=== PATIENT | female | born 1945 | race Caucasian/White ===

== ENCOUNTER 2017-09-23 13:51 | Observation (INO) | payer MEDICARE, OTHER, SELFPAY | END 2017-09-24 14:10 | disposition home or self-care (01) | PROVIDERS: Admitting Provider Orthopaedic Surgery; PCP Family Medicine; Visit Provider Orthopaedic Surgery | DX: M17.12 Unilateral primary osteoarthritis, left knee (principal); J45.909 Unspecified asthma, uncomplicated; E11.9 Type 2 diabetes mellitus without complications; E78.5 Hyperlipidemia, unspecified; I10 Essential (primary) hypertension; E66.9 Obesity, unspecified; Z79.84 Long term (current) use of oral hypoglycemic drugs; Z87.891 Personal history of nicotine dependence | CPT/HCPCS: 27447; 36415; 73560; 76942; 82962; 85027; 97110; 97116; 97161; 97530; C1776; G0378; G8978; G8979; G8980; C9290; J1100; J2250; J2405; J2704; J3010; J3370 ==

== ENCOUNTER → 2017-11-24 09:41 | Outpatient (CLI) | payer MEDICARE, OTHER, SELFPAY ==
--- NOTE | 2017-11-24 09:44 | DI.MG.S_ITS ---
UNILATERAL RIGHT DIGITAL DIAGNOSTIC MAMMOGRAM 3D/2D SHORT-TERM FOLLOW-UP: 11/24/2017 CLINICAL: Patient returns for a 6 month follow up of the right breast. Family history of breast cancer. Comparison is made to exams dated: 05/26/2017 mammogram, 05/16/2017 mammogram, and 09/01/2015 mammogram - [facility]. There are scattered fibroglandular elements in the right breast. There are linear fine punctate calcifications in the right breast central to the nipple middle depth. These are increased in number of calcifications. No other significant masses or calcifications are seen in the breast. IMPRESSION: SUSPICIOUS OF MALIGNANCY The linear fine punctate calcifications in the right breast are at a low suspicion for malignancy. A stereotactic biopsy is recommended. The findings were discussed with the patient at the conclusion of the study by Dr. Yanez. This exam was interpreted at Station ID: [id number]. NOTE: For mammograms, a report in lay terms will be sent to the patient. Approximately 15% of breast malignancies will not be visualized mammographically. In the management of a palpable breast mass, a negative mammogram must not discourage biopsy of a clinically suspicious lesion. Electronically Signed By: Herminio velarde/:11/24/2017 11:48:55 letter sent: Biopsy Required ACR BI-RADS Category 4a: Suspicious abnormality - low suspicion for malignancy 3344F
== END ==
PROVIDERS: PCP Family Medicine; Visit Provider Family Medicine
DX: R92.1 Mammographic calcification found on diagnostic imaging of breast (principal); Z80.3 Family history of malignant neoplasm of breast
CPT/HCPCS: 77065; G0279

== ENCOUNTER 2017-12-22 09:56 | Day surgery (SDC) | payer MEDICARE, OTHER, SELFPAY ==
[2017-12-19 11:42] VITALS: BMI 35.1
[2017-12-22 10:43] VITALS: BP 143/73; PULSE 93; RESP 15; TEMP 36.2; O2SAT 98; BMI 35.1
--- NOTE | 2017-12-22 11:05 | PM.PREOP ---
Pre-operative Note Interval Note Pre-op Check: History & Physical Reviewed by Physician and Exam Performed
--- NOTE | 2017-12-22 11:06 | P.OP_ITS ---
Operative Date/Time/Diagnoses Date of procedure: 12/22/17 Time of procedure: 13:05 Pre-op diagnosis: Left knee adhesions status post total knee arthroplasty Post-op diagnosis: same Procedure & Clinicians Procedure: Left knee manipulation under anesthesia Same procedure as scheduled: Yes Indications: Patient is status post total knee arthroplasty. She received no physical therapy for 6 weeks despite affected was scheduled for [facility] Physical therapy because she had a cold. She developed severe stiffness in her knee and is brought the operating room for manipulation under anesthesia. Surgeon: Jenna Cheatham Gis Software Engineer: Baljinder Castro Anesthesia Type: General Operative Notes Findings: Preop range of motion 10-80 degrees, post manipulation range of motion 5 to 120? Closure Type: not applicable Specimen(s): none sent Procedure in detail: Patient was brought to the operating room. She underwent a preoperative block for postoperative pain control. In the operating room she underwent general anesthesia. Her knee was carefully manipulated from about 5- 120 degrees a discrete release of adhesions was palpable. She was injected with Marcaine intra-articularly. She tolerated the procedure without difficulty. Complications: none Condition: stable Disposition: same day surgery Plan for aftercare: Push physical therapy to work hard on range of motion especially regain full flexion and full extension.
--- NOTE | 2017-12-22 12:19 | SUR.PREOP ---
Block start time [1204] . Monitoring initiated and maintained throughout procedure. Oxygen and medications given per anesthesiologist instructions. Patient remained stable throughout procedure, no adverse reactions noted. Block end time []1211 .
[2017-12-22] MEDS: LACTATED RINGERS 1,000 ML 42 ML IV (12:20)
--- NOTE | 2017-12-22 13:07 | P.PCN_ITS ---
Procedures Date/Time Date of procedure: 12/22/17 Time of procedure: 12:00 General Procedure description: Ultrasound guided adductor canal nerve block for post op pain control after left knee manipulation by Dr. Cheatham. Risk and benefits of procedure discussed with patient. ASA monitoring applied to patient. 02 given via nasal cannula. 1 mg Versed and 50 mcg fentanyl given for procedural sedation. Skin site was prepped with chlorhexidine and allowed to fully dry. Sterile gloves, mask, hat and probe cover were used to maintain sterility. 2% lidocaine and 30ga needle was used to make a small skin wheal at needle insertion site. Under ultrasound guidance, a 21ga 100mm Pajunk needle was directed into the adductor canal near femoral artery and saphenous nerve at the level of mid thigh. Patient reported no parasthesias. After negative aspiration , 20 mL 0.5% ropivicaine and 10mg dexamethasone were injected around saphenous nerve. Patient tolerated procedure well.
[2017-12-22 13:59] VITALS: BP 122/67; PULSE 87; RESP 19; TEMP 36.6; O2SAT 95
[2017-12-22 14:04] VITALS: BP 127/68; PULSE 85; RESP 23; O2SAT 94
[2017-12-22] MEDS: BUPIVACAINE 0.25% W/ EPI VIAL 20 ML INJ (14:04)
[2017-12-22 14:09] VITALS: BP 107/69; PULSE 82; RESP 24; TEMP 36.3; O2SAT 94
--- NOTE | 2017-12-22 14:13 | SUR.PHASEI ---
2 bandaids on operative side c/d/i.
[2017-12-22 14:27] VITALS: BP 144/70; PULSE 74; RESP 15; TEMP 36.3; O2SAT 98
--- NOTE | 2017-12-22 14:45 | SUR.PHASEII ---
Desires discharge home.
== END 2017-12-22 14:46 | disposition home or self-care (01) ==
PROVIDERS: Family Provider Family Medicine; PCP Family Medicine; Visit Provider Orthopaedic Surgery
PROC: (CPT 27570; principal; 2017-12-22 16:45)
DX: T84.89XA Other specified complication of internal orthopedic prosthetic devices, implants and grafts, initial encounter (principal); Z96.652 Presence of left artificial knee joint; M17.12 Unilateral primary osteoarthritis, left knee; M23.8X2 Other internal derangements of left knee
CPT/HCPCS: 27570; J1100; J2250; J2704; J2795; J3010

== ENCOUNTER → 2018-02-16 12:38 | Outpatient (CLI) | payer MEDICARE, OTHER, SELFPAY ==
[2018-02-16 13:32] LABS: Hemoglobin A1C% w Est Avg Glu 5.9 % (4.0-6.0)
== END ==
PROVIDERS: Family Provider Family Medicine; PCP Family Medicine; Visit Provider Family Medicine
DX: E11.9 Type 2 diabetes mellitus without complications (principal)
CPT/HCPCS: 36415; 83036

== ENCOUNTER 2018-03-23 12:30 | Outpatient (RCR) | payer MEDICARE, OTHER, SELFPAY ==
--- NOTE | 2017-11-11 15:23 | PT.OIE ---
Current Diagnoses Bilateral primary osteoarthritis of knee (11/10/17) Other symptoms and signs involving the musculoskeletal system (11/10/17) Other reduced mobility (11/10/17) Past Surgical History History of esophagogastroduodenoscopy (EGD) Status post arthroscopy Status post delivery Status post colonoscopy Status post dilation and curettage Provider Visit Care Team Role Provider Type Anabell Marti DO Family Provider Physician Primary Care Provider Specialty: Family Practice Address: [address] [place] [address], [id number] Email: [email or web address] Jenna Cheatham MD Attending Provider Physician Specialty: Orthopedic Surgery Address: [address] [place] [address], [id number] Email: [email or web address] Physical Therapy Initial Evaluation PT-OP-A Visit Information Start: 11/10/17 08:22 Freq: Status: Active Protocol: Document 11/10/17 13:35 LRN (Rec: 11/10/17 14:12 LRN [id number]) Out-Patient Physical Therapy Visit Information Visit Information Visit Type Initial Evaluation Visit Note 06/18 Visit Start Time 13:35 Visit Stop Time 14:55 Total Visit Minutes 80 Visit Number 1 Number of AVIONICS SYSTEMS TECHNICIAN Visits 0 Evaluation Information Evaluation Date 11/10/17 PT-OP-B Current Condition Start: 11/10/17 08:22 Freq: Status: Active Protocol: Document 11/10/17 13:35 LRN (Rec: 11/10/17 14:12 LRN [id number]) Current Condition History of Current Condition Onset Date 09/22/17 Current Complaints Lack of L knee mobility. History of Current Condition Pt underwent L TKA surgery (s/p 6 weeks today), had PT during 4 days in the hospital, then went home and got sick, therefore did not go to oupatient PT. She did therapy at home using the HEP given at the hospital until last week when seen for a follow up appointment with her surgeon. She is now being referred for 3 weeks outpatient L TKA rehabilitation to determine if she needs SAÚL. Pt has bilateral arthritis of the knees. She is planning on having a knee replacement on the other knee someday. Future Testing and Treatments Planned No other MD appointments set up currently. Treatment Goals Patient/Caregiver Goals Pt goal is to be able to move the L leg back further because if not better she will have to undergo a manipulation. Prior Functional Status Baseline Function- ADL's Independent Baseline Function- Mobility Independent Baseline Function- Gait Ambulated with a cane outside, sometimes 4WW with seat for long distances. Baseline Function- Other Stairs: One at a time with railing. Current Functional Impairments (Reported) Functional Limitations- ADL's Difficulty getting L shoe on, has medical [facility] sales on toilet. Daughter helps with cooking. Functional Limitations- Mobility/Gait Requires use of 2WW for gait intermittently. Personal Factors Other Personal Factors That May Effect Pt is attended with a daughter Therapy/Recovery to therapy today, but lives with another daughter who the pt feels doesn't help her too much. PT-OP-C Subjective Start: 11/10/17 08:22 Freq: Status: Active Protocol: Document 11/10/17 13:35 LRN (Rec: 11/11/17 15:21 LRN [id number]) Patient Questionnaires Lower Extremity Functional Scale LEFS Score 37 LEFS Impairment 40 to 59% Impaired (Score 32- 47) OP-PT Pain Assessment Pain Assessment Grid Paper Pain Assessment Grid Completed Yes Location Left Anterior Knee Intensity 3 Scale Used Numeric (1 - 10) Pain Aggravating Factors Activity Exercise PT-OP-E Functional Tests Start: 11/10/17 08:22 Freq: Status: Active Protocol: Document 11/10/17 13:35 LRN (Rec: 11/10/17 14:12 LRN [id number]) Functional Tests Timed Up and Go (TUG) Score 23 sec's Comments Uses hands to get up from chair. TUG Impairment Rating 100% Impaired (Score 20) PT-OP-F Manual Assessment Start: 11/10/17 08:22 Freq: Status: Active Protocol: Document 11/10/17 13:35 LRN (Rec: 11/10/17 14:12 LRN [id number]) Manual Assessments Soft Tissue Assessment Soft Tissue Mobility Assessment Decreased L knee scar mobility . Scar is well healed. Increased temperature at the knee joint with mild to moderate joint effusion. PT-OP-G Mobility & Gait Start: 11/10/17 08:22 Freq: Status: Active Protocol: Document 11/10/17 13:35 LRN (Rec: 11/10/17 14:12 LRN [id number]) OP Mobility Evaluation Transfers Sit to Stand Uses hands, holds leg in extended position. OP Gait Assessment Assistive Devices Assistive Device Front Wheeled Walker Orthotic/Prosthetic Devices or Brace: No Gait Deviations General Gait Pattern Antalgic Flexed Trunk Lateral Trunk Lean Narrow Based Gait Factors Limiting Gait Function Factors Limiting Gait Function Limited Range of Motion Pain Poor Balance Comments Gait Comments Notable L trunk lean with gait . Pt hold L knee straight. PT-OP-H Neuro Start: 11/10/17 08:22 Freq: Status: Active Protocol: Document 11/10/17 13:35 LRN (Rec: 11/10/17 14:12 LRN [id number]) Sensation Evaluation Location Details Left Anterior Knee Light Touch Impaired Deep Tendon Reflex & Clonus Assessment Deep Tendon Reflex Right Deep Tendon Reflex 2+ Normal Left Achilles Deep Tendon Reflex 0 Absent PT-OP-J Posture/Palpation/Skin Start: 11/10/17 08:22 Freq: Status: Active Protocol: Document 11/10/17 13:35 LRN (Rec: 11/10/17 14:12 LRN [id number]) Posture Evaluation Position Standing Head/C-Spine Posture Forward Head T-Spine Posture Increased Kyphosis Pelvis Posture Neutral Weight Distribution Weight Shifted Right Hip Posture (L) Flexed (R) Flexed Knee Posture (L) Excess Flexion Ankle/Foot Posture (R) Pronated PT-OP-K Range of Motion Start: 11/10/17 08:22 Freq: Status: Active Protocol: Document 11/10/17 13:35 LRN (Rec: 11/10/17 17:09 LRN [id number]) Knee Goniometric Range of Motion Knee Measured in Degrees Right Patient Position Supine Flexion Active (degrees) 109 Left Patient Position Supine Flexion Active (degrees) 60 Flexion Passive (degrees) 80 Knee ROM Limitations Comments Knee Extension: AROM: Supine: Left-lacks 15 deg's; Right- lacks 12 deg's Ankle and Foot Goniometric Range of Motion Ankle and Foot ROM Limitations ROM Limitations Soft Tissue Tightness Muscle Weakness Comments L Active ankle DF is 0 deg's R Active ankle DF is 3 deg's PT-OP-Q Treatments Start: 11/10/17 08:22 Freq: Status: Active Protocol: Document 11/10/17 13:35 LRN (Rec: 11/10/17 17:15 LRN [id number]) Therapeutic Exercises Supine Exercises 1 Supine Exercise Name Knee flexion Long hold stretch followed by active assistive flexion Side left Reps/Minutes 3x Comments Active Assistive & Passive stretch for 2-3' Self-Care/Home Management Treatment Education Caregiver Education Educated daughter in how to assist mother with knee flexion stretch. Discussed use of RICE method to reduce pt's edema in the knee. Other Education Education on use of K-tape for edema, but decided not appropriate for pt. Activities Self-Care/Home Management Activities I/S pt and DA in self care for edema management (RICE), self scar mobilization, stretch for knee flexion of long duration, small intensity. Discussed focus of PT is on improving ROM, secondary to strength/endurance. PT-OP-R Modalities Start: 11/10/17 08:22 Freq: Status: Active Protocol: Document 11/10/17 13:35 LRN (Rec: 11/10/17 17:16 LRN [id number]) Hot Pack/Cold Pack Treatment Cold Pack Location L knee in elevation Patient Position Supine Treatment Duration (minutes) 10 Patient Tolerance Good PT-OP-T Assessment and Plan Start: 11/10/17 08:22 Freq: Status: Active Protocol: Document 11/10/17 13:35 LRN (Rec: 11/10/17 17:34 LRN [id number]) Physical Therapy Assessment Rehab Potential Rehabilitation Potential Good Evaluation Complexity Number of Personal Factors/Comorbidities 1-2 Number of Body Systems Impaired 4 or More Clinical Presentation at Evaluation Evolving Impairments Impairments Edema Gait Posture ROM Soft Tissue Mobility Strength Other Concerns Barriers to Rehabilitation Age, NIDDM. Goals Three Impairment L knee edema Short Term Goal (STG) Pt will demonstrate decreased L knee edema with a decrease in L knee pain and improved function per TUG score. STG Duration 3 weeks (12/01/17) Two Impairment Lacks appropriate HEP Retirement Goal (LTG) Pt will be educated in a comprehensive independent HEP for self care. LTG Duration 8 weeks (01/05/18) One Impairment Decreased L knee AROM/PROM Short Term Goal (STG) Improve L knee AROM 0-95 deg's . Improve L knee PROM 0-105 deg' s. Pt to avoid L knee manipulation. STG Duration 3 weeks (12/01/17) Sole Rougher Goal (LTG) L knee AROM: 0-115 deg's L knee PROM: 0-120 deg's. Pt will be able to walk stairs with normal gait pattern using 1 railing. LTG Duration 8 weeks (01/05/18) Assessment Summary Assessment Pt presents with L knee decreased mobility, strength, and function, as well as increased edema and pain at the knee limiting mobility and function. The pt appears to have a fairly high pain tolerance, but has been very cautious with her home exercise program; therefore is quite limited in her knee mobility. She has fairly good strength in her available range and is able to ambulate without an assistive device, but demonstrating a very poor antalgic gait pattern. The pt will benefit from skilled physical therapy to improve her knee mobility and function as her edema decreases and her ROM/strength improves. I think the pt will be able to achieve a more functional ROM with hopes of avoiding surgical manipulation. If the pt is not able to gain appropriate level of mobility and undergoes manipulation it is recommended she return to therapy post manipulation at the very least 3x/week for her rehabilitation to start. Extra time taken for evaluation due to documentation limitations. Physical Therapy Plan Frequency and Duration Frequency of Treatment 2x/Week Duration of Treatment 3 weeks, test engineering technician 8 weeks if manipulation is required. Plan of Care Start Date 11/10/17 Plan of Care End Date 01/05/18 Therapeutic Interventions Therapeutic Interventions Aquatic Therapy Gait Training Home Exercise Program Manual Therapy Neuromuscular Re-education Patient/Caregiver Education Self-Care/Home Management Soft Tissue Mobilization Therapeutic Activities Therapeutic Exercises Modalities Cold Pack/Ice Massage Hot Packs Next Visit Focus/Plan Next Note Type Treatment Note Next Visit Plan Educate pt in LE Lymphedema ex program, if daughter is present educate her in s/p TKA lymph massage, otherwise instruct pt. Focus is on improving L knee ROM, decreasing edema. Please Sign and Return: I have reviewed this Plan of Care and certify that the skilled therapy services above are required to meet the patient?s needs. Physician Signature Date Printed Name and Credentials Clinical Instructor Signature Printed Name and Credentials
--- NOTE | 2017-11-11 15:27 | PT.OPPOC ---
Current Diagnoses Bilateral primary osteoarthritis of knee (11/10/17) Other symptoms and signs involving the musculoskeletal system (11/10/17) Other reduced mobility (11/10/17) Provider Visit Care Team Role Provider Type Anabell Marti DO Family Provider Physician Primary Care Provider Specialty: Family Practice Address: [address] [place] [address], [id number] Email: [email or web address] Jenna Cheatham MD Attending Provider Physician Specialty: Orthopedic Surgery Address: [address] [place] [address], [id number] Email: [email or web address] Plan Of Care PT-OP-T Assessment and Plan Start: 11/10/17 08:22 Freq: Status: Active Protocol: Document 11/10/17 13:35 LRN (Rec: 11/10/17 17:34 LRN [id number]) Physical Therapy Assessment Rehab Potential Rehabilitation Potential Good Evaluation Complexity Number of Personal Factors/Comorbidities 1-2 Number of Body Systems Impaired 4 or More Clinical Presentation at Evaluation Evolving Impairments Impairments Edema Gait Posture ROM Soft Tissue Mobility Strength Other Concerns Barriers to Rehabilitation Age, NIDDM. Goals Three Impairment L knee edema Short Term Goal (STG) Pt will demonstrate decreased L knee edema with a decrease in L knee pain and improved function per TUG score. STG Duration 3 weeks (12/01/17) Two Impairment Lacks appropriate HEP Regional Clinical Director Goal (LTG) Pt will be educated in a comprehensive independent HEP for self care. LTG Duration 8 weeks (01/05/18) One Impairment Decreased L knee AROM/PROM Short Term Goal (STG) Improve L knee AROM 0-95 deg's . Improve L knee PROM 0-105 deg' s. Pt to avoid L knee manipulation. STG Duration 3 weeks (12/01/17) Regional Clinical Director Goal (LTG) L knee AROM: 0-115 deg's L knee PROM: 0-120 deg's. Pt will be able to walk stairs with normal gait pattern using 1 railing. LTG Duration 8 weeks (01/05/18) Assessment Summary Assessment Pt presents with L knee decreased mobility, strength, and function, as well as increased edema and pain at the knee limiting mobility and function. The pt appears to have a fairly high pain tolerance, but has been very cautious with her home exercise program; therefore is quite limited in her knee mobility. She has fairly good strength in her available range and is able to ambulate without an assistive device, but demonstrating a very poor antalgic gait pattern. The pt will benefit from skilled physical therapy to improve her knee mobility and function as her edema decreases and her ROM/strength improves. I think the pt will be able to achieve a more functional ROM with hopes of avoiding surgical manipulation. If the pt is not able to gain appropriate level of mobility and undergoes manipulation it is recommended she return to therapy post manipulation at the very least 3x/week for her rehabilitation to start. Extra time taken for evaluation due to documentation limitations. Physical Therapy Plan Frequency and Duration Frequency of Treatment 2x/Week Duration of Treatment 3 weeks, rotary lithographic press operator 8 weeks if manipulation is required. Plan of Care Start Date 11/10/17 Plan of Care End Date 01/05/18 Therapeutic Interventions Therapeutic Interventions Aquatic Therapy Gait Training Home Exercise Program Manual Therapy Neuromuscular Re-education Patient/Caregiver Education Self-Care/Home Management Soft Tissue Mobilization Therapeutic Activities Therapeutic Exercises Modalities Cold Pack/Ice Massage Hot Packs Next Visit Focus/Plan Next Note Type Treatment Note Next Visit Plan Educate pt in LE Lymphedema ex program, if daughter is present educate her in s/p TKA lymph massage, otherwise instruct pt. Focus is on improving L knee ROM, decreasing edema. Plan of Care Dates Plan of Care Start Date 11/10/17 Plan of Care End Date 01/05/18 Please Sign and Return: I have reviewed this Plan of Care and certify that the skilled therapy services above are required to meet the patient?s needs. Physician Signature Date Printed Name and Credentials Clinical Instructor Signature Printed Name and Credentials
--- NOTE | 2017-11-14 14:54 | PT.OTN ---
Current Diagnoses Bilateral primary osteoarthritis of knee (11/14/17) Physical Therapy Treatment Note PT-OP-A Visit Information Start: 11/10/17 08:22 Freq: Status: Active Protocol: Document 11/14/17 13:42 LRN (Rec: 11/14/17 14:06 LRN [id number]) Out-Patient Physical Therapy Visit Information Visit Information Visit Type Discharge Summary Visit Note 07/19 Visit Start Time 13:42 Visit Stop Time 14:22 Total Visit Minutes 40 Visit Number 2 Number of ASSOCIATE SALES MANAGER Visits 0 Evaluation Information Evaluation Date 11/10/17 PT-OP-B Current Condition Start: 11/10/17 08:22 Freq: Status: Active Protocol: Document 11/10/17 13:35 LRN (Rec: 11/10/17 14:12 LRN [id number]) Current Condition History of Current Condition Onset Date 09/22/17 Current Complaints Lack of L knee mobility. History of Current Condition Pt underwent L TKA surgery (s/p 6 weeks today), had PT during 4 days in the hospital, then went home and got sick, therefore did not go to oupatient PT. She did therapy at home using the HEP given at the hospital until last week when seen for a follow up appointment with her surgeon. She is now being referred for 3 weeks outpatient L TKA rehabilitation to determine if she needs SAÚL. Pt has bilateral arthritis of the knees. She is planning on having a knee replacement on the other knee someday. Future Testing and Treatments Planned No other MD appointments set up currently. Treatment Goals Patient/Caregiver Goals Pt goal is to be able to move the L leg back further because if not better she will have to undergo a manipulation. Prior Functional Status Baseline Function- ADL's Independent Baseline Function- Mobility Independent Baseline Function- Gait Ambulated with a cane outside, sometimes 4WW with seat for long distances. Baseline Function- Other Stairs: One at a time with railing. Current Functional Impairments (Reported) Functional Limitations- ADL's Difficulty getting L shoe on, has cafeteria monitor on toilet. Daughter helps with cooking. Functional Limitations- Mobility/Gait Requires use of 2WW for gait intermittently. Personal Factors Other Personal Factors That May Effect Pt is attended with a daughter Therapy/Recovery to therapy today, but lives with another daughter who the pt feels doesn't help her too much. PT-OP-C Subjective Start: 11/10/17 08:22 Freq: Status: Active Protocol: Document 11/14/17 13:42 LRN (Rec: 11/14/17 14:06 LRN [id number]) OP-PT Subjective Patient Comments Patient Comments Has tried doing the ex's. Doing them on her own. PT-OP-E Functional Tests Start: 11/10/17 08:22 Freq: Status: Active Protocol: Document 11/10/17 13:35 LRN (Rec: 11/10/17 14:12 LRN [id number]) Functional Tests Timed Up and Go (TUG) Score 23 sec's Comments Uses hands to get up from chair. TUG Impairment Rating 100% Impaired (Score 20) PT-OP-F Manual Assessment Start: 11/10/17 08:22 Freq: Status: Active Protocol: Document 11/10/17 13:35 LRN (Rec: 11/10/17 14:12 LRN [id number]) Manual Assessments Soft Tissue Assessment Soft Tissue Mobility Assessment Decreased L knee scar mobility . Scar is well healed. Increased temperature at the knee joint with mild to moderate joint effusion. PT-OP-G Mobility & Gait Start: 11/10/17 08:22 Freq: Status: Active Protocol: Document 11/10/17 13:35 LRN (Rec: 11/10/17 14:12 LRN [id number]) OP Mobility Evaluation Transfers Sit to Stand Uses hands, holds leg in extended position. OP Gait Assessment Assistive Devices Assistive Device Front Wheeled Walker Orthotic/Prosthetic Devices or Brace: No Gait Deviations General Gait Pattern Antalgic Flexed Trunk Lateral Trunk Lean Narrow Based Gait Factors Limiting Gait Function Factors Limiting Gait Function Limited Range of Motion Pain Poor Balance Comments Gait Comments Notable L trunk lean with gait . Pt hold L knee straight. PT-OP-H Neuro Start: 11/10/17 08:22 Freq: Status: Active Protocol: Document 11/10/17 13:35 LRN (Rec: 11/10/17 14:12 LRN [id number]) Sensation Evaluation Location Details Left Anterior Knee Light Touch Impaired Deep Tendon Reflex & Clonus Assessment Deep Tendon Reflex Right Deep Tendon Reflex 2+ Normal Left Achilles Deep Tendon Reflex 0 Absent PT-OP-J Posture/Palpation/Skin Start: 11/10/17 08:22 Freq: Status: Active Protocol: Document 11/10/17 13:35 LRN (Rec: 11/10/17 14:12 LRN [id number]) Posture Evaluation Position Standing Head/C-Spine Posture Forward Head T-Spine Posture Increased Kyphosis Pelvis Posture Neutral Weight Distribution Weight Shifted Right Hip Posture (L) Flexed (R) Flexed Knee Posture (L) Excess Flexion Ankle/Foot Posture (R) Pronated PT-OP-K Range of Motion Start: 11/10/17 08:22 Freq: Status: Active Protocol: Document 11/14/17 13:42 LRN (Rec: 11/14/17 14:34 LRN [id number]) Knee Goniometric Range of Motion Knee Measured in Degrees Left Patient Position Supine Flexion Active (degrees) 72 Flexion Passive (degrees) 77 PT-OP-Q Treatments Start: 11/10/17 08:22 Freq: Status: Active Protocol: Document 11/14/17 13:42 LRN (Rec: 11/14/17 14:06 LRN [id number]) Cardio Equipment Recumbent Stepper (Sci-Fit) Duration (Minutes) 6 Resistance 1 Seat Position 10 Therapeutic Exercises Supine Exercises 4 Supine Exercise Name Knee 1' hang followed by 10 Quad Sets Reps/Minutes 3 x 3 Supine Exercise Name Self assisted heel slide stretch with Belt Reps/Minutes 10 x 2 Supine Exercise Name Active knee flexion with end- range hold with T-Ball Side left Reps/Minutes 15x 1 Supine Exercise Name Knee flexion Long hold stretch followed by active assistive flexion Side left Reps/Minutes 3x Comments Active Assistive & Passive stretch for 2-3' Sitting Exercises 1 Sitting Exercise Name Passive 1' knee flex stretch followed by 10 rep hamstring curl Side left Reps/Minutes 3 x Gait Training Gait Activity 1 Description L foot toe off, knee flexion > swing through. Device Used FWW Level of Assistance CGA>SBA Surface Level Distance/Duration 4' Comments Pt requires slow thoughtful processing to normalize mechanics of gait. Manual Therapy Treatment Soft Tissue Mobilization 1 Body Location Scar at L knee Mobilization Type Other Body Position Sitting Comments Scar Mob sitting and supine Self-Care/Home Management Treatment Activities Self-Care/Home Management Activities I/S and reviewed supine active knee flex (knee to chest-type ) stretch. PT-OP-R Modalities Start: 11/10/17 08:22 Freq: Status: Active Protocol: Document 11/14/17 13:42 LRN (Rec: 11/14/17 14:34 LRN [id number]) Hot Pack/Cold Pack Treatment Cold Pack Location At doctor's office Patient Position Sitting Treatment Duration (minutes) 0 Comments Issued one to go PT-OP-T Assessment and Plan Start: 11/10/17 08:22 Freq: Status: Active Protocol: Document 11/14/17 13:42 LRN (Rec: 11/14/17 14:34 LRN [id number]) Physical Therapy Assessment Goals Three Impairment L knee edema Short Term Goal (STG) Pt will demonstrate decreased L knee edema with a decrease in L knee pain and improved function per TUG score. STG Duration 3 weeks (12/01/17) Two Impairment Lacks appropriate HEP Snf Goal (LTG) Pt will be educated in a comprehensive independent HEP for self care. LTG Duration 8 weeks (01/05/18) One Impairment Decreased L knee AROM/PROM Short Term Goal (STG) Improve L knee AROM 0-95 deg's . Improve L knee PROM 0-105 deg' s. Pt to avoid L knee manipulation. STG Duration 3 weeks (12/01/17) Snf Goal (LTG) L knee AROM: 0-115 deg's L knee PROM: 0-120 deg's. Pt will be able to walk stairs with normal gait pattern using 1 railing. LTG Duration 8 weeks (01/05/18) Assessment Summary Assessment L knee Active Flex has improved to 70 deg's, post therapy. Pt scar is tightly bound down, severely decreased in mobility. Physical Therapy Plan Frequency and Duration Frequency of Treatment 2x/Week Duration of Treatment 3 weeks, ferry terminal agent 8 weeks if manipulation is required. Plan of Care Start Date 11/10/17 Plan of Care End Date 01/05/18 Next Visit Focus/Plan Next Note Type Treatment Note Next Visit Plan Start LE TKA Lymphedema ex routine. Maximally progress L knee ROM for pt to be able to avoid L knee manipulation in ~2 weeks. Please Sign and Return: I have reviewed this Plan of Care and certify that the skilled therapy services above are required to meet the patient?s needs. Physician Signature Date Printed Name and Credentials Clinical Instructor Signature Printed Name and Credentials
--- NOTE | 2017-11-18 17:51 | PT.OTN ---
Current Diagnoses Bilateral primary osteoarthritis of knee (11/18/17) Physical Therapy Treatment Note PT-OP-A Visit Information Start: 11/10/17 08:22 Freq: Status: Active Protocol: Document 11/18/17 12:00 GGD (Rec: 11/18/17 17:51 GGD [email or web address]) Out-Patient Physical Therapy Visit Information Visit Information Visit Type Treatment Note Visit Note 08/16 Visit Start Time 12:00 Visit Stop Time 12:50 Total Visit Minutes 40 Visit Number 3 Number of SEAMER OPERATOR Visits 1 Evaluation Information Evaluation Date 11/10/17 PT-OP-B Current Condition Start: 11/10/17 08:22 Freq: Status: Active Protocol: Document 11/10/17 13:35 LRN (Rec: 11/10/17 14:12 LRN [id number]) Current Condition History of Current Condition Onset Date 09/22/17 Current Complaints Lack of L knee mobility. History of Current Condition Pt underwent L TKA surgery (s/p 6 weeks today), had PT during 4 days in the hospital, then went home and got sick, therefore did not go to oupatient PT. She did therapy at home using the HEP given at the hospital until last week when seen for a follow up appointment with her surgeon. She is now being referred for 3 weeks outpatient L TKA rehabilitation to determine if she needs SAÚL. Pt has bilateral arthritis of the knees. She is planning on having a knee replacement on the other knee someday. Future Testing and Treatments Planned No other MD appointments set up currently. Treatment Goals Patient/Caregiver Goals Pt goal is to be able to move the L leg back further because if not better she will have to undergo a manipulation. Prior Functional Status Baseline Function- ADL's Independent Baseline Function- Mobility Independent Baseline Function- Gait Ambulated with a cane outside, sometimes 4WW with seat for long distances. Baseline Function- Other Stairs: One at a time with railing. Current Functional Impairments (Reported) Functional Limitations- ADL's Difficulty getting L shoe on, has fusing furnace loader on toilet. Daughter helps with cooking. Functional Limitations- Mobility/Gait Requires use of 2WW for gait intermittently. Personal Factors Other Personal Factors That May Effect Pt is attended with a daughter Therapy/Recovery to therapy today, but lives with another daughter who the pt feels doesn't help her too much. PT-OP-C Subjective Start: 11/10/17 08:22 Freq: Status: Active Protocol: Document 11/18/17 12:00 GGD (Rec: 11/18/17 17:51 GGD [email or web address]) OP-PT Subjective Patient Comments Patient Comments PT states she been trying to work on stretching. PT-OP-E Functional Tests Start: 11/10/17 08:22 Freq: Status: Active Protocol: Document 11/10/17 13:35 LRN (Rec: 11/10/17 14:12 LRN [id number]) Functional Tests Timed Up and Go (TUG) Score 23 sec's Comments Uses hands to get up from chair. TUG Impairment Rating 100% Impaired (Score 20) PT-OP-F Manual Assessment Start: 11/10/17 08:22 Freq: Status: Active Protocol: Document 11/10/17 13:35 LRN (Rec: 11/10/17 14:12 LRN [id number]) Manual Assessments Soft Tissue Assessment Soft Tissue Mobility Assessment Decreased L knee scar mobility . Scar is well healed. Increased temperature at the knee joint with mild to moderate joint effusion. PT-OP-K Range of Motion Start: 11/10/17 08:22 Freq: Status: Active Protocol: Document 11/18/17 12:00 GGD (Rec: 11/18/17 17:51 GGD [email or web address]) Knee Goniometric Range of Motion Knee Measured in Degrees Left Patient Position Supine Flexion Active (degrees) 80 PT-OP-Q Treatments Start: 11/10/17 08:22 Freq: Status: Active Protocol: Document 11/18/17 12:00 GGD (Rec: 11/18/17 17:51 GGD [email or web address]) Cardio Equipment Recumbent Stepper (Sci-Fit) Duration (Minutes) 6 Resistance 1 Seat Position 10 Therapeutic Exercises Supine Exercises 3 Supine Exercise Name Self assisted heel slide stretch with Belt Reps/Minutes 10 x 2 Supine Exercise Name Active knee flexion with end- range hold with T-Ball Side left Reps/Minutes 15x 1 Supine Exercise Name Knee flexion Long hold stretch followed by active assistive flexion Side left Reps/Minutes 3x Comments Active Assistive & Passive stretch for 2-3' Sitting Exercises 1 Sitting Exercise Name Passive 1' knee flex stretch followed by 10 rep hamstring curl Side left Reps/Minutes 3 x Gait Training Gait Activity 1 Description L foot toe off, knee flexion > swing through. Device Used FWW Level of Assistance CGA>SBA Surface Level Distance/Duration 4' Manual Therapy Treatment Soft Tissue Mobilization 1 Body Location Scar at L knee Mobilization Type Other Body Position Sitting Comments Scar Mob sitting and supine PT-OP-R Modalities Start: 11/10/17 08:22 Freq: Status: Active Protocol: Document 11/18/17 12:00 GGD (Rec: 11/18/17 17:51 GGD [email or web address]) Hot Pack/Cold Pack Treatment Cold Pack Location L knee in elevation Patient Position Supine Treatment Duration (minutes) 10 Patient Tolerance Good PT-OP-T Assessment and Plan Start: 11/10/17 08:22 Freq: Status: Active Protocol: Document 11/18/17 12:00 GGD (Rec: 11/18/17 17:51 GGD [email or web address]) Physical Therapy Assessment Assessment Summary Assessment Pt improved with knee flexion with treatment. She had slight increase in pain, but was able to tolerate exercise. Physical Therapy Plan Frequency and Duration Frequency of Treatment 2x/Week Duration of Treatment 3 weeks, jail 8 weeks if manipulation is required. Plan of Care Start Date 11/10/17 Plan of Care End Date 01/05/18 Next Visit Focus/Plan Next Note Type Treatment Note Next Visit Plan Maximally progress L knee ROM for pt to be able to avoid L knee manipulation in ~2 weeks.
--- NOTE | 2017-11-20 10:56 | PT.OTN ---
Current Diagnoses Bilateral primary osteoarthritis of knee (11/20/17) Physical Therapy Treatment Note PT-OP-A Visit Information Start: 11/10/17 08:22 Freq: Status: Active Protocol: Document 11/20/17 10:30 RCC (Rec: 11/20/17 10:56 RCC [email or web address]) Out-Patient Physical Therapy Visit Information Visit Information Visit Type Treatment Note Visit Note 09/16 Visit Start Time 09:45 Visit Stop Time 10:35 Total Visit Minutes 55 Visit Number 4 Number of AERONAUTICAL DRAFTER Visits 0 Evaluation Information Evaluation Date 11/10/17 PT-OP-B Current Condition Start: 11/10/17 08:22 Freq: Status: Active Protocol: Document 11/10/17 13:35 LRN (Rec: 11/10/17 14:12 LRN [id number]) Current Condition History of Current Condition Onset Date 09/22/17 Current Complaints Lack of L knee mobility. History of Current Condition Pt underwent L TKA surgery (s/p 6 weeks today), had PT during 4 days in the hospital, then went home and got sick, therefore did not go to oupatient PT. She did therapy at home using the HEP given at the hospital until last week when seen for a follow up appointment with her surgeon. She is now being referred for 3 weeks outpatient L TKA rehabilitation to determine if she needs SAÚL. Pt has bilateral arthritis of the knees. She is planning on having a knee replacement on the other knee someday. Future Testing and Treatments Planned No other MD appointments set up currently. Treatment Goals Patient/Caregiver Goals Pt goal is to be able to move the L leg back further because if not better she will have to undergo a manipulation. Prior Functional Status Baseline Function- ADL's Independent Baseline Function- Mobility Independent Baseline Function- Gait Ambulated with a cane outside, sometimes 4WW with seat for long distances. Baseline Function- Other Stairs: One at a time with railing. Current Functional Impairments (Reported) Functional Limitations- ADL's Difficulty getting L shoe on, has gas substation operator on toilet. Daughter helps with cooking. Functional Limitations- Mobility/Gait Requires use of 2WW for gait intermittently. Personal Factors Other Personal Factors That May Effect Pt is attended with a daughter Therapy/Recovery to therapy today, but lives with another daughter who the pt feels doesn't help her too much. PT-OP-C Subjective Start: 11/10/17 08:22 Freq: Status: Active Protocol: Document 11/20/17 10:30 RCC (Rec: 11/20/17 10:56 RCC [email or web address]) OP-PT Subjective Patient Comments Patient Comments Pt forgot to do her stretching activities yesteday and now states her knee feels very stiff today. PT-OP-E Functional Tests Start: 11/10/17 08:22 Freq: Status: Active Protocol: Document 11/10/17 13:35 LRN (Rec: 11/10/17 14:12 LRN [id number]) Functional Tests Timed Up and Go (TUG) Score 23 sec's Comments Uses hands to get up from chair. TUG Impairment Rating 100% Impaired (Score 20) PT-OP-F Manual Assessment Start: 11/10/17 08:22 Freq: Status: Active Protocol: Document 11/10/17 13:35 LRN (Rec: 11/10/17 14:12 LRN [id number]) Manual Assessments Soft Tissue Assessment Soft Tissue Mobility Assessment Decreased L knee scar mobility . Scar is well healed. Increased temperature at the knee joint with mild to moderate joint effusion. PT-OP-G Mobility & Gait Start: 11/10/17 08:22 Freq: Status: Active Protocol: Document 11/10/17 13:35 LRN (Rec: 11/10/17 14:12 LRN [id number]) OP Mobility Evaluation Transfers Sit to Stand Uses hands, holds leg in extended position. OP Gait Assessment Assistive Devices Assistive Device Front Wheeled Walker Orthotic/Prosthetic Devices or Brace: No Gait Deviations General Gait Pattern Antalgic Flexed Trunk Lateral Trunk Lean Narrow Based Gait Factors Limiting Gait Function Factors Limiting Gait Function Limited Range of Motion Pain Poor Balance Comments Gait Comments Notable L trunk lean with gait . Pt hold L knee straight. PT-OP-H Neuro Start: 11/10/17 08:22 Freq: Status: Active Protocol: Document 11/10/17 13:35 LRN (Rec: 11/10/17 14:12 LRN [id number]) Sensation Evaluation Location Details Left Anterior Knee Light Touch Impaired Deep Tendon Reflex & Clonus Assessment Deep Tendon Reflex Right Deep Tendon Reflex 2+ Normal Left Achilles Deep Tendon Reflex 0 Absent PT-OP-J Posture/Palpation/Skin Start: 11/10/17 08:22 Freq: Status: Active Protocol: Document 11/10/17 13:35 LRN (Rec: 11/10/17 14:12 LRN [id number]) Posture Evaluation Position Standing Head/C-Spine Posture Forward Head T-Spine Posture Increased Kyphosis Pelvis Posture Neutral Weight Distribution Weight Shifted Right Hip Posture (L) Flexed (R) Flexed Knee Posture (L) Excess Flexion Ankle/Foot Posture (R) Pronated PT-OP-K Range of Motion Start: 11/10/17 08:22 Freq: Status: Active Protocol: Document 11/20/17 10:30 RCC (Rec: 11/20/17 10:56 RCC [email or web address]) Knee Goniometric Range of Motion Knee Measured in Degrees Left Patient Position Supine Flexion Active (degrees) 81 Knee ROM Limitations Comments L knee AROM: 15 deg (lacks 15 deg of extension). Flexion to 92 degrees after thera ex and manual therapy. PT-OP-Q Treatments Start: 11/10/17 08:22 Freq: Status: Active Protocol: Document 11/20/17 10:30 RCC (Rec: 11/20/17 10:56 RCC [email or web address]) Cardio Equipment Recumbent Elliptical (Crowdery) Duration (Minutes) 8 Resistance 1 Seat Position 10-8 Gym Equipment Shuttle Recovery Bilateral Squats Details for ROM Resistance 12 Shuttle Recovery Platform Stable Reps/Time 1x15 Therapeutic Exercises Supine Exercises 4 Supine Exercise Name Knee 1' hang followed by 10 Quad Sets Reps/Minutes 3 x 3 Supine Exercise Name Self assisted heel slide stretch with Belt Reps/Minutes 10 x 2 Supine Exercise Name Active knee flexion with end- range hold with T-Ball Side left Reps/Minutes 15x 1 Supine Exercise Name Knee flexion Long hold stretch followed by active assistive flexion Side left Reps/Minutes 5x Comments Active Assistive & Passive stretch for 2-3' Gait Training Gait Activity 1 Description L foot toe off, knee flexion > swing through. Device Used FWW Level of Assistance SBA Surface Level Distance/Duration 5' Manual Therapy Treatment Soft Tissue Mobilization 1 Body Location Scar at L knee Mobilization Type Other Body Position Sitting Comments Scar Mob supine Joint Mobilizations 1 Joint PF Direction inferior Grade III Body Position Supine Reps/Duration 4' PT-OP-R Modalities Start: 11/10/17 08:22 Freq: Status: Active Protocol: Document 11/20/17 10:30 RCC (Rec: 11/20/17 10:56 RCC [email or web address]) Hot Pack/Cold Pack Treatment Cold Pack Location L knee in elevation Patient Position Supine Treatment Duration (minutes) 10 Patient Tolerance Good PT-OP-T Assessment and Plan Start: 11/10/17 08:22 Freq: Status: Active Protocol: Document 11/20/17 10:30 [facility] (Rec: 11/20/17 10:56 [facility] [email or web address]) Physical Therapy Assessment Assessment Summary Assessment Pt with 81 degrees of L knee flexion initially, increased to 92 degrees at end of session. Pt required cuing for gait training verbally, and requires increased time to perform activities due to pain and impaired mobility. Scar tissue still bound tightly. Physical Therapy Plan Frequency and Duration Frequency of Treatment 2x/Week Duration of Treatment 3 weeks, long-term 8 weeks if manipulation is required. Plan of Care Start Date 11/10/17 Plan of Care End Date 01/05/18 Next Visit Focus/Plan Next Note Type Treatment Note Next Visit Plan continue to progress knee ROM. PF and tibiofemoral joint mobilizations. Please Sign and Return: I have reviewed this Plan of Care and certify that the skilled therapy services above are required to meet the patient?s needs. Physician Signature Date Printed Name and Credentials Clinical Instructor Signature Printed Name and Credentials
--- NOTE | 2017-11-25 14:16 | PT.OTN ---
Current Diagnoses Bilateral primary osteoarthritis of knee (11/25/17) Physical Therapy Treatment Note PT-OP-A Visit Information Start: 11/10/17 08:22 Freq: Status: Active Protocol: Document 11/25/17 10:32 LRN (Rec: 11/25/17 10:45 LRN [id number]) Out-Patient Physical Therapy Visit Information Visit Information Visit Type Treatment Note Visit Note 10/16 Visit Start Time 10:32 Visit Stop Time 11:25 Total Visit Minutes 53 Visit Number 4 Number of HOBBING PRESS OPERATOR Visits 0 Evaluation Information Evaluation Date 11/10/17 PT-OP-B Current Condition Start: 11/10/17 08:22 Freq: Status: Active Protocol: Document 11/10/17 13:35 LRN (Rec: 11/10/17 14:12 LRN [id number]) Current Condition History of Current Condition Onset Date 09/22/17 Current Complaints Lack of L knee mobility. History of Current Condition Pt underwent L TKA surgery (s/p 6 weeks today), had PT during 4 days in the hospital, then went home and got sick, therefore did not go to oupatient PT. She did therapy at home using the HEP given at the hospital until last week when seen for a follow up appointment with her surgeon. She is now being referred for 3 weeks outpatient L TKA rehabilitation to determine if she needs SAÚL. Pt has bilateral arthritis of the knees. She is planning on having a knee replacement on the other knee someday. Future Testing and Treatments Planned No other MD appointments set up currently. Treatment Goals Patient/Caregiver Goals Pt goal is to be able to move the L leg back further because if not better she will have to undergo a manipulation. Prior Functional Status Baseline Function- ADL's Independent Baseline Function- Mobility Independent Baseline Function- Gait Ambulated with a cane outside, sometimes 4WW with seat for long distances. Baseline Function- Other Stairs: One at a time with railing. Current Functional Impairments (Reported) Functional Limitations- ADL's Difficulty getting L shoe on, has reinforcing steel worker on toilet. Daughter helps with cooking. Functional Limitations- Mobility/Gait Requires use of 2WW for gait intermittently. Personal Factors Other Personal Factors That May Effect Pt is attended with a daughter Therapy/Recovery to therapy today, but lives with another daughter who the pt feels doesn't help her too much. PT-OP-C Subjective Start: 11/10/17 08:22 Freq: Status: Active Protocol: Document 11/25/17 10:32 LRN (Rec: 11/25/17 10:45 LRN [id number]) OP-PT Subjective Patient Comments Patient Comments Doesn't ex late at night due to pain in bed. PT-OP-E Functional Tests Start: 11/10/17 08:22 Freq: Status: Active Protocol: Document 11/10/17 13:35 LRN (Rec: 11/10/17 14:12 LRN [id number]) Functional Tests Timed Up and Go (TUG) Score 23 sec's Comments Uses hands to get up from chair. TUG Impairment Rating 100% Impaired (Score 20) PT-OP-F Manual Assessment Start: 11/10/17 08:22 Freq: Status: Active Protocol: Document 11/10/17 13:35 LRN (Rec: 11/10/17 14:12 LRN [id number]) Manual Assessments Soft Tissue Assessment Soft Tissue Mobility Assessment Decreased L knee scar mobility . Scar is well healed. Increased temperature at the knee joint with mild to moderate joint effusion. PT-OP-G Mobility & Gait Start: 11/10/17 08:22 Freq: Status: Active Protocol: Document 11/10/17 13:35 LRN (Rec: 11/10/17 14:12 LRN [id number]) OP Mobility Evaluation Transfers Sit to Stand Uses hands, holds leg in extended position. OP Gait Assessment Assistive Devices Assistive Device Front Wheeled Walker Orthotic/Prosthetic Devices or Brace: No Gait Deviations General Gait Pattern Antalgic Flexed Trunk Lateral Trunk Lean Narrow Based Gait Factors Limiting Gait Function Factors Limiting Gait Function Limited Range of Motion Pain Poor Balance Comments Gait Comments Notable L trunk lean with gait . Pt hold L knee straight. PT-OP-H Neuro Start: 11/10/17 08:22 Freq: Status: Active Protocol: Document 11/10/17 13:35 LRN (Rec: 11/10/17 14:12 LRN [id number]) Sensation Evaluation Location Details Left Anterior Knee Light Touch Impaired Deep Tendon Reflex & Clonus Assessment Deep Tendon Reflex Right Deep Tendon Reflex 2+ Normal Left Achilles Deep Tendon Reflex 0 Absent PT-OP-J Posture/Palpation/Skin Start: 11/10/17 08:22 Freq: Status: Active Protocol: Document 11/10/17 13:35 LRN (Rec: 11/10/17 14:12 LRN [id number]) Posture Evaluation Position Standing Head/C-Spine Posture Forward Head T-Spine Posture Increased Kyphosis Pelvis Posture Neutral Weight Distribution Weight Shifted Right Hip Posture (L) Flexed (R) Flexed Knee Posture (L) Excess Flexion Ankle/Foot Posture (R) Pronated PT-OP-K Range of Motion Start: 11/10/17 08:22 Freq: Status: Active Protocol: Document 11/25/17 10:32 LRN (Rec: 11/25/17 10:45 LRN [id number]) Knee Goniometric Range of Motion Knee Measured in Degrees Left Patient Position Supine Flexion Active (degrees) 80 Flexion Passive (degrees) 82 PT-OP-Q Treatments Start: 11/10/17 08:22 Freq: Status: Active Protocol: Document 11/25/17 10:32 LRN (Rec: 11/25/17 10:45 LRN [id number]) Cardio Equipment Recumbent Elliptical ([place]) Duration (Minutes) 9 Resistance 1 Seat Position 6 Therapeutic Exercises Supine Exercises 3 Supine Exercise Name Self assisted heel slide stretch with Belt Reps/Minutes 10 x 2 Supine Exercise Name Active knee flexion with end- range hold with T-Ball Side left Reps/Minutes 15x 1 Supine Exercise Name Knee flexion Long hold stretch followed by active assistive flexion Side left Reps/Minutes 5x Comments Active Assistive & Passive stretch for 2-3' Sitting Exercises 1 Sitting Exercise Name Passive 1' knee flex stretch followed by 10 rep hamstring curl Side left Reps/Minutes 3 x Gait Training Gait Activity 1 Description Proper gait pattern Device Used FWW Level of Assistance CGA Surface Level Distance/Duration 25' Comments Standing, Weight shift, stepping, gait. PT-OP-R Modalities Start: 11/10/17 08:22 Freq: Status: Active Protocol: Document 11/25/17 10:32 LRN (Rec: 11/25/17 10:45 LRN [id number]) Hot Pack/Cold Pack Treatment Cold Pack Location L knee in elevation Patient Position Supine Treatment Duration (minutes) 10 Patient Tolerance Good PT-OP-T Assessment and Plan Start: 11/10/17 08:22 Freq: Status: Active Protocol: Document 11/25/17 10:32 LRN (Rec: 11/25/17 10:45 [facility] [id number]) Physical Therapy Assessment Goals Three Impairment L knee edema Short Term Goal (STG) Pt will demonstrate decreased L knee edema with a decrease in L knee pain and improved function per TUG score. STG Duration 3 weeks (12/01/17) Two Impairment Lacks appropriate HEP Fdc Goal (LTG) Pt will be educated in a comprehensive independent HEP for self care. LTG Duration 8 weeks (01/05/18) One Impairment Decreased L knee AROM/PROM Short Term Goal (STG) Improve L knee AROM 0-95 deg's . Improve L knee PROM 0-105 deg' s. Pt to avoid L knee manipulation. STG Duration 3 weeks (12/01/17) Fdc Goal (LTG) L knee AROM: 0-115 deg's L knee PROM: 0-120 deg's. Pt will be able to walk stairs with normal gait pattern using 1 railing. LTG Duration 8 weeks (01/05/18) Assessment Summary Assessment Pt appeared to have improved gait mechanics after training but further training is needed . No significant change in L knee flexion ROM. Physical Therapy Plan Frequency and Duration Frequency of Treatment 2x/Week Duration of Treatment 3 weeks, snf 8 weeks if manipulation is required. Plan of Care Start Date 11/10/17 Plan of Care End Date 01/05/18 Next Visit Focus/Plan Next Note Type Treatment Note Next Visit Plan Check PF & Tibiofemoral joint for mobilization. Maximally progress L knee ROM for pt to be able to avoid L knee manipulation in ~1 weeks.
--- NOTE | 2017-11-27 12:10 | PT.OTN ---
Current Diagnoses Bilateral primary osteoarthritis of knee (11/27/17) Physical Therapy Treatment Note PT-OP-A Visit Information Start: 11/10/17 08:22 Freq: Status: Active Protocol: Document 11/27/17 12:10 RCC (Rec: 11/27/17 14:57 RCC [email or web address]) Out-Patient Physical Therapy Visit Information Visit Information Visit Type Treatment Note Visit Note Pt reports she is having a breast biopsy on 12/03/2017 due to findings from a recent mammogram. Visit Start Time 11:15 Visit Stop Time 12:10 Total Visit Minutes 55 Visit Number 5 Number of ACETYLENE TORCH BURNER Visits 0 Evaluation Information Evaluation Date 11/10/17 PT-OP-B Current Condition Start: 11/10/17 08:22 Freq: Status: Active Protocol: Document 11/27/17 12:10 RCC (Rec: 11/27/17 14:57 RCC [email or web address]) Current Condition Personal Factors Other Personal Factors That May Effect Pt reports she is having a Therapy/Recovery breast biopsy on 12/03/2017 due to findings from a recent mammogram. PT-OP-C Subjective Start: 11/10/17 08:22 Freq: Status: Active Protocol: Document 11/27/17 12:10 RCC (Rec: 11/27/17 14:57 RCC [email or web address]) OP-PT Subjective Patient Comments Patient Comments Pt reports she is having a breast biopsy on 12/03/2017 due to findings from a recent mammogram. She did not work hard on her exercises yesterday due to this news. PT-OP-E Functional Tests Start: 11/10/17 08:22 Freq: Status: Active Protocol: Document 11/10/17 13:35 LRN (Rec: 11/10/17 14:12 LRN [id number]) Functional Tests Timed Up and Go (TUG) Score 23 sec's Comments Uses hands to get up from chair. TUG Impairment Rating 100% Impaired (Score 20) PT-OP-F Manual Assessment Start: 11/10/17 08:22 Freq: Status: Active Protocol: Document 11/10/17 13:35 LRN (Rec: 11/10/17 14:12 LRN [id number]) Manual Assessments Soft Tissue Assessment Soft Tissue Mobility Assessment Decreased L knee scar mobility . Scar is well healed. Increased temperature at the knee joint with mild to moderate joint effusion. PT-OP-G Mobility & Gait Start: 11/10/17 08:22 Freq: Status: Active Protocol: Document 11/10/17 13:35 LRN (Rec: 11/10/17 14:12 LRN [id number]) OP Mobility Evaluation Transfers Sit to Stand Uses hands, holds leg in extended position. OP Gait Assessment Assistive Devices Assistive Device Front Wheeled Walker Orthotic/Prosthetic Devices or Brace: No Gait Deviations General Gait Pattern Antalgic Flexed Trunk Lateral Trunk Lean Narrow Based Gait Factors Limiting Gait Function Factors Limiting Gait Function Limited Range of Motion Pain Poor Balance Comments Gait Comments Notable L trunk lean with gait . Pt hold L knee straight. PT-OP-H Neuro Start: 11/10/17 08:22 Freq: Status: Active Protocol: Document 11/10/17 13:35 LRN (Rec: 11/10/17 14:12 LRN [id number]) Sensation Evaluation Location Details Left Anterior Knee Light Touch Impaired Deep Tendon Reflex & Clonus Assessment Deep Tendon Reflex Right Deep Tendon Reflex 2+ Normal Left Achilles Deep Tendon Reflex 0 Absent PT-OP-J Posture/Palpation/Skin Start: 11/10/17 08:22 Freq: Status: Active Protocol: Document 11/10/17 13:35 LRN (Rec: 11/10/17 14:12 LRN [id number]) Posture Evaluation Position Standing Head/C-Spine Posture Forward Head T-Spine Posture Increased Kyphosis Pelvis Posture Neutral Weight Distribution Weight Shifted Right Hip Posture (L) Flexed (R) Flexed Knee Posture (L) Excess Flexion Ankle/Foot Posture (R) Pronated PT-OP-K Range of Motion Start: 11/10/17 08:22 Freq: Status: Active Protocol: Document 11/27/17 12:10 RCC (Rec: 11/27/17 14:57 RCC [email or web address]) Knee Goniometric Range of Motion Knee Measured in Degrees Left Knee ROM WFL No Patient Position Supine Flexion Active (degrees) 89 Flexion Passive (degrees) 95 Extension Active (degrees) 14 Extension Passive (degrees) 12 PT-OP-Q Treatments Start: 11/10/17 08:22 Freq: Status: Active Protocol: Document 11/27/17 12:10 RCC (Rec: 11/27/17 14:57 RCC [email or web address]) Cardio Equipment Recumbent Elliptical (Best [employer] Reviewed) Duration (Minutes) 9 Resistance 1 Seat Position 6 Therapeutic Exercises Supine Exercises 1 Supine Exercise Name Knee flexion Long hold stretch followed by active assistive flexion Side left Reps/Minutes 5x Comments Active Assistive & Passive stretch for 2-3' Gait Training Gait Activity 1 Description L foot toe off, knee flexion > swing through. Device Used FWW Level of Assistance SBA Surface Level Distance/Duration 5' Comments weight shifting (verbal cuing) Manual Therapy Treatment Soft Tissue Mobilization 1 Body Location Scar at L knee Mobilization Type Other Body Position Sitting Comments Scar Mob supine. 10' Joint Mobilizations 2 Joint Tibiofemoral joint Direction AP Grade IV Body Position Supine Reps/Duration 8' 1 Joint PF Direction inferior Grade III Body Position Supine Reps/Duration 8' Comments L knee Other Other Manual Treatments 4' L knee ROM measurements. PT-OP-R Modalities Start: 11/10/17 08:22 Freq: Status: Active Protocol: Document 11/27/17 12:10 RCC (Rec: 11/27/17 14:57 RCC [email or web address]) Hot Pack/Cold Pack Treatment Cold Pack Location L knee in elevation Patient Position Supine Treatment Duration (minutes) 10 Patient Tolerance Good PT-OP-T Assessment and Plan Start: 11/10/17 08:22 Freq: Status: Active Protocol: Document 11/27/17 12:10 RCC (Rec: 11/27/17 14:57 RCC [email or web address]) Physical Therapy Assessment Progress Towards Goals Progress Towards Goals Slow Progress - Other Assessment Summary Assessment Pt's AROM of the L knee 14-89 degrees and 12-95 degrees passively. Pt is making very slight, but slow progress over the past month with physical therapy. Her condition has been complicated, as she was ill for several weeks post-TKA and unable to attend any physical therapy until November 10, 2017 (6 weeks post TKA). Also , pt with recent news of needing a biopsy after results found earlier this week in a mammogram, which appears to have affected the pt's compliance with HEP. Over the past 3 weeks, pt's AROM has improved slightly, but still significantly limited. Physical Therapy Plan Next Visit Focus/Plan Next Note Type Treatment Note Next Visit Plan continue to progress L knee ROM as tolerated (may need manipulation /p MD reads progress note sent 11/27/17)
--- NOTE | 2017-11-27 12:10 | PT.OTN ---
Current Diagnoses Bilateral primary osteoarthritis of knee (11/27/17) Physical Therapy Treatment Note PT-OP-A Visit Information Start: 11/10/17 08:22 Freq: Status: Active Protocol: Document 11/27/17 12:10 RCC (Rec: 11/27/17 14:57 RCC [email or web address]) Out-Patient Physical Therapy Visit Information Visit Information Visit Type Treatment Note Visit Note Pt reports she is having a breast biopsy on 12/03/2017 due to findings from a recent mammogram. Visit Start Time 11:15 Visit Stop Time 12:10 Total Visit Minutes 55 Visit Number 5 Number of OIL AND GAS LEASE PUMPER Visits 0 Evaluation Information Evaluation Date 11/10/17 PT-OP-B Current Condition Start: 11/10/17 08:22 Freq: Status: Active Protocol: Document 11/27/17 12:10 RCC (Rec: 11/27/17 14:57 RCC [email or web address]) Current Condition Personal Factors Other Personal Factors That May Effect Pt reports she is having a Therapy/Recovery breast biopsy on 12/03/2017 due to findings from a recent mammogram. PT-OP-C Subjective Start: 11/10/17 08:22 Freq: Status: Active Protocol: Document 11/27/17 12:10 RCC (Rec: 11/27/17 14:57 RCC [email or web address]) OP-PT Subjective Patient Comments Patient Comments Pt reports she is having a breast biopsy on 12/03/2017 due to findings from a recent mammogram. She did not work hard on her exercises yesterday due to this news. PT-OP-E Functional Tests Start: 11/10/17 08:22 Freq: Status: Active Protocol: Document 11/10/17 13:35 LRN (Rec: 11/10/17 14:12 LRN [id number]) Functional Tests Timed Up and Go (TUG) Score 23 sec's Comments Uses hands to get up from chair. TUG Impairment Rating 100% Impaired (Score 20) PT-OP-F Manual Assessment Start: 11/10/17 08:22 Freq: Status: Active Protocol: Document 11/10/17 13:35 LRN (Rec: 11/10/17 14:12 LRN [id number]) Manual Assessments Soft Tissue Assessment Soft Tissue Mobility Assessment Decreased L knee scar mobility . Scar is well healed. Increased temperature at the knee joint with mild to moderate joint effusion. PT-OP-G Mobility & Gait Start: 11/10/17 08:22 Freq: Status: Active Protocol: Document 11/10/17 13:35 LRN (Rec: 11/10/17 14:12 LRN [id number]) OP Mobility Evaluation Transfers Sit to Stand Uses hands, holds leg in extended position. OP Gait Assessment Assistive Devices Assistive Device Front Wheeled Walker Orthotic/Prosthetic Devices or Brace: No Gait Deviations General Gait Pattern Antalgic Flexed Trunk Lateral Trunk Lean Narrow Based Gait Factors Limiting Gait Function Factors Limiting Gait Function Limited Range of Motion Pain Poor Balance Comments Gait Comments Notable L trunk lean with gait . Pt hold L knee straight. PT-OP-H Neuro Start: 11/10/17 08:22 Freq: Status: Active Protocol: Document 11/10/17 13:35 LRN (Rec: 11/10/17 14:12 LRN [id number]) Sensation Evaluation Location Details Left Anterior Knee Light Touch Impaired Deep Tendon Reflex & Clonus Assessment Deep Tendon Reflex Right Deep Tendon Reflex 2+ Normal Left Achilles Deep Tendon Reflex 0 Absent PT-OP-J Posture/Palpation/Skin Start: 11/10/17 08:22 Freq: Status: Active Protocol: Document 11/10/17 13:35 LRN (Rec: 11/10/17 14:12 LRN [id number]) Posture Evaluation Position Standing Head/C-Spine Posture Forward Head T-Spine Posture Increased Kyphosis Pelvis Posture Neutral Weight Distribution Weight Shifted Right Hip Posture (L) Flexed (R) Flexed Knee Posture (L) Excess Flexion Ankle/Foot Posture (R) Pronated PT-OP-K Range of Motion Start: 11/10/17 08:22 Freq: Status: Active Protocol: Document 11/27/17 12:10 RCC (Rec: 11/27/17 14:57 RCC [email or web address]) Knee Goniometric Range of Motion Knee Measured in Degrees Left Knee ROM WFL No Patient Position Supine Flexion Active (degrees) 89 Flexion Passive (degrees) 95 Extension Active (degrees) 14 Extension Passive (degrees) 12 PT-OP-Q Treatments Start: 11/10/17 08:22 Freq: Status: Active Protocol: Document 11/27/17 12:10 RCC (Rec: 11/27/17 14:57 RCC [email or web address]) Cardio Equipment Recumbent Elliptical ([employer]) Duration (Minutes) 9 Resistance 1 Seat Position 6 Therapeutic Exercises Supine Exercises 1 Supine Exercise Name Knee flexion Long hold stretch followed by active assistive flexion Side left Reps/Minutes 5x Comments Active Assistive & Passive stretch for 2-3' Gait Training Gait Activity 1 Description L foot toe off, knee flexion > swing through. Device Used FWW Level of Assistance SBA Surface Level Distance/Duration 5' Comments weight shifting (verbal cuing) Manual Therapy Treatment Soft Tissue Mobilization 1 Body Location Scar at L knee Mobilization Type Other Body Position Sitting Comments Scar Mob supine. 10' Joint Mobilizations 2 Joint Tibiofemoral joint Direction AP Grade IV Body Position Supine Reps/Duration 8' 1 Joint PF Direction inferior Grade III Body Position Supine Reps/Duration 8' Comments L knee Other Other Manual Treatments 4' L knee ROM measurements. PT-OP-R Modalities Start: 11/10/17 08:22 Freq: Status: Active Protocol: Document 11/27/17 12:10 RCC (Rec: 11/27/17 14:57 RCC [email or web address]) Hot Pack/Cold Pack Treatment Cold Pack Location L knee in elevation Patient Position Supine Treatment Duration (minutes) 10 Patient Tolerance Good PT-OP-T Assessment and Plan Start: 11/10/17 08:22 Freq: Status: Active Protocol: Document 11/27/17 12:10 RCC (Rec: 11/27/17 14:57 RCC [email or web address]) Physical Therapy Assessment Progress Towards Goals Progress Towards Goals Slow Progress - Other Assessment Summary Assessment Pt's AROM of the L knee 14-89 degrees and 12-95 degrees passively. Pt is making very slight, but slow progress over the past month with physical therapy. Her condition has been complicated, as she was ill for several weeks post-TKA and unable to attend any physical therapy until November 10, 2017 (6 weeks post TKA). Also , pt with recent news of needing a biopsy after results found earlier this week in a mammogram, which appears to have affected the pt's compliance with HEP. Over the past 3 weeks, pt's AROM has improved slightly, but still significantly limited. Physical Therapy Plan Next Visit Focus/Plan Next Note Type Treatment Note Next Visit Plan continue to progress L knee ROM as tolerated (may need manipulation /p MD reads progress note sent 11/27/17)
--- NOTE | 2017-12-01 14:38 | PT.OTN ---
Current Diagnoses Bilateral primary osteoarthritis of knee (12/01/17) Physical Therapy Treatment Note PT-OP-A Visit Information Start: 11/10/17 08:22 Freq: Status: Active Protocol: Document 12/01/17 13:35 LRN (Rec: 12/01/17 14:17 LRN [id number]) Out-Patient Physical Therapy Visit Information Visit Information Visit Type Treatment Note Visit Note 12/16 Visit Start Time 13:35 Visit Stop Time 14:25 Total Visit Minutes 50 Visit Number 6 Number of UNDERWRITING CLERK Visits 0 Evaluation Information Evaluation Date 11/10/17 PT-OP-B Current Condition Start: 11/10/17 08:22 Freq: Status: Active Protocol: Document 11/27/17 12:10 RCC (Rec: 11/27/17 14:57 RCC [email or web address]) Current Condition Personal Factors Other Personal Factors That May Effect Pt reports she is having a Therapy/Recovery breast biopsy on 12/03/2017 due to findings from a recent mammogram. PT-OP-C Subjective Start: 11/10/17 08:22 Freq: Status: Active Protocol: Document 12/01/17 13:35 LRN (Rec: 12/01/17 14:17 LRN [id number]) OP-PT Subjective Patient Comments Patient Comments States she is doing as much as she can do. PT-OP-E Functional Tests Start: 11/10/17 08:22 Freq: Status: Active Protocol: Document 11/10/17 13:35 LRN (Rec: 11/10/17 14:12 LRN [id number]) Functional Tests Timed Up and Go (TUG) Score 23 sec's Comments Uses hands to get up from chair. TUG Impairment Rating 100% Impaired (Score 20) PT-OP-F Manual Assessment Start: 11/10/17 08:22 Freq: Status: Active Protocol: Document 11/10/17 13:35 LRN (Rec: 11/10/17 14:12 LRN [id number]) Manual Assessments Soft Tissue Assessment Soft Tissue Mobility Assessment Decreased L knee scar mobility . Scar is well healed. Increased temperature at the knee joint with mild to moderate joint effusion. PT-OP-G Mobility & Gait Start: 11/10/17 08:22 Freq: Status: Active Protocol: Document 11/10/17 13:35 LRN (Rec: 06/04/18 14:12 LRN [id number]) OP Mobility Evaluation Transfers Sit to Stand Uses hands, holds leg in extended position. OP Gait Assessment Assistive Devices Assistive Device Front Wheeled Walker Orthotic/Prosthetic Devices or Brace: No Gait Deviations General Gait Pattern Antalgic Flexed Trunk Lateral Trunk Lean Narrow Based Gait Factors Limiting Gait Function Factors Limiting Gait Function Limited Range of Motion Pain Poor Balance Comments Gait Comments Notable L trunk lean with gait . Pt hold L knee straight. PT-OP-H Neuro Start: 11/10/17 08:22 Freq: Status: Active Protocol: Document 11/10/17 13:35 LRN (Rec: 11/10/17 14:12 LRN [id number]) Sensation Evaluation Location Details Left Anterior Knee Light Touch Impaired Deep Tendon Reflex & Clonus Assessment Deep Tendon Reflex Right Deep Tendon Reflex 2+ Normal Left Achilles Deep Tendon Reflex 0 Absent PT-OP-J Posture/Palpation/Skin Start: 11/10/17 08:22 Freq: Status: Active Protocol: Document 11/10/17 13:35 LRN (Rec: 11/10/17 14:12 LRN [id number]) Posture Evaluation Position Standing Head/C-Spine Posture Forward Head T-Spine Posture Increased Kyphosis Pelvis Posture Neutral Weight Distribution Weight Shifted Right Hip Posture (L) Flexed (R) Flexed Knee Posture (L) Excess Flexion Ankle/Foot Posture (R) Pronated PT-OP-K Range of Motion Start: 11/10/17 08:22 Freq: Status: Active Protocol: Document 12/01/17 13:35 LRN (Rec: 12/01/17 14:17 LRN [id number]) Knee Goniometric Range of Motion Knee Measured in Degrees Left Patient Position Supine Flexion Active (degrees) 79 Flexion Passive (degrees) 80 Knee ROM Limitations Comments Sitting on recumbent bike: knee flexion is 78 degs. Extension lag of 12 deg's. PT-OP-Q Treatments Start: 11/10/17 08:22 Freq: Status: Active Protocol: Document 12/01/17 13:35 LRN (Rec: 12/01/17 14:17 LRN [id number]) Cardio Equipment Bicycle (Upright) Duration (Minutes) 8 Resistance 0 Seat Position 5 Gym Equipment Shuttle Recovery Bilateral Squats Details for ROM Resistance 50 Shuttle Recovery Platform Stable Reps/Time 1x15 Therapeutic Exercises Supine Exercises 3 Supine Exercise Name Self assisted heel slide stretch with Belt Reps/Minutes 15 x 2 Supine Exercise Name Active knee flexion with end- range hold with T-Ball Side left Reps/Minutes 15x 1 Supine Exercise Name Knee flexion Long hold stretch followed by active assistive flexion Side left Reps/Minutes 10x Comments Active Assistive & Passive stretch for 2-3' Sitting Exercises 1 Sitting Exercise Name Passive 1' knee flex stretch followed by 10 rep hamstring curl Side left Reps/Minutes 3 x Manual Therapy Treatment Soft Tissue Mobilization 1 Body Location Scar & surrounding tissues at L knee Mobilization Type Other Body Position Supine Other Other Manual Treatments 4' L knee ROM measurements. PT-OP-R Modalities Start: 11/10/17 08:22 Freq: Status: Active Protocol: Document 12/01/17 13:35 LRN (Rec: 12/01/17 14:17 LRN [id number]) Hot Pack/Cold Pack Treatment Cold Pack Location L knee in elevation Patient Position Supine Treatment Duration (minutes) 10 Patient Tolerance Good PT-OP-T Assessment and Plan Start: 11/10/17 08:22 Freq: Status: Active Protocol: Document 12/01/17 13:35 LRN (Rec: 12/01/17 14:17 LRN [id number]) Physical Therapy Assessment Progress Towards Goals Progress Towards Goals Slow Progress - Other Assessment Summary Assessment Pt's L knee PROM: lacking 12 deg's to 80 deg;s. Very slow progress. Recent news of needing a biopsy after results found earlier this week in a mammogram, which appears to have affected the pt's compliance with HEP. Over the past 3 weeks, pt's AROM has improved slightly, but still significantly limited. Physical Therapy Plan Frequency and Duration Frequency of Treatment 2x/Week Duration of Treatment 3 weeks, intermediate project manager 8 weeks if manipulation is required. Plan of Care Start Date 11/10/17 Plan of Care End Date 01/05/18 Next Visit Focus/Plan Next Note Type Treatment Note Next Visit Plan Progress L knee ROM as tolerated (may need manipulation /p MD reads progress note sent 11/27/17)
--- NOTE | 2017-12-04 15:06 | PT.OTN ---
Current Diagnoses Bilateral primary osteoarthritis of knee (12/04/17) Physical Therapy Treatment Note PT-OP-A Visit Information Start: 11/10/17 08:22 Freq: Status: Active Protocol: Document 12/04/17 13:35 LRN (Rec: 12/04/17 14:38 LRN [id number]) Out-Patient Physical Therapy Visit Information Visit Information Visit Type Progress Note Visit Note 01/16 Visit Start Time 13:35 Visit Stop Time 14:25 Total Visit Minutes 50 Visit Number 8 Number of WIND DEVELOPMENT DIRECTOR Visits 0 Evaluation Information Evaluation Date 11/10/17 PT-OP-B Current Condition Start: 11/10/17 08:22 Freq: Status: Active Protocol: Document 11/27/17 12:10 RCC (Rec: 11/27/17 14:57 RCC [id number]) Current Condition Personal Factors Other Personal Factors That May Effect Pt reports she is having a Therapy/Recovery breast biopsy on 12/03/2017 due to findings from a recent mammogram. PT-OP-C Subjective Start: 11/10/17 08:22 Freq: Status: Active Protocol: Document 12/04/17 13:35 LRN (Rec: 12/04/17 14:38 LRN [id number]) OP-PT Subjective Patient Comments Patient Comments States result of skin biopsy was benign. Pt states she has been doing a lot of walking since having the biopsy. Patient Questionnaires Lower Extremity Functional Scale LEFS Score 37 LEFS Impairment 40 to 59% Impaired (Score 32- 47) PT-OP-E Functional Tests Start: 11/10/17 08:22 Freq: Status: Active Protocol: Document 11/10/17 13:35 LRN (Rec: 11/10/17 14:12 LRN [id number]) Functional Tests Timed Up and Go (TUG) Score 23 sec's Comments Uses hands to get up from chair. TUG Impairment Rating 100% Impaired (Score 20) PT-OP-F Manual Assessment Start: 11/10/17 08:22 Freq: Status: Active Protocol: Document 11/10/17 13:35 LRN (Rec: 11/10/17 14:12 LRN [id number]) Manual Assessments Soft Tissue Assessment Soft Tissue Mobility Assessment Decreased L knee scar mobility . Scar is well healed. Increased temperature at the knee joint with mild to moderate joint effusion. PT-OP-G Mobility & Gait Start: 11/10/17 08:22 Freq: Status: Active Protocol: Document 11/10/17 13:35 LRN (Rec: 11/10/17 14:12 LRN [id number]) OP Mobility Evaluation Transfers Sit to Stand Uses hands, holds leg in extended position. OP Gait Assessment Assistive Devices Assistive Device Front Wheeled Walker Orthotic/Prosthetic Devices or Brace: No Gait Deviations General Gait Pattern Antalgic Flexed Trunk Lateral Trunk Lean Narrow Based Gait Factors Limiting Gait Function Factors Limiting Gait Function Limited Range of Motion Pain Poor Balance Comments Gait Comments Notable L trunk lean with gait . Pt hold L knee straight. PT-OP-H Neuro Start: 11/10/17 08:22 Freq: Status: Active Protocol: Document 11/10/17 13:35 LRN (Rec: 11/10/17 14:12 LRN [id number]) Sensation Evaluation Location Details Left Anterior Knee Light Touch Impaired Deep Tendon Reflex & Clonus Assessment Deep Tendon Reflex Right Deep Tendon Reflex 2+ Normal Left Achilles Deep Tendon Reflex 0 Absent PT-OP-J Posture/Palpation/Skin Start: 11/10/17 08:22 Freq: Status: Active Protocol: Document 11/10/17 13:35 LRN (Rec: 11/10/17 14:12 LRN [id number]) Posture Evaluation Position Standing Head/C-Spine Posture Forward Head T-Spine Posture Increased Kyphosis Pelvis Posture Neutral Weight Distribution Weight Shifted Right Hip Posture (L) Flexed (R) Flexed Knee Posture (L) Excess Flexion Ankle/Foot Posture (R) Pronated PT-OP-K Range of Motion Start: 11/10/17 08:22 Freq: Status: Active Protocol: Document 12/04/17 13:35 LRN (Rec: 12/04/17 14:38 LRN [id number]) Knee Goniometric Range of Motion Knee Measured in Degrees Right Patient Position Supine Flexion Active (degrees) 109 Left Patient Position Supine Flexion Active (degrees) 78 Flexion Passive (degrees) 80 Extension Active (degrees) 16 Extension Passive (degrees) 15 Knee ROM Limitations Comments L knee Ext: AROM is lacking 16 deg's; PROM is lacking 15 deg 's. PT-OP-Q Treatments Start: 11/10/17 08:22 Freq: Status: Active Protocol: Document 12/04/17 13:35 LRN (Rec: 12/04/17 14:38 LRN [id number]) Cardio Equipment Recumbent Elliptical (Biodex) Duration (Minutes) 9 Resistance 1 Seat Position 6 Therapeutic Exercises Supine Exercises 5 Supine Exercise Name SLR Side left Reps/Minutes 10x2 4 Supine Exercise Name Assisted knee ext Side left Reps/Minutes 3 min 3 Supine Exercise Name Self assisted heel slide stretch with Belt Reps/Minutes 15 x 1 Supine Exercise Name Knee flexion Long hold stretch followed by active assistive flexion Side left Reps/Minutes 10x Comments Active Assistive & Passive stretch for 2-3' Sitting Exercises 1 Sitting Exercise Name Passive 1' knee flex stretch followed by 10 rep hamstring curl Side left Reps/Minutes 3 x Manual Therapy Treatment Other Other Manual Treatments 4' L knee ROM measurements. PT-OP-R Modalities Start: 11/10/17 08:22 Freq: Status: Active Protocol: Document 12/04/17 13:35 LRN (Rec: 12/04/17 14:38 LRN [id number]) Hot Pack/Cold Pack Treatment Cold Pack Location L knee in elevation Patient Position Supine Treatment Duration (minutes) 10 Patient Tolerance Good PT-OP-T Assessment and Plan Start: 11/10/17 08:22 Freq: Status: Active Protocol: Document 12/04/17 13:35 LRN (Rec: 12/04/17 14:38 LRN [id number]) Physical Therapy Assessment Rehab Potential Rehabilitation Potential Poor Evaluation Complexity Number of Personal Factors/Comorbidities 1-2 Number of Body Systems Impaired 4 or More Clinical Presentation at Evaluation Evolving Impairments Impairments Edema Gait Posture ROM Soft Tissue Mobility Strength Other Concerns Barriers to Rehabilitation Age, NIDDM. Goals Three Impairment L knee edema Short Term Goal (STG) Pt will demonstrate decreased L knee edema with a decrease in L knee pain and improved function per TUG score. STG Duration 3 weeks (12/01/17) Two Impairment Lacks appropriate HEP Daycare Director Goal (LTG) Pt will be educated in a comprehensive independent HEP for self care. LTG Duration 8 weeks (01/05/18) One Impairment Decreased L knee AROM/PROM Short Term Goal (STG) Improve L knee AROM 0-95 deg's . Improve L knee PROM 0-105 deg' s. Pt to avoid L knee manipulation. STG Duration 3 weeks (12/01/17) Daycare Director Goal (LTG) L knee AROM: 0-115 deg's L knee PROM: 0-120 deg's. Pt will be able to walk stairs with normal gait pattern using 1 railing. LTG Duration 8 weeks (01/05/18) Progress Towards Goals Progress Comments Pt has made no significant improvement in her L knee active or passive ROM. She has also been dealing with other health concerns (biopsy done). She is on a home program of primarily ROM ex's. She has mild increased temperature at the L knee and swelling present. Assessment Summary Assessment Pt appears worse in her L knee ROM following a skin biopsy. ROM limited due to pain (from reportedly lying on a hard surface). PROM: Lacking 15 deg's to 80 deg's flexion. Pt feels a manipulation may be needed. Pt is being referred back after 4 weeks of therapy, with no significant improvement noted. I would however recommend the pt continue with therapy if she is to have a manipulation to work on improving her L LE strength and her gait. Physical Therapy Plan Frequency and Duration Frequency of Treatment 2x/Week Duration of Treatment 3 weeks, manager intermediate 8 weeks if manipulation is required. Plan of Care Start Date 11/10/17 Plan of Care End Date 01/05/18 Therapeutic Interventions Therapeutic Interventions Aquatic Therapy Gait Training Home Exercise Program Manual Therapy Neuromuscular Re-education Patient/Caregiver Education Self-Care/Home Management Soft Tissue Mobilization Therapeutic Activities Therapeutic Exercises Modalities Cold Pack/Ice Massage Hot Packs Next Visit Focus/Plan Next Note Type Treatment Note Next Visit Plan Continue per MD recommendation . If further therapy recommended, continue for focus on strengthening and HEP until probable L knee manipulation, unless otherwise recommended.
--- NOTE | 2017-12-08 14:42 | PT.OTN ---
Current Diagnoses Bilateral primary osteoarthritis of knee (12/08/17) Physical Therapy Treatment Note PT-OP-A Visit Information Start: 11/10/17 08:22 Freq: Status: Active Protocol: Document 12/08/17 13:30 LRN (Rec: 12/08/17 13:42 LRN [id number]) Out-Patient Physical Therapy Visit Information Visit Information Visit Type Treatment Note Visit Note 02/26 Visit Start Time 13:30 Visit Stop Time 14:15 Total Visit Minutes 45 Visit Number 9 Number of MANAGER CASH Visits 0 Evaluation Information Evaluation Date 11/10/17 PT-OP-B Current Condition Start: 11/10/17 08:22 Freq: Status: Active Protocol: Document 11/27/17 12:10 RCC (Rec: 11/27/17 14:57 RCC [email or web address]) Current Condition Personal Factors Other Personal Factors That May Effect Pt reports she is having a Therapy/Recovery breast biopsy on 12/03/2017 due to findings from a recent mammogram. PT-OP-C Subjective Start: 11/10/17 08:22 Freq: Status: Active Protocol: Document 12/08/17 13:30 LRN (Rec: 12/08/17 13:42 LRN [id number]) OP-PT Subjective Patient Comments Patient Comments States she has been exercising but she feels she is making small progress. PT-OP-E Functional Tests Start: 11/10/17 08:22 Freq: Status: Active Protocol: Document 11/10/17 13:35 LRN (Rec: 11/10/17 14:12 LRN [id number]) Functional Tests Timed Up and Go (TUG) Score 23 sec's Comments Uses hands to get up from chair. TUG Impairment Rating 100% Impaired (Score 20) PT-OP-F Manual Assessment Start: 11/10/17 08:22 Freq: Status: Active Protocol: Document 11/10/17 13:35 LRN (Rec: 11/10/17 14:12 LRN [id number]) Manual Assessments Soft Tissue Assessment Soft Tissue Mobility Assessment Decreased L knee scar mobility . Scar is well healed. Increased temperature at the knee joint with mild to moderate joint effusion. PT-OP-G Mobility & Gait Start: 11/10/17 08:22 Freq: Status: Active Protocol: Document 11/10/17 13:35 LRN (Rec: 11/10/17 14:12 LRN [id number]) OP Mobility Evaluation Transfers Sit to Stand Uses hands, holds leg in extended position. OP Gait Assessment Assistive Devices Assistive Device Front Wheeled Walker Orthotic/Prosthetic Devices or Brace: No Gait Deviations General Gait Pattern Antalgic Flexed Trunk Lateral Trunk Lean Narrow Based Gait Factors Limiting Gait Function Factors Limiting Gait Function Limited Range of Motion Pain Poor Balance Comments Gait Comments Notable L trunk lean with gait . Pt hold L knee straight. PT-OP-H Neuro Start: 11/10/17 08:22 Freq: Status: Active Protocol: Document 11/10/17 13:35 LRN (Rec: 11/10/17 14:12 LRN [id number]) Sensation Evaluation Location Details Left Anterior Knee Light Touch Impaired Deep Tendon Reflex & Clonus Assessment Deep Tendon Reflex Right Deep Tendon Reflex 2+ Normal Left Achilles Deep Tendon Reflex 0 Absent PT-OP-J Posture/Palpation/Skin Start: 11/10/17 08:22 Freq: Status: Active Protocol: Document 11/10/17 13:35 LRN (Rec: 11/10/17 14:12 LRN [id number]) Posture Evaluation Position Standing Head/C-Spine Posture Forward Head T-Spine Posture Increased Kyphosis Pelvis Posture Neutral Weight Distribution Weight Shifted Right Hip Posture (L) Flexed (R) Flexed Knee Posture (L) Excess Flexion Ankle/Foot Posture (R) Pronated PT-OP-K Range of Motion Start: 11/10/17 08:22 Freq: Status: Active Protocol: Document 12/08/17 13:30 LRN (Rec: 12/08/17 14:24 LRN [id number]) Knee Goniometric Range of Motion Knee Measured in Degrees Right Patient Position Supine Flexion Active (degrees) 109 Left Patient Position Supine Flexion Active (degrees) 80 Flexion Passive (degrees) 90 Extension Active (degrees) 16 Extension Passive (degrees) 15 Knee ROM Limitations Comments L knee Ext: AROM is lacking 16 deg's; PROM is lacking 15 deg 's. PT-OP-Q Treatments Start: 11/10/17 08:22 Freq: Status: Active Protocol: Document 12/08/17 13:30 LRN (Rec: 12/08/17 13:42 LRN [id number]) Cardio Equipment Bicycle (Upright) Duration (Minutes) 10 Resistance 0 Seat Position 5 Other Back and forth motion Gym Equipment Shuttle Recovery Bilateral Squats Details for ROM Resistance 50 Shuttle Recovery Platform Stable Reps/Time 1x15 with hold stretch at each end Therapeutic Exercises Supine Exercises 4 Supine Exercise Name Assisted knee ext Side left Reps/Minutes 3 min 3 Supine Exercise Name Self assisted heel slide stretch with Belt Reps/Minutes 15 x 1 Supine Exercise Name Knee flexion Long hold stretch followed by active assistive flexion Side left Reps/Minutes 10x Comments Active Assistive & Passive stretch for 2-3' Sitting Exercises 1 Sitting Exercise Name Passive 1' knee flex stretch followed by 10 rep hamstring curl Side left Reps/Minutes 3 x Gait Training Gait Activity 1 Description L foot toe off, knee flexion - > swing through. Device Used FWW Level of Assistance SBA Surface Level Distance/Duration 2' Manual Therapy Treatment Soft Tissue Mobilization 2 Body Location Manual assist L knee flex/ext Body Position Supine 1 Body Location Scar & surrounding tissues at L knee Mobilization Type Other Body Position Supine Joint Mobilizations 2 Joint Tibiofemoral joint Direction PA Grade IV Body Position Supine Reps/Duration 3' Other Other Manual Treatments 4' L knee ROM measurements. PT-OP-R Modalities Start: 11/10/17 08:22 Freq: Status: Active Protocol: Document 12/08/17 13:30 LRN (Rec: 12/08/17 13:42 LRN [id number]) Hot Pack/Cold Pack Treatment Cold Pack Location L knee during manual stretch/ ex into knee flex/ext Patient Position Supine Treatment Duration (minutes) 10 PT-OP-T Assessment and Plan Start: 11/10/17 08:22 Freq: Status: Active Protocol: Document 12/08/17 13:30 LRN (Rec: 12/08/17 13:42 LRN [id number]) Physical Therapy Assessment Goals Three Impairment L knee edema Segmental Wall Installer Goal (LTG) Pt will demonstrate decreased L knee edema with a decrease in L knee pain and improved function per TUG score. LTG Duration 01/05/18 Two Impairment Lacks appropriate HEP [facility] Goal (LTG) Pt will be educated in a comprehensive independent HEP for self care. LTG Duration 01/05/18 One Impairment Decreased L knee AROM/PROM Short Term Goal (STG) Improve L knee AROM 0-95 deg's . Improve L knee PROM 0-105 deg' s. Pt to avoid L knee manipulation. STG Duration Abandon: Goal not met. Segmental Wall Installer Goal (LTG) L knee AROM: 0-115 deg's L knee PROM: 0-120 deg's. Pt will be able to walk stairs with normal gait pattern using 1 railing & avoid L knee manipulation. LTG Duration 01/05/18 Progress Towards Goals Progress Towards Goals Slow Progress - Other Progress Comments L knee passive flex improved 10 deg's. Assessment Summary Assessment L knee flexion improved today post treatment with cold pack applied during stretching.. Physical Therapy Plan Frequency and Duration Frequency of Treatment 2x/Week Duration of Treatment 3 weeks, chcf 8 weeks if manipulation is required. Plan of Care Start Date 11/10/17 Plan of Care End Date 01/05/18 Next Visit Focus/Plan Next Note Type Treatment Note Next Visit Plan Continue per MD recommendation . If further therapy recommended, continue for focus on strengthening and HEP until probable L knee manipulation, unless otherwise recommended.
--- NOTE | 2017-12-11 15:11 | PT.OTN ---
Current Diagnoses Bilateral primary osteoarthritis of knee (12/11/17) Physical Therapy Treatment Note PT-OP-A Visit Information Start: 11/10/17 08:22 Freq: Status: Active Protocol: Document 12/11/17 13:32 LRN (Rec: 12/11/17 14:43 LRN [id number]) Out-Patient Physical Therapy Visit Information Visit Information Visit Type Treatment Note Visit Note 03/28 Visit Start Time 13:32 Visit Stop Time 14:24 Total Visit Minutes 52 Visit Number 10 Number of SWING DRIVER Visits 0 Evaluation Information Evaluation Date 11/10/17 PT-OP-B Current Condition Start: 11/10/17 08:22 Freq: Status: Active Protocol: Document 11/27/17 12:10 RCC (Rec: 11/27/17 14:57 RCC [id number]) Current Condition Personal Factors Other Personal Factors That May Effect Pt reports she is having a Therapy/Recovery breast biopsy on 12/03/2017 due to findings from a recent mammogram. PT-OP-C Subjective Start: 11/10/17 08:22 Freq: Status: Active Protocol: Document 12/11/17 13:32 LRN (Rec: 12/11/17 14:43 LRN [id number]) OP-PT Subjective Patient Comments Patient Comments Next MD appt is 12/17/17 @ to discuss possible manipulation. Complains of soreness at the L knee. States today the R knee bothering her. PT-OP-E Functional Tests Start: 11/10/17 08:22 Freq: Status: Active Protocol: Document 11/10/17 13:35 LRN (Rec: 11/10/17 14:12 LRN [id number]) Functional Tests Timed Up and Go (TUG) Score 23 sec's Comments Uses hands to get up from chair. TUG Impairment Rating 100% Impaired (Score 20) PT-OP-F Manual Assessment Start: 11/10/17 08:22 Freq: Status: Active Protocol: Document 11/10/17 13:35 LRN (Rec: 11/10/17 14:12 LRN [id number]) Manual Assessments Soft Tissue Assessment Soft Tissue Mobility Assessment Decreased L knee scar mobility . Scar is well healed. Increased temperature at the knee joint with mild to moderate joint effusion. PT-OP-G Mobility & Gait Start: 11/10/17 08:22 Freq: Status: Active Protocol: Document 11/10/17 13:35 LRN (Rec: 11/10/17 14:12 LRN [id number]) OP Mobility Evaluation Transfers Sit to Stand Uses hands, holds leg in extended position. OP Gait Assessment Assistive Devices Assistive Device Front Wheeled Walker Orthotic/Prosthetic Devices or Brace: No Gait Deviations General Gait Pattern Antalgic Flexed Trunk Lateral Trunk Lean Narrow Based Gait Factors Limiting Gait Function Factors Limiting Gait Function Limited Range of Motion Pain Poor Balance Comments Gait Comments Notable L trunk lean with gait . Pt hold L knee straight. PT-OP-H Neuro Start: 11/10/17 08:22 Freq: Status: Active Protocol: Document 11/10/17 13:35 LRN (Rec: 11/10/17 14:12 LRN [id number]) Sensation Evaluation Location Details Left Anterior Knee Light Touch Impaired Deep Tendon Reflex & Clonus Assessment Deep Tendon Reflex Right Deep Tendon Reflex 2+ Normal Left Achilles Deep Tendon Reflex 0 Absent PT-OP-J Posture/Palpation/Skin Start: 11/10/17 08:22 Freq: Status: Active Protocol: Document 11/10/17 13:35 LRN (Rec: 11/10/17 14:12 LRN [id number]) Posture Evaluation Position Standing Head/C-Spine Posture Forward Head T-Spine Posture Increased Kyphosis Pelvis Posture Neutral Weight Distribution Weight Shifted Right Hip Posture (L) Flexed (R) Flexed Knee Posture (L) Excess Flexion Ankle/Foot Posture (R) Pronated PT-OP-K Range of Motion Start: 11/10/17 08:22 Freq: Status: Active Protocol: Document 12/11/17 13:32 LRN (Rec: 12/11/17 14:44 LRN [id number]) Knee Goniometric Range of Motion Knee Measured in Degrees Left Patient Position Supine Flexion Active (degrees) 80 Flexion Passive (degrees) 90 Extension Active (degrees) 16 Extension Passive (degrees) 15 PT-OP-Q Treatments Start: 11/10/17 08:22 Freq: Status: Active Protocol: Document 12/11/17 13:32 LRN (Rec: 12/11/17 14:43 LRN [id number]) Cardio Equipment Recumbent Bicycle Duration (Minutes) 10 Resistance 0 Seat Position 5 Other Back and forth motion Therapeutic Exercises Supine Exercises 5 Supine Exercise Name SLR Side left Reps/Minutes 10x2 Sidelying Exercises 1 Sidelying Exercise Name Hip AB/AD Side left Reps/Minutes 10x each Sitting Exercises 3 Sitting Exercise Name T-Band knee flex/ext strengthening Side left Reps/Minutes 10x3 each 1 Sitting Exercise Name Passive 1' knee flex stretch followed by 10 rep hamstring curl Side left Reps/Minutes 3 x Gait Training Gait Activity 1 Description L foot toe off, knee flexion - > swing through. Device Used FWW Level of Assistance SBA Surface Level Distance/Duration 5' Self-Care/Home Management Treatment Education Patient Education Home Exercise Program Activities Self-Care/Home Management Activities Reviewed and issued HEP: Ex's for pre-manipulation. Ex's for post-manipulation. PT-OP-R Modalities Start: 11/10/17 08:22 Freq: Status: Active Protocol: Document 12/11/17 13:32 LRN (Rec: 12/11/17 14:43 LRN [id number]) Hot Pack/Cold Pack Treatment Cold Pack Location L knee during manual stretch/ ex into knee flex/ext Patient Position Supine Treatment Duration (minutes) 10 PT-OP-T Assessment and Plan Start: 11/10/17 08:22 Freq: Status: Active Protocol: Document 12/11/17 13:32 LRN (Rec: 12/11/17 14:43 LRN [id number]) Physical Therapy Assessment Rehab Potential Rehabilitation Potential Poor Evaluation Complexity Number of Personal Factors/Comorbidities 1-2 Number of Body Systems Impaired 4 or More Clinical Presentation at Evaluation Evolving Impairments Impairments Edema Gait Posture ROM Soft Tissue Mobility Strength Goals Three Impairment L knee edema Spooler Operator Automatic Goal (LTG) Pt will demonstrate decreased L knee edema with a decrease in L knee pain and improved function per TUG score. LTG Duration 01/05/18 Two Impairment Lacks appropriate HEP Spooler Operator Automatic Goal (LTG) Pt will be educated in a comprehensive independent HEP for self care. LTG Duration 01/05/18 One Impairment Decreased L knee AROM/PROM Short Term Goal (STG) Improve L knee AROM 0-95 deg's . Improve L knee PROM 0-105 deg' s. Pt to avoid L knee manipulation. STG Duration Abandon: Goal not met. Spooler Operator Automatic Goal (LTG) L knee AROM: 0-115 deg's L knee PROM: 0-120 deg's. Pt will be able to walk stairs with normal gait pattern using 1 railing & avoid L knee manipulation. LTG Duration 01/05/18 Progress Towards Goals Progress Comments Pt has shown no signficant improvement with L knee active or passive ROM for a couple weeks. Assessment Summary Assessment Physical therapy treatments appear to be quite painful to the patient and the pt has shown no significant improvement with L knee active or passive ROM for a couple weeks. Physical Therapy Plan Frequency and Duration Frequency of Treatment 5x/Week Duration of Treatment Post manipulation 6-8 weeks Plan of Care End Date 04/08/18 Therapeutic Interventions Therapeutic Interventions Aquatic Therapy Gait Training Home Exercise Program Manual Therapy Neuromuscular Re-education Patient/Caregiver Education Self-Care/Home Management Soft Tissue Mobilization Therapeutic Activities Therapeutic Exercises Modalities Cold Pack/Ice Massage Hot Packs Hold Physical Therapy Reason For Hold Hold until decision made on L knee manipulation. If pt has manipulation recommend immediate start of physical therapy 3-5 times per week. Next Visit Focus/Plan Next Note Type Re-Evaluation Next Visit Plan Continue per MD recommendation , possible Re-Eval if L knee manipulation performed.
--- NOTE | 2017-12-11 15:11 | PT.OPPOC ---
Current Diagnoses Bilateral primary osteoarthritis of knee (12/11/17) Provider Visit Care Team Role Provider Type Anabell Marti DO Family Provider Physician Primary Care Provider Specialty: Family Practice Address: [address] [place] [address], [id number] Email: [email or web address] Jenna Cheatham MD Attending Provider Physician Specialty: Orthopedic Surgery Address: [address] [place] [address], [id number] Email: [email or web address] Plan Of Care PT-OP-T Assessment and Plan Start: 11/10/17 08:22 Freq: Status: Active Protocol: Document 12/11/17 13:32 LRN (Rec: 12/11/17 14:43 LRN [id number]) Physical Therapy Assessment Rehab Potential Rehabilitation Potential Poor Evaluation Complexity Number of Personal Factors/Comorbidities 1-2 Number of Body Systems Impaired 4 or More Clinical Presentation at Evaluation Evolving Impairments Impairments Edema Gait Posture ROM Soft Tissue Mobility Strength Goals Three Impairment L knee edema Care Home Goal (LTG) Pt will demonstrate decreased L knee edema with a decrease in L knee pain and improved function per TUG score. LTG Duration 01/05/18 Two Impairment Lacks appropriate HEP Care Home Goal (LTG) Pt will be educated in a comprehensive independent HEP for self care. LTG Duration 01/05/18 One Impairment Decreased L knee AROM/PROM Short Term Goal (STG) Improve L knee AROM 0-95 deg's . Improve L knee PROM 0-105 deg' s. Pt to avoid L knee manipulation. STG Duration Abandon: Goal not met. Care Home Goal (LTG) L knee AROM: 0-115 deg's L knee PROM: 0-120 deg's. Pt will be able to walk stairs with normal gait pattern using 1 railing & avoid L knee manipulation. LTG Duration 01/05/18 Progress Towards Goals Progress Comments Pt has shown no signficant improvement with L knee active or passive ROM for a couple weeks. Assessment Summary Assessment Physical therapy treatments appear to be quite painful to the patient and the pt has shown no significant improvement with L knee active or passive ROM for a couple weeks. Physical Therapy Plan Frequency and Duration Frequency of Treatment 5x/Week Duration of Treatment Post manipulation 6-8 weeks Plan of Care End Date 04/08/18 Therapeutic Interventions Therapeutic Interventions Aquatic Therapy Gait Training Home Exercise Program Manual Therapy Neuromuscular Re-education Patient/Caregiver Education Self-Care/Home Management Soft Tissue Mobilization Therapeutic Activities Therapeutic Exercises Modalities Cold Pack/Ice Massage Hot Packs Hold Physical Therapy Reason For Hold Hold until decision made on L knee manipulation. If pt has manipulation recommend immediate start of physical therapy 3-5 times per week. Next Visit Focus/Plan Next Note Type Re-Evaluation Next Visit Plan Continue per MD recommendation , possible Re-Eval if L knee manipulation performed. Plan of Care Dates Plan of Care Start Date 11/10/17 Plan of Care End Date 04/08/18 Please Sign and Return: I have reviewed this Plan of Care and certify that the skilled therapy services above are required to meet the patient?s needs. Physician Signature Date Printed Name and Credentials Clinical Instructor Signature Printed Name and Credentials
--- NOTE | 2017-12-23 17:16 | PT.OTN ---
Current Diagnoses Bilateral primary osteoarthritis of knee (12/23/17) Physical Therapy Treatment Note PT-OP-A Visit Information Start: 11/10/17 08:22 Freq: Status: Active Protocol: Document 12/23/17 15:45 LRN (Rec: 12/23/17 17:11 LRN [id number]) Out-Patient Physical Therapy Visit Information Visit Information Visit Type Progress Note Visit Note 04/28 Visit Start Time 15:45 Visit Stop Time 16:45 Total Visit Minutes 60 Visit Number 11 Number of SEASONING MIXER Visits 0 Evaluation Information Evaluation Date 11/10/17 PT-OP-B Current Condition Start: 11/10/17 08:22 Freq: Status: Active Protocol: Document 12/23/17 15:45 LRN (Rec: 12/23/17 17:11 LRN [id number]) Current Condition History of Current Condition Onset Date 12/22/17 History of Current Condition Pt underwent L knee manipulation 12/22/17 following L TKA 11/10/17. Treatment Goals Patient/Caregiver Goals Gain functional L knee ROM. Prior Functional Status Baseline Function- ADL's Independent Baseline Function- Mobility Independent Baseline Function- Gait Gait with walker outside the home. No assistive device in the home. Current Functional Impairments (Reported) Functional Limitations- ADL's Difficulty getting L shoe on, has fugitive investigator on toilet. Daughter helps with cooking. Functional Limitations- Mobility/Gait Requires use of 2WW for gait intermittently. PT-OP-C Subjective Start: 11/10/17 08:22 Freq: Status: Active Protocol: Document 12/23/17 15:45 LRN (Rec: 12/23/17 17:11 LRN [id number]) OP-PT Subjective Patient Comments Patient Comments Pt had L knee manipulation on 12/22/17 and she had a saddle block. She is now experiencing pain in the knee and is taking medications for pain. PT-OP-E Functional Tests Start: 11/10/17 08:22 Freq: Status: Active Protocol: Document 11/10/17 13:35 LRN (Rec: 11/10/17 14:12 LRN [id number]) Functional Tests Timed Up and Go (TUG) Score 23 sec's Comments Uses hands to get up from chair. TUG Impairment Rating 100% Impaired (Score 20) PT-OP-F Manual Assessment Start: 11/10/17 08:22 Freq: Status: Active Protocol: Document 11/10/17 13:35 LRN (Rec: 11/10/17 14:12 LRN [id number]) Manual Assessments Soft Tissue Assessment Soft Tissue Mobility Assessment Decreased L knee scar mobility . Scar is well healed. Increased temperature at the knee joint with mild to moderate joint effusion. PT-OP-G Mobility & Gait Start: 11/10/17 08:22 Freq: Status: Active Protocol: Document 12/23/17 15:45 LRN (Rec: 12/23/17 17:11 LRN [id number]) OP Mobility Evaluation Bed Mobility Rolling Independent Supine to and from Sit Independent Transfers Sit to Stand Independent OP Gait Assessment Assistive Devices Assistive Device None 4 Wheeled Walker Gait Deviations General Gait Pattern Decreased Stride Length Flexed Trunk Wide Based Gait Comments Gait Comments L knee extension is limited. Pt is FWBing on LLE. PT-OP-H Neuro Start: 11/10/17 08:22 Freq: Status: Active Protocol: Document 11/10/17 13:35 LRN (Rec: 11/10/17 14:12 LRN [id number]) Sensation Evaluation Location Details Left Anterior Knee Light Touch Impaired Deep Tendon Reflex & Clonus Assessment Deep Tendon Reflex Right Deep Tendon Reflex 2+ Normal Left Achilles Deep Tendon Reflex 0 Absent PT-OP-J Posture/Palpation/Skin Start: 11/10/17 08:22 Freq: Status: Active Protocol: Document 11/10/17 13:35 LRN (Rec: 11/10/17 14:12 LRN [id number]) Posture Evaluation Position Standing Head/C-Spine Posture Forward Head T-Spine Posture Increased Kyphosis Pelvis Posture Neutral Weight Distribution Weight Shifted Right Hip Posture (L) Flexed (R) Flexed Knee Posture (L) Excess Flexion Ankle/Foot Posture (R) Pronated PT-OP-K Range of Motion Start: 11/10/17 08:22 Freq: Status: Active Protocol: Document 12/23/17 15:45 LRN (Rec: 12/23/17 17:11 LRN [id number]) Knee Goniometric Range of Motion Knee Measured in Degrees Left Patient Position Supine Flexion Active (degrees) 87 Flexion Passive (degrees) 97 Knee ROM Limitations Comments L knee ext Active and passive is lacking 15 deg's of extension. Limited by pain. PT-OP-Q Treatments Start: 11/10/17 08:22 Freq: Status: Active Protocol: Document 12/23/17 15:45 LRN (Rec: 12/23/17 17:11 LRN [id number]) Therapeutic Exercises Supine Exercises 4 Supine Exercise Name Assisted knee ext Side left Reps/Minutes 3 min 3 Supine Exercise Name Self assisted heel slide stretch with Belt Reps/Minutes 15 x 1 Supine Exercise Name Knee flexion Long hold stretch followed by active assistive flexion Side left Reps/Minutes 25' Comments Prolonged stretching in different positions Sitting Exercises 1 Sitting Exercise Name Passive 1' knee flex stretch followed by 10 rep hamstring curl Side left Reps/Minutes 3 x Manual Therapy Treatment Soft Tissue Mobilization 1 Body Location Scar & surrounding tissues at L knee Mobilization Type Other Body Position Supine Self-Care/Home Management Treatment Activities Self-Care/Home Management Activities Reviewed HEP PT-OP-R Modalities Start: 11/10/17 08:22 Freq: Status: Active Protocol: Document 12/23/17 15:45 LRN (Rec: 12/23/17 17:11 LRN [id number]) Hot Pack/Cold Pack Treatment Cold Pack Location L knee during manual stretch/ ex into knee flex/ext Patient Position Supine Treatment Duration (minutes) 10 Comments Cold pack used throughout therapy. PT-OP-T Assessment and Plan Start: 11/10/17 08:22 Freq: Status: Active Protocol: Document 12/23/17 15:45 LRN (Rec: 12/23/17 17:11 LRN [id number]) Physical Therapy Assessment Rehab Potential Rehabilitation Potential Good Evaluation Complexity Number of Personal Factors/Comorbidities 1-2 Number of Body Systems Impaired 4 or More Clinical Presentation at Evaluation Evolving Impairments Impairments Edema Gait Posture ROM Soft Tissue Mobility Strength Other Concerns Barriers to Rehabilitation Age, NIDDM. Goals Three Impairment L knee edema Adjunct Instructor Chemistry Goal (LTG) Pt will be educated in self care for L knee edema. LTG Duration Goal met. Two Impairment Lacks appropriate HEP Intermediate Goal (LTG) Pt will be educated in a comprehensive independent HEP for self care. LTG Duration 02/06/18 One Impairment Decreased L knee AROM/PROM Short Term Goal (STG) Improve L knee AROM 0-95 deg's . Improve L knee PROM 0-105 deg' s. Pt to avoid L knee manipulation. STG Duration Abandon: Goal not met. Adjunct Instructor Chemistry Goal (LTG) L knee AROM: 0-110 deg's L knee PROM: 0-115 deg's. Pt will be able to walk stairs with normal gait pattern using 1 railing. LTG Duration 02/06/18 Progress Towards Goals Progress Comments Pt restricted in L knee ROM by pain and pt's tolerance. Use of pain medications may be needed prior to therapy. Assessment Summary Assessment Pt may be hindered with achieving her goals due to lack of assistance at home. She is limited in mobility due to pain and her tolerance to ROM stretching. Pain medications may be needed to further her mobility. Pt needs to be consistent with her HEP. Physical Therapy Plan Frequency and Duration Frequency of Treatment 3-5x/week. Plan of Care Start Date 12/23/17 Plan of Care End Date 02/17/18 Therapeutic Interventions Therapeutic Interventions Aquatic Therapy Gait Training Home Exercise Program Manual Therapy Neuromuscular Re-education Patient/Caregiver Education Self-Care/Home Management Soft Tissue Mobilization Therapeutic Activities Therapeutic Exercises Modalities Cold Pack/Ice Massage Hot Packs Next Visit Focus/Plan Next Visit Plan Progress L knee ROM, s/p L knee manipulation rehabilitation.
--- NOTE | 2017-12-25 09:49 | PT.OTN ---
Current Diagnoses Bilateral primary osteoarthritis of knee (12/24/17) Physical Therapy Treatment Note PT-OP-A Visit Information Start: 11/10/17 08:22 Freq: Status: Active Protocol: Document 12/24/17 17:35 EA (Rec: 12/24/17 17:37 EA [id number]) Out-Patient Physical Therapy Visit Information Visit Information Visit Type Treatment Note Visit Note 05/28 Total Visit Minutes 55 Visit Number 12 PT-OP-B Current Condition Start: 11/10/17 08:22 Freq: Status: Active Protocol: Document 12/23/17 15:45 LRN (Rec: 12/23/17 17:11 LRN [id number]) Current Condition History of Current Condition Onset Date 12/22/17 History of Current Condition Pt underwent L knee manipulation 12/22/17 following L TKA 11/10/17. Treatment Goals Patient/Caregiver Goals Gain functional L knee ROM. Prior Functional Status Baseline Function- ADL's Independent Baseline Function- Mobility Independent Baseline Function- Gait Gait with walker outside the home. No assistive device in the home. Current Functional Impairments (Reported) Functional Limitations- ADL's Difficulty getting L shoe on, has department mgr on toilet. Daughter helps with cooking. Functional Limitations- Mobility/Gait Requires use of 2WW for gait intermittently. PT-OP-C Subjective Start: 11/10/17 08:22 Freq: Status: Active Protocol: Document 12/24/17 17:35 EA (Rec: 12/24/17 17:37 EA [id number]) OP-PT Subjective Patient Comments Patient Comments Pt reports pain is less and she has been compliant with HEP. PT-OP-E Functional Tests Start: 11/10/17 08:22 Freq: Status: Active Protocol: Document 11/10/17 13:35 LRN (Rec: 11/10/17 14:12 LRN [id number]) Functional Tests Timed Up and Go (TUG) Score 23 sec's Comments Uses hands to get up from chair. TUG Impairment Rating 100% Impaired (Score 20) PT-OP-F Manual Assessment Start: 11/10/17 08:22 Freq: Status: Active Protocol: Document 11/10/17 13:35 LRN (Rec: 11/10/17 14:12 LRN [id number]) Manual Assessments Soft Tissue Assessment Soft Tissue Mobility Assessment Decreased L knee scar mobility . Scar is well healed. Increased temperature at the knee joint with mild to moderate joint effusion. PT-OP-G Mobility & Gait Start: 11/10/17 08:22 Freq: Status: Active Protocol: Document 12/23/17 15:45 LRN (Rec: 12/23/17 17:11 LRN [id number]) OP Mobility Evaluation Bed Mobility Rolling Independent Supine to and from Sit Independent Transfers Sit to Stand Independent OP Gait Assessment Assistive Devices Assistive Device None 4 Wheeled Walker Gait Deviations General Gait Pattern Decreased Stride Length Flexed Trunk Wide Based Gait Comments Gait Comments L knee extension is limited. Pt is FWBing on LLE. PT-OP-H Neuro Start: 11/10/17 08:22 Freq: Status: Active Protocol: Document 11/10/17 13:35 LRN (Rec: 11/10/17 14:12 LRN [id number]) Sensation Evaluation Location Details Left Anterior Knee Light Touch Impaired Deep Tendon Reflex & Clonus Assessment Deep Tendon Reflex Right Deep Tendon Reflex 2+ Normal Left Achilles Deep Tendon Reflex 0 Absent PT-OP-J Posture/Palpation/Skin Start: 11/10/17 08:22 Freq: Status: Active Protocol: Document 11/10/17 13:35 LRN (Rec: 11/10/17 14:12 LRN [id number]) Posture Evaluation Position Standing Head/C-Spine Posture Forward Head T-Spine Posture Increased Kyphosis Pelvis Posture Neutral Weight Distribution Weight Shifted Right Hip Posture (L) Flexed (R) Flexed Knee Posture (L) Excess Flexion Ankle/Foot Posture (R) Pronated PT-OP-K Range of Motion Start: 11/10/17 08:22 Freq: Status: Active Protocol: Document 12/23/17 15:45 LRN (Rec: 12/23/17 17:11 LRN [id number]) Knee Goniometric Range of Motion Knee Measured in Degrees Left Patient Position Supine Flexion Active (degrees) 87 Flexion Passive (degrees) 97 Knee ROM Limitations Comments L knee ext Active and passive is lacking 15 deg's of extension. Limited by pain. PT-OP-Q Treatments Start: 11/10/17 08:22 Freq: Status: Active Protocol: Document 12/24/17 17:00 EA (Rec: 12/25/17 08:19 EA [id number]) Cardio Equipment Recumbent Elliptical (Biodex) Duration (Minutes) 9 Resistance 1 Seat Position 6 Gym Equipment Shuttle Recovery Bilateral Squats Details for ROM Resistance 50 Shuttle Recovery Platform Stable Reps/Time 1x15 with hold stretch at each end Therapeutic Exercises Supine Exercises 5 Supine Exercise Name SLR Side left Reps/Minutes 10x2 4 Supine Exercise Name Assisted knee ext Side left Reps/Minutes 3 min 3 Supine Exercise Name Self assisted heel slide stretch with Belt Reps/Minutes 15 x 1 Supine Exercise Name Knee flexion Long hold stretch followed by active assistive flexion Side left Reps/Minutes 25' Comments Prolonged stretching in different positions Sidelying Exercises 1 Sidelying Exercise Name Hip AB/AD Side left Reps/Minutes 10x each Manual Therapy Treatment Soft Tissue Mobilization 1 Body Location Scar & surrounding tissues at L knee Mobilization Type Other Body Position Supine Joint Mobilizations 2 Joint Tibiofemoral joint Direction PA Grade IV Body Position Supine Reps/Duration 3' PT-OP-R Modalities Start: 11/10/17 08:22 Freq: Status: Active Protocol: Document 12/24/17 17:00 EA (Rec: 12/25/17 09:48 EA [id number]) Hot Pack/Cold Pack Treatment Cold Pack Location L knee during manual stretch/ ex into knee flex/ext Patient Position Supine Treatment Duration (minutes) 10 PT-OP-T Assessment and Plan Start: 11/10/17 08:22 Freq: Status: Active Protocol: Document 12/24/17 17:00 EA (Rec: 12/25/17 08:19 EA [id number]) Physical Therapy Assessment Assessment Summary Assessment Tolerated treatment with no increased of pain during session. Assited knee extension improved results. Physical Therapy Plan Next Visit Focus/Plan Next Visit Plan Cont. with current plan.
--- NOTE | 2017-12-25 14:34 | PT.OTN ---
Current Diagnoses Bilateral primary osteoarthritis of knee (12/25/17) Physical Therapy Treatment Note PT-OP-A Visit Information Start: 11/10/17 08:22 Freq: Status: Active Protocol: Document 12/25/17 10:35 LRN (Rec: 12/25/17 11:20 LRN [id number]) Out-Patient Physical Therapy Visit Information Visit Information Visit Type Treatment Note Visit Note Visit Start Time 10:35 Visit Stop Time 11:25 Total Visit Minutes 50 Visit Number 13 Evaluation Information Evaluation Date 11/10/17 PT-OP-B Current Condition Start: 11/10/17 08:22 Freq: Status: Active Protocol: Document 12/23/17 15:45 LRN (Rec: 12/23/17 17:11 LRN [id number]) Current Condition History of Current Condition Onset Date 12/22/17 History of Current Condition Pt underwent L knee manipulation 12/22/17 following L TKA 11/10/17. Treatment Goals Patient/Caregiver Goals Gain functional L knee ROM. Prior Functional Status Baseline Function- ADL's Independent Baseline Function- Mobility Independent Baseline Function- Gait Gait with walker outside the home. No assistive device in the home. Current Functional Impairments (Reported) Functional Limitations- ADL's Difficulty getting L shoe on, has agricultural services director on toilet. Daughter helps with cooking. Functional Limitations- Mobility/Gait Requires use of 2WW for gait intermittently. PT-OP-C Subjective Start: 11/10/17 08:22 Freq: Status: Active Protocol: Document 12/25/17 10:35 LRN (Rec: 12/25/17 11:20 LRN [id number]) OP-PT Subjective Patient Comments Patient Comments Working it as much as possible PT-OP-E Functional Tests Start: 11/10/17 08:22 Freq: Status: Active Protocol: Document 11/10/17 13:35 LRN (Rec: 11/10/17 14:12 LRN [id number]) Functional Tests Timed Up and Go (TUG) Score 23 sec's Comments Uses hands to get up from chair. TUG Impairment Rating 100% Impaired (Score 20) PT-OP-F Manual Assessment Start: 11/10/17 08:22 Freq: Status: Active Protocol: Document 11/10/17 13:35 LRN (Rec: 11/10/17 14:12 LRN [id number]) Manual Assessments Soft Tissue Assessment Soft Tissue Mobility Assessment Decreased L knee scar mobility . Scar is well healed. Increased temperature at the knee joint with mild to moderate joint effusion. PT-OP-G Mobility & Gait Start: 11/10/17 08:22 Freq: Status: Active Protocol: Document 12/23/17 15:45 LRN (Rec: 12/23/17 17:11 LRN [id number]) OP Mobility Evaluation Bed Mobility Rolling Independent Supine to and from Sit Independent Transfers Sit to Stand Independent OP Gait Assessment Assistive Devices Assistive Device None 4 Wheeled Walker Gait Deviations General Gait Pattern Decreased Stride Length Flexed Trunk Wide Based Gait Comments Gait Comments L knee extension is limited. Pt is FWBing on LLE. PT-OP-H Neuro Start: 11/10/17 08:22 Freq: Status: Active Protocol: Document 11/10/17 13:35 LRN (Rec: 11/10/17 14:12 LRN [id number]) Sensation Evaluation Location Details Left Anterior Knee Light Touch Impaired Deep Tendon Reflex & Clonus Assessment Deep Tendon Reflex Right Deep Tendon Reflex 2+ Normal Left Achilles Deep Tendon Reflex 0 Absent PT-OP-J Posture/Palpation/Skin Start: 11/10/17 08:22 Freq: Status: Active Protocol: Document 11/10/17 13:35 LRN (Rec: 11/10/17 14:12 LRN [id number]) Posture Evaluation Position Standing Head/C-Spine Posture Forward Head T-Spine Posture Increased Kyphosis Pelvis Posture Neutral Weight Distribution Weight Shifted Right Hip Posture (L) Flexed (R) Flexed Knee Posture (L) Excess Flexion Ankle/Foot Posture (R) Pronated PT-OP-K Range of Motion Start: 11/10/17 08:22 Freq: Status: Active Protocol: Document 12/25/17 10:35 LRN (Rec: 12/25/17 14:20 LRN [id number]) Knee Goniometric Range of Motion Knee Measured in Degrees Left Patient Position Supine Flexion Active (degrees) 88 Flexion Passive (degrees) 95 Extension Active (degrees) 16 Extension Passive (degrees) 13 Knee ROM Limitations Comments L knee ext ROM measurements are -ext ranges due to lack of full ext. PT-OP-Q Treatments Start: 11/10/17 08:22 Freq: Status: Active Protocol: Document 12/25/17 10:35 LRN (Rec: 12/25/17 14:25 LRN [id number]) Cardio Equipment Recumbent Bicycle Duration (Minutes) 10 Resistance 0 Seat Position 5 Other Back and forth motion Therapeutic Exercises Supine Exercises 4 Supine Exercise Name Assisted knee ext Side left Reps/Minutes 10 min 3 Supine Exercise Name Self assisted heel slide stretch with Belt Reps/Minutes 10x 1 Supine Exercise Name Knee flexion Long hold stretch followed by active assistive flexion Side left Reps/Minutes 10 Comments Prolonged stretching in different positions Manual Therapy Treatment Soft Tissue Mobilization 1 Body Location Scar & surrounding tissues at L knee Mobilization Type Other Body Position Supine Joint Mobilizations 2 Joint Tibiofemoral joint Direction PA Grade IV Body Position Supine Reps/Duration 3' Other Other Manual Treatments 4' L knee ROM measurements. PT-OP-R Modalities Start: 11/10/17 08:22 Freq: Status: Active Protocol: Document 12/25/17 10:35 LRN (Rec: 12/25/17 14:25 LRN [id number]) Hot Pack/Cold Pack Treatment Cold Pack Location L knee during manual stretch/ ex into knee flex/ext Patient Position Supine Treatment Duration (minutes) 10 Comments Cold pack used during stretches. PT-OP-T Assessment and Plan Start: 11/10/17 08:22 Freq: Status: Active Protocol: Document 12/25/17 10:35 LRN (Rec: 12/25/17 11:20 LRN [id number]) Physical Therapy Assessment Impairments Impairments Edema Gait Posture ROM Soft Tissue Mobility Strength Other Concerns Barriers to Rehabilitation Age, NIDDM. Goals Three Impairment L knee edema Filbert Grower Goal (LTG) Pt will be educated in self care for L knee edema. LTG Duration Goal met. Two Impairment Lacks appropriate HEP [facility] Goal (LTG) Pt will be educated in a comprehensive independent HEP for self care. LTG Duration 02/06/18 One Impairment Decreased L knee AROM/PROM Short Term Goal (STG) Improve L knee AROM 0-95 deg's . Improve L knee PROM 0-105 deg' s. Pt to avoid L knee manipulation. STG Duration Abandon: Goal not met. [facility] Goal (LTG) L knee AROM: 0-110 deg's L knee PROM: 0-115 deg's. Pt will be able to walk stairs with normal gait pattern using 1 railing. LTG Duration 02/06/18 Progress Towards Goals Progress Comments Poor progression. Assessment Summary Assessment L knee ext: Active LACKING 16 deg's, Passive LACKING 13 deg' s. L knee flexion Active is 88 deg's, Passive is 95 deg's. Physical Therapy Plan Frequency and Duration Frequency of Treatment 3-5x/week. Plan of Care Start Date 12/23/17 Plan of Care End Date 02/17/18 Therapeutic Interventions Therapeutic Interventions Aquatic Therapy Gait Training Home Exercise Program Manual Therapy Neuromuscular Re-education Patient/Caregiver Education Self-Care/Home Management Soft Tissue Mobilization Therapeutic Activities Therapeutic Exercises Modalities Cold Pack/Ice Massage Hot Packs Next Visit Focus/Plan Next Note Type Treatment Note Next Visit Plan Progress L knee ROM using Shuttle to assist with stretches, s/p L knee manipulation (12/22/17) rehabilitation.
--- NOTE | 2017-12-26 09:46 | PT.OTN ---
Current Diagnoses Bilateral primary osteoarthritis of knee (12/26/17) Physical Therapy Treatment Note PT-OP-A Visit Information Start: 11/10/17 08:22 Freq: Status: Active Protocol: Document 12/26/17 08:15 LRN (Rec: 12/26/17 09:23 LRN [id number]) Out-Patient Physical Therapy Visit Information Visit Information Visit Type Treatment Note Visit Note Visit Start Time 08:15 Visit Stop Time 09:30 Total Visit Minutes 75 Visit Number 14 Evaluation Information Evaluation Date 11/10/17 PT-OP-B Current Condition Start: 11/10/17 08:22 Freq: Status: Active Protocol: Document 12/23/17 15:45 LRN (Rec: 12/23/17 17:11 LRN [id number]) Current Condition History of Current Condition Onset Date 12/22/17 History of Current Condition Pt underwent L knee manipulation 12/22/17 following L TKA 11/10/17. Treatment Goals Patient/Caregiver Goals Gain functional L knee ROM. Prior Functional Status Baseline Function- ADL's Independent Baseline Function- Mobility Independent Baseline Function- Gait Gait with walker outside the home. No assistive device in the home. Current Functional Impairments (Reported) Functional Limitations- ADL's Difficulty getting L shoe on, has productivity engineer on toilet. Daughter helps with cooking. Functional Limitations- Mobility/Gait Requires use of 2WW for gait intermittently. PT-OP-C Subjective Start: 11/10/17 08:22 Freq: Status: Active Protocol: Document 12/26/17 08:15 LRN (Rec: 12/26/17 09:23 LRN [id number]) OP-PT Subjective Patient Comments Patient Comments L knee hurts on the anterior and laterally. Pain to start is 2/10. OP-PT Pain Assessment Location Left Anterior Knee Pain Location Details Anterior and laterally Intensity 2 Scale Used Numeric (1 - 10) Description Aching PT-OP-E Functional Tests Start: 11/10/17 08:22 Freq: Status: Active Protocol: Document 11/10/17 13:35 LRN (Rec: 11/10/17 14:12 LRN [id number]) Functional Tests Timed Up and Go (TUG) Score 23 sec's Comments Uses hands to get up from chair. TUG Impairment Rating 100% Impaired (Score 20) PT-OP-F Manual Assessment Start: 11/10/17 08:22 Freq: Status: Active Protocol: Document 11/10/17 13:35 LRN (Rec: 11/10/17 14:12 LRN [id number]) Manual Assessments Soft Tissue Assessment Soft Tissue Mobility Assessment Decreased L knee scar mobility . Scar is well healed. Increased temperature at the knee joint with mild to moderate joint effusion. PT-OP-G Mobility & Gait Start: 11/10/17 08:22 Freq: Status: Active Protocol: Document 12/23/17 15:45 LRN (Rec: 12/23/17 17:11 LRN [id number]) OP Mobility Evaluation Bed Mobility Rolling Independent Supine to and from Sit Independent Transfers Sit to Stand Independent OP Gait Assessment Assistive Devices Assistive Device None 4 Wheeled Walker Gait Deviations General Gait Pattern Decreased Stride Length Flexed Trunk Wide Based Gait Comments Gait Comments L knee extension is limited. Pt is FWBing on LLE. PT-OP-H Neuro Start: 11/10/17 08:22 Freq: Status: Active Protocol: Document 11/10/17 13:35 LRN (Rec: 11/10/17 14:12 LRN [id number]) Sensation Evaluation Location Details Left Anterior Knee Light Touch Impaired Deep Tendon Reflex & Clonus Assessment Deep Tendon Reflex Right Deep Tendon Reflex 2+ Normal Left Achilles Deep Tendon Reflex 0 Absent PT-OP-J Posture/Palpation/Skin Start: 11/10/17 08:22 Freq: Status: Active Protocol: Document 11/10/17 13:35 LRN (Rec: 11/10/17 14:12 LRN [id number]) Posture Evaluation Position Standing Head/C-Spine Posture Forward Head T-Spine Posture Increased Kyphosis Pelvis Posture Neutral Weight Distribution Weight Shifted Right Hip Posture (L) Flexed (R) Flexed Knee Posture (L) Excess Flexion Ankle/Foot Posture (R) Pronated PT-OP-K Range of Motion Start: 11/10/17 08:22 Freq: Status: Active Protocol: Document 12/26/17 08:15 LRN (Rec: 12/26/17 09:23 LRN [id number]) Knee Goniometric Range of Motion Knee Measured in Degrees Right Patient Position Supine Flexion Active (degrees) 109 Flexion Passive (degrees) 110 Extension Active (degrees) 9 Extension Passive (degrees) 8 Left Patient Position Supine Flexion Active (degrees) 90 Flexion Passive (degrees) 100 Extension Active (degrees) 13 Extension Passive (degrees) 12 Knee ROM Limitations Comments Ext ROM measurments are deg's lacking full ext. PT-OP-Q Treatments Start: 11/10/17 08:22 Freq: Status: Active Protocol: Document 12/26/17 08:15 LRN (Rec: 12/26/17 09:23 LRN [id number]) Cardio Equipment Bicycle (Upright) Duration (Minutes) 10 Resistance 0 Seat Position 5 Other Back and forth Gym Equipment Shuttle Recovery Bilateral Squats Details for ROM Resistance 50 Shuttle Recovery Platform Stable Reps/Time With long hold stretch at each rep Therapeutic Exercises Supine Exercises 4 Supine Exercise Name Assisted knee ext Side left Reps/Minutes 10 min 3 Supine Exercise Name Self assisted heel slide stretch with Belt Reps/Minutes 10x Comments stretch f/b AROM 1 Supine Exercise Name Knee flexion Long hold stretch followed by active assistive flexion Side left Reps/Minutes 20 Comments Prolonged stretching in different positions Sitting Exercises 1 Sitting Exercise Name Passive knee flex stretch f/b hamstring curl Side left Manual Therapy Treatment Soft Tissue Mobilization 1 Body Location Scar & TFL at L knee Mobilization Type Other Body Position Supine Comments STM, strumming, MFR Other Other Manual Treatments 4' L knee ROM measurements. PT-OP-R Modalities Start: 11/10/17 08:22 Freq: Status: Active Protocol: Document 12/26/17 08:15 LRN (Rec: 12/26/17 09:23 LRN [id number]) Hot Pack/Cold Pack Treatment Cold Pack Location L knee: during stretch into flex 2 end of treatment Patient Position Supine Treatment Duration (minutes) 30 Comments Cold pack used during 10' stretches and at end of treatment with pt in passive knee flexion stretch position x 20'. PT-OP-T Assessment and Plan Start: 11/10/17 08:22 Freq: Status: Active Protocol: Document 12/26/17 08:15 LRN (Rec: 12/26/17 09:23 LRN [id number]) Physical Therapy Assessment Impairments Impairments Edema Gait ROM Soft Tissue Mobility Strength Other Concerns Barriers to Rehabilitation Age, NIDDM. Goals Three Impairment L knee edema Changer Fixer Goal (LTG) Pt will be educated in self care for L knee edema. LTG Duration Goal met. Two Impairment Lacks appropriate HEP Changer Fixer Goal (LTG) Pt will be educated in a comprehensive independent HEP for self care. LTG Duration 02/06/18 One Impairment Decreased L knee AROM/PROM Short Term Goal (STG) Improve L knee AROM 0-95 deg's . Improve L knee PROM 0-105 deg' s. Pt to avoid L knee manipulation. STG Duration Abandon: Goal not met. Changer Fixer Goal (LTG) L knee AROM: 0-110 deg's L knee PROM: 0-115 deg's. Pt will be able to walk stairs with normal gait pattern using 1 railing. LTG Duration 02/06/18 Progress Towards Goals Progress Towards Goals Progressing Toward Goals Slow Progress due to Activity Tolerance Assessment Summary Assessment L knee AROM: lacking 13 deg's to 88 deg's; PROM: lacking 12 deg's to 90 and max 100 deg's. Physical Therapy Plan Frequency and Duration Frequency of Treatment 3-5x/week. Plan of Care Start Date 12/23/17 Plan of Care End Date 02/17/18 Next Visit Focus/Plan Next Note Type Treatment Note Next Visit Plan Progress L knee ROM using Shuttle to assist with stretches, s/p L knee manipulation (12/22/17) rehabilitation.
--- NOTE | 2017-12-29 15:34 | PT.OTN ---
Current Diagnoses Bilateral primary osteoarthritis of knee (12/29/17) Physical Therapy Treatment Note PT-OP-A Visit Information Start: 11/10/17 08:22 Freq: Status: Active Protocol: Document 12/29/17 08:15 LRN (Rec: 12/29/17 09:10 LRN [id number]) Out-Patient Physical Therapy Visit Information Visit Information Visit Type Treatment Note Visit Note Visit Start Time 08:15 Visit Stop Time 09:15 Total Visit Minutes 60 Visit Number 15 Evaluation Information Evaluation Date 11/10/17 PT-OP-B Current Condition Start: 11/10/17 08:22 Freq: Status: Active Protocol: Document 12/23/17 15:45 LRN (Rec: 12/23/17 17:11 LRN [id number]) Current Condition History of Current Condition Onset Date 12/22/17 History of Current Condition Pt underwent L knee manipulation 12/22/17 following L TKA 11/10/17. Treatment Goals Patient/Caregiver Goals Gain functional L knee ROM. Prior Functional Status Baseline Function- ADL's Independent Baseline Function- Mobility Independent Baseline Function- Gait Gait with walker outside the home. No assistive device in the home. Current Functional Impairments (Reported) Functional Limitations- ADL's Difficulty getting L shoe on, has side splitter on toilet. Daughter helps with cooking. Functional Limitations- Mobility/Gait Requires use of 2WW for gait intermittently. PT-OP-C Subjective Start: 11/10/17 08:22 Freq: Status: Active Protocol: Document 12/29/17 08:15 LRN (Rec: 12/29/17 09:10 LRN [id number]) OP-PT Subjective Patient Comments Patient Comments States her knee hurt once while sitting, sharp pain. States her knee is sore and she did do ex's. PT-OP-E Functional Tests Start: 11/10/17 08:22 Freq: Status: Active Protocol: Document 11/10/17 13:35 LRN (Rec: 11/10/17 14:12 LRN [id number]) Functional Tests Timed Up and Go (TUG) Score 23 sec's Comments Uses hands to get up from chair. TUG Impairment Rating 100% Impaired (Score 20) PT-OP-F Manual Assessment Start: 11/10/17 08:22 Freq: Status: Active Protocol: Document 11/10/17 13:35 LRN (Rec: 11/10/17 14:12 LRN [id number]) Manual Assessments Soft Tissue Assessment Soft Tissue Mobility Assessment Decreased L knee scar mobility . Scar is well healed. Increased temperature at the knee joint with mild to moderate joint effusion. PT-OP-G Mobility & Gait Start: 11/10/17 08:22 Freq: Status: Active Protocol: Document 12/23/17 15:45 LRN (Rec: 12/23/17 17:11 LRN [id number]) OP Mobility Evaluation Bed Mobility Rolling Independent Supine to and from Sit Independent Transfers Sit to Stand Independent OP Gait Assessment Assistive Devices Assistive Device None 4 Wheeled Walker Gait Deviations General Gait Pattern Decreased Stride Length Flexed Trunk Wide Based Gait Comments Gait Comments L knee extension is limited. Pt is FWBing on LLE. PT-OP-H Neuro Start: 11/10/17 08:22 Freq: Status: Active Protocol: Document 11/10/17 13:35 LRN (Rec: 11/10/17 14:12 LRN [id number]) Sensation Evaluation Location Details Left Anterior Knee Light Touch Impaired Deep Tendon Reflex & Clonus Assessment Deep Tendon Reflex Right Deep Tendon Reflex 2+ Normal Left Achilles Deep Tendon Reflex 0 Absent PT-OP-J Posture/Palpation/Skin Start: 11/10/17 08:22 Freq: Status: Active Protocol: Document 11/10/17 13:35 LRN (Rec: 11/10/17 14:12 LRN [id number]) Posture Evaluation Position Standing Head/C-Spine Posture Forward Head T-Spine Posture Increased Kyphosis Pelvis Posture Neutral Weight Distribution Weight Shifted Right Hip Posture (L) Flexed (R) Flexed Knee Posture (L) Excess Flexion Ankle/Foot Posture (R) Pronated PT-OP-K Range of Motion Start: 11/10/17 08:22 Freq: Status: Active Protocol: Document 12/29/17 08:15 LRN (Rec: 12/29/17 15:23 LRN [id number]) Knee Goniometric Range of Motion Knee Measured in Degrees Left Patient Position Supine Flexion Active (degrees) 88 Flexion Passive (degrees) 93 PT-OP-Q Treatments Start: 11/10/17 08:22 Freq: Status: Active Protocol: Document 12/29/17 08:15 LRN (Rec: 12/29/17 09:10 LRN [id number]) Cardio Equipment Recumbent Bicycle Duration (Minutes) 5 Resistance 0 Seat Position 6 Other Back and forth motion Bicycle (Upright) Duration (Minutes) 5 Resistance 0 Seat Position 5 Other Back and forth Gym Equipment Shuttle Recovery Bilateral Squats Details for ROM Resistance 50 Shuttle Recovery Platform Stable Reps/Time With long hold stretch at each rep Therapeutic Exercises Supine Exercises 1 Supine Exercise Name Knee flexion Long hold stretch followed by active assistive flexion Side left Reps/Minutes 10 Comments Prolonged stretching in 93 deg 's flexion Sitting Exercises 1 Sitting Exercise Name Knee flexion stretch: Sit to stands and buttock slides forward Side left Reps/Minutes 10' Therapeutic Activity Therapeutic Activity 1 Name Sit to stands Reps/Minutes 10x Comments Focus on knee flex. PT-OP-R Modalities Start: 11/10/17 08:22 Freq: Status: Active Protocol: Document 12/29/17 08:15 LRN (Rec: 12/29/17 09:10 LRN [id number]) Hot Pack/Cold Pack Treatment Cold Pack Location L knee: during stretch into flex 2 end of treatment Patient Position Supine Treatment Duration (minutes) 20 Comments Cold pack used during 10' stretches and at end of treatment with pt in passive knee flexion stretch position x 20'. PT-OP-T Assessment and Plan Start: 11/10/17 08:22 Freq: Status: Active Protocol: Document 12/29/17 08:15 LRN (Rec: 12/29/17 09:10 LRN [id number]) Physical Therapy Assessment Goals Three Impairment L knee edema Assisted Goal (LTG) Pt will be educated in self care for L knee edema. LTG Duration Goal met. Two Impairment Lacks appropriate HEP Assisted Goal (LTG) Pt will be educated in a comprehensive independent HEP for self care. LTG Duration 02/06/18 One Impairment Decreased L knee AROM/PROM Short Term Goal (STG) Improve L knee AROM 0-95 deg's . Improve L knee PROM 0-105 deg' s. Pt to avoid L knee manipulation. STG Duration Abandon: Goal not met. Assisted Goal (LTG) L knee AROM: 0-110 deg's L knee PROM: 0-115 deg's. Pt will be able to walk stairs with normal gait pattern using 1 railing. LTG Duration 02/06/18 Progress Towards Goals Progress Comments Poor progress. Assessment Summary Assessment L knee flexion is difficult getting past 90 deg's due to pt pain complaint. Physical Therapy Plan Frequency and Duration Frequency of Treatment 3-5x/week. Plan of Care Start Date 12/23/17 Plan of Care End Date 02/17/18 Therapeutic Interventions Therapeutic Interventions Aquatic Therapy Gait Training Home Exercise Program Manual Therapy Neuromuscular Re-education Patient/Caregiver Education Self-Care/Home Management Soft Tissue Mobilization Therapeutic Activities Therapeutic Exercises Modalities Cold Pack/Ice Massage Hot Packs Next Visit Focus/Plan Next Note Type Treatment Note Next Visit Plan Progress L knee ROM using Shuttle to assist with stretches, s/p L knee manipulation (12/22/17) rehabilitation.
--- NOTE | 2017-12-30 17:18 | PT.OTN ---
Current Diagnoses Bilateral primary osteoarthritis of knee (12/30/17) Physical Therapy Treatment Note PT-OP-A Visit Information Start: 11/10/17 08:22 Freq: Status: Active Protocol: Document 12/30/17 17:00 ON LICENSE OF [facility] (Rec: 12/30/17 17:18 ON LICENSE OF [facility] [email or web address]) Out-Patient Physical Therapy Visit Information Visit Information Visit Type Treatment Note Visit Note Visit Start Time 04:00 Visit Stop Time 05:00 Total Visit Minutes 60 Visit Number 16 Number of [facility]IL[facility] ADMINISTRATOR Visits 0 PT-OP-B Current Condition Start: 11/10/17 08:22 Freq: Status: Active Protocol: Document 12/23/17 15:45 LRN (Rec: 12/23/17 17:11 LRN [id number]) Current Condition History of Current Condition Onset Date 12/22/17 History of Current Condition Pt underwent L knee manipulation 12/22/17 following L TKA 11/10/17. Treatment Goals Patient/Caregiver Goals Gain functional L knee ROM. Prior Functional Status Baseline Function- ADL's Independent Baseline Function- Mobility Independent Baseline Function- Gait Gait with walker outside the home. No assistive device in the home. Current Functional Impairments (Reported) Functional Limitations- ADL's Difficulty getting L shoe on, has intervention analyst on toilet. Daughter helps with cooking. Functional Limitations- Mobility/Gait Requires use of 2WW for gait intermittently. PT-OP-C Subjective Start: 11/10/17 08:22 Freq: Status: Active Protocol: Document 12/30/17 17:00 ON LICENSE OF [facility] (Rec: 12/30/17 17:18 ON LICENSE OF [facility] [email or web address]) OP-PT Subjective Patient Comments Patient Comments Lisset reports walking more today so she is sore PT-OP-E Functional Tests Start: 11/10/17 08:22 Freq: Status: Active Protocol: Document 11/10/17 13:35 LRN (Rec: 11/10/17 14:12 LRN [id number]) Functional Tests Timed Up and Go (TUG) Score 23 sec's Comments Uses hands to get up from chair. TUG Impairment Rating 100% Impaired (Score 20) PT-OP-F Manual Assessment Start: 11/10/17 08:22 Freq: Status: Active Protocol: Document 11/10/17 13:35 LRN (Rec: 11/10/17 14:12 LRN [id number]) Manual Assessments Soft Tissue Assessment Soft Tissue Mobility Assessment Decreased L knee scar mobility . Scar is well healed. Increased temperature at the knee joint with mild to moderate joint effusion. PT-OP-G Mobility & Gait Start: 11/10/17 08:22 Freq: Status: Active Protocol: Document 12/23/17 15:45 LRN (Rec: 12/23/17 17:11 LRN [id number]) OP Mobility Evaluation Bed Mobility Rolling Independent Supine to and from Sit Independent Transfers Sit to Stand Independent OP Gait Assessment Assistive Devices Assistive Device None 4 Wheeled Walker Gait Deviations General Gait Pattern Decreased Stride Length Flexed Trunk Wide Based Gait Comments Gait Comments L knee extension is limited. Pt is FWBing on LLE. PT-OP-H Neuro Start: 11/10/17 08:22 Freq: Status: Active Protocol: Document 11/10/17 13:35 LRN (Rec: 11/10/17 14:12 LRN [id number]) Sensation Evaluation Location Details Left Anterior Knee Light Touch Impaired Deep Tendon Reflex & Clonus Assessment Deep Tendon Reflex Right Deep Tendon Reflex 2+ Normal Left Achilles Deep Tendon Reflex 0 Absent PT-OP-J Posture/Palpation/Skin Start: 11/10/17 08:22 Freq: Status: Active Protocol: Document 11/10/17 13:35 LRN (Rec: 11/10/17 14:12 LRN [id number]) Posture Evaluation Position Standing Head/C-Spine Posture Forward Head T-Spine Posture Increased Kyphosis Pelvis Posture Neutral Weight Distribution Weight Shifted Right Hip Posture (L) Flexed (R) Flexed Knee Posture (L) Excess Flexion Ankle/Foot Posture (R) Pronated PT-OP-K Range of Motion Start: 11/10/17 08:22 Freq: Status: Active Protocol: Document 12/29/17 08:15 LRN (Rec: 12/29/17 15:23 LRN [id number]) Knee Goniometric Range of Motion Knee Measured in Degrees Left Patient Position Supine Flexion Active (degrees) 88 Flexion Passive (degrees) 93 PT-OP-Q Treatments Start: 11/10/17 08:22 Freq: Status: Active Protocol: Document 12/30/17 17:00 [facility] (Rec: 12/30/17 17:18 [facility] [email or web address]) Cardio Equipment Bicycle (Upright) Duration (Minutes) 10 Resistance 0 Seat Position 5 Other able to make forward and backward resolutions Gym Equipment Shuttle Recovery Bilateral Squats Details for ROM Resistance 50 Shuttle Recovery Platform Stable Reps/Time With long hold stretch at each rep Therapeutic Exercises Supine Exercises 4 Supine Exercise Name Assisted knee ext Side left Reps/Minutes 10 min 3 Supine Exercise Name Self assisted heel slide stretch with Belt Reps/Minutes 10x Comments stretch f/b AROM 2 Supine Exercise Name quad sets Reps/Minutes 10 reps 1 Supine Exercise Name Knee flexion Long hold stretch followed by active assistive flexion Side left Reps/Minutes 10 Comments Prolonged stretching in 93 deg 's flexion Manual Therapy Treatment Soft Tissue Mobilization 2 Body Location MFR over the quadriceps on the left Mobilization Type Myofascial Release Body Position Supine 1 Body Location Scar & TFL at L knee Mobilization Type Other Body Position Supine Comments STM, strumming, MFR PT-OP-R Modalities Start: 11/10/17 08:22 Freq: Status: Active Protocol: Document 12/29/17 08:15 LRN (Rec: 12/29/17 09:10 LRN [id number]) Hot Pack/Cold Pack Treatment Cold Pack Location L knee: during stretch into flex 2 end of treatment Patient Position Supine Treatment Duration (minutes) 20 Comments Cold pack used during 10' stretches and at end of treatment with pt in passive knee flexion stretch position x 20'. PT-OP-T Assessment and Plan Start: 11/10/17 08:22 Freq: Status: Active Protocol: Document 12/30/17 17:00 [facility] (Rec: 12/30/17 17:18 [facility] [email or web address]) Physical Therapy Assessment Assessment Summary Assessment still at 90 degress today despite manual therapy techniques. Physical Therapy Plan Frequency and Duration Frequency of Treatment 3-5x/week. Plan of Care Start Date 12/23/17 Plan of Care End Date 02/17/18 Therapeutic Interventions Therapeutic Interventions Aquatic Therapy Gait Training Home Exercise Program Manual Therapy Neuromuscular Re-education Patient/Caregiver Education Self-Care/Home Management Soft Tissue Mobilization Therapeutic Activities Therapeutic Exercises Modalities Cold Pack/Ice Massage Hot Packs Next Visit Focus/Plan Next Note Type Treatment Note Next Visit Plan Progress L knee ROM using Shuttle to assist with stretches, s/p L knee manipulation (12/22/17) rehabilitation.
--- NOTE | 2017-12-30 17:19 | PT.OTN ---
Current Diagnoses Bilateral primary osteoarthritis of knee (12/30/17) Physical Therapy Treatment Note PT-OP-A Visit Information Start: 11/10/17 08:22 Freq: Status: Active Protocol: Document 12/30/17 17:00 [facility] (Rec: 12/30/17 17:18 [facility] [email or web address]) Out-Patient Physical Therapy Visit Information Visit Information Visit Type Treatment Note Visit Note Visit Start Time 04:00 Visit Stop Time 05:00 Total Visit Minutes 60 Visit Number 16 Number of RESEARCH BIOSTATISTICIAN Visits 0 PT-OP-B Current Condition Start: 11/10/17 08:22 Freq: Status: Active Protocol: Document 12/23/17 15:45 LRN (Rec: 12/23/17 17:11 LRN [id number]) Current Condition History of Current Condition Onset Date 12/22/17 History of Current Condition Pt underwent L knee manipulation 12/22/17 following L TKA 11/10/17. Treatment Goals Patient/Caregiver Goals Gain functional L knee ROM. Prior Functional Status Baseline Function- ADL's Independent Baseline Function- Mobility Independent Baseline Function- Gait Gait with walker outside the home. No assistive device in the home. Current Functional Impairments (Reported) Functional Limitations- ADL's Difficulty getting L shoe on, has pit manager on toilet. Daughter helps with cooking. Functional Limitations- Mobility/Gait Requires use of 2WW for gait intermittently. PT-OP-C Subjective Start: 11/10/17 08:22 Freq: Status: Active Protocol: Document 12/30/17 17:00 [facility] (Rec: 12/30/17 17:18 [facility] [email or web address]) OP-PT Subjective Patient Comments Patient Comments Lisset reports walking more today so she is sore PT-OP-E Functional Tests Start: 11/10/17 08:22 Freq: Status: Active Protocol: Document 11/10/17 13:35 LRN (Rec: 11/10/17 14:12 LRN [id number]) Functional Tests Timed Up and Go (TUG) Score 23 sec's Comments Uses hands to get up from chair. TUG Impairment Rating 100% Impaired (Score 20) PT-OP-F Manual Assessment Start: 11/10/17 08:22 Freq: Status: Active Protocol: Document 11/10/17 13:35 LRN (Rec: 11/10/17 14:12 LRN [id number]) Manual Assessments Soft Tissue Assessment Soft Tissue Mobility Assessment Decreased L knee scar mobility . Scar is well healed. Increased temperature at the knee joint with mild to moderate joint effusion. PT-OP-G Mobility & Gait Start: 11/10/17 08:22 Freq: Status: Active Protocol: Document 12/23/17 15:45 LRN (Rec: 12/23/17 17:11 LRN [id number]) OP Mobility Evaluation Bed Mobility Rolling Independent Supine to and from Sit Independent Transfers Sit to Stand Independent OP Gait Assessment Assistive Devices Assistive Device None 4 Wheeled Walker Gait Deviations General Gait Pattern Decreased Stride Length Flexed Trunk Wide Based Gait Comments Gait Comments L knee extension is limited. Pt is FWBing on LLE. PT-OP-H Neuro Start: 11/10/17 08:22 Freq: Status: Active Protocol: Document 11/10/17 13:35 LRN (Rec: 11/10/17 14:12 LRN [id number]) Sensation Evaluation Location Details Left Anterior Knee Light Touch Impaired Deep Tendon Reflex & Clonus Assessment Deep Tendon Reflex Right Deep Tendon Reflex 2+ Normal Left Achilles Deep Tendon Reflex 0 Absent PT-OP-J Posture/Palpation/Skin Start: 11/10/17 08:22 Freq: Status: Active Protocol: Document 11/10/17 13:35 LRN (Rec: 11/10/17 14:12 LRN [id number]) Posture Evaluation Position Standing Head/C-Spine Posture Forward Head T-Spine Posture Increased Kyphosis Pelvis Posture Neutral Weight Distribution Weight Shifted Right Hip Posture (L) Flexed (R) Flexed Knee Posture (L) Excess Flexion Ankle/Foot Posture (R) Pronated PT-OP-K Range of Motion Start: 11/10/17 08:22 Freq: Status: Active Protocol: Document 12/29/17 08:15 LRN (Rec: 12/29/17 15:23 LRN [id number]) Knee Goniometric Range of Motion Knee Measured in Degrees Left Patient Position Supine Flexion Active (degrees) 88 Flexion Passive (degrees) 93 PT-OP-Q Treatments Start: 11/10/17 08:22 Freq: Status: Active Protocol: Document 12/30/17 17:00 [facility] (Rec: 12/30/17 17:18 [facility] [email or web address]) Cardio Equipment Bicycle (Upright) Duration (Minutes) 10 Resistance 0 Seat Position 5 Other able to make forward and backward resolutions Gym Equipment Shuttle Recovery Bilateral Squats Details for ROM Resistance 50 Shuttle Recovery Platform Stable Reps/Time With long hold stretch at each rep Therapeutic Exercises Supine Exercises 4 Supine Exercise Name Assisted knee ext Side left Reps/Minutes 10 min 3 Supine Exercise Name Self assisted heel slide stretch with Belt Reps/Minutes 10x Comments stretch f/b AROM 2 Supine Exercise Name quad sets Reps/Minutes 10 reps 1 Supine Exercise Name Knee flexion Long hold stretch followed by active assistive flexion Side left Reps/Minutes 10 Comments Prolonged stretching in 93 deg 's flexion Manual Therapy Treatment Soft Tissue Mobilization 2 Body Location MFR over the quadriceps on the left Mobilization Type Myofascial Release Body Position Supine 1 Body Location Scar & TFL at L knee Mobilization Type Other Body Position Supine Comments STM, strumming, MFR PT-OP-R Modalities Start: 11/10/17 08:22 Freq: Status: Active Protocol: Document 12/30/17 17:18 [facility] (Rec: 12/30/17 17:19 [facility] [email or web address]) Hot Pack/Cold Pack Treatment Cold Pack Location L knee: during stretch into flex 2 end of treatment Patient Position Supine Treatment Duration (minutes) 20 Comments Cold pack used during 10' stretches and at end of treatment with pt in passive knee flexion stretch position x 20'. PT-OP-T Assessment and Plan Start: 11/10/17 08:22 Freq: Status: Active Protocol: Document 12/30/17 17:00 [facility] (Rec: 12/30/17 17:18 [facility] [email or web address]) Physical Therapy Assessment Assessment Summary Assessment still at 90 degress today despite manual therapy techniques. Physical Therapy Plan Frequency and Duration Frequency of Treatment 3-5x/week. Plan of Care Start Date 12/23/17 Plan of Care End Date 02/17/18 Therapeutic Interventions Therapeutic Interventions Aquatic Therapy Gait Training Home Exercise Program Manual Therapy Neuromuscular Re-education Patient/Caregiver Education Self-Care/Home Management Soft Tissue Mobilization Therapeutic Activities Therapeutic Exercises Modalities Cold Pack/Ice Massage Hot Packs Next Visit Focus/Plan Next Note Type Treatment Note Next Visit Plan Progress L knee ROM using Shuttle to assist with stretches, s/p L knee manipulation (12/22/17) rehabilitation.
--- NOTE | 2017-12-31 17:34 | PT.OTN ---
Current Diagnoses Bilateral primary osteoarthritis of knee (12/31/17) Physical Therapy Treatment Note PT-OP-A Visit Information Start: 11/10/17 08:22 Freq: Status: Active Protocol: Document 12/31/17 16:45 DC[facility] (Rec: 12/31/17 17:34 DCW [id number]) Out-Patient Physical Therapy Visit Information Visit Information Visit Type Treatment Note Visit Note Visit Start Time 16:45 Visit Stop Time 17:40 Total Visit Minutes 55 Visit Number 17 Number of TRAFFIC SIGNAL SUPERVISOR MAINTENANCE Visits 0 Evaluation Information Evaluation Date 11/10/17 PT-OP-B Current Condition Start: 11/10/17 08:22 Freq: Status: Active Protocol: Document 12/23/17 15:45 LRN (Rec: 12/23/17 17:11 LRN [id number]) Current Condition History of Current Condition Onset Date 12/22/17 History of Current Condition Pt underwent L knee manipulation 12/22/17 following L TKA 11/10/17. Treatment Goals Patient/Caregiver Goals Gain functional L knee ROM. Prior Functional Status Baseline Function- ADL's Independent Baseline Function- Mobility Independent Baseline Function- Gait Gait with walker outside the home. No assistive device in the home. Current Functional Impairments (Reported) Functional Limitations- ADL's Difficulty getting L shoe on, has supervisor wash house on toilet. Daughter helps with cooking. Functional Limitations- Mobility/Gait Requires use of 2WW for gait intermittently. PT-OP-C Subjective Start: 11/10/17 08:22 Freq: Status: Active Protocol: Document 12/31/17 16:45 DC[facility] (Rec: 12/31/17 17:34 DC[facility] [id number]) OP-PT Subjective Patient Comments Patient Comments Pt reports she was pretty happy yesterday after getting the bike pedals all the way around. PT-OP-E Functional Tests Start: 11/10/17 08:22 Freq: Status: Active Protocol: Document 11/10/17 13:35 LRN (Rec: 11/10/17 14:12 LRN [id number]) Functional Tests Timed Up and Go (TUG) Score 23 sec's Comments Uses hands to get up from chair. TUG Impairment Rating 100% Impaired (Score 20) PT-OP-F Manual Assessment Start: 11/10/17 08:22 Freq: Status: Active Protocol: Document 11/10/17 13:35 LRN (Rec: 11/10/17 14:12 LRN [id number]) Manual Assessments Soft Tissue Assessment Soft Tissue Mobility Assessment Decreased L knee scar mobility . Scar is well healed. Increased temperature at the knee joint with mild to moderate joint effusion. PT-OP-G Mobility & Gait Start: 11/10/17 08:22 Freq: Status: Active Protocol: Document 12/23/17 15:45 LRN (Rec: 12/23/17 17:11 LRN [id number]) OP Mobility Evaluation Bed Mobility Rolling Independent Supine to and from Sit Independent Transfers Sit to Stand Independent OP Gait Assessment Assistive Devices Assistive Device None 4 Wheeled Walker Gait Deviations General Gait Pattern Decreased Stride Length Flexed Trunk Wide Based Gait Comments Gait Comments L knee extension is limited. Pt is FWBing on LLE. PT-OP-H Neuro Start: 11/10/17 08:22 Freq: Status: Active Protocol: Document 11/10/17 13:35 LRN (Rec: 11/10/17 14:12 LRN [id number]) Sensation Evaluation Location Details Left Anterior Knee Light Touch Impaired Deep Tendon Reflex & Clonus Assessment Deep Tendon Reflex Right Deep Tendon Reflex 2+ Normal Left Achilles Deep Tendon Reflex 0 Absent PT-OP-J Posture/Palpation/Skin Start: 11/10/17 08:22 Freq: Status: Active Protocol: Document 11/10/17 13:35 LRN (Rec: 11/10/17 14:12 LRN [id number]) Posture Evaluation Position Standing Head/C-Spine Posture Forward Head T-Spine Posture Increased Kyphosis Pelvis Posture Neutral Weight Distribution Weight Shifted Right Hip Posture (L) Flexed (R) Flexed Knee Posture (L) Excess Flexion Ankle/Foot Posture (R) Pronated PT-OP-K Range of Motion Start: 11/10/17 08:22 Freq: Status: Active Protocol: Document 12/29/17 08:15 LRN (Rec: 12/29/17 15:23 LRN [id number]) Knee Goniometric Range of Motion Knee Measured in Degrees Left Patient Position Supine Flexion Active (degrees) 88 Flexion Passive (degrees) 93 PT-OP-Q Treatments Start: 11/10/17 08:22 Freq: Status: Active Protocol: Document 12/31/17 16:45 DC[facility] (Rec: 12/31/17 17:34 [facility] [id number]) Cardio Equipment Recumbent Bicycle Duration (Minutes) 5 Resistance 0 Seat Position 6 Other Back and forth motion Gym Equipment Shuttle Recovery Bilateral Squats Details for ROM Resistance 50 Shuttle Recovery Platform Stable Reps/Time With long hold stretch at each rep Therapeutic Ball 1 Exercise Details Knee flexion /c strap assist Ball Size/Color Blue - 45 cm Body Position Supine Therapeutic Exercises Prone Exercises 1 Prone Exercise Name Prone manual knee flexion stretch Side left Reps/Minutes 10' Standing Exercises 2 Standing Exercise Name Step flexion stretch Side left 1 Standing Exercise Name TKE Side left Resistance Lv 2 Equipment Used T-band Therapeutic Activity Therapeutic Activity 1 Name Sit to stands Reps/Minutes 10x Comments Focus on knee flex. Manual Therapy Treatment Soft Tissue Mobilization 2 Body Location MFR over the quadriceps on the left Mobilization Type Myofascial Release Body Position Supine 1 Body Location Scar & TFL at L knee Mobilization Type Other Body Position Supine Comments STM, strumming, MFR PT-OP-R Modalities Start: 11/10/17 08:22 Freq: Status: Active Protocol: Document 12/31/17 16:45 DCW (Rec: 12/31/17 17:34 DCW [id number]) Hot Pack/Cold Pack Treatment Cold Pack Location L knee: during stretch into flex 2 end of treatment Patient Position Supine Treatment Duration (minutes) 20 Comments Cold pack used during 10' stretches and at end of treatment with pt in passive knee flexion stretch position x 20'. PT-OP-T Assessment and Plan Start: 11/10/17 08:22 Freq: Status: Active Protocol: Document 12/31/17 16:45 DCW (Rec: 12/31/17 17:34 DC [id number]) Physical Therapy Assessment Impairments Impairments Edema Gait ROM Soft Tissue Mobility Strength Goals Three Impairment L knee edema Half-Way Goal (LTG) Pt will be educated in self care for L knee edema. LTG Duration Goal met. Two Impairment Lacks appropriate HEP Map Colorer Goal (LTG) Pt will be educated in a comprehensive independent HEP for self care. LTG Duration 02/06/18 One Impairment Decreased L knee AROM/PROM Short Term Goal (STG) Improve L knee AROM 0-95 deg's . Improve L knee PROM 0-105 deg' s. Pt to avoid L knee manipulation. STG Duration Abandon: Goal not met. Map Colorer Goal (LTG) L knee AROM: 0-110 deg's L knee PROM: 0-115 deg's. Pt will be able to walk stairs with normal gait pattern using 1 railing. LTG Duration 02/06/18 Progress Towards Goals Progress Towards Goals Slow Progress due to Activity Tolerance Assessment Summary Assessment Pt reported she felt like her knee was bending a little more today, measured at 91 degrees Physical Therapy Plan Frequency and Duration Frequency of Treatment 3-5x/week. Plan of Care Start Date 12/23/17 Plan of Care End Date 02/17/18 Therapeutic Interventions Therapeutic Interventions Aquatic Therapy Gait Training Home Exercise Program Manual Therapy Neuromuscular Re-education Patient/Caregiver Education Self-Care/Home Management Soft Tissue Mobilization Therapeutic Activities Therapeutic Exercises Modalities Cold Pack/Ice Massage Hot Packs Next Visit Focus/Plan Next Note Type Treatment Note Next Visit Plan Progress L knee ROM using Shuttle to assist with stretches, s/p L knee manipulation (12/22/17) rehabilitation.
--- NOTE | 2018-01-01 13:06 | PT.OTN ---
Current Diagnoses Bilateral primary osteoarthritis of knee (01/01/18) Physical Therapy Treatment Note PT-OP-A Visit Information Start: 11/10/17 08:22 Freq: Status: Active Protocol: Document 01/01/18 10:30 LRN (Rec: 01/01/18 11:27 LRN [id number]) Out-Patient Physical Therapy Visit Information Visit Information Visit Type Treatment Note Visit Note Visit Start Time 10:30 Visit Stop Time 11:32 Total Visit Minutes 62 Visit Number 18 Number of PIGMENT MAKING SUPERVISOR Visits 0 Evaluation Information Evaluation Date 11/10/17 PT-OP-B Current Condition Start: 11/10/17 08:22 Freq: Status: Active Protocol: Document 12/23/17 15:45 LRN (Rec: 12/23/17 17:11 LRN [id number]) Current Condition History of Current Condition Onset Date 12/22/17 History of Current Condition Pt underwent L knee manipulation 12/22/17 following L TKA 11/10/17. Treatment Goals Patient/Caregiver Goals Gain functional L knee ROM. Prior Functional Status Baseline Function- ADL's Independent Baseline Function- Mobility Independent Baseline Function- Gait Gait with walker outside the home. No assistive device in the home. Current Functional Impairments (Reported) Functional Limitations- ADL's Difficulty getting L shoe on, has supervisor garment manufacturing on toilet. Daughter helps with cooking. Functional Limitations- Mobility/Gait Requires use of 2WW for gait intermittently. PT-OP-C Subjective Start: 11/10/17 08:22 Freq: Status: Active Protocol: Document 01/01/18 10:30 LRN (Rec: 01/01/18 11:27 LRN [id number]) OP-PT Subjective Patient Comments Patient Comments Pt states she is trying to stretch the knee when sitting. PT-OP-E Functional Tests Start: 11/10/17 08:22 Freq: Status: Active Protocol: Document 11/10/17 13:35 LRN (Rec: 11/10/17 14:12 LRN [id number]) Functional Tests Timed Up and Go (TUG) Score 23 sec's Comments Uses hands to get up from chair. TUG Impairment Rating 100% Impaired (Score 20) PT-OP-F Manual Assessment Start: 11/10/17 08:22 Freq: Status: Active Protocol: Document 11/10/17 13:35 LRN (Rec: 11/10/17 14:12 LRN [id number]) Manual Assessments Soft Tissue Assessment Soft Tissue Mobility Assessment Decreased L knee scar mobility . Scar is well healed. Increased temperature at the knee joint with mild to moderate joint effusion. PT-OP-G Mobility & Gait Start: 11/10/17 08:22 Freq: Status: Active Protocol: Document 12/23/17 15:45 LRN (Rec: 12/23/17 17:11 LRN [id number]) OP Mobility Evaluation Bed Mobility Rolling Independent Supine to and from Sit Independent Transfers Sit to Stand Independent OP Gait Assessment Assistive Devices Assistive Device None 4 Wheeled Walker Gait Deviations General Gait Pattern Decreased Stride Length Flexed Trunk Wide Based Gait Comments Gait Comments L knee extension is limited. Pt is FWBing on LLE. PT-OP-H Neuro Start: 11/10/17 08:22 Freq: Status: Active Protocol: Document 11/10/17 13:35 LRN (Rec: 11/10/17 14:12 LRN [id number]) Sensation Evaluation Location Details Left Anterior Knee Light Touch Impaired Deep Tendon Reflex & Clonus Assessment Deep Tendon Reflex Right Deep Tendon Reflex 2+ Normal Left Achilles Deep Tendon Reflex 0 Absent PT-OP-J Posture/Palpation/Skin Start: 11/10/17 08:22 Freq: Status: Active Protocol: Document 11/10/17 13:35 LRN (Rec: 11/10/17 14:12 LRN [id number]) Posture Evaluation Position Standing Head/C-Spine Posture Forward Head T-Spine Posture Increased Kyphosis Pelvis Posture Neutral Weight Distribution Weight Shifted Right Hip Posture (L) Flexed (R) Flexed Knee Posture (L) Excess Flexion Ankle/Foot Posture (R) Pronated PT-OP-K Range of Motion Start: 11/10/17 08:22 Freq: Status: Active Protocol: Document 01/01/18 10:30 LRN (Rec: 01/01/18 12:48 LRN [id number]) Knee Goniometric Range of Motion Knee Measured in Degrees Right Patient Position Supine Left Patient Position Supine Flexion Passive (degrees) 100 PT-OP-Q Treatments Start: 11/10/17 08:22 Freq: Status: Active Protocol: Document 01/01/18 10:30 LRN (Rec: 01/01/18 11:27 LRN [id number]) Cardio Equipment Bicycle (Upright) Duration (Minutes) 15 Seat Position 7,6 Gym Equipment Shuttle Recovery Bilateral Squats Details for ROM Resistance 50 Shuttle Recovery Platform Stable Reps/Time With long hold stretch at each rep Therapeutic Exercises Prone Exercises 1 Prone Exercise Name Prone manual knee flexion stretch Side left Comments Held Sitting Exercises 3 Sitting Exercise Name Knee flex strengthening Side left Resistance Lev 2 T-Band 1 Sitting Exercise Name Knee flexion stretch Therapeutic Activity Therapeutic Activity 1 Name Sit to stands - Held Comments Focus on knee flex. PT-OP-R Modalities Start: 11/10/17 08:22 Freq: Status: Active Protocol: Document 01/01/18 10:30 LRN (Rec: 01/01/18 12:47 LRN [id number]) Hot Pack/Cold Pack Treatment Cold Pack Location L knee: during stretch into flex 2 end of treatment Patient Position Supine Treatment Duration (minutes) 17 Comments Cold pack used at end of treatment with pt in passive knee flexion stretch position x 17'. PT-OP-T Assessment and Plan Start: 11/10/17 08:22 Freq: Status: Active Protocol: Document 01/01/18 10:30 LRN (Rec: 01/01/18 11:27 LRN [id number]) Physical Therapy Assessment Goals Three Impairment L knee edema Certified Control Systems Technician Goal (LTG) Pt will be educated in self care for L knee edema. LTG Duration Goal met. Two Impairment Lacks appropriate HEP Certified Control Systems Technician Goal (LTG) Pt will be educated in a comprehensive independent HEP for self care. LTG Duration 02/06/18 One Impairment Decreased L knee AROM/PROM Short Term Goal (STG) Improve L knee AROM 0-95 deg's . Improve L knee PROM 0-105 deg' s. Pt to avoid L knee manipulation. STG Duration Abandon: Goal not met. Penitentiary Goal (LTG) L knee AROM: 0-110 deg's L knee PROM: 0-115 deg's. Pt will be able to walk stairs with normal gait pattern using 1 railing. LTG Duration 02/06/18 Assessment Summary Assessment L knee PROM flexion was 100 deg's. Pt able to cycle on the bike forward and backward for first time independently. Physical Therapy Plan Frequency and Duration Frequency of Treatment 3-5x/week. Plan of Care Start Date 12/23/17 Plan of Care End Date 09/11/18 Next Visit Focus/Plan Next Note Type Treatment Note Next Visit Plan Progress L knee ROM using Shuttle to assist with stretches, s/p L knee manipulation (12/22/17) rehabilitation.
--- NOTE | 2018-01-02 17:39 | PT.OTN ---
Current Diagnoses Bilateral primary osteoarthritis of knee (01/02/18) Physical Therapy Treatment Note PT-OP-A Visit Information Start: 11/10/17 08:22 Freq: Status: Active Protocol: Document 01/02/18 08:14 LRN (Rec: 01/02/18 09:08 LRN [id number]) Out-Patient Physical Therapy Visit Information Visit Information Visit Type Treatment Note Visit Note Visit Start Time 08:14 Visit Stop Time 09:20 Total Visit Minutes 66 Visit Number 20 Number of SQL MANAGER Visits 0 Evaluation Information Evaluation Date 11/10/17 PT-OP-B Current Condition Start: 11/10/17 08:22 Freq: Status: Active Protocol: Document 12/23/17 15:45 LRN (Rec: 12/23/17 17:11 LRN [id number]) Current Condition History of Current Condition Onset Date 12/22/17 History of Current Condition Pt underwent L knee manipulation 12/22/17 following L TKA 11/10/17. Treatment Goals Patient/Caregiver Goals Gain functional L knee ROM. Prior Functional Status Baseline Function- ADL's Independent Baseline Function- Mobility Independent Baseline Function- Gait Gait with walker outside the home. No assistive device in the home. Current Functional Impairments (Reported) Functional Limitations- ADL's Difficulty getting L shoe on, has tack cleaner on toilet. Daughter helps with cooking. Functional Limitations- Mobility/Gait Requires use of 2WW for gait intermittently. PT-OP-C Subjective Start: 11/10/17 08:22 Freq: Status: Active Protocol: Document 01/02/18 08:14 LRN (Rec: 01/02/18 09:08 LRN [id number]) OP-PT Subjective Patient Comments Patient Comments Fell asleep as soon as she got home. PT-OP-E Functional Tests Start: 11/10/17 08:22 Freq: Status: Active Protocol: Document 11/10/17 13:35 LRN (Rec: 11/10/17 14:12 LRN [id number]) Functional Tests Timed Up and Go (TUG) Score 23 sec's Comments Uses hands to get up from chair. TUG Impairment Rating 100% Impaired (Score 20) PT-OP-F Manual Assessment Start: 11/10/17 08:22 Freq: Status: Active Protocol: Document 11/10/17 13:35 LRN (Rec: 11/10/17 14:12 LRN [id number]) Manual Assessments Soft Tissue Assessment Soft Tissue Mobility Assessment Decreased L knee scar mobility . Scar is well healed. Increased temperature at the knee joint with mild to moderate joint effusion. PT-OP-G Mobility & Gait Start: 11/10/17 08:22 Freq: Status: Active Protocol: Document 12/23/17 15:45 LRN (Rec: 12/23/17 17:11 LRN [id number]) OP Mobility Evaluation Bed Mobility Rolling Independent Supine to and from Sit Independent Transfers Sit to Stand Independent OP Gait Assessment Assistive Devices Assistive Device None 4 Wheeled Walker Gait Deviations General Gait Pattern Decreased Stride Length Flexed Trunk Wide Based Gait Comments Gait Comments L knee extension is limited. Pt is FWBing on LLE. PT-OP-H Neuro Start: 11/10/17 08:22 Freq: Status: Active Protocol: Document 11/10/17 13:35 LRN (Rec: 11/10/17 14:12 LRN [id number]) Sensation Evaluation Location Details Left Anterior Knee Light Touch Impaired Deep Tendon Reflex & Clonus Assessment Deep Tendon Reflex Right Deep Tendon Reflex 2+ Normal Left Achilles Deep Tendon Reflex 0 Absent PT-OP-J Posture/Palpation/Skin Start: 11/10/17 08:22 Freq: Status: Active Protocol: Document 11/10/17 13:35 LRN (Rec: 11/10/17 14:12 LRN [id number]) Posture Evaluation Position Standing Head/C-Spine Posture Forward Head T-Spine Posture Increased Kyphosis Pelvis Posture Neutral Weight Distribution Weight Shifted Right Hip Posture (L) Flexed (R) Flexed Knee Posture (L) Excess Flexion Ankle/Foot Posture (R) Pronated PT-OP-K Range of Motion Start: 11/10/17 08:22 Freq: Status: Active Protocol: Document 01/02/18 08:14 LRN (Rec: 01/02/18 17:18 LRN [id number]) Knee Goniometric Range of Motion Knee Measured in Degrees Left Patient Position Supine Flexion Passive (degrees) 100 PT-OP-Q Treatments Start: 11/10/17 08:22 Freq: Status: Active Protocol: Document 01/02/18 08:14 LRN (Rec: 01/02/18 09:08 LRN [id number]) Cardio Equipment Bicycle (Upright) Duration (Minutes) 15 Seat Position 7,6 (5 back and forth) Other Forward easier than backward. Backward mildly uncontrolled Gym Equipment Shuttle Recovery Bilateral Squats Details for ROM (flex/ext) Resistance 50 Shuttle Recovery Platform Stable Reps/Time With long hold stretch at each rep Therapeutic Exercises Supine Exercises 1 Supine Exercise Name Knee flexion prolonged hold stretch followed by active flexion Side left Equipment Used T-Band Reps/Minutes 20 Comments Prolonged stretching in 98 deg 's flexion Sitting Exercises 3 Sitting Exercise Name Knee flex strengthening Side left Resistance Lev 2 T-Band 1 Sitting Exercise Name Knee flexion stretch Standing Exercises 2 Standing Exercise Name Step flexion stretch Side left Therapeutic Activity Therapeutic Activity 1 Name Sit to stands Comments Focus on knee flex stretch. PT-OP-R Modalities Start: 11/10/17 08:22 Freq: Status: Active Protocol: Document 01/02/18 08:14 LRN (Rec: 01/02/18 09:08 LRN [id number]) Hot Pack/Cold Pack Treatment Cold Pack Location L knee: during stretch into flex 2 end of treatment Patient Position Supine Treatment Duration (minutes) 20 Comments Cold pack used at end of treatment with pt in passive knee flexion stretch position x 20'. PT-OP-T Assessment and Plan Start: 11/10/17 08:22 Freq: Status: Active Protocol: Document 01/02/18 08:14 LRN (Rec: 01/02/18 09:08 LRN [id number]) Physical Therapy Assessment Impairments Impairments Edema Gait ROM Soft Tissue Mobility Strength Goals Three Impairment L knee edema Retirement Goal (LTG) Pt will be educated in self care for L knee edema. LTG Duration Goal met. Two Impairment Lacks appropriate HEP Retirement Goal (LTG) Pt will be educated in a comprehensive independent HEP for self care. LTG Duration 02/06/18 One Impairment Decreased L knee AROM/PROM Short Term Goal (STG) Improve L knee AROM 0-95 deg's . Improve L knee PROM 0-105 deg' s. Pt to avoid L knee manipulation. STG Duration Abandon: Goal not met. Animal Therapist Goal (LTG) L knee AROM: 0-110 deg's L knee PROM: 0-115 deg's. Pt will be able to walk stairs with normal gait pattern using 1 railing. LTG Duration 02/06/18 Progress Towards Goals Progress Comments Poor progression. Assessment Summary Assessment Pt able to tolerate use of stationary upright bike better with quicker progression to a lower seating. Pt does not hold her L knee in flexion stretch while sitting and needs cuing. Pt had less tolerance to static stretching at end of session. Pt might benefit from ROM with aquatic therapy if she can get transportation to the pool and space available, pt is open to water therapy. Physical Therapy Plan Frequency and Duration Frequency of Treatment 3-5x/week. Plan of Care Start Date 12/23/17 Plan of Care End Date 02/17/18 Therapeutic Interventions Therapeutic Interventions Aquatic Therapy Gait Training Home Exercise Program Manual Therapy Neuromuscular Re-education Patient/Caregiver Education Self-Care/Home Management Soft Tissue Mobilization Therapeutic Activities Therapeutic Exercises Modalities Cold Pack/Ice Massage Hot Packs Next Visit Focus/Plan Next Note Type Progress Note Next Visit Plan Recheck for PN. Progress L knee ROM with passive and active stretches, s/p L knee manipulation (12/22/17) rehabilitation.
--- NOTE | 2018-01-06 12:25 | PT.OTN ---
Current Diagnoses Bilateral primary osteoarthritis of knee (01/06/18) Physical Therapy Treatment Note PT-OP-A Visit Information Start: 11/10/17 08:22 Freq: Status: Active Protocol: Document 01/06/18 10:30 GGD (Rec: 01/06/18 12:24 GGD [id number]) Out-Patient Physical Therapy Visit Information Visit Information Visit Type Treatment Note Visit Note Visit Start Time 10:30 Visit Stop Time 11:25 Total Visit Minutes 55 Visit Number 21 Number of INTERNATIONAL RECRUITER Visits 1 Evaluation Information Evaluation Date 11/10/17 PT-OP-B Current Condition Start: 11/10/17 08:22 Freq: Status: Active Protocol: Document 12/23/17 15:45 LRN (Rec: 12/23/17 17:11 LRN [id number]) Current Condition History of Current Condition Onset Date 12/22/17 History of Current Condition Pt underwent L knee manipulation 12/22/17 following L TKA 11/10/17. Treatment Goals Patient/Caregiver Goals Gain functional L knee ROM. Prior Functional Status Baseline Function- ADL's Independent Baseline Function- Mobility Independent Baseline Function- Gait Gait with walker outside the home. No assistive device in the home. Current Functional Impairments (Reported) Functional Limitations- ADL's Difficulty getting L shoe on, has blending machine operator on toilet. Daughter helps with cooking. Functional Limitations- Mobility/Gait Requires use of 2WW for gait intermittently. PT-OP-C Subjective Start: 11/10/17 08:22 Freq: Status: Active Protocol: Document 01/06/18 10:30 GGD (Rec: 01/06/18 12:24 GGD [id number]) OP-PT Subjective Patient Comments Patient Comments Pt states her knee been sore at home. PT-OP-E Functional Tests Start: 11/10/17 08:22 Freq: Status: Active Protocol: Document 11/10/17 13:35 LRN (Rec: 11/10/17 14:12 LRN [id number]) Functional Tests Timed Up and Go (TUG) Score 23 sec's Comments Uses hands to get up from chair. TUG Impairment Rating 100% Impaired (Score 20) PT-OP-F Manual Assessment Start: 11/10/17 08:22 Freq: Status: Active Protocol: Document 11/10/17 13:35 LRN (Rec: 11/10/17 14:12 LRN [id number]) Manual Assessments Soft Tissue Assessment Soft Tissue Mobility Assessment Decreased L knee scar mobility . Scar is well healed. Increased temperature at the knee joint with mild to moderate joint effusion. PT-OP-G Mobility & Gait Start: 11/10/17 08:22 Freq: Status: Active Protocol: Document 12/23/17 15:45 LRN (Rec: 12/23/17 17:11 LRN [id number]) OP Mobility Evaluation Bed Mobility Rolling Independent Supine to and from Sit Independent Transfers Sit to Stand Independent OP Gait Assessment Assistive Devices Assistive Device None 4 Wheeled Walker Gait Deviations General Gait Pattern Decreased Stride Length Flexed Trunk Wide Based Gait Comments Gait Comments L knee extension is limited. Pt is FWBing on LLE. PT-OP-H Neuro Start: 11/10/17 08:22 Freq: Status: Active Protocol: Document 11/10/17 13:35 LRN (Rec: 11/10/17 14:12 LRN [id number]) Sensation Evaluation Location Details Left Anterior Knee Light Touch Impaired Deep Tendon Reflex & Clonus Assessment Deep Tendon Reflex Right Deep Tendon Reflex 2+ Normal Left Achilles Deep Tendon Reflex 0 Absent PT-OP-J Posture/Palpation/Skin Start: 11/10/17 08:22 Freq: Status: Active Protocol: Document 11/10/17 13:35 LRN (Rec: 11/10/17 14:12 LRN [id number]) Posture Evaluation Position Standing Head/C-Spine Posture Forward Head T-Spine Posture Increased Kyphosis Pelvis Posture Neutral Weight Distribution Weight Shifted Right Hip Posture (L) Flexed (R) Flexed Knee Posture (L) Excess Flexion Ankle/Foot Posture (R) Pronated PT-OP-K Range of Motion Start: 11/10/17 08:22 Freq: Status: Active Protocol: Document 01/06/18 10:30 GGD (Rec: 01/06/18 12:24 GGD [id number]) Knee Goniometric Range of Motion Knee Measured in Degrees Left Patient Position Supine Flexion Active (degrees) 94 Flexion Passive (degrees) 101 Extension Active (degrees) 13 Extension Passive (degrees) 10 PT-OP-Q Treatments Start: 11/10/17 08:22 Freq: Status: Active Protocol: Document 01/06/18 10:30 GGD (Rec: 01/06/18 12:24 GGD [email or web address]) Cardio Equipment Bicycle (Upright) Duration (Minutes) 15 Seat Position 7,6 (5 back and forth) Other Forward easier than backward. Backward mildly uncontrolled Gym Equipment Shuttle Recovery Bilateral Squats Details for ROM (flex/ext) Resistance 50 Shuttle Recovery Platform Stable Reps/Time With long hold stretch at each rep Therapeutic Exercises Supine Exercises 1 Supine Exercise Name Knee flexion prolonged hold stretch followed by active flexion Side left Equipment Used T-Band Reps/Minutes 20 Comments Prolonged stretching in 98 deg 's flexion Sitting Exercises 3 Sitting Exercise Name Knee flex strengthening Side left Resistance Lev 2 T-Band 1 Sitting Exercise Name Knee flexion stretch Standing Exercises 2 Standing Exercise Name Step flexion stretch Side left Therapeutic Activity Therapeutic Activity 1 Name Sit to stands Comments Focus on knee flex stretch. PT-OP-R Modalities Start: 11/10/17 08:22 Freq: Status: Active Protocol: Document 01/06/18 10:30 GGD (Rec: 01/06/18 12:24 GGD [email or web address]) Hot Pack/Cold Pack Treatment Cold Pack Location L knee: during stretch into flex 2 end of treatment Patient Position Supine Treatment Duration (minutes) 15 Comments Cold pack used at end of treatment with pt in passive knee flexion stretch position x 15'. PT-OP-T Assessment and Plan Start: 11/10/17 08:22 Freq: Status: Active Protocol: Document 01/06/18 10:30 GGD (Rec: 01/06/18 12:24 GGD [email or web address]) Physical Therapy Assessment Goals Three Impairment L knee edema Fdc Goal (LTG) Pt will be educated in self care for L knee edema. LTG Duration Goal met. Two Impairment Lacks appropriate HEP Boom Master Goal (LTG) Pt will be educated in a comprehensive independent HEP for self care. LTG Duration 02/06/18 One Impairment Decreased L knee AROM/PROM Short Term Goal (STG) Improve L knee AROM 0-95 deg's . Improve L knee PROM 0-105 deg' s. Pt to avoid L knee manipulation. STG Duration Abandon: Goal not met. Boom Master Goal (LTG) L knee AROM: 0-110 deg's L knee PROM: 0-115 deg's. Pt will be able to walk stairs with normal gait pattern using 1 railing. LTG Duration 02/06/18 Assessment Summary Assessment Pt had increase pain with ROM. She slowly progressing with ROM. Physical Therapy Plan Frequency and Duration Frequency of Treatment 3-5x/week. Plan of Care Start Date 12/23/17 Plan of Care End Date 02/17/18 Therapeutic Interventions Therapeutic Interventions Aquatic Therapy Gait Training Home Exercise Program Manual Therapy Neuromuscular Re-education Patient/Caregiver Education Self-Care/Home Management Soft Tissue Mobilization Therapeutic Activities Therapeutic Exercises Modalities Cold Pack/Ice Massage Hot Packs Next Visit Focus/Plan Next Note Type Progress Note Next Visit Plan Recheck for PN. Progress L knee ROM with passive and active stretches, s/p L knee manipulation (12/22/17) rehabilitation.
--- NOTE | 2018-01-06 13:24 | PT.OPPN ---
Current Diagnoses Bilateral primary osteoarthritis of knee (01/06/18) Physical Therapy Progress Note PT-OP-A Visit Information Start: 11/10/17 08:22 Freq: Status: Active Protocol: Document 01/06/18 10:30 GGD (Rec: 01/06/18 12:24 GGD [email or web address]) Out-Patient Physical Therapy Visit Information Visit Information Visit Type Treatment Note Visit Note Visit Start Time 10:30 Visit Stop Time 11:25 Total Visit Minutes 55 Visit Number 21 Number of REFRIGERATED CARGO CLERK Visits 1 Evaluation Information Evaluation Date 11/10/17 PT-OP-B Current Condition Start: 11/10/17 08:22 Freq: Status: Active Protocol: Document 12/23/17 15:45 LRN (Rec: 12/23/17 17:11 LRN [id number]) Current Condition History of Current Condition Onset Date 12/22/17 History of Current Condition Pt underwent L knee manipulation 12/22/17 following L TKA 11/10/17. Treatment Goals Patient/Caregiver Goals Gain functional L knee ROM. Prior Functional Status Baseline Function- ADL's Independent Baseline Function- Mobility Independent Baseline Function- Gait Gait with walker outside the home. No assistive device in the home. Current Functional Impairments (Reported) Functional Limitations- ADL's Difficulty getting L shoe on, has prototype deicer assembler on toilet. Daughter helps with cooking. Functional Limitations- Mobility/Gait Requires use of 2WW for gait intermittently. PT-OP-C Subjective Start: 11/10/17 08:22 Freq: Status: Active Protocol: Document 01/06/18 10:30 GGD (Rec: 01/06/18 12:24 GGD [email or web address]) OP-PT Subjective Patient Comments Patient Comments Pt states her knee been sore at home. PT-OP-E Functional Tests Start: 11/10/17 08:22 Freq: Status: Active Protocol: Document 11/10/17 13:35 LRN (Rec: 11/10/17 14:12 LRN [id number]) Functional Tests Timed Up and Go (TUG) Score 23 sec's Comments Uses hands to get up from chair. TUG Impairment Rating 100% Impaired (Score 20) PT-OP-F Manual Assessment Start: 11/10/17 08:22 Freq: Status: Active Protocol: Document 11/10/17 13:35 LRN (Rec: 11/10/17 14:12 LRN [id number]) Manual Assessments Soft Tissue Assessment Soft Tissue Mobility Assessment Decreased L knee scar mobility . Scar is well healed. Increased temperature at the knee joint with mild to moderate joint effusion. PT-OP-G Mobility & Gait Start: 11/10/17 08:22 Freq: Status: Active Protocol: Document 12/23/17 15:45 LRN (Rec: 12/23/17 17:11 LRN [id number]) OP Mobility Evaluation Bed Mobility Rolling Independent Supine to and from Sit Independent Transfers Sit to Stand Independent OP Gait Assessment Assistive Devices Assistive Device None 4 Wheeled Walker Gait Deviations General Gait Pattern Decreased Stride Length Flexed Trunk Wide Based Gait Comments Gait Comments L knee extension is limited. Pt is FWBing on LLE. PT-OP-H Neuro Start: 11/10/17 08:22 Freq: Status: Active Protocol: Document 11/10/17 13:35 LRN (Rec: 11/10/17 14:12 LRN [id number]) Sensation Evaluation Location Details Left Anterior Knee Light Touch Impaired Deep Tendon Reflex & Clonus Assessment Deep Tendon Reflex Right Deep Tendon Reflex 2+ Normal Left Achilles Deep Tendon Reflex 0 Absent PT-OP-J Posture/Palpation/Skin Start: 11/10/17 08:22 Freq: Status: Active Protocol: Document 11/10/17 13:35 LRN (Rec: 11/10/17 14:12 LRN [id number]) Posture Evaluation Position Standing Head/C-Spine Posture Forward Head T-Spine Posture Increased Kyphosis Pelvis Posture Neutral Weight Distribution Weight Shifted Right Hip Posture (L) Flexed (R) Flexed Knee Posture (L) Excess Flexion Ankle/Foot Posture (R) Pronated PT-OP-K Range of Motion Start: 11/10/17 08:22 Freq: Status: Active Protocol: Document 01/06/18 10:30 GGD (Rec: 01/06/18 12:24 GGD [email or web address]) Knee Goniometric Range of Motion Knee Measured in Degrees Left Patient Position Supine Flexion Active (degrees) 94 Flexion Passive (degrees) 101 Extension Active (degrees) 13 Extension Passive (degrees) 10 PT-OP-T Assessment and Plan Start: 11/10/17 08:22 Freq: Status: Active Protocol: Document 01/06/18 10:30 GGD (Rec: 01/06/18 12:24 GGD [email or web address]) Physical Therapy Assessment Goals Three Impairment L knee edema Penitentiary Goal (LTG) Pt will be educated in self care for L knee edema. LTG Duration Goal met. Two Impairment Lacks appropriate HEP Neurological Surgery Teacher Goal (LTG) Pt will be educated in a comprehensive independent HEP for self care. LTG Duration 02/06/18 One Impairment Decreased L knee AROM/PROM Short Term Goal (STG) Improve L knee AROM 0-95 deg's . Improve L knee PROM 0-105 deg' s. Pt to avoid L knee manipulation. STG Duration Abandon: Goal not met. Penitentiary Goal (LTG) L knee AROM: 0-110 deg's L knee PROM: 0-115 deg's. Pt will be able to walk stairs with normal gait pattern using 1 railing. LTG Duration 02/06/18 Assessment Summary Assessment Pt had increase pain with ROM. She slowly progressing with ROM. Physical Therapy Plan Frequency and Duration Frequency of Treatment 3-5x/week. Plan of Care Start Date 12/23/17 Plan of Care End Date 02/17/18 Therapeutic Interventions Therapeutic Interventions Aquatic Therapy Gait Training Home Exercise Program Manual Therapy Neuromuscular Re-education Patient/Caregiver Education Self-Care/Home Management Soft Tissue Mobilization Therapeutic Activities Therapeutic Exercises Modalities Cold Pack/Ice Massage Hot Packs Next Visit Focus/Plan Next Note Type Progress Note Next Visit Plan Recheck for PN. Progress L knee ROM with passive and active stretches, s/p L knee manipulation (12/22/17) rehabilitation.
--- NOTE | 2018-01-07 11:45 | PT.OTN ---
Current Diagnoses Bilateral primary osteoarthritis of knee (01/07/18) Physical Therapy Treatment Note PT-OP-A Visit Information Start: 11/10/17 08:22 Freq: Status: Active Protocol: Document 01/07/18 10:40 [facility] (Rec: 01/07/18 11:45 [facility] [id number]) Out-Patient Physical Therapy Visit Information Visit Information Visit Type Treatment Note Visit Note Visit Start Time 10:30 Visit Stop Time 11:25 Total Visit Minutes 55 Visit Number 22 Number of REFRIGERATING ENGINEER Visits 0 PT-OP-B Current Condition Start: 11/10/17 08:22 Freq: Status: Active Protocol: Document 12/23/17 15:45 LRN (Rec: 12/23/17 17:11 LRN [id number]) Current Condition History of Current Condition Onset Date 12/22/17 History of Current Condition Pt underwent L knee manipulation 12/22/17 following L TKA 11/10/17. Treatment Goals Patient/Caregiver Goals Gain functional L knee ROM. Prior Functional Status Baseline Function- ADL's Independent Baseline Function- Mobility Independent Baseline Function- Gait Gait with walker outside the home. No assistive device in the home. Current Functional Impairments (Reported) Functional Limitations- ADL's Difficulty getting L shoe on, has adoption coordinator on toilet. Daughter helps with cooking. Functional Limitations- Mobility/Gait Requires use of 2WW for gait intermittently. PT-OP-C Subjective Start: 11/10/17 08:22 Freq: Status: Active Protocol: Document 01/07/18 10:40 [facility] (Rec: 01/07/18 11:45 [facility] [id number]) OP-PT Subjective Patient Comments Patient Comments Compliance with stretches. Notes knee was sore ant. PT-OP-E Functional Tests Start: 11/10/17 08:22 Freq: Status: Active Protocol: Document 11/10/17 13:35 LRN (Rec: 11/10/17 14:12 LRN [id number]) Functional Tests Timed Up and Go (TUG) Score 23 sec's Comments Uses hands to get up from chair. TUG Impairment Rating 100% Impaired (Score 20) PT-OP-F Manual Assessment Start: 11/10/17 08:22 Freq: Status: Active Protocol: Document 11/10/17 13:35 LRN (Rec: 11/10/17 14:12 LRN [id number]) Manual Assessments Soft Tissue Assessment Soft Tissue Mobility Assessment Decreased L knee scar mobility . Scar is well healed. Increased temperature at the knee joint with mild to moderate joint effusion. PT-OP-G Mobility & Gait Start: 11/10/17 08:22 Freq: Status: Active Protocol: Document 12/23/17 15:45 LRN (Rec: 12/23/17 17:11 LRN [id number]) OP Mobility Evaluation Bed Mobility Rolling Independent Supine to and from Sit Independent Transfers Sit to Stand Independent OP Gait Assessment Assistive Devices Assistive Device None 4 Wheeled Walker Gait Deviations General Gait Pattern Decreased Stride Length Flexed Trunk Wide Based Gait Comments Gait Comments L knee extension is limited. Pt is FWBing on LLE. PT-OP-H Neuro Start: 11/10/17 08:22 Freq: Status: Active Protocol: Document 11/10/17 13:35 LRN (Rec: 11/10/17 14:12 LRN [id number]) Sensation Evaluation Location Details Left Anterior Knee Light Touch Impaired Deep Tendon Reflex & Clonus Assessment Deep Tendon Reflex Right Deep Tendon Reflex 2+ Normal Left Achilles Deep Tendon Reflex 0 Absent PT-OP-J Posture/Palpation/Skin Start: 11/10/17 08:22 Freq: Status: Active Protocol: Document 11/10/17 13:35 LRN (Rec: 11/10/17 14:12 LRN [id number]) Posture Evaluation Position Standing Head/C-Spine Posture Forward Head T-Spine Posture Increased Kyphosis Pelvis Posture Neutral Weight Distribution Weight Shifted Right Hip Posture (L) Flexed (R) Flexed Knee Posture (L) Excess Flexion Ankle/Foot Posture (R) Pronated PT-OP-K Range of Motion Start: 11/10/17 08:22 Freq: Status: Active Protocol: Document 01/07/18 10:40 LR (Rec: 01/07/18 11:45 LR [id number]) Knee Goniometric Range of Motion Knee Measured in Degrees Left Flexion Active (degrees) 93 Extension Active (degrees) 16 PT-OP-Q Treatments Start: 11/10/17 08:22 Freq: Status: Active Protocol: Document 01/07/18 10:40 [facility]H (Rec: 01/07/18 11:45 LR [id number]) Cardio Equipment Bicycle (Upright) Duration (Minutes) 10 Seat Position 7,6 (5 back and forth) Therapeutic Exercises Supine Exercises 5 Supine Exercise Name tball rolls into flex Reps/Minutes 30 Standing Exercises 3 Standing Exercise Name gastroc stretch Reps/Minutes 45sec Manual Therapy Treatment Soft Tissue Mobilization 3 Body Location proximal calf & distal HS Mobilization Type Rolling 1 Body Location Scar Mobilization Type Myofascial Release Rolling Body Position Supine Comments FM w/ APs in knee flex Joint Mobilizations 2 Joint PF Direction med, sup, inf 1 Joint tibiofemoral Direction AP on tibia & femur w/ APs PT-OP-R Modalities Start: 11/10/17 08:22 Freq: Status: Active Protocol: Document 01/07/18 10:40 [facility] (Rec: 01/07/18 11:45 [facility] [id number]) Hot Pack/Cold Pack Treatment Cold Pack Location L knee: during stretch into flex 2 end of treatment Patient Position Supine Treatment Duration (minutes) 10 Comments Cold pack used at end of treatment with pt in passive knee flexion stretch position x 10'. PT-OP-T Assessment and Plan Start: 11/10/17 08:22 Freq: Status: Active Protocol: Document 01/07/18 10:40 [facility] (Rec: 01/07/18 11:45 [facility] [id number]) Physical Therapy Assessment Goals Three Impairment L knee edema Long-Term Goal (LTG) Pt will be educated in self care for L knee edema. LTG Duration Goal met. Two Impairment Lacks appropriate HEP Machine Packer Goal (LTG) Pt will be educated in a comprehensive independent HEP for self care. LTG Duration 02/06/18 One Impairment Decreased L knee AROM/PROM Short Term Goal (STG) Improve L knee AROM 0-95 deg's . Improve L knee PROM 0-105 deg' s. Pt to avoid L knee manipulation. STG Duration Abandon: Goal not met. Machine Packer Goal (LTG) L knee AROM: 0-110 deg's L knee PROM: 0-115 deg's. Pt will be able to walk stairs with normal gait pattern using 1 railing. LTG Duration 02/06/18 Assessment Summary Assessment Improved ROM with manual therapy to actively lacking only 10 deg of ext. Pt has significant reistriction of PF & tibiofemoral joint. She has significant calf & HS & ITB tightness restricting movement . Physical Therapy Plan Frequency and Duration Frequency of Treatment 3-5x/week. Plan of Care Start Date 12/23/17 Plan of Care End Date 02/17/18 Next Visit Focus/Plan Next Note Type Treatment Note Next Visit Plan Cont to progress ROM
--- NOTE | 2018-01-12 13:18 | PT.OTN ---
Current Diagnoses Bilateral primary osteoarthritis of knee (01/12/18) Physical Therapy Treatment Note PT-OP-A Visit Information Start: 11/10/17 08:22 Freq: Status: Active Protocol: Document 01/12/18 09:45 AMB (Rec: 01/12/18 13:17 AMB [email or web address]) Out-Patient Physical Therapy Visit Information Visit Information Visit Type Treatment Note Visit Note Visit Start Time 10:30 Visit Stop Time 11:25 Total Visit Minutes 55 Visit Number 22 Number of LAMP SHADE ASSEMBLER Visits 0 Evaluation Information Evaluation Date 11/10/17 PT-OP-B Current Condition Start: 11/10/17 08:22 Freq: Status: Active Protocol: Document 12/23/17 15:45 LRN (Rec: 12/23/17 17:11 LRN [id number]) Current Condition History of Current Condition Onset Date 12/22/17 History of Current Condition Pt underwent L knee manipulation 12/22/17 following L TKA 11/10/17. Treatment Goals Patient/Caregiver Goals Gain functional L knee ROM. Prior Functional Status Baseline Function- ADL's Independent Baseline Function- Mobility Independent Baseline Function- Gait Gait with walker outside the home. No assistive device in the home. Current Functional Impairments (Reported) Functional Limitations- ADL's Difficulty getting L shoe on, has rotary dump operator on toilet. Daughter helps with cooking. Functional Limitations- Mobility/Gait Requires use of 2WW for gait intermittently. PT-OP-C Subjective Start: 11/10/17 08:22 Freq: Status: Active Protocol: Document 01/12/18 09:45 AMB (Rec: 01/12/18 13:17 AMB [email or web address]) OP-PT Subjective Patient Comments Patient Comments Pt states she was quite sore after doing pool therapy (felt good during the pool, but later that day felt that she over did it. PT-OP-E Functional Tests Start: 11/10/17 08:22 Freq: Status: Active Protocol: Document 11/10/17 13:35 LRN (Rec: 11/10/17 14:12 LRN [id number]) Functional Tests Timed Up and Go (TUG) Score 23 sec's Comments Uses hands to get up from chair. TUG Impairment Rating 100% Impaired (Score 20) PT-OP-F Manual Assessment Start: 11/10/17 08:22 Freq: Status: Active Protocol: Document 11/10/17 13:35 LRN (Rec: 11/10/17 14:12 LRN [id number]) Manual Assessments Soft Tissue Assessment Soft Tissue Mobility Assessment Decreased L knee scar mobility . Scar is well healed. Increased temperature at the knee joint with mild to moderate joint effusion. PT-OP-G Mobility & Gait Start: 11/10/17 08:22 Freq: Status: Active Protocol: Document 12/23/17 15:45 LRN (Rec: 12/23/17 17:11 LRN [id number]) OP Mobility Evaluation Bed Mobility Rolling Independent Supine to and from Sit Independent Transfers Sit to Stand Independent OP Gait Assessment Assistive Devices Assistive Device None 4 Wheeled Walker Gait Deviations General Gait Pattern Decreased Stride Length Flexed Trunk Wide Based Gait Comments Gait Comments L knee extension is limited. Pt is FWBing on LLE. PT-OP-H Neuro Start: 11/10/17 08:22 Freq: Status: Active Protocol: Document 11/10/17 13:35 LRN (Rec: 11/10/17 14:12 LRN [id number]) Sensation Evaluation Location Details Left Anterior Knee Light Touch Impaired Deep Tendon Reflex & Clonus Assessment Deep Tendon Reflex Right Deep Tendon Reflex 2+ Normal Left Achilles Deep Tendon Reflex 0 Absent PT-OP-J Posture/Palpation/Skin Start: 11/10/17 08:22 Freq: Status: Active Protocol: Document 11/10/17 13:35 LRN (Rec: 11/10/17 14:12 LRN [id number]) Posture Evaluation Position Standing Head/C-Spine Posture Forward Head T-Spine Posture Increased Kyphosis Pelvis Posture Neutral Weight Distribution Weight Shifted Right Hip Posture (L) Flexed (R) Flexed Knee Posture (L) Excess Flexion Ankle/Foot Posture (R) Pronated PT-OP-K Range of Motion Start: 11/10/17 08:22 Freq: Status: Active Protocol: Document 01/12/18 10:23 AMB (Rec: 01/12/18 10:27 AMB [id number]) Knee Goniometric Range of Motion Knee Measured in Degrees Left Flexion Active (degrees) 95 Extension Active (degrees) 14 PT-OP-Q Treatments Start: 11/10/17 08:22 Freq: Status: Active Protocol: Document 01/12/18 09:45 AMB (Rec: 01/12/18 09:59 AMB [id number]) Cardio Equipment Bicycle (Upright) Duration (Minutes) 10 Seat Position (5 back and forth) Therapeutic Exercises Standing Exercises 3 Standing Exercise Name gastroc stretch Reps/Minutes 45sec 1 Standing Exercise Name hamstring stretch Reps/Minutes 30 seconds x 2 Comments standing Manual Therapy Treatment Soft Tissue Mobilization 1 Body Location Scar Mobilization Type Myofascial Release Rolling Body Position Supine Comments APs in knee flex Joint Mobilizations 2 Joint PF Direction med, sup, inf 1 Joint tibiofemoral Direction AP on tibia & femur w/ APs PT-OP-R Modalities Start: 11/10/17 08:22 Freq: Status: Active Protocol: Document 01/12/18 09:45 AMB (Rec: 01/12/18 10:00 AMB [id number]) Hot Pack/Cold Pack Treatment Cold Pack Location L knee: during stretch into flex 2 end of treatment Patient Position Supine Treatment Duration (minutes) 10 Comments Cold pack used at end of treatment with pt in passive knee flexion stretch position x 10'. PT-OP-T Assessment and Plan Start: 11/10/17 08:22 Freq: Status: Active Protocol: Document 01/12/18 09:45 AMB (Rec: 01/12/18 13:17 AMB [email or web address]) Physical Therapy Assessment Assessment Summary Assessment Considering that the patient was in increased pain over the weekend, her ROM showed progression after manual therapy. Scar continues to show adhesions. Physical Therapy Plan Frequency and Duration Frequency of Treatment 3-5x/week. Plan of Care Start Date 12/23/17 Plan of Care End Date 02/17/18 Next Visit Focus/Plan Next Note Type Treatment Note Next Visit Plan Progress stretching, progress soft tissue and joint movement .
--- NOTE | 2018-01-12 17:00 | PT.OTN ---
Current Diagnoses Bilateral primary osteoarthritis of knee (01/12/18) Physical Therapy Treatment Note PT-OP-A Visit Information Start: 11/10/17 08:22 Freq: Status: Active Protocol: Document 01/12/18 09:45 AMB (Rec: 01/12/18 13:17 AMB [email or web address]) Out-Patient Physical Therapy Visit Information Visit Information Visit Type Treatment Note Visit Note Visit Start Time 10:30 Visit Stop Time 11:25 Total Visit Minutes 55 Visit Number 22 Number of MANGANESE BREAKER Visits 0 Evaluation Information Evaluation Date 11/10/17 PT-OP-B Current Condition Start: 11/10/17 08:22 Freq: Status: Active Protocol: Document 12/23/17 15:45 LRN (Rec: 12/23/17 17:11 LRN [id number]) Current Condition History of Current Condition Onset Date 12/22/17 History of Current Condition Pt underwent L knee manipulation 12/22/17 following L TKA 11/10/17. Treatment Goals Patient/Caregiver Goals Gain functional L knee ROM. Prior Functional Status Baseline Function- ADL's Independent Baseline Function- Mobility Independent Baseline Function- Gait Gait with walker outside the home. No assistive device in the home. Current Functional Impairments (Reported) Functional Limitations- ADL's Difficulty getting L shoe on, has self pay collector on toilet. Daughter helps with cooking. Functional Limitations- Mobility/Gait Requires use of 2WW for gait intermittently. PT-OP-C Subjective Start: 11/10/17 08:22 Freq: Status: Active Protocol: Document 01/12/18 09:45 AMB (Rec: 01/12/18 13:17 AMB [email or web address]) OP-PT Subjective Patient Comments Patient Comments Pt states she was quite sore after doing pool therapy (felt good during the pool, but later that day felt that she over did it. PT-OP-E Functional Tests Start: 11/10/17 08:22 Freq: Status: Active Protocol: Document 11/10/17 13:35 LRN (Rec: 11/10/17 14:12 LRN [id number]) Functional Tests Timed Up and Go (TUG) Score 23 sec's Comments Uses hands to get up from chair. TUG Impairment Rating 100% Impaired (Score 20) PT-OP-F Manual Assessment Start: 11/10/17 08:22 Freq: Status: Active Protocol: Document 11/10/17 13:35 LRN (Rec: 11/10/17 14:12 LRN [id number]) Manual Assessments Soft Tissue Assessment Soft Tissue Mobility Assessment Decreased L knee scar mobility . Scar is well healed. Increased temperature at the knee joint with mild to moderate joint effusion. PT-OP-G Mobility & Gait Start: 11/10/17 08:22 Freq: Status: Active Protocol: Document 12/23/17 15:45 LRN (Rec: 12/23/17 17:11 LRN [id number]) OP Mobility Evaluation Bed Mobility Rolling Independent Supine to and from Sit Independent Transfers Sit to Stand Independent OP Gait Assessment Assistive Devices Assistive Device None 4 Wheeled Walker Gait Deviations General Gait Pattern Decreased Stride Length Flexed Trunk Wide Based Gait Comments Gait Comments L knee extension is limited. Pt is FWBing on LLE. PT-OP-H Neuro Start: 11/10/17 08:22 Freq: Status: Active Protocol: Document 11/10/17 13:35 LRN (Rec: 11/10/17 14:12 LRN [id number]) Sensation Evaluation Location Details Left Anterior Knee Light Touch Impaired Deep Tendon Reflex & Clonus Assessment Deep Tendon Reflex Right Deep Tendon Reflex 2+ Normal Left Achilles Deep Tendon Reflex 0 Absent PT-OP-J Posture/Palpation/Skin Start: 11/10/17 08:22 Freq: Status: Active Protocol: Document 11/10/17 13:35 LRN (Rec: 11/10/17 14:12 LRN [id number]) Posture Evaluation Position Standing Head/C-Spine Posture Forward Head T-Spine Posture Increased Kyphosis Pelvis Posture Neutral Weight Distribution Weight Shifted Right Hip Posture (L) Flexed (R) Flexed Knee Posture (L) Excess Flexion Ankle/Foot Posture (R) Pronated PT-OP-K Range of Motion Start: 11/10/17 08:22 Freq: Status: Active Protocol: Document 01/12/18 10:23 AMB (Rec: 01/12/18 10:27 AMB [id number]) Knee Goniometric Range of Motion Knee Measured in Degrees Left Flexion Active (degrees) 95 Extension Active (degrees) 14 PT-OP-Q Treatments Start: 11/10/17 08:22 Freq: Status: Active Protocol: Document 01/12/18 09:45 AMB (Rec: 01/12/18 09:59 AMB [id number]) Cardio Equipment Bicycle (Upright) Duration (Minutes) 10 Seat Position (5 back and forth) Therapeutic Exercises Standing Exercises 3 Standing Exercise Name gastroc stretch Reps/Minutes 45sec 1 Standing Exercise Name hamstring stretch Reps/Minutes 30 seconds x 2 Comments standing Manual Therapy Treatment Soft Tissue Mobilization 1 Body Location Scar Mobilization Type Myofascial Release Rolling Body Position Supine Comments APs in knee flex Joint Mobilizations 2 Joint PF Direction med, sup, inf 1 Joint tibiofemoral Direction AP on tibia & femur w/ APs PT-OP-R Modalities Start: 11/10/17 08:22 Freq: Status: Active Protocol: Document 01/12/18 09:45 AMB (Rec: 01/12/18 10:00 AMB [id number]) Hot Pack/Cold Pack Treatment Cold Pack Location L knee: during stretch into flex 2 end of treatment Patient Position Supine Treatment Duration (minutes) 10 Comments Cold pack used at end of treatment with pt in passive knee flexion stretch position x 10'. PT-OP-S Aquatic Treatment Start: 11/10/17 08:22 Freq: Status: Active Protocol: Document 01/09/18 13:15 [facility] (Rec: 01/12/18 16:59 [facility] [id number]) Aquatics Treatment Pool Entry/Exit Pool Entry/Exit Method Stairs Assistance Standby Assistance Verbal Cues Water Walking Other- 2 Water Level Chest Level Walking Equipment step Comments step-ups Other- 1 Water Level Chest Level Level of Assistance Standby Assistance Verbal Cues Comments fwd,bck, , august, august kick, lunge Lower Extremity Exercises 1 Details knee flex/ext, hip flex/ext, ab/ad Body Position Standing Water Level Chest Level Reps/Duration 10x Lower Extremity Stretches 2 Details knee flex ROM Body Position Standing Water Level [place] Equipment ladder Reps/Duration 2x ea 1 Details hamstrings, quads Body Position Standing Water Level Chest Level Equipment Small Noodle Reps/Duration 2x ea [place] Activities [place] Activities Bicycle Bicycle Backwards PT-OP-T Assessment and Plan Start: 11/10/17 08:22 Freq: Status: Active Protocol: Document 01/12/18 09:45 AMB (Rec: 01/12/18 13:17 AMB [email or web address]) Physical Therapy Assessment Assessment Summary Assessment Considering that the patient was in increased pain over the weekend, her ROM showed progression after manual therapy. Scar continues to show adhesions. Physical Therapy Plan Frequency and Duration Frequency of Treatment 3-5x/week. Plan of Care Start Date 12/23/17 Plan of Care End Date 02/17/18 Next Visit Focus/Plan Next Note Type Treatment Note Next Visit Plan Progress stretching, progress soft tissue and joint movement .
--- NOTE | 2018-01-13 12:16 | PT.OTN ---
Current Diagnoses Bilateral primary osteoarthritis of knee (01/13/18) Physical Therapy Treatment Note PT-OP-A Visit Information Start: 11/10/17 08:22 Freq: Status: Active Protocol: Document 01/13/18 12:05 [facility] (Rec: 01/13/18 12:16 [facility] [email or web address]) Out-Patient Physical Therapy Visit Information Visit Information Visit Type Treatment Note Visit Note Visit Start Time 09:45 Visit Stop Time 10:30 Total Visit Minutes 60 Visit Number 24 PT-OP-B Current Condition Start: 11/10/17 08:22 Freq: Status: Active Protocol: Document 12/23/17 15:45 [facility] (Rec: 12/23/17 17:11 LRN [id number]) Current Condition History of Current Condition Onset Date 12/22/17 History of Current Condition Pt underwent L knee manipulation 12/22/17 following L TKA 11/10/17. Treatment Goals Patient/Caregiver Goals Gain functional L knee ROM. Prior Functional Status Baseline Function- ADL's Independent Baseline Function- Mobility Independent Baseline Function- Gait Gait with walker outside the home. No assistive device in the home. Current Functional Impairments (Reported) Functional Limitations- ADL's Difficulty getting L shoe on, has outer diameter grinder tool on toilet. Daughter helps with cooking. Functional Limitations- Mobility/Gait Requires use of 2WW for gait intermittently. PT-OP-C Subjective Start: 11/10/17 08:22 Freq: Status: Active Protocol: Document 01/13/18 12:05 [facility] (Rec: 01/13/18 12:16 [facility] [email or web address]) OP-PT Subjective Patient Comments Patient Comments Lisset notes that she was sore from the pool and feels tightness in bilateral calf musculature PT-OP-E Functional Tests Start: 11/10/17 08:22 Freq: Status: Active Protocol: Document 11/10/17 13:35 LRN (Rec: 11/10/17 14:12 LRN [id number]) Functional Tests Timed Up and Go (TUG) Score 23 sec's Comments Uses hands to get up from chair. TUG Impairment Rating 100% Impaired (Score 20) PT-OP-F Manual Assessment Start: 11/10/17 08:22 Freq: Status: Active Protocol: Document 11/10/17 13:35 LRN (Rec: 06/04/18 14:12 LRN [id number]) Manual Assessments Soft Tissue Assessment Soft Tissue Mobility Assessment Decreased L knee scar mobility . Scar is well healed. Increased temperature at the knee joint with mild to moderate joint effusion. PT-OP-G Mobility & Gait Start: 11/10/17 08:22 Freq: Status: Active Protocol: Document 12/23/17 15:45 LRN (Rec: 12/23/17 17:11 LRN [id number]) OP Mobility Evaluation Bed Mobility Rolling Independent Supine to and from Sit Independent Transfers Sit to Stand Independent OP Gait Assessment Assistive Devices Assistive Device None 4 Wheeled Walker Gait Deviations General Gait Pattern Decreased Stride Length Flexed Trunk Wide Based Gait Comments Gait Comments L knee extension is limited. Pt is FWBing on LLE. PT-OP-H Neuro Start: 11/10/17 08:22 Freq: Status: Active Protocol: Document 11/10/17 13:35 LRN (Rec: 11/10/17 14:12 LRN [id number]) Sensation Evaluation Location Details Left Anterior Knee Light Touch Impaired Deep Tendon Reflex & Clonus Assessment Deep Tendon Reflex Right Deep Tendon Reflex 2+ Normal Left Achilles Deep Tendon Reflex 0 Absent PT-OP-J Posture/Palpation/Skin Start: 11/10/17 08:22 Freq: Status: Active Protocol: Document 11/10/17 13:35 LRN (Rec: 11/10/17 14:12 LRN [id number]) Posture Evaluation Position Standing Head/C-Spine Posture Forward Head T-Spine Posture Increased Kyphosis Pelvis Posture Neutral Weight Distribution Weight Shifted Right Hip Posture (L) Flexed (R) Flexed Knee Posture (L) Excess Flexion Ankle/Foot Posture (R) Pronated PT-OP-K Range of Motion Start: 11/10/17 08:22 Freq: Status: Active Protocol: Document 01/12/18 10:23 [facility] (Rec: 01/12/18 10:27 AMB [id number]) Knee Goniometric Range of Motion Knee Measured in Degrees Left Flexion Active (degrees) 95 Extension Active (degrees) 14 PT-OP-Q Treatments Start: 11/10/17 08:22 Freq: Status: Active Protocol: Document 01/13/18 12:05 [facility] (Rec: 01/13/18 12:16 [facility] [email or web address]) Cardio Equipment Bicycle (Upright) Duration (Minutes) 10 Seat Position made complete resolutions on seat 6 Gym Equipment Shuttle Recovery Bilateral Squats Details for ROM (flex/ext) Resistance 50 Shuttle Recovery Platform Stable Reps/Time With long hold stretch at each rep Therapeutic Ball 1 Exercise Details ball rolls in supine Ball Size/Color 65 cm Body Position Supine Reps/Duration 20 reps Therapeutic Exercises Supine Exercises 2 Supine Exercise Name quad sets with towel under the knee Reps/Minutes 2 x 10 Standing Exercises 4 Standing Exercise Name standing TKE's Equipment Used level 2 theraband Reps/Minutes 2 x 10 3 Standing Exercise Name gastroc stretch Reps/Minutes 2 minutes Comments on kade 1 Standing Exercise Name hamstring stretch Reps/Minutes 30 seconds x 2 Comments standing Manual Therapy Treatment Soft Tissue Mobilization 3 Body Location proximal calf & distal HS Mobilization Type Rolling 1 Body Location Scar Mobilization Type Myofascial Release Rolling Body Position Supine Comments APs in knee flex PT-OP-R Modalities Start: 11/10/17 08:22 Freq: Status: Active Protocol: Document 01/12/18 09:45 [facility] (Rec: 01/12/18 10:00 AMB [id number]) Hot Pack/Cold Pack Treatment Cold Pack Location L knee: during stretch into flex 2 end of treatment Patient Position Supine Treatment Duration (minutes) 10 Comments Cold pack used at end of treatment with pt in passive knee flexion stretch position x 10'. PT-OP-S Aquatic Treatment Start: 11/10/17 08:22 Freq: Status: Active Protocol: Document 01/09/18 13:15 [facility] (Rec: 01/12/18 16:59 [facility] [id number]) Aquatics Treatment Pool Entry/Exit Pool Entry/Exit Method Stairs Assistance Standby Assistance Verbal Cues Water Walking Other- 2 Water Level Chest Level Walking Equipment step Comments step-ups Other- 1 Water Level Chest Level Level of Assistance Standby Assistance Verbal Cues Comments fwd,bck, , august, august kick, lunge Lower Extremity Exercises 1 Details knee flex/ext, hip flex/ext, ab/ad Body Position Standing Water Level Chest Level Reps/Duration 10x Lower Extremity Stretches 2 Details knee flex ROM Body Position Standing Water Level [place] Equipment ladder Reps/Duration 2x ea 1 Details hamstrings, quads Body Position Standing Water Level Chest Level Equipment Small Noodle Reps/Duration 2x ea [place] Activities [place] Activities Bicycle Bicycle Backwards PT-OP-T Assessment and Plan Start: 11/10/17 08:22 Freq: Status: Active Protocol: Document 01/13/18 12:05 [facility] (Rec: 01/13/18 12:16 [facility] [email or web address]) Physical Therapy Assessment Assessment Summary Assessment improved ability to make full resolutions on the bike today after the first 5 minutes of rocking. knee flexion to 95 deg in supine Physical Therapy Plan Frequency and Duration Frequency of Treatment 3-5x/week. Plan of Care Start Date 12/23/17 Plan of Care End Date 02/17/18 Therapeutic Interventions Therapeutic Interventions Aquatic Therapy Gait Training Home Exercise Program Manual Therapy Neuromuscular Re-education Patient/Caregiver Education Self-Care/Home Management Soft Tissue Mobilization Therapeutic Activities Therapeutic Exercises Modalities Cold Pack/Ice Massage Hot Packs Next Visit Focus/Plan Next Note Type Treatment Note Next Visit Plan Progress stretching, progress soft tissue and joint movement .
--- NOTE | 2018-01-13 14:06 | PT.OTN ---
Current Diagnoses Bilateral primary osteoarthritis of knee (01/13/18) Physical Therapy Treatment Note PT-OP-A Visit Information Start: 11/10/17 08:22 Freq: Status: Active Protocol: Document 01/13/18 12:05 [facility] (Rec: 01/13/18 12:16 [facility] [email or web address]) Out-Patient Physical Therapy Visit Information Visit Information Visit Type Treatment Note Visit Note Visit Start Time 09:45 Visit Stop Time 10:30 Total Visit Minutes 60 Visit Number 24 PT-OP-B Current Condition Start: 11/10/17 08:22 Freq: Status: Active Protocol: Document 12/23/17 15:45 LRN (Rec: 12/23/17 17:11 LRN [id number]) Current Condition History of Current Condition Onset Date 12/22/17 History of Current Condition Pt underwent L knee manipulation 12/22/17 following L TKA 11/10/17. Treatment Goals Patient/Caregiver Goals Gain functional L knee ROM. Prior Functional Status Baseline Function- ADL's Independent Baseline Function- Mobility Independent Baseline Function- Gait Gait with walker outside the home. No assistive device in the home. Current Functional Impairments (Reported) Functional Limitations- ADL's Difficulty getting L shoe on, has detention worker on toilet. Daughter helps with cooking. Functional Limitations- Mobility/Gait Requires use of 2WW for gait intermittently. PT-OP-C Subjective Start: 11/10/17 08:22 Freq: Status: Active Protocol: Document 01/13/18 12:05 [facility] (Rec: 01/13/18 12:16 [facility] [id number]) OP-PT Subjective Patient Comments Patient Comments Lisset notes that she was sore from the pool and feels tightness in bilateral calf musculature PT-OP-E Functional Tests Start: 11/10/17 08:22 Freq: Status: Active Protocol: Document 11/10/17 13:35 LRN (Rec: 11/10/17 14:12 LRN [id number]) Functional Tests Timed Up and Go (TUG) Score 23 sec's Comments Uses hands to get up from chair. TUG Impairment Rating 100% Impaired (Score 20) PT-OP-F Manual Assessment Start: 11/10/17 08:22 Freq: Status: Active Protocol: Document 11/10/17 13:35 [facility]N (Rec: 06/04/18 14:12 LRN [id number]) Manual Assessments Soft Tissue Assessment Soft Tissue Mobility Assessment Decreased L knee scar mobility . Scar is well healed. Increased temperature at the knee joint with mild to moderate joint effusion. PT-OP-G Mobility & Gait Start: 11/10/17 08:22 Freq: Status: Active Protocol: Document 12/23/17 15:45 LRN (Rec: 12/23/17 17:11 LRN [id number]) OP Mobility Evaluation Bed Mobility Rolling Independent Supine to and from Sit Independent Transfers Sit to Stand Independent OP Gait Assessment Assistive Devices Assistive Device None 4 Wheeled Walker Gait Deviations General Gait Pattern Decreased Stride Length Flexed Trunk Wide Based Gait Comments Gait Comments L knee extension is limited. Pt is FWBing on LLE. PT-OP-H Neuro Start: 11/10/17 08:22 Freq: Status: Active Protocol: Document 11/10/17 13:35 [facility]N (Rec: 11/10/17 14:12 LRN [id number]) Sensation Evaluation Location Details Left Anterior Knee Light Touch Impaired Deep Tendon Reflex & Clonus Assessment Deep Tendon Reflex Right Deep Tendon Reflex 2+ Normal Left Achilles Deep Tendon Reflex 0 Absent PT-OP-J Posture/Palpation/Skin Start: 11/10/17 08:22 Freq: Status: Active Protocol: Document 11/10/17 13:35 LRN (Rec: 11/10/17 14:12 LRN [id number]) Posture Evaluation Position Standing Head/C-Spine Posture Forward Head T-Spine Posture Increased Kyphosis Pelvis Posture Neutral Weight Distribution Weight Shifted Right Hip Posture (L) Flexed (R) Flexed Knee Posture (L) Excess Flexion Ankle/Foot Posture (R) Pronated PT-OP-K Range of Motion Start: 11/10/17 08:22 Freq: Status: Active Protocol: Document 01/12/18 10:23 AMB (Rec: 01/12/18 10:27 AMB [id number]) Knee Goniometric Range of Motion Knee Measured in Degrees Left Flexion Active (degrees) 95 Extension Active (degrees) 14 PT-OP-Q Treatments Start: 11/10/17 08:22 Freq: Status: Active Protocol: Document 01/13/18 12:05 [facility] (Rec: 01/13/18 12:16 [facility] [email or web address]) Cardio Equipment Bicycle (Upright) Duration (Minutes) 10 Seat Position made complete resolutions on seat 6 Gym Equipment Shuttle Recovery Bilateral Squats Details for ROM (flex/ext) Resistance 50 Shuttle Recovery Platform Stable Reps/Time With long hold stretch at each rep Therapeutic Ball 1 Exercise Details ball rolls in supine Ball Size/Color 65 cm Body Position Supine Reps/Duration 20 reps Therapeutic Exercises Supine Exercises 2 Supine Exercise Name quad sets with towel under the knee Reps/Minutes 2 x 10 Standing Exercises 4 Standing Exercise Name standing TKE's Equipment Used level 2 theraband Reps/Minutes 2 x 10 3 Standing Exercise Name gastroc stretch Reps/Minutes 2 minutes Comments on kade 1 Standing Exercise Name hamstring stretch Reps/Minutes 30 seconds x 2 Comments standing Manual Therapy Treatment Soft Tissue Mobilization 3 Body Location proximal calf & distal HS Mobilization Type Rolling 1 Body Location Scar Mobilization Type Myofascial Release Rolling Body Position Supine Comments APs in knee flex PT-OP-R Modalities Start: 11/10/17 08:22 Freq: Status: Active Protocol: Document 01/13/18 09:45 [facility] (Rec: 01/13/18 14:06 [facility] [email or web address]) Electric Stimulation Electric Stimulation Interferential Current (IFC) Body Location left knee Duration (Minutes) 15 Contraction Type Normal Combined With Heat/Cold Cold Pack Hot Pack/Cold Pack Treatment Cold Pack Patient Position Supine Patient Tolerance Good PT-OP-S Aquatic Treatment Start: 11/10/17 08:22 Freq: Status: Active Protocol: Document 01/09/18 13:15 [facility] (Rec: 01/12/18 16:59 SAK [id number]) Aquatics Treatment Pool Entry/Exit Pool Entry/Exit Method Stairs Assistance Standby Assistance Verbal Cues Water Walking Other- 2 Water Level Chest Level Walking Equipment step Comments step-ups Other- 1 Water Level Chest Level Level of Assistance Standby Assistance Verbal Cues Comments fwd,bck, , august, august kick, lunge Lower Extremity Exercises 1 Details knee flex/ext, hip flex/ext, ab/ad Body Position Standing Water Level Chest Level Reps/Duration 10x Lower Extremity Stretches 2 Details knee flex ROM Body Position Standing Water Level [place] Equipment ladder Reps/Duration 2x ea 1 Details hamstrings, quads Body Position Standing Water Level Chest Level Equipment Small Noodle Reps/Duration 2x ea [place] Activities [place] Activities Bicycle Bicycle Backwards PT-OP-T Assessment and Plan Start: 11/10/17 08:22 Freq: Status: Active Protocol: Document 01/13/18 12:05 [facility] (Rec: 01/13/18 12:16 [facility] [email or web address]) Physical Therapy Assessment Assessment Summary Assessment improved ability to make full resolutions on the bike today after the first 5 minutes of rocking. knee flexion to 95 deg in supine Physical Therapy Plan Frequency and Duration Frequency of Treatment 3-5x/week. Plan of Care Start Date 12/23/17 Plan of Care End Date 02/17/18 Therapeutic Interventions Therapeutic Interventions Aquatic Therapy Gait Training Home Exercise Program Manual Therapy Neuromuscular Re-education Patient/Caregiver Education Self-Care/Home Management Soft Tissue Mobilization Therapeutic Activities Therapeutic Exercises Modalities Cold Pack/Ice Massage Hot Packs Next Visit Focus/Plan Next Note Type Treatment Note Next Visit Plan Progress stretching, progress soft tissue and joint movement .
--- NOTE | 2018-01-14 13:00 | PT.OTN ---
Current Diagnoses Bilateral primary osteoarthritis of knee (01/14/18) Physical Therapy Treatment Note PT-OP-A Visit Information Start: 11/10/17 08:22 Freq: Status: Active Protocol: Document 01/14/18 13:00 [facility] (Rec: 01/14/18 16:42 [facility] [email or web address]) Out-Patient Physical Therapy Visit Information Visit Information Visit Type Treatment Note Visit Note Visit Start Time 12:15 Visit Stop Time 13:00 Total Visit Minutes 45 Visit Number 25 Number of PACKAGING CLERK Visits 1 PT-OP-B Current Condition Start: 11/10/17 08:22 Freq: Status: Active Protocol: Document 12/23/17 15:45 LRN (Rec: 12/23/17 17:11 LRN [id number]) Current Condition History of Current Condition Onset Date 12/22/17 History of Current Condition Pt underwent L knee manipulation 12/22/17 following L TKA 11/10/17. Treatment Goals Patient/Caregiver Goals Gain functional L knee ROM. Prior Functional Status Baseline Function- ADL's Independent Baseline Function- Mobility Independent Baseline Function- Gait Gait with walker outside the home. No assistive device in the home. Current Functional Impairments (Reported) Functional Limitations- ADL's Difficulty getting L shoe on, has log grader on toilet. Daughter helps with cooking. Functional Limitations- Mobility/Gait Requires use of 2WW for gait intermittently. PT-OP-C Subjective Start: 11/10/17 08:22 Freq: Status: Active Protocol: Document 01/14/18 13:00 [facility] (Rec: 01/14/18 16:42 [facility] [email or web address]) OP-PT Subjective Patient Comments Patient Comments Pt. states she was sore after first aquatics, I was so excited to be in the water I did too much. Main complaint is achiness on the lateral side of left knee. PT-OP-E Functional Tests Start: 11/10/17 08:22 Freq: Status: Active Protocol: Document 11/10/17 13:35 LRN (Rec: 11/10/17 14:12 LRN [id number]) Functional Tests Timed Up and Go (TUG) Score 23 sec's Comments Uses hands to get up from chair. TUG Impairment Rating 100% Impaired (Score 20) PT-OP-F Manual Assessment Start: 11/10/17 08:22 Freq: Status: Active Protocol: Document 11/10/17 13:35 LRN (Rec: 11/10/17 14:12 LRN [id number]) Manual Assessments Soft Tissue Assessment Soft Tissue Mobility Assessment Decreased L knee scar mobility . Scar is well healed. Increased temperature at the knee joint with mild to moderate joint effusion. PT-OP-G Mobility & Gait Start: 11/10/17 08:22 Freq: Status: Active Protocol: Document 12/23/17 15:45 LRN (Rec: 12/23/17 17:11 LRN [id number]) OP Mobility Evaluation Bed Mobility Rolling Independent Supine to and from Sit Independent Transfers Sit to Stand Independent OP Gait Assessment Assistive Devices Assistive Device None 4 Wheeled Walker Gait Deviations General Gait Pattern Decreased Stride Length Flexed Trunk Wide Based Gait Comments Gait Comments L knee extension is limited. Pt is FWBing on LLE. PT-OP-H Neuro Start: 11/10/17 08:22 Freq: Status: Active Protocol: Document 11/10/17 13:35 LRN (Rec: 11/10/17 14:12 LRN [id number]) Sensation Evaluation Location Details Left Anterior Knee Light Touch Impaired Deep Tendon Reflex & Clonus Assessment Deep Tendon Reflex Right Deep Tendon Reflex 2+ Normal Left Achilles Deep Tendon Reflex 0 Absent PT-OP-J Posture/Palpation/Skin Start: 11/10/17 08:22 Freq: Status: Active Protocol: Document 11/10/17 13:35 LRN (Rec: 11/10/17 14:12 LRN [id number]) Posture Evaluation Position Standing Head/C-Spine Posture Forward Head T-Spine Posture Increased Kyphosis Pelvis Posture Neutral Weight Distribution Weight Shifted Right Hip Posture (L) Flexed (R) Flexed Knee Posture (L) Excess Flexion Ankle/Foot Posture (R) Pronated PT-OP-K Range of Motion Start: 11/10/17 08:22 Freq: Status: Active Protocol: Document 01/12/18 10:23 AMB (Rec: 01/12/18 10:27 AMB [id number]) Knee Goniometric Range of Motion Knee Measured in Degrees Left Flexion Active (degrees) 95 Extension Active (degrees) 14 PT-OP-Q Treatments Start: 11/10/17 08:22 Freq: Status: Active Protocol: Document 01/13/18 12:05 [facility] (Rec: 01/13/18 12:16 [facility] [email or web address]) Cardio Equipment Bicycle (Upright) Duration (Minutes) 10 Seat Position made complete resolutions on seat 6 Gym Equipment Shuttle Recovery Bilateral Squats Details for ROM (flex/ext) Resistance 50 Shuttle Recovery Platform Stable Reps/Time With long hold stretch at each rep Therapeutic Ball 1 Exercise Details ball rolls in supine Ball Size/Color 65 cm Body Position Supine Reps/Duration 20 reps Therapeutic Exercises Supine Exercises 2 Supine Exercise Name quad sets with towel under the knee Reps/Minutes 2 x 10 Standing Exercises 4 Standing Exercise Name standing TKE's Equipment Used level 2 theraband Reps/Minutes 2 x 10 3 Standing Exercise Name gastroc stretch Reps/Minutes 2 minutes Comments on kade 1 Standing Exercise Name hamstring stretch Reps/Minutes 30 seconds x 2 Comments standing Manual Therapy Treatment Soft Tissue Mobilization 3 Body Location proximal calf & distal HS Mobilization Type Rolling 1 Body Location Scar Mobilization Type Myofascial Release Rolling Body Position Supine Comments APs in knee flex PT-OP-R Modalities Start: 11/10/17 08:22 Freq: Status: Active Protocol: Document 01/13/18 09:45 [facility] (Rec: 01/13/18 14:06 [facility] [email or web address]) Electric Stimulation Electric Stimulation Interferential Current (IFC) Body Location left knee Duration (Minutes) 15 Contraction Type Normal Combined With Heat/Cold Cold Pack Hot Pack/Cold Pack Treatment Cold Pack Patient Position Supine Patient Tolerance Good PT-OP-S Aquatic Treatment Start: 11/10/17 08:22 Freq: Status: Active Protocol: Document 01/14/18 13:00 TMS (Rec: 01/14/18 16:42 TMS [email or web address]) Aquatics Treatment Pool Entry/Exit Pool Entry/Exit Method Stairs Assistance Standby Assistance Verbal Cues Water Walking Other- 1 Water Level Chest Level Level of Assistance Standby Assistance Verbal Cues Comments fwd,bck, , august, august kick, lunge Lower Extremity Exercises 1 Details knee flex/ext, hip flex/ext, ab/ad Body Position Standing Water Level Chest Level Reps/Duration 10x Lower Extremity Stretches 3 Details Contract/relax into knee flexion Body Position Sitting Water Level Chest Level Equipment Large Noodle Comments Pt. sitting on pool ladder submerged. 1 Details hamstrings, quads, calves Body Position Standing Water Level Chest Level Equipment Small Noodle Reps/Duration 2x ea Comments Small ankle foats also for quads. [place] Activities [place] Activities Bicycle Equipment Noodle Duration 10 minutes PT-OP-T Assessment and Plan Start: 11/10/17 08:22 Freq: Status: Active Protocol: Document 01/14/18 13:00 [facility] (Rec: 01/14/18 16:42 TMS [email or web address]) Physical Therapy Assessment Assessment Summary Assessment Pt. needs cues for posture in shallow and deep water, tolerated stretching well in water. Physical Therapy Plan Frequency and Duration Frequency of Treatment 3-5x/week. Plan of Care Start Date 12/23/17 Plan of Care End Date 02/17/18 Next Visit Focus/Plan Next Note Type Treatment Note Next Visit Plan Progress stretching, progress soft tissue and joint movement .
--- NOTE | 2018-01-15 14:48 | PT.OTN ---
Current Diagnoses Bilateral primary osteoarthritis of knee (01/15/18) Physical Therapy Treatment Note PT-OP-A Visit Information Start: 11/10/17 08:22 Freq: Status: Active Protocol: Document 01/15/18 09:07 LRN (Rec: 01/15/18 09:46 LRN [id number]) Out-Patient Physical Therapy Visit Information Visit Information Visit Type Treatment Note Visit Note Visit Start Time 09:07 Visit Stop Time 10:00 Total Visit Minutes 53 Visit Number 26 Number of PANTOGRAPH OPERATOR Visits 0 Evaluation Information Evaluation Date 11/10/17 PT-OP-B Current Condition Start: 11/10/17 08:22 Freq: Status: Active Protocol: Document 12/23/17 15:45 LRN (Rec: 12/23/17 17:11 LRN [id number]) Current Condition History of Current Condition Onset Date 12/22/17 History of Current Condition Pt underwent L knee manipulation 12/22/17 following L TKA 11/10/17. Treatment Goals Patient/Caregiver Goals Gain functional L knee ROM. Prior Functional Status Baseline Function- ADL's Independent Baseline Function- Mobility Independent Baseline Function- Gait Gait with walker outside the home. No assistive device in the home. Current Functional Impairments (Reported) Functional Limitations- ADL's Difficulty getting L shoe on, has patient care manager on toilet. Daughter helps with cooking. Functional Limitations- Mobility/Gait Requires use of 2WW for gait intermittently. PT-OP-C Subjective Start: 11/10/17 08:22 Freq: Status: Active Protocol: Document 01/15/18 09:07 LRN (Rec: 01/15/18 09:46 LRN [id number]) OP-PT Subjective Patient Comments Patient Comments Thinks the pool helps her veins. Feeling tight behind the L knee PT-OP-E Functional Tests Start: 11/10/17 08:22 Freq: Status: Active Protocol: Document 11/10/17 13:35 LRN (Rec: 11/10/17 14:12 LRN [id number]) Functional Tests Timed Up and Go (TUG) Score 23 sec's Comments Uses hands to get up from chair. TUG Impairment Rating 100% Impaired (Score 20) PT-OP-F Manual Assessment Start: 11/10/17 08:22 Freq: Status: Active Protocol: Document 11/10/17 13:35 LRN (Rec: 11/10/17 14:12 LRN [id number]) Manual Assessments Soft Tissue Assessment Soft Tissue Mobility Assessment Decreased L knee scar mobility . Scar is well healed. Increased temperature at the knee joint with mild to moderate joint effusion. PT-OP-G Mobility & Gait Start: 11/10/17 08:22 Freq: Status: Active Protocol: Document 12/23/17 15:45 LRN (Rec: 12/23/17 17:11 LRN [id number]) OP Mobility Evaluation Bed Mobility Rolling Independent Supine to and from Sit Independent Transfers Sit to Stand Independent OP Gait Assessment Assistive Devices Assistive Device None 4 Wheeled Walker Gait Deviations General Gait Pattern Decreased Stride Length Flexed Trunk Wide Based Gait Comments Gait Comments L knee extension is limited. Pt is FWBing on LLE. PT-OP-H Neuro Start: 11/10/17 08:22 Freq: Status: Active Protocol: Document 11/10/17 13:35 LRN (Rec: 11/10/17 14:12 LRN [id number]) Sensation Evaluation Location Details Left Anterior Knee Light Touch Impaired Deep Tendon Reflex & Clonus Assessment Deep Tendon Reflex Right Deep Tendon Reflex 2+ Normal Left Achilles Deep Tendon Reflex 0 Absent PT-OP-J Posture/Palpation/Skin Start: 11/10/17 08:22 Freq: Status: Active Protocol: Document 11/10/17 13:35 LRN (Rec: 11/10/17 14:12 LRN [id number]) Posture Evaluation Position Standing Head/C-Spine Posture Forward Head T-Spine Posture Increased Kyphosis Pelvis Posture Neutral Weight Distribution Weight Shifted Right Hip Posture (L) Flexed (R) Flexed Knee Posture (L) Excess Flexion Ankle/Foot Posture (R) Pronated PT-OP-K Range of Motion Start: 11/10/17 08:22 Freq: Status: Active Protocol: Document 01/15/18 09:07 LRN (Rec: 01/15/18 09:46 LRN [id number]) Knee Goniometric Range of Motion Knee Measured in Degrees Right Patient Position Supine Flexion Active (degrees) 87 Flexion Passive (degrees) 93 Knee ROM Limitations Comments L knee ext contracture (supine ): Active: Lacking 11 deg's. Passive: Lacking 10 deg's. PT-OP-Q Treatments Start: 11/10/17 08:22 Freq: Status: Active Protocol: Document 01/15/18 09:07 LRN (Rec: 01/15/18 09:46 LRN [id number]) Cardio Equipment Bicycle (Upright) Duration (Minutes) 8 Seat Position 5 Other Made some revolutions backward Gym Equipment Shuttle Recovery Bilateral Squats Details for ROM (flex/ext) Resistance 50 Shuttle Recovery Platform Stable Reps/Time With long hold stretch at each rep Therapeutic Exercises Supine Exercises 2 Supine Exercise Name Quad stretch manual and w/2# over knee Reps/Minutes 4' Standing Exercises 3 Standing Exercise Name gastroc stretch Reps/Minutes 2 minutes Comments on kade 1 Standing Exercise Name hamstring stretch Reps/Minutes 60 sec Comments standing foot on step Manual Therapy Treatment Soft Tissue Mobilization 1 Body Location Scar Mobilization Type Myofascial Release Rolling Body Position Supine PT-OP-R Modalities Start: 11/10/17 08:22 Freq: Status: Active Protocol: Document 01/15/18 09:07 LRN (Rec: 01/15/18 09:46 LRN [id number]) Hot Pack/Cold Pack Treatment Cold Pack Location L knee Patient Position Supine Treatment Duration (minutes) 15 Patient Tolerance Good Comments Pt set up in unattended prolonged knee flexion stretch . PT-OP-S Aquatic Treatment Start: 11/10/17 08:22 Freq: Status: Active Protocol: Document 01/14/18 13:00 TMS (Rec: 01/14/18 16:42 TMS [id number]) Aquatics Treatment Pool Entry/Exit Pool Entry/Exit Method Stairs Assistance Standby Assistance Verbal Cues Water Walking Other- 1 Water Level Chest Level Level of Assistance Standby Assistance Verbal Cues Comments fwd,bck, , august, august kick, lunge Lower Extremity Exercises 1 Details knee flex/ext, hip flex/ext, ab/ad Body Position Standing Water Level Chest Level Reps/Duration 10x Lower Extremity Stretches 3 Details Contract/relax into knee flexion Body Position Sitting Water Level Chest Level Equipment Large Noodle Comments Pt. sitting on pool ladder submerged. 1 Details hamstrings, quads, calves Body Position Standing Water Level Chest Level Equipment Small Noodle Reps/Duration 2x ea Comments Small ankle foats also for quads. [place] Activities [place] Activities Bicycle Equipment Noodle Duration 10 minutes PT-OP-T Assessment and Plan Start: 11/10/17 08:22 Freq: Status: Active Protocol: Document 01/15/18 09:07 LRN (Rec: 01/15/18 09:46 LRN [id number]) Physical Therapy Assessment Goals Three Impairment L knee edema Halfway Goal (LTG) Pt will be educated in self care for L knee edema. LTG Duration Goal met. Two Impairment Lacks appropriate HEP Halfway Goal (LTG) Pt will be educated in a comprehensive independent HEP for self care. LTG Duration 02/06/18 One Impairment Decreased L knee AROM/PROM Short Term Goal (STG) Improve L knee AROM 0-95 deg's . Improve L knee PROM 0-105 deg' s. Pt to avoid L knee manipulation. STG Duration Abandon: Goal not met. Division Sergeant Goal (LTG) L knee AROM: 0-110 deg's L knee PROM: 0-115 deg's. Pt will be able to walk stairs with normal gait pattern using 1 railing. LTG Duration 02/06/18 Progress Towards Goals Progress Comments Poor progress. Assessment Summary Assessment Pt has generally more swelling today. Her L knee ROM is slightly worse with Passive flexion of 93 deg's and actively 87 deg's. Ext lag of 10 deg's passively. Physical Therapy Plan Frequency and Duration Frequency of Treatment 3-5x/week. Plan of Care Start Date 12/23/17 Plan of Care End Date 02/17/18 Therapeutic Interventions Therapeutic Interventions Aquatic Therapy Gait Training Home Exercise Program Manual Therapy Neuromuscular Re-education Patient/Caregiver Education Self-Care/Home Management Soft Tissue Mobilization Therapeutic Activities Therapeutic Exercises Modalities Cold Pack/Ice Massage Hot Packs Next Visit Focus/Plan Next Note Type Treatment Note Next Visit Plan AGGRESSIVELY progress L knee flex>ext, progress soft tissue and joint movement.
--- NOTE | 2018-01-15 14:56 | PT.OTN ---
Current Diagnoses Bilateral primary osteoarthritis of knee (01/15/18) Physical Therapy Treatment Note PT-OP-A Visit Information Start: 11/10/17 08:22 Freq: Status: Active Protocol: Document 01/15/18 09:07 LRN (Rec: 01/15/18 09:46 LRN [id number]) Out-Patient Physical Therapy Visit Information Visit Information Visit Type Treatment Note Visit Note Visit Start Time 09:07 Visit Stop Time 10:00 Total Visit Minutes 53 Visit Number 26 Number of CONFERENCE AND EVENT ORGANISER Visits 0 Evaluation Information Evaluation Date 11/10/17 PT-OP-B Current Condition Start: 11/10/17 08:22 Freq: Status: Active Protocol: Document 12/23/17 15:45 LRN (Rec: 12/23/17 17:11 LRN [id number]) Current Condition History of Current Condition Onset Date 12/22/17 History of Current Condition Pt underwent L knee manipulation 12/22/17 following L TKA 11/10/17. Treatment Goals Patient/Caregiver Goals Gain functional L knee ROM. Prior Functional Status Baseline Function- ADL's Independent Baseline Function- Mobility Independent Baseline Function- Gait Gait with walker outside the home. No assistive device in the home. Current Functional Impairments (Reported) Functional Limitations- ADL's Difficulty getting L shoe on, has ultimate hoops referee on toilet. Daughter helps with cooking. Functional Limitations- Mobility/Gait Requires use of 2WW for gait intermittently. PT-OP-C Subjective Start: 11/10/17 08:22 Freq: Status: Active Protocol: Document 01/15/18 09:07 LRN (Rec: 01/15/18 09:46 LRN [id number]) OP-PT Subjective Patient Comments Patient Comments Thinks the pool helps her veins. Feeling tight behind the L knee PT-OP-E Functional Tests Start: 11/10/17 08:22 Freq: Status: Active Protocol: Document 11/10/17 13:35 LRN (Rec: 11/10/17 14:12 LRN [id number]) Functional Tests Timed Up and Go (TUG) Score 23 sec's Comments Uses hands to get up from chair. TUG Impairment Rating 100% Impaired (Score 20) PT-OP-F Manual Assessment Start: 11/10/17 08:22 Freq: Status: Active Protocol: Document 11/10/17 13:35 LRN (Rec: 11/10/17 14:12 LRN [id number]) Manual Assessments Soft Tissue Assessment Soft Tissue Mobility Assessment Decreased L knee scar mobility . Scar is well healed. Increased temperature at the knee joint with mild to moderate joint effusion. PT-OP-G Mobility & Gait Start: 11/10/17 08:22 Freq: Status: Active Protocol: Document 12/23/17 15:45 LRN (Rec: 12/23/17 17:11 LRN [id number]) OP Mobility Evaluation Bed Mobility Rolling Independent Supine to and from Sit Independent Transfers Sit to Stand Independent OP Gait Assessment Assistive Devices Assistive Device None 4 Wheeled Walker Gait Deviations General Gait Pattern Decreased Stride Length Flexed Trunk Wide Based Gait Comments Gait Comments L knee extension is limited. Pt is FWBing on LLE. PT-OP-H Neuro Start: 11/10/17 08:22 Freq: Status: Active Protocol: Document 11/10/17 13:35 LRN (Rec: 11/10/17 14:12 LRN [id number]) Sensation Evaluation Location Details Left Anterior Knee Light Touch Impaired Deep Tendon Reflex & Clonus Assessment Deep Tendon Reflex Right Deep Tendon Reflex 2+ Normal Left Achilles Deep Tendon Reflex 0 Absent PT-OP-J Posture/Palpation/Skin Start: 11/10/17 08:22 Freq: Status: Active Protocol: Document 11/10/17 13:35 LRN (Rec: 11/10/17 14:12 LRN [id number]) Posture Evaluation Position Standing Head/C-Spine Posture Forward Head T-Spine Posture Increased Kyphosis Pelvis Posture Neutral Weight Distribution Weight Shifted Right Hip Posture (L) Flexed (R) Flexed Knee Posture (L) Excess Flexion Ankle/Foot Posture (R) Pronated PT-OP-K Range of Motion Start: 11/10/17 08:22 Freq: Status: Active Protocol: Document 01/15/18 09:07 LRN (Rec: 01/15/18 09:46 LRN [id number]) Knee Goniometric Range of Motion Knee Measured in Degrees Right Patient Position Supine Flexion Active (degrees) 87 Flexion Passive (degrees) 93 Knee ROM Limitations Comments L knee ext contracture (supine ): Active: Lacking 11 deg's. Passive: Lacking 10 deg's. PT-OP-Q Treatments Start: 11/10/17 08:22 Freq: Status: Active Protocol: Document 01/15/18 09:07 LRN (Rec: 01/15/18 09:46 LRN [id number]) Cardio Equipment Bicycle (Upright) Duration (Minutes) 8 Seat Position 5 Other Made some revolutions backward Gym Equipment Shuttle Recovery Bilateral Squats Details for ROM (flex/ext) Resistance 50 Shuttle Recovery Platform Stable Reps/Time With long hold stretch at each rep Therapeutic Exercises Supine Exercises 2 Supine Exercise Name Quad stretch manual and w/2# over knee Reps/Minutes 4' Standing Exercises 3 Standing Exercise Name gastroc stretch Reps/Minutes 2 minutes Comments on kade 1 Standing Exercise Name hamstring stretch Reps/Minutes 60 sec Comments standing foot on step Manual Therapy Treatment Soft Tissue Mobilization 1 Body Location Scar Mobilization Type Myofascial Release Rolling Body Position Supine PT-OP-R Modalities Start: 11/10/17 08:22 Freq: Status: Active Protocol: Document 01/15/18 09:07 LRN (Rec: 01/15/18 09:46 LRN [id number]) Hot Pack/Cold Pack Treatment Cold Pack Location L knee Patient Position Supine Treatment Duration (minutes) 15 Patient Tolerance Good Comments Pt set up in unattended prolonged knee flexion stretch . PT-OP-S Aquatic Treatment Start: 11/10/17 08:22 Freq: Status: Active Protocol: Document 01/14/18 13:00 TMS (Rec: 01/14/18 16:42 TMS [id number]) Aquatics Treatment Pool Entry/Exit Pool Entry/Exit Method Stairs Assistance Standby Assistance Verbal Cues Water Walking Other- 1 Water Level Chest Level Level of Assistance Standby Assistance Verbal Cues Comments fwd,bck, , august, august kick, lunge Lower Extremity Exercises 1 Details knee flex/ext, hip flex/ext, ab/ad Body Position Standing Water Level Chest Level Reps/Duration 10x Lower Extremity Stretches 3 Details Contract/relax into knee flexion Body Position Sitting Water Level Chest Level Equipment Large Noodle Comments Pt. sitting on pool ladder submerged. 1 Details hamstrings, quads, calves Body Position Standing Water Level Chest Level Equipment Small Noodle Reps/Duration 2x ea Comments Small ankle foats also for quads. [place] Activities [place] Activities Bicycle Equipment Noodle Duration 10 minutes PT-OP-T Assessment and Plan Start: 11/10/17 08:22 Freq: Status: Active Protocol: Document 01/15/18 09:07 LRN (Rec: 01/15/18 09:46 LRN [id number]) Physical Therapy Assessment Goals Three Impairment L knee edema Group Home Goal (LTG) Pt will be educated in self care for L knee edema. LTG Duration Goal met. Two Impairment Lacks appropriate HEP Group Home Goal (LTG) Pt will be educated in a comprehensive independent HEP for self care. LTG Duration 02/06/18 One Impairment Decreased L knee AROM/PROM Short Term Goal (STG) Improve L knee AROM 0-95 deg's . Improve L knee PROM 0-105 deg' s. Pt to avoid L knee manipulation. STG Duration Abandon: Goal not met. [place] Heel Tap Goal (LTG) L knee AROM: 0-110 deg's L knee PROM: 0-115 deg's. Pt will be able to walk stairs with normal gait pattern using 1 railing. LTG Duration 02/06/18 Progress Towards Goals Progress Comments Poor progress. Assessment Summary Assessment Pt has generally more swelling today. Her L knee ROM is slightly worse with Passive flexion of 93 deg's and actively 87 deg's. Ext lag of 10 deg's passively. Physical Therapy Plan Frequency and Duration Frequency of Treatment 3-5x/week. Plan of Care Start Date 12/23/17 Plan of Care End Date 02/17/18 Therapeutic Interventions Therapeutic Interventions Aquatic Therapy Gait Training Home Exercise Program Manual Therapy Neuromuscular Re-education Patient/Caregiver Education Self-Care/Home Management Soft Tissue Mobilization Therapeutic Activities Therapeutic Exercises Modalities Cold Pack/Ice Massage Hot Packs Next Visit Focus/Plan Next Note Type Treatment Note Next Visit Plan AGGRESSIVELY progress L knee flex>ext, progress soft tissue and joint movement.
--- NOTE | 2018-01-16 12:30 | PT.OTN ---
Current Diagnoses Bilateral primary osteoarthritis of knee (01/16/18) Physical Therapy Treatment Note PT-OP-A Visit Information Start: 11/10/17 08:22 Freq: Status: Active Protocol: Document 01/16/18 12:30 TMS (Rec: 01/16/18 15:10 TMS [id number]) Out-Patient Physical Therapy Visit Information Visit Information Visit Type Treatment Note Visit Start Time 11:45 Visit Stop Time 12:30 Total Visit Minutes 45 Visit Number 27 Number of FREIGHT TRAFFIC CONSULTANT Visits 1 PT-OP-B Current Condition Start: 11/10/17 08:22 Freq: Status: Active Protocol: Document 12/23/17 15:45 LRN (Rec: 12/23/17 17:11 LRN [id number]) Current Condition History of Current Condition Onset Date 12/22/17 History of Current Condition Pt underwent L knee manipulation 12/22/17 following L TKA 11/10/17. Treatment Goals Patient/Caregiver Goals Gain functional L knee ROM. Prior Functional Status Baseline Function- ADL's Independent Baseline Function- Mobility Independent Baseline Function- Gait Gait with walker outside the home. No assistive device in the home. Current Functional Impairments (Reported) Functional Limitations- ADL's Difficulty getting L shoe on, has clinical nurse specialist on toilet. Daughter helps with cooking. Functional Limitations- Mobility/Gait Requires use of 2WW for gait intermittently. PT-OP-C Subjective Start: 11/10/17 08:22 Freq: Status: Active Protocol: Document 01/16/18 12:30 TMS (Rec: 01/16/18 15:10 TMS [id number]) OP-PT Subjective Patient Comments Patient Comments No new complaints. PT-OP-E Functional Tests Start: 11/10/17 08:22 Freq: Status: Active Protocol: Document 11/10/17 13:35 LRN (Rec: 11/10/17 14:12 LRN [id number]) Functional Tests Timed Up and Go (TUG) Score 23 sec's Comments Uses hands to get up from chair. TUG Impairment Rating 100% Impaired (Score 20) PT-OP-F Manual Assessment Start: 11/10/17 08:22 Freq: Status: Active Protocol: Document 11/10/17 13:35 LRN (Rec: 11/10/17 14:12 LRN [id number]) Manual Assessments Soft Tissue Assessment Soft Tissue Mobility Assessment Decreased L knee scar mobility . Scar is well healed. Increased temperature at the knee joint with mild to moderate joint effusion. PT-OP-G Mobility & Gait Start: 11/10/17 08:22 Freq: Status: Active Protocol: Document 12/23/17 15:45 LRN (Rec: 12/23/17 17:11 LRN [id number]) OP Mobility Evaluation Bed Mobility Rolling Independent Supine to and from Sit Independent Transfers Sit to Stand Independent OP Gait Assessment Assistive Devices Assistive Device None 4 Wheeled Walker Gait Deviations General Gait Pattern Decreased Stride Length Flexed Trunk Wide Based Gait Comments Gait Comments L knee extension is limited. Pt is FWBing on LLE. PT-OP-H Neuro Start: 11/10/17 08:22 Freq: Status: Active Protocol: Document 11/10/17 13:35 LRN (Rec: 11/10/17 14:12 LRN [id number]) Sensation Evaluation Location Details Left Anterior Knee Light Touch Impaired Deep Tendon Reflex & Clonus Assessment Deep Tendon Reflex Right Deep Tendon Reflex 2+ Normal Left Achilles Deep Tendon Reflex 0 Absent PT-OP-J Posture/Palpation/Skin Start: 11/10/17 08:22 Freq: Status: Active Protocol: Document 11/10/17 13:35 LRN (Rec: 11/10/17 14:12 LRN [id number]) Posture Evaluation Position Standing Head/C-Spine Posture Forward Head T-Spine Posture Increased Kyphosis Pelvis Posture Neutral Weight Distribution Weight Shifted Right Hip Posture (L) Flexed (R) Flexed Knee Posture (L) Excess Flexion Ankle/Foot Posture (R) Pronated PT-OP-K Range of Motion Start: 11/10/17 08:22 Freq: Status: Active Protocol: Document 01/15/18 09:07 LRN (Rec: 01/15/18 09:46 LRN [id number]) Knee Goniometric Range of Motion Knee Measured in Degrees Right Patient Position Supine Flexion Active (degrees) 87 Flexion Passive (degrees) 93 Knee ROM Limitations Comments L knee ext contracture (supine ): Active: Lacking 11 deg's. Passive: Lacking 10 deg's. PT-OP-Q Treatments Start: 11/10/17 08:22 Freq: Status: Active Protocol: Document 01/15/18 09:07 LRN (Rec: 01/15/18 09:46 LRN [id number]) Cardio Equipment Bicycle (Upright) Duration (Minutes) 8 Seat Position 5 Other Made some revolutions backward Gym Equipment Shuttle Recovery Bilateral Squats Details for ROM (flex/ext) Resistance 50 Shuttle Recovery Platform Stable Reps/Time With long hold stretch at each rep Therapeutic Exercises Supine Exercises 2 Supine Exercise Name Quad stretch manual and w/2# over knee Reps/Minutes 4' Standing Exercises 3 Standing Exercise Name gastroc stretch Reps/Minutes 2 minutes Comments on kade 1 Standing Exercise Name hamstring stretch Reps/Minutes 60 sec Comments standing foot on step Manual Therapy Treatment Soft Tissue Mobilization 1 Body Location Scar Mobilization Type Myofascial Release Rolling Body Position Supine PT-OP-R Modalities Start: 11/10/17 08:22 Freq: Status: Active Protocol: Document 01/15/18 09:07 LRN (Rec: 01/15/18 09:46 LRN [id number]) Hot Pack/Cold Pack Treatment Cold Pack Location L knee Patient Position Supine Treatment Duration (minutes) 15 Patient Tolerance Good Comments Pt set up in unattended prolonged knee flexion stretch . PT-OP-S Aquatic Treatment Start: 11/10/17 08:22 Freq: Status: Active Protocol: Document 01/16/18 12:30 TMS (Rec: 01/16/18 15:10 TMS [id number]) Aquatics Treatment Pool Entry/Exit Pool Entry/Exit Method Stairs Assistance Standby Assistance Verbal Cues Water Walking Other- 1 Water Level Chest Level Level of Assistance Standby Assistance Verbal Cues Comments fwd,bck, side, august, august kick, lunge Lower Extremity Exercises 2 Details Aqua bike Body Position Sitting Water Level Waist Level Reps/Duration 6 minutes 1 Details knee flex/ext, hip flex/ext, ab/ad Body Position Standing Water Level Chest Level Equipment Ankle Floats Reps/Duration 10x Lower Extremity Stretches 2 Details hamstring Body Position Standing Equipment Ankle Floats Comments Also small noodle 1 Details Quads Body Position Standing Water Level Chest Level Equipment Small Noodle Reps/Duration 2x ea Comments Small ankle foats also for quads. [place] Activities [place] Activities Bicycle Equipment Noodle Duration 10 minutes PT-OP-T Assessment and Plan Start: 11/10/17 08:22 Freq: Status: Active Protocol: Document 01/16/18 12:30 TMS (Rec: 01/16/18 15:10 TMS [id number]) Physical Therapy Assessment Assessment Summary Assessment Pt. initially only able to go back and forth on bike without full revolution, then was able to do revolution. Tolerated added resistance well with L.E. exercises. Physical Therapy Plan Frequency and Duration Frequency of Treatment 3-5x/week. Plan of Care Start Date 12/23/17 Plan of Care End Date 02/17/18 Therapeutic Interventions Therapeutic Interventions Aquatic Therapy Gait Training Home Exercise Program Manual Therapy Neuromuscular Re-education Patient/Caregiver Education Self-Care/Home Management Soft Tissue Mobilization Therapeutic Activities Therapeutic Exercises Next Visit Focus/Plan Next Note Type Treatment Note Next Visit Plan AGGRESSIVELY progress L knee flex>ext, progress soft tissue and joint movement.
--- NOTE | 2018-01-21 13:02 | PT.OTN ---
Current Diagnoses Bilateral primary osteoarthritis of knee (01/21/18) Physical Therapy Treatment Note PT-OP-A Visit Information Start: 11/10/17 08:22 Freq: Status: Active Protocol: Document 01/21/18 09:46 LRN (Rec: 01/21/18 10:39 LRN [id number]) Out-Patient Physical Therapy Visit Information Visit Information Visit Type Treatment Note Visit Note Visit Start Time 09:46 Visit Stop Time 10:51 Total Visit Minutes 65 Visit Number 28 Number of FISCAL OFFICER Visits 0 Evaluation Information Evaluation Date 11/10/17 PT-OP-B Current Condition Start: 11/10/17 08:22 Freq: Status: Active Protocol: Document 12/23/17 15:45 LRN (Rec: 12/23/17 17:11 LRN [id number]) Current Condition History of Current Condition Onset Date 12/22/17 History of Current Condition Pt underwent L knee manipulation 12/22/17 following L TKA 11/10/17. Treatment Goals Patient/Caregiver Goals Gain functional L knee ROM. Prior Functional Status Baseline Function- ADL's Independent Baseline Function- Mobility Independent Baseline Function- Gait Gait with walker outside the home. No assistive device in the home. Current Functional Impairments (Reported) Functional Limitations- ADL's Difficulty getting L shoe on, has hemmer chainstitch on toilet. Daughter helps with cooking. Functional Limitations- Mobility/Gait Requires use of 2WW for gait intermittently. PT-OP-C Subjective Start: 11/10/17 08:22 Freq: Status: Active Protocol: Document 01/21/18 09:46 LRN (Rec: 01/21/18 10:39 LRN [id number]) OP-PT Subjective Patient Comments Patient Comments States she tightens after pool therapy. Thinks she doesn't walk as good and has more difficulty getting up/down from a chair, after the pool, PT-OP-E Functional Tests Start: 11/10/17 08:22 Freq: Status: Active Protocol: Document 11/10/17 13:35 LRN (Rec: 11/10/17 14:12 LRN [id number]) Functional Tests Timed Up and Go (TUG) Score 23 sec's Comments Uses hands to get up from chair. TUG Impairment Rating 100% Impaired (Score 20) PT-OP-F Manual Assessment Start: 11/10/17 08:22 Freq: Status: Active Protocol: Document 11/10/17 13:35 LRN (Rec: 11/10/17 14:12 LRN [id number]) Manual Assessments Soft Tissue Assessment Soft Tissue Mobility Assessment Decreased L knee scar mobility . Scar is well healed. Increased temperature at the knee joint with mild to moderate joint effusion. PT-OP-G Mobility & Gait Start: 11/10/17 08:22 Freq: Status: Active Protocol: Document 12/23/17 15:45 LRN (Rec: 12/23/17 17:11 LRN [id number]) OP Mobility Evaluation Bed Mobility Rolling Independent Supine to and from Sit Independent Transfers Sit to Stand Independent OP Gait Assessment Assistive Devices Assistive Device None 4 Wheeled Walker Gait Deviations General Gait Pattern Decreased Stride Length Flexed Trunk Wide Based Gait Comments Gait Comments L knee extension is limited. Pt is FWBing on LLE. PT-OP-H Neuro Start: 11/10/17 08:22 Freq: Status: Active Protocol: Document 11/10/17 13:35 LRN (Rec: 11/10/17 14:12 LRN [id number]) Sensation Evaluation Location Details Left Anterior Knee Light Touch Impaired Deep Tendon Reflex & Clonus Assessment Deep Tendon Reflex Right Deep Tendon Reflex 2+ Normal Left Achilles Deep Tendon Reflex 0 Absent PT-OP-J Posture/Palpation/Skin Start: 11/10/17 08:22 Freq: Status: Active Protocol: Document 11/10/17 13:35 LRN (Rec: 11/10/17 14:12 LRN [id number]) Posture Evaluation Position Standing Head/C-Spine Posture Forward Head T-Spine Posture Increased Kyphosis Pelvis Posture Neutral Weight Distribution Weight Shifted Right Hip Posture (L) Flexed (R) Flexed Knee Posture (L) Excess Flexion Ankle/Foot Posture (R) Pronated PT-OP-K Range of Motion Start: 11/10/17 08:22 Freq: Status: Active Protocol: Document 01/21/18 09:46 LRN (Rec: 01/21/18 12:47 LRN [id number]) Knee Goniometric Range of Motion Knee Measured in Degrees Left Patient Position Supine Flexion Active (degrees) 93 Extension Active (degrees) 93 PT-OP-Q Treatments Start: 11/10/17 08:22 Freq: Status: Active Protocol: Document 01/21/18 09:46 LRN (Rec: 01/21/18 10:39 LRN [id number]) Cardio Equipment Recumbent Stepper (Sci-Fit) Duration (Minutes) 8 Other Set for maximal tolerable knee flexion Bicycle (Upright) Duration (Minutes) 7 Seat Position 6 Other Able to get revolution after Sci-Fit use Gym Equipment Shuttle Recovery Bilateral Squats Details for ROM (flex/ext) Resistance 50 Shuttle Recovery Platform Stable Reps/Time With long hold stretch and active flex x10rep at each stretch rep Therapeutic Exercises Supine Exercises 3 Supine Exercise Name Self assisted heel slide stretch with Belt Reps/Minutes 10x Comments stretch f/b AROM 1 Supine Exercise Name Knee flexion prolonged hold stretch followed by active flexion Side left Equipment Used T-Band Reps/Minutes 20 Comments Prolonged stretching in 98 deg 's flexion PT-OP-R Modalities Start: 11/10/17 08:22 Freq: Status: Active Protocol: Document 01/21/18 09:46 LRN (Rec: 01/21/18 12:49 LRN [id number]) Hot Pack/Cold Pack Treatment Cold Pack Location L knee Patient Position Supine Treatment Duration (minutes) 10 Patient Tolerance Good Comments Extra time takne to set up pt in an unattended prolonged knee flexion stretch. Pt set up for 15' but tolerated only 10'. PT-OP-S Aquatic Treatment Start: 11/10/17 08:22 Freq: Status: Active Protocol: Document 01/16/18 12:30 TMS (Rec: 01/16/18 15:10 TMS [id number]) Aquatics Treatment Pool Entry/Exit Pool Entry/Exit Method Stairs Assistance Standby Assistance Verbal Cues Water Walking Other- 1 Water Level Chest Level Level of Assistance Standby Assistance Verbal Cues Comments fwd,bck, side, august, august kick, lunge Lower Extremity Exercises 2 Details Aqua bike Body Position Sitting Water Level Waist Level Reps/Duration 6 minutes 1 Details knee flex/ext, hip flex/ext, ab/ad Body Position Standing Water Level Chest Level Equipment Ankle Floats Reps/Duration 10x Lower Extremity Stretches 2 Details hamstring Body Position Standing Equipment Ankle Floats Comments Also small noodle 1 Details Quads Body Position Standing Water Level Chest Level Equipment Small Noodle Reps/Duration 2x ea Comments Small ankle foats also for quads. [place] Activities [place] Activities Bicycle Equipment Noodle Duration 10 minutes PT-OP-T Assessment and Plan Start: 11/10/17 08:22 Freq: Status: Active Protocol: Document 01/21/18 09:46 LRN (Rec: 01/21/18 12:46 LRN [id number]) Physical Therapy Assessment Impairments Impairments Edema Gait ROM Soft Tissue Mobility Strength Goals Three Impairment L knee edema Enlisted Advisor Goal (LTG) Pt will be educated in self care for L knee edema. LTG Duration Goal met. Two Impairment Lacks appropriate HEP Halfway Goal (LTG) Pt will be educated in a comprehensive independent HEP for self care. LTG Duration 02/06/18 One Impairment Decreased L knee AROM/PROM Short Term Goal (STG) Improve L knee AROM 0-95 deg's . Improve L knee PROM 0-105 deg' s. Pt to avoid L knee manipulation. STG Duration Abandon: Goal not met. Enlisted Advisor Goal (LTG) L knee AROM: 0-110 deg's L knee PROM: 0-115 deg's. Pt will be able to walk stairs with normal gait pattern using 1 railing. LTG Duration 02/06/18 Assessment Summary Assessment Pt active and passive L knee ROM is 93 deg's. No change with extension. Pt walks into therapy with SPC instead of 2WW. Appears stable with cane . Physical Therapy Plan Frequency and Duration Frequency of Treatment 3-5x/week. Plan of Care Start Date 12/23/17 Plan of Care End Date 02/17/18 Therapeutic Interventions Therapeutic Interventions Aquatic Therapy Gait Training Home Exercise Program Manual Therapy Neuromuscular Re-education Patient/Caregiver Education Self-Care/Home Management Soft Tissue Mobilization Therapeutic Activities Therapeutic Exercises Next Visit Focus/Plan Next Note Type Treatment Note Next Visit Plan AGGRESSIVELY progress L knee flex>ext. Discuss POC due to pt with limited visits (2). Decreasing therapy to 1-2x/ week. Pt had no plans to see her MD again. Contact MD regarding pt progress and expectations.
--- NOTE | 2018-01-28 14:32 | PT.OTN ---
Current Diagnoses Bilateral primary osteoarthritis of knee (01/28/18) Physical Therapy Treatment Note PT-OP-A Visit Information Start: 11/10/17 08:22 Freq: Status: Active Protocol: Document 01/28/18 13:54 LR (Rec: 01/28/18 14:32 [facility] [id number]) Out-Patient Physical Therapy Visit Information Visit Information Visit Type Treatment Note Visit Note Visit Start Time 13:45 Visit Stop Time 14:45 Total Visit Minutes 60 Visit Number 29 Number of SINGLE RESOURCE BOSS Visits 0 PT-OP-B Current Condition Start: 11/10/17 08:22 Freq: Status: Active Protocol: Document 12/23/17 15:45 LRN (Rec: 12/23/17 17:11 LRN [id number]) Current Condition History of Current Condition Onset Date 12/22/17 History of Current Condition Pt underwent L knee manipulation 12/22/17 following L TKA 11/10/17. Treatment Goals Patient/Caregiver Goals Gain functional L knee ROM. Prior Functional Status Baseline Function- ADL's Independent Baseline Function- Mobility Independent Baseline Function- Gait Gait with walker outside the home. No assistive device in the home. Current Functional Impairments (Reported) Functional Limitations- ADL's Difficulty getting L shoe on, has operator/assistant foreman on toilet. Daughter helps with cooking. Functional Limitations- Mobility/Gait Requires use of 2WW for gait intermittently. PT-OP-C Subjective Start: 11/10/17 08:22 Freq: Status: Active Protocol: Document 01/28/18 13:54 [facility] (Rec: 01/28/18 14:32 [facility] [id number]) OP-PT Subjective Patient Comments Patient Comments Reports she has an appt with the doctor on the . PT-OP-E Functional Tests Start: 11/10/17 08:22 Freq: Status: Active Protocol: Document 11/10/17 13:35 LRN (Rec: 11/10/17 14:12 LRN [id number]) Functional Tests Timed Up and Go (TUG) Score 23 sec's Comments Uses hands to get up from chair. TUG Impairment Rating 100% Impaired (Score 20) PT-OP-F Manual Assessment Start: 11/10/17 08:22 Freq: Status: Active Protocol: Document 11/10/17 13:35 LRN (Rec: 11/10/17 14:12 LRN [id number]) Manual Assessments Soft Tissue Assessment Soft Tissue Mobility Assessment Decreased L knee scar mobility . Scar is well healed. Increased temperature at the knee joint with mild to moderate joint effusion. PT-OP-G Mobility & Gait Start: 11/10/17 08:22 Freq: Status: Active Protocol: Document 12/23/17 15:45 LRN (Rec: 12/23/17 17:11 LRN [id number]) OP Mobility Evaluation Bed Mobility Rolling Independent Supine to and from Sit Independent Transfers Sit to Stand Independent OP Gait Assessment Assistive Devices Assistive Device None 4 Wheeled Walker Gait Deviations General Gait Pattern Decreased Stride Length Flexed Trunk Wide Based Gait Comments Gait Comments L knee extension is limited. Pt is FWBing on LLE. PT-OP-H Neuro Start: 11/10/17 08:22 Freq: Status: Active Protocol: Document 11/10/17 13:35 LRN (Rec: 11/10/17 14:12 LRN [id number]) Sensation Evaluation Location Details Left Anterior Knee Light Touch Impaired Deep Tendon Reflex & Clonus Assessment Deep Tendon Reflex Right Deep Tendon Reflex 2+ Normal Left Achilles Deep Tendon Reflex 0 Absent PT-OP-J Posture/Palpation/Skin Start: 11/10/17 08:22 Freq: Status: Active Protocol: Document 11/10/17 13:35 LRN (Rec: 11/10/17 14:12 LRN [id number]) Posture Evaluation Position Standing Head/C-Spine Posture Forward Head T-Spine Posture Increased Kyphosis Pelvis Posture Neutral Weight Distribution Weight Shifted Right Hip Posture (L) Flexed (R) Flexed Knee Posture (L) Excess Flexion Ankle/Foot Posture (R) Pronated PT-OP-K Range of Motion Start: 11/10/17 08:22 Freq: Status: Active Protocol: Document 01/21/18 09:46 LRN (Rec: 01/21/18 12:47 LRN [id number]) Knee Goniometric Range of Motion Knee Measured in Degrees Left Patient Position Supine Flexion Active (degrees) 93 Extension Active (degrees) 93 PT-OP-Q Treatments Start: 11/10/17 08:22 Freq: Status: Active Protocol: Document 01/28/18 13:54 [facility] (Rec: 01/28/18 14:32 [facility] [id number]) Cardio Equipment Recumbent Stepper (Sci-Fit) Duration (Minutes) 5 Other Set for maximal tolerable knee flexion Bicycle (Upright) Duration (Minutes) 7 Seat Position 6 Other Able to get revolution after Sci-Fit use Gym Equipment Shuttle Recovery Bilateral Squats Details for ROM (flex/ext) Resistance 50 Shuttle Recovery Platform Stable Reps/Time With long hold stretch and active flex x10rep at each stretch rep Manual Therapy Treatment Soft Tissue Mobilization 3 Body Location HS Mobilization Type Rolling Comments C/r knee ext Joint Mobilizations 2 Joint patella Direction sup, inf, med 1 Joint TF Direction PA FM w/APs Manual Techniques 1 Type 3 plane c/r HS stretch PT-OP-R Modalities Start: 11/10/17 08:22 Freq: Status: Active Protocol: Document 01/28/18 13:54 [facility] (Rec: 01/28/18 14:32 [facility] [id number]) Hot Pack/Cold Pack Treatment Cold Pack Location L knee Patient Position Supine Treatment Duration (minutes) 15 Patient Tolerance Good Comments Extra time takne to set up pt in an unattended prolonged knee flexion stretch. Pt set up for 15' PT-OP-S Aquatic Treatment Start: 11/10/17 08:22 Freq: Status: Active Protocol: Document 01/16/18 12:30 TMS (Rec: 01/16/18 15:10 TMS [id number]) Aquatics Treatment Pool Entry/Exit Pool Entry/Exit Method Stairs Assistance Standby Assistance Verbal Cues Water Walking Other- 1 Water Level Chest Level Level of Assistance Standby Assistance Verbal Cues Comments fwd,bck, side, august, august kick, lunge Lower Extremity Exercises 2 Details Aqua bike Body Position Sitting Water Level Waist Level Reps/Duration 6 minutes 1 Details knee flex/ext, hip flex/ext, ab/ad Body Position Standing Water Level Chest Level Equipment Ankle Floats Reps/Duration 10x Lower Extremity Stretches 2 Details hamstring Body Position Standing Equipment Ankle Floats Comments Also small noodle 1 Details Quads Body Position Standing Water Level Chest Level Equipment Small Noodle Reps/Duration 2x ea Comments Small ankle foats also for quads. [place] Activities [place] Activities Bicycle Equipment Noodle Duration 10 minutes PT-OP-T Assessment and Plan Start: 11/10/17 08:22 Freq: Status: Active Protocol: Document 01/28/18 13:54 [facility] (Rec: 01/28/18 14:32 [facility] [id number]) Physical Therapy Assessment Goals Three Impairment L knee edema Review Appraiser Goal (LTG) Pt will be educated in self care for L knee edema. LTG Duration Goal met. Two Impairment Lacks appropriate HEP Shelter Goal (LTG) Pt will be educated in a comprehensive independent HEP for self care. LTG Duration 02/06/18 One Impairment Decreased L knee AROM/PROM Short Term Goal (STG) Improve L knee AROM 0-95 deg's . Improve L knee PROM 0-105 deg' s. Pt to avoid L knee manipulation. STG Duration Abandon: Goal not met. Review Appraiser Goal (LTG) L knee AROM: 0-110 deg's L knee PROM: 0-115 deg's. Pt will be able to walk stairs with normal gait pattern using 1 railing. LTG Duration 02/06/18 Assessment Summary Assessment Pt started at 25-93 deg and ended with 14-98 deg. Pt cont to have significant PF, TF & soft tissue restrictions around knee. Physical Therapy Plan Frequency and Duration Frequency of Treatment 3-5x/week. Plan of Care Start Date 12/23/17 Plan of Care End Date 02/17/18 Next Visit Focus/Plan Next Note Type Treatment Note Next Visit Plan AGGRESSIVELY progress L knee flex>ext. Discuss POC due to pt with limited visits (2). Decreasing therapy to 1-2x/ week.
--- NOTE | 2018-01-30 13:36 | PT.OTN ---
Current Diagnoses Bilateral primary osteoarthritis of knee (01/30/18) Physical Therapy Treatment Note PT-OP-A Visit Information Start: 11/10/17 08:22 Freq: Status: Active Protocol: Document 01/30/18 09:47 LRN (Rec: 01/30/18 10:28 LRN [id number]) Out-Patient Physical Therapy Visit Information Visit Information Visit Type Treatment Note Visit Note Visit Start Time 09:47 Visit Stop Time 10:45 Total Visit Minutes 58 Visit Number 30 Number of BOBBIN HAULER Visits 0 Evaluation Information Evaluation Date 11/10/17 PT-OP-B Current Condition Start: 11/10/17 08:22 Freq: Status: Active Protocol: Document 12/23/17 15:45 LRN (Rec: 12/23/17 17:11 LRN [id number]) Current Condition History of Current Condition Onset Date 12/22/17 History of Current Condition Pt underwent L knee manipulation 12/22/17 following L TKA 11/10/17. Treatment Goals Patient/Caregiver Goals Gain functional L knee ROM. Prior Functional Status Baseline Function- ADL's Independent Baseline Function- Mobility Independent Baseline Function- Gait Gait with walker outside the home. No assistive device in the home. Current Functional Impairments (Reported) Functional Limitations- ADL's Difficulty getting L shoe on, has supervising librarian on toilet. Daughter helps with cooking. Functional Limitations- Mobility/Gait Requires use of 2WW for gait intermittently. PT-OP-C Subjective Start: 11/10/17 08:22 Freq: Status: Active Protocol: Document 01/30/18 09:47 LRN (Rec: 01/30/18 10:28 LRN [id number]) OP-PT Subjective Patient Comments Patient Comments Having a problem with the legs being restless and aching. Comes and goes. PT-OP-E Functional Tests Start: 11/10/17 08:22 Freq: Status: Active Protocol: Document 11/10/17 13:35 LRN (Rec: 11/10/17 14:12 LRN [id number]) Functional Tests Timed Up and Go (TUG) Score 23 sec's Comments Uses hands to get up from chair. TUG Impairment Rating 100% Impaired (Score 20) PT-OP-F Manual Assessment Start: 11/10/17 08:22 Freq: Status: Active Protocol: Document 11/10/17 13:35 LRN (Rec: 11/10/17 14:12 LRN [id number]) Manual Assessments Soft Tissue Assessment Soft Tissue Mobility Assessment Decreased L knee scar mobility . Scar is well healed. Increased temperature at the knee joint with mild to moderate joint effusion. PT-OP-G Mobility & Gait Start: 11/10/17 08:22 Freq: Status: Active Protocol: Document 12/23/17 15:45 LRN (Rec: 12/23/17 17:11 LRN [id number]) OP Mobility Evaluation Bed Mobility Rolling Independent Supine to and from Sit Independent Transfers Sit to Stand Independent OP Gait Assessment Assistive Devices Assistive Device None 4 Wheeled Walker Gait Deviations General Gait Pattern Decreased Stride Length Flexed Trunk Wide Based Gait Comments Gait Comments L knee extension is limited. Pt is FWBing on LLE. PT-OP-H Neuro Start: 11/10/17 08:22 Freq: Status: Active Protocol: Document 11/10/17 13:35 LRN (Rec: 11/10/17 14:12 LRN [id number]) Sensation Evaluation Location Details Left Anterior Knee Light Touch Impaired Deep Tendon Reflex & Clonus Assessment Deep Tendon Reflex Right Deep Tendon Reflex 2+ Normal Left Achilles Deep Tendon Reflex 0 Absent PT-OP-J Posture/Palpation/Skin Start: 11/10/17 08:22 Freq: Status: Active Protocol: Document 11/10/17 13:35 LRN (Rec: 11/10/17 14:12 LRN [id number]) Posture Evaluation Position Standing Head/C-Spine Posture Forward Head T-Spine Posture Increased Kyphosis Pelvis Posture Neutral Weight Distribution Weight Shifted Right Hip Posture (L) Flexed (R) Flexed Knee Posture (L) Excess Flexion Ankle/Foot Posture (R) Pronated PT-OP-K Range of Motion Start: 11/10/17 08:22 Freq: Status: Active Protocol: Document 01/30/18 09:47 LRN (Rec: 01/30/18 13:00 LRN [id number]) Knee Goniometric Range of Motion Knee Measured in Degrees Right Patient Position Supine Flexion Active (degrees) 87 Flexion Passive (degrees) 93 Left Patient Position Supine Flexion Active (degrees) 93 Knee ROM Limitations Comments Passive L knee Flex - 97 deg's . L knee ext contracture (supine ): Active: Lacking 13 deg's. Passive: Lacking 12 deg's. PT-OP-Q Treatments Start: 11/10/17 08:22 Freq: Status: Active Protocol: Document 01/30/18 09:47 LRN (Rec: 01/30/18 10:28 LRN [id number]) Cardio Equipment Recumbent Stepper (Sci-Fit) Duration (Minutes) 5 Other Set for maximal tolerable knee flexion Bicycle (Upright) Duration (Minutes) 7 Seat Position 6, 5 Other Able to get revolution after Sci-Fit use Gym Equipment Shuttle Recovery Bilateral Squats Details for ROM (flex/ext) Resistance 50 Shuttle Recovery Platform Stable Reps/Time With long hold stretch and active flex x10rep at each stretch rep Therapeutic Exercises Supine Exercises 3 Supine Exercise Name Assisted heel slide stretch Reps/Minutes 10x Comments stretch f/b AROM Manual Therapy Treatment Soft Tissue Mobilization 3 Body Location HS Mobilization Type Strumming Joint Mobilizations 1 Joint TF Direction PA FM w/APs PT-OP-R Modalities Start: 11/10/17 08:22 Freq: Status: Active Protocol: Document 01/30/18 09:47 LRN (Rec: 01/30/18 10:28 LRN [id number]) Hot Pack/Cold Pack Treatment Cold Pack Location L knee Patient Position Supine Treatment Duration (minutes) 15 Patient Tolerance Good Comments Extra time taken to set up pt in an unattended prolonged knee flexion stretch. Pt set up for 15' PT-OP-S Aquatic Treatment Start: 11/10/17 08:22 Freq: Status: Active Protocol: Document 01/16/18 12:30 TMS (Rec: 01/16/18 15:10 TMS [id number]) Aquatics Treatment Pool Entry/Exit Pool Entry/Exit Method Stairs Assistance Standby Assistance Verbal Cues Water Walking Other- 1 Water Level Chest Level Level of Assistance Standby Assistance Verbal Cues Comments fwd,bck, side, august, august kick, lunge Lower Extremity Exercises 2 Details Aqua bike Body Position Sitting Water Level Waist Level Reps/Duration 6 minutes 1 Details knee flex/ext, hip flex/ext, ab/ad Body Position Standing Water Level Chest Level Equipment Ankle Floats Reps/Duration 10x Lower Extremity Stretches 2 Details hamstring Body Position Standing Equipment Ankle Floats Comments Also small noodle 1 Details Quads Body Position Standing Water Level Chest Level Equipment Small Noodle Reps/Duration 2x ea Comments Small ankle foats also for quads. [place] Activities [place] Activities Bicycle Equipment Noodle Duration 10 minutes PT-OP-T Assessment and Plan Start: 11/10/17 08:22 Freq: Status: Active Protocol: Document 01/30/18 09:47 LRN (Rec: 01/30/18 10:28 LRN [id number]) Physical Therapy Assessment Rehab Potential Rehabilitation Potential Fair Impairments Impairments Edema Gait ROM Soft Tissue Mobility Strength Goals Three Impairment L knee edema Pss Delivery Professional Goal (LTG) Pt will be educated in self care for L knee edema. LTG Duration Goal met. Two Impairment Lacks appropriate HEP Pss Delivery Professional Goal (LTG) Pt will be educated in a comprehensive independent HEP for self care. LTG Duration 02/06/18 (08/30/17: Pt has HEP of ROM/strengthening ex's One Impairment Decreased L knee AROM/PROM Short Term Goal (STG) Improve L knee AROM 0-95 deg's . Improve L knee PROM 0-105 deg' s. Pt to avoid L knee manipulation. STG Duration Abandon: Goal not met. Pss Delivery Professional Goal (LTG) L knee AROM: 0-110 deg's L knee PROM: 0-115 deg's. Pt will be able to walk stairs with normal gait pattern using 1 railing. LTG Duration 02/06/18 (01/30/18: Goal not met ) Progress Towards Goals Progress Comments Poor progress with AROM and PROM of L knee. Assessment Summary Assessment Pt has been attending therapy 3-5x/week for out patient and aquatic physical therapy. Her progress for improving L knee ROM has been poor. The pt may have nerve memory preventing her from advancing and tolerating ROM ex's. I have tried prolonged stretching here in the clinic, but find most times she can only tolerated 10' of a low level stretch. She is now complaining of general aching in the knee. She is able to ambulate up/down stairs with use of 2 rails and tolerable pain. She continues to have significant patellar, tendon fascia & soft tissue restrictions around the knee causing pain and limiting mobility. Any further recommendations regarding this patient would be greatly appreciated. Physical Therapy Plan Frequency and Duration Frequency of Treatment 1-5x/week. Plan of Care Start Date 12/23/17 Plan of Care End Date 02/17/18 Therapeutic Interventions Therapeutic Interventions Aquatic Therapy Gait Training Home Exercise Program Manual Therapy Neuromuscular Re-education Patient/Caregiver Education Self-Care/Home Management Soft Tissue Mobilization Therapeutic Activities Therapeutic Exercises Next Visit Focus/Plan Next Note Type Treatment Note Next Visit Plan Progress the pt towards a self shelter program. In therapy AGGRESSIVELY progress L knee flex>ext. Discuss POC for decreasing therapy to 1-2x /week with possible DC progression after next MD visit 02/05/18.
--- NOTE | 2018-01-30 13:37 | PT.OPPOC ---
Current Diagnoses Bilateral primary osteoarthritis of knee (01/30/18) Provider Visit Care Team Role Provider Type Anabell Marti DO Family Provider Physician Primary Care Provider Specialty: Family Practice Address: [address] [place] [address], [id number] Email: [email or web address] Jenna Cheatham MD Attending Provider Physician Specialty: Orthopedic Surgery Address: [address] [place] [address], [id number] Email: [email or web address] Plan Of Care PT-OP-T Assessment and Plan Start: 11/10/17 08:22 Freq: Status: Active Protocol: Document 01/30/18 09:47 LRN (Rec: 01/30/18 10:28 LRN [id number]) Physical Therapy Assessment Rehab Potential Rehabilitation Potential Fair Impairments Impairments Edema Gait ROM Soft Tissue Mobility Strength Goals Three Impairment L knee edema Assistant Cross Country Coach Goal (LTG) Pt will be educated in self care for L knee edema. LTG Duration Goal met. Two Impairment Lacks appropriate HEP Assistant Cross Country Coach Goal (LTG) Pt will be educated in a comprehensive independent HEP for self care. LTG Duration 02/06/18 (08/30/17: Pt has HEP of ROM/strengthening ex's One Impairment Decreased L knee AROM/PROM Short Term Goal (STG) Improve L knee AROM 0-95 deg's . Improve L knee PROM 0-105 deg' s. Pt to avoid L knee manipulation. STG Duration Abandon: Goal not met. Assistant Cross Country Coach Goal (LTG) L knee AROM: 0-110 deg's L knee PROM: 0-115 deg's. Pt will be able to walk stairs with normal gait pattern using 1 railing. LTG Duration 02/06/18 (01/30/18: Goal not met ) Progress Towards Goals Progress Comments Poor progress with AROM and PROM of L knee. Assessment Summary Assessment Pt has been attending therapy 3-5x/week for out patient and aquatic physical therapy. Her progress for improving L knee ROM has been poor. The pt may have nerve memory preventing her from advancing and tolerating ROM ex's. I have tried prolonged stretching here in the clinic, but find most times she can only tolerated 10' of a low level stretch. She is now complaining of general aching in the knee. She is able to ambulate up/down stairs with use of 2 rails and tolerable pain. She continues to have significant patellar, tendon fascia & soft tissue restrictions around the knee causing pain and limiting mobility. Any further recommendations regarding this patient would be greatly appreciated. Physical Therapy Plan Frequency and Duration Frequency of Treatment 1-5x/week. Plan of Care Start Date 12/23/17 Plan of Care End Date 02/17/18 Therapeutic Interventions Therapeutic Interventions Aquatic Therapy Gait Training Home Exercise Program Manual Therapy Neuromuscular Re-education Patient/Caregiver Education Self-Care/Home Management Soft Tissue Mobilization Therapeutic Activities Therapeutic Exercises Next Visit Focus/Plan Next Note Type Treatment Note Next Visit Plan Progress the pt towards a self usp program. In therapy AGGRESSIVELY progress L knee flex>ext. Discuss POC for decreasing therapy to 1-2x /week with possible DC progression after next MD visit 02/05/18. Plan of Care Dates Plan of Care Start Date 12/23/17 Plan of Care End Date 02/17/18 Please Sign and Return: I have reviewed this Plan of Care and certify that the skilled therapy services above are required to meet the patient?s needs. Physician Signature Date Printed Name and Credentials Clinical Instructor Signature Printed Name and Credentials
--- NOTE | 2018-02-03 14:10 | PT.OTN ---
Current Diagnoses Bilateral primary osteoarthritis of knee (02/03/18) Physical Therapy Treatment Note PT-OP-A Visit Information Start: 11/10/17 08:22 Freq: Status: Active Protocol: Document 02/03/18 09:46 LRN (Rec: 02/03/18 10:42 LRN [id number]) Out-Patient Physical Therapy Visit Information Visit Information Visit Type Treatment Note Visit Note Visit Start Time 09:46 Visit Stop Time 10:40 Total Visit Minutes 54 Visit Number 31 Number of POLITICAL RESEARCH SCIENTIST Visits 0 Evaluation Information Evaluation Date 11/10/17 PT-OP-B Current Condition Start: 11/10/17 08:22 Freq: Status: Active Protocol: Document 12/23/17 15:45 LRN (Rec: 12/23/17 17:11 LRN [id number]) Current Condition History of Current Condition Onset Date 12/22/17 History of Current Condition Pt underwent L knee manipulation 12/22/17 following L TKA 11/10/17. Treatment Goals Patient/Caregiver Goals Gain functional L knee ROM. Prior Functional Status Baseline Function- ADL's Independent Baseline Function- Mobility Independent Baseline Function- Gait Gait with walker outside the home. No assistive device in the home. Current Functional Impairments (Reported) Functional Limitations- ADL's Difficulty getting L shoe on, has mineralogy professor on toilet. Daughter helps with cooking. Functional Limitations- Mobility/Gait Requires use of 2WW for gait intermittently. PT-OP-C Subjective Start: 11/10/17 08:22 Freq: Status: Active Protocol: Document 02/03/18 09:46 LRN (Rec: 02/03/18 10:42 LRN [id number]) OP-PT Subjective Patient Comments Patient Comments L leg and all over has been achy, thinks its from the weather change. Seeing MD on 02/06/18. PT-OP-E Functional Tests Start: 11/10/17 08:22 Freq: Status: Active Protocol: Document 11/10/17 13:35 LRN (Rec: 11/10/17 14:12 LRN [id number]) Functional Tests Timed Up and Go (TUG) Score 23 sec's Comments Uses hands to get up from chair. TUG Impairment Rating 100% Impaired (Score 20) PT-OP-F Manual Assessment Start: 11/10/17 08:22 Freq: Status: Active Protocol: Document 11/10/17 13:35 LRN (Rec: 11/10/17 14:12 LRN [id number]) Manual Assessments Soft Tissue Assessment Soft Tissue Mobility Assessment Decreased L knee scar mobility . Scar is well healed. Increased temperature at the knee joint with mild to moderate joint effusion. PT-OP-G Mobility & Gait Start: 11/10/17 08:22 Freq: Status: Active Protocol: Document 12/23/17 15:45 LRN (Rec: 12/23/17 17:11 LRN [id number]) OP Mobility Evaluation Bed Mobility Rolling Independent Supine to and from Sit Independent Transfers Sit to Stand Independent OP Gait Assessment Assistive Devices Assistive Device None 4 Wheeled Walker Gait Deviations General Gait Pattern Decreased Stride Length Flexed Trunk Wide Based Gait Comments Gait Comments L knee extension is limited. Pt is FWBing on LLE. PT-OP-H Neuro Start: 11/10/17 08:22 Freq: Status: Active Protocol: Document 11/10/17 13:35 LRN (Rec: 11/10/17 14:12 LRN [id number]) Sensation Evaluation Location Details Left Anterior Knee Light Touch Impaired Deep Tendon Reflex & Clonus Assessment Deep Tendon Reflex Right Deep Tendon Reflex 2+ Normal Left Achilles Deep Tendon Reflex 0 Absent PT-OP-J Posture/Palpation/Skin Start: 11/10/17 08:22 Freq: Status: Active Protocol: Document 11/10/17 13:35 LRN (Rec: 11/10/17 14:12 LRN [id number]) Posture Evaluation Position Standing Head/C-Spine Posture Forward Head T-Spine Posture Increased Kyphosis Pelvis Posture Neutral Weight Distribution Weight Shifted Right Hip Posture (L) Flexed (R) Flexed Knee Posture (L) Excess Flexion Ankle/Foot Posture (R) Pronated PT-OP-K Range of Motion Start: 11/10/17 08:22 Freq: Status: Active Protocol: Document 01/30/18 09:47 LRN (Rec: 01/30/18 13:00 LRN [id number]) Knee Goniometric Range of Motion Knee Measured in Degrees Right Patient Position Supine Flexion Active (degrees) 87 Flexion Passive (degrees) 93 Left Patient Position Supine Flexion Active (degrees) 93 Knee ROM Limitations Comments Passive L knee Flex - 97 deg's . L knee ext contracture (supine ): Active: Lacking 13 deg's. Passive: Lacking 12 deg's. PT-OP-Q Treatments Start: 11/10/17 08:22 Freq: Status: Active Protocol: Document 02/03/18 09:46 LRN (Rec: 02/03/18 10:42 LRN [id number]) Cardio Equipment Recumbent Elliptical (Biodex) Duration (Minutes) 4 Seat Position 7 Bicycle (Upright) Duration (Minutes) 8 Seat Position 6,5 Other Able to get revolution after Sci-Fit use Gym Equipment Shuttle Recovery Bilateral Squats Details for ROM (flex/ext) Resistance 50 Shuttle Recovery Platform Stable Reps/Time With long hold stretch and active flex x10rep at each stretch rep Therapeutic Exercises Supine Exercises 5 Supine Exercise Name tball rolls into flex Reps/Minutes 0 4 Supine Exercise Name Assisted knee ext Side left Reps/Minutes 0 3 Supine Exercise Name Assisted heel slide stretch Reps/Minutes 0 Comments stretch f/b AROM 2 Supine Exercise Name Quad stretch manual and w/2# over knee Reps/Minutes 0 1 Supine Exercise Name Knee flexion prolonged hold stretch ending with active flexion Side left Reps/Minutes 12' Comments Prolonged stretching in 103 deg's flexion Prone Exercises 2 Prone Exercise Name Contract/Relax extension stretch Side left Reps/Minutes 5' Comments PROM: lacking 7 deg's 1 Prone Exercise Name Contract/Relax flexion stretch Side left Reps/Minutes 8' Sidelying Exercises 1 Sidelying Exercise Name Hip AB/AD Side left Reps/Minutes 0 Sitting Exercises 3 Sitting Exercise Name Knee flex strengthening Side left Resistance Lev 2 T-Band Reps/Minutes 0 1 Sitting Exercise Name Knee flexion stretch: Sit to stands and buttock slides forward Side left Reps/Minutes 0 Manual Therapy Treatment Soft Tissue Mobilization 3 Body Location Quads/Hamstring Mobilization Type Myofascial Release Comments Contract/Relax knee flex/ext Joint Mobilizations 2 Joint patella Direction sup, inf, med Reps/Duration 0 1 Joint TF Direction PA FM w/APs Reps/Duration 0 Manual Techniques 1 Type 3 plane c/r HS stretch Reps/Duration 0 PT-OP-R Modalities Start: 11/10/17 08:22 Freq: Status: Active Protocol: Document 02/03/18 09:46 LRN (Rec: 02/03/18 14:10 LRN [id number]) Hot Pack/Cold Pack Treatment Cold Pack Location L knee Patient Position Supine Treatment Duration (minutes) 12 Patient Tolerance Good Comments Extra time taken to set up pt in an unattended prolonged knee flexion stretch. Pt set up for 15' PT-OP-S Aquatic Treatment Start: 11/10/17 08:22 Freq: Status: Active Protocol: Document 01/16/18 12:30 TMS (Rec: 01/16/18 15:10 TMS [id number]) Aquatics Treatment Pool Entry/Exit Pool Entry/Exit Method Stairs Assistance Standby Assistance Verbal Cues Water Walking Other- 1 Water Level Chest Level Level of Assistance Standby Assistance Verbal Cues Comments fwd,bck, side, august, august kick, lunge Lower Extremity Exercises 2 Details Aqua bike Body Position Sitting Water Level Waist Level Reps/Duration 6 minutes 1 Details knee flex/ext, hip flex/ext, ab/ad Body Position Standing Water Level Chest Level Equipment Ankle Floats Reps/Duration 10x Lower Extremity Stretches 2 Details hamstring Body Position Standing Equipment Ankle Floats Comments Also small noodle 1 Details Quads Body Position Standing Water Level Chest Level Equipment Small Noodle Reps/Duration 2x ea Comments Small ankle foats also for quads. [place] Activities [place] Activities Bicycle Equipment Noodle Duration 10 minutes PT-OP-T Assessment and Plan Start: 11/10/17 08:22 Freq: Status: Active Protocol: Document 02/03/18 09:46 LRN (Rec: 02/03/18 10:42 LRN [id number]) Physical Therapy Assessment Impairments Impairments Edema Gait ROM Soft Tissue Mobility Strength Goals Three Impairment L knee edema Experience Specialist Goal (LTG) Pt will be educated in self care for L knee edema. LTG Duration Goal met. Two Impairment Lacks appropriate HEP Experience Specialist Goal (LTG) Pt will be educated in a comprehensive independent HEP for self care. LTG Duration 02/06/18 (08/30/17: Pt has HEP of ROM/strengthening ex's One Impairment Decreased L knee AROM/PROM Short Term Goal (STG) Improve L knee AROM 0-95 deg's . Improve L knee PROM 0-105 deg' s. Pt to avoid L knee manipulation. STG Duration Abandon: Goal not met. Experience Specialist Goal (LTG) L knee AROM: 0-110 deg's L knee PROM: 0-115 deg's. Pt will be able to walk stairs with normal gait pattern using 1 railing. LTG Duration 02/06/18 (01/30/18: Goal not met ) Progress Towards Goals Progress Comments Improved L knee AROM/PROM: AROM 100 deg's, PROM 103 deg's at end of treatment. Assessment Summary Assessment Mildly improved L knee AROM/ PROM (100/103 deg's respectively). Pt not able to tolerate aquatic therapy due to pressure on varicose veins; therefore continue land PT. Physical Therapy Plan Frequency and Duration Frequency of Treatment 1-5x/week. Plan of Care Start Date 12/23/17 Plan of Care End Date 02/17/18 Next Visit Focus/Plan Next Note Type Treatment Note Next Visit Plan Assess Pain & LEFS. Issue HEP handouts needed. Progress the pt towards a self usp program. In therapy AGGRESSIVELY progress L knee flex>ext. Discuss POC for decreasing therapy to 1-2x/ week with possible DC progression after next MD visit 02/05/18.
--- NOTE | 2018-02-05 16:29 | PT.OTN ---
Current Diagnoses Bilateral primary osteoarthritis of knee (02/05/18) Physical Therapy Treatment Note PT-OP-A Visit Information Start: 11/10/17 08:22 Freq: Status: Active Protocol: Document 02/05/18 14:35 SAK (Rec: 02/05/18 15:14 SAK [id number]) Out-Patient Physical Therapy Visit Information Visit Information Visit Type Treatment Note Visit Note 32/40 Visit Start Time 14:35 Visit Stop Time 15:30 Total Visit Minutes 54 Visit Number 32 Number of CARETAKER GROUNDS Visits 0 PT-OP-B Current Condition Start: 11/10/17 08:22 Freq: Status: Active Protocol: Document 12/23/17 15:45 LRN (Rec: 12/23/17 17:11 LRN [id number]) Current Condition History of Current Condition Onset Date 12/22/17 History of Current Condition Pt underwent L knee manipulation 12/22/17 following L TKA 11/10/17. Treatment Goals Patient/Caregiver Goals Gain functional L knee ROM. Prior Functional Status Baseline Function- ADL's Independent Baseline Function- Mobility Independent Baseline Function- Gait Gait with walker outside the home. No assistive device in the home. Current Functional Impairments (Reported) Functional Limitations- ADL's Difficulty getting L shoe on, has administrative director on toilet. Daughter helps with cooking. Functional Limitations- Mobility/Gait Requires use of 2WW for gait intermittently. PT-OP-C Subjective Start: 11/10/17 08:22 Freq: Status: Active Protocol: Document 02/05/18 14:35 SAK (Rec: 02/05/18 15:14 SAK [id number]) OP-PT Subjective Patient Comments Patient Comments Saw Dr. Cheatham this am; patient states Dr. Cheatham overall was pleased with her knee, will see patient again in 2 [facility] . PT-OP-E Functional Tests Start: 11/10/17 08:22 Freq: Status: Active Protocol: Document 11/10/17 13:35 LRN (Rec: 11/10/17 14:12 LRN [id number]) Functional Tests Timed Up and Go (TUG) Score 23 sec's Comments Uses hands to get up from chair. TUG Impairment Rating 100% Impaired (Score 20) PT-OP-F Manual Assessment Start: 11/10/17 08:22 Freq: Status: Active Protocol: Document 11/10/17 13:35 LRN (Rec: 11/10/17 14:12 LRN [id number]) Manual Assessments Soft Tissue Assessment Soft Tissue Mobility Assessment Decreased L knee scar mobility . Scar is well healed. Increased temperature at the knee joint with mild to moderate joint effusion. PT-OP-G Mobility & Gait Start: 11/10/17 08:22 Freq: Status: Active Protocol: Document 12/23/17 15:45 LRN (Rec: 12/23/17 17:11 LRN [id number]) OP Mobility Evaluation Bed Mobility Rolling Independent Supine to and from Sit Independent Transfers Sit to Stand Independent OP Gait Assessment Assistive Devices Assistive Device None 4 Wheeled Walker Gait Deviations General Gait Pattern Decreased Stride Length Flexed Trunk Wide Based Gait Comments Gait Comments L knee extension is limited. Pt is FWBing on LLE. PT-OP-H Neuro Start: 11/10/17 08:22 Freq: Status: Active Protocol: Document 11/10/17 13:35 LRN (Rec: 11/10/17 14:12 LRN [id number]) Sensation Evaluation Location Details Left Anterior Knee Light Touch Impaired Deep Tendon Reflex & Clonus Assessment Deep Tendon Reflex Right Deep Tendon Reflex 2+ Normal Left Achilles Deep Tendon Reflex 0 Absent PT-OP-J Posture/Palpation/Skin Start: 11/10/17 08:22 Freq: Status: Active Protocol: Document 11/10/17 13:35 LRN (Rec: 11/10/17 14:12 LRN [id number]) Posture Evaluation Position Standing Head/C-Spine Posture Forward Head T-Spine Posture Increased Kyphosis Pelvis Posture Neutral Weight Distribution Weight Shifted Right Hip Posture (L) Flexed (R) Flexed Knee Posture (L) Excess Flexion Ankle/Foot Posture (R) Pronated PT-OP-K Range of Motion Start: 11/10/17 08:22 Freq: Status: Active Protocol: Document 01/30/18 09:47 LRN (Rec: 01/30/18 13:00 LRN [id number]) Knee Goniometric Range of Motion Knee Measured in Degrees Right Patient Position Supine Flexion Active (degrees) 87 Flexion Passive (degrees) 93 Left Patient Position Supine Flexion Active (degrees) 93 Knee ROM Limitations Comments Passive L knee Flex - 97 deg's . L knee ext contracture (supine ): Active: Lacking 13 deg's. Passive: Lacking 12 deg's. PT-OP-Q Treatments Start: 11/10/17 08:22 Freq: Status: Active Protocol: Document 02/05/18 14:35 SAK (Rec: 02/05/18 15:14 SAK [id number]) Cardio Equipment Recumbent Stepper (Sci-Fit) Duration (Minutes) 4 Other Set for maximal tolerable knee flexion Bicycle (Upright) Duration (Minutes) 8 Seat Position 6,5 Other Able to get revolution after Sci-Fit use Gym Equipment Shuttle Recovery Bilateral Squats Details for ROM (flex/ext) Resistance 50 Shuttle Recovery Platform Stable Reps/Time With long hold stretch and active flex x10rep at each stretch rep Therapeutic Exercises Supine Exercises 4 Supine Exercise Name Assisted knee ext Side left Reps/Minutes 0 3 Supine Exercise Name Assisted heel slide stretch Reps/Minutes 0 Comments stretch f/b AROM 1 Supine Exercise Name Knee flexion prolonged hold stretch ending with active flexion Side left Reps/Minutes 12' Comments Prolonged stretching in 103 deg's flexion Sitting Exercises 2 Sitting Exercise Name contract/relax for knee flex Manual Therapy Treatment Soft Tissue Mobilization 3 Body Location Quads/Hamstring Mobilization Type Myofascial Release Comments Contract/Relax knee flex/ext Joint Mobilizations 2 Joint patella Direction sup, inf, med Reps/Duration 0 1 Joint TF Direction PA FM w/APs Reps/Duration 0 PT-OP-R Modalities Start: 11/10/17 08:22 Freq: Status: Active Protocol: Document 02/05/18 14:35 SAK (Rec: 02/05/18 15:14 [facility] [id number]) Hot Pack/Cold Pack Treatment Cold Pack Location L knee Patient Position Supine Treatment Duration (minutes) 12 Patient Tolerance Good Comments Extra time taken to set up pt in an unattended prolonged knee flexion stretch. Pt set up for 15' PT-OP-S Aquatic Treatment Start: 11/10/17 08:22 Freq: Status: Active Protocol: Document 01/16/18 12:30 TMS (Rec: 01/16/18 15:10 TMS [id number]) Aquatics Treatment Pool Entry/Exit Pool Entry/Exit Method Stairs Assistance Standby Assistance Verbal Cues Water Walking Other- 1 Water Level Chest Level Level of Assistance Standby Assistance Verbal Cues Comments fwd,bck, , august, august kick, lunge Lower Extremity Exercises 2 Details Aqua bike Body Position Sitting Water Level Waist Level Reps/Duration 6 minutes 1 Details knee flex/ext, hip flex/ext, ab/ad Body Position Standing Water Level Chest Level Equipment Ankle Floats Reps/Duration 10x Lower Extremity Stretches 2 Details hamstring Body Position Standing Equipment Ankle Floats Comments Also small noodle 1 Details Quads Body Position Standing Water Level Chest Level Equipment Small Noodle Reps/Duration 2x ea Comments Small ankle foats also for quads. [place] Activities Cary Activities Bicycle Equipment Noodle Duration 10 minutes PT-OP-T Assessment and Plan Start: 11/10/17 08:22 Freq: Status: Active Protocol: Document 02/05/18 14:35 SAK (Rec: 02/05/18 15:14 SAK [id number]) Physical Therapy Assessment Impairments Impairments Edema Gait ROM Soft Tissue Mobility Strength Goals Three Impairment L knee edema Nursing Home Goal (LTG) Pt will be educated in self care for L knee edema. LTG Duration Goal met. Two Impairment Lacks appropriate HEP Curb Supervisor Goal (LTG) Pt will be educated in a comprehensive independent HEP for self care. LTG Duration 02/06/18 (08/30/17: Pt has HEP of ROM/strengthening ex's One Impairment Decreased L knee AROM/PROM Short Term Goal (STG) Improve L knee AROM 0-95 deg's . Improve L knee PROM 0-105 deg' s. Pt to avoid L knee manipulation. STG Duration Abandon: Goal not met. Nursing Home Goal (LTG) L knee AROM: 0-110 deg's L knee PROM: 0-115 deg's. Pt will be able to walk stairs with normal gait pattern using 1 railing. LTG Duration 02/06/18 (01/30/18: Goal not met ) Progress Towards Goals Progress Towards Goals Progressing Toward Goals Progress Comments left knee AAROM flex 106 degrees with seated contract relax Physical Therapy Plan Frequency and Duration Frequency of Treatment 1-5x/week. Plan of Care Start Date 12/23/17 Plan of Care End Date 02/17/18 Therapeutic Interventions Therapeutic Interventions Aquatic Therapy Gait Training Home Exercise Program Manual Therapy Neuromuscular Re-education Patient/Caregiver Education Self-Care/Home Management Soft Tissue Mobilization Therapeutic Activities Therapeutic Exercises Next Visit Focus/Plan Next Note Type Treatment Note Next Visit Plan Continue PT with emphasis on ROM especially flex. Further discussion of POC, progression to discharge. Issue written HEP.
--- NOTE | 2018-02-06 12:32 | PT.OTN ---
Current Diagnoses Bilateral primary osteoarthritis of knee (02/06/18) Physical Therapy Treatment Note PT-OP-A Visit Information Start: 11/10/17 08:22 Freq: Status: Active Protocol: Document 02/06/18 11:17 LRN (Rec: 02/06/18 12:31 LRN [id number]) Out-Patient Physical Therapy Visit Information Visit Information Visit Type Treatment Note Visit Note 33/40 (PN by 02/17/18) Visit Start Time 11:17 Visit Stop Time 12:14 Total Visit Minutes 57 Visit Number 33 Number of MANAGER REPORT Visits 0 Evaluation Information Evaluation Date 11/10/17 PT-OP-B Current Condition Start: 11/10/17 08:22 Freq: Status: Active Protocol: Document 12/23/17 15:45 LRN (Rec: 12/23/17 17:11 LRN [id number]) Current Condition History of Current Condition Onset Date 12/22/17 History of Current Condition Pt underwent L knee manipulation 12/22/17 following L TKA 11/10/17. Treatment Goals Patient/Caregiver Goals Gain functional L knee ROM. Prior Functional Status Baseline Function- ADL's Independent Baseline Function- Mobility Independent Baseline Function- Gait Gait with walker outside the home. No assistive device in the home. Current Functional Impairments (Reported) Functional Limitations- ADL's Difficulty getting L shoe on, has manufacturing engineering director on toilet. Daughter helps with cooking. Functional Limitations- Mobility/Gait Requires use of 2WW for gait intermittently. PT-OP-C Subjective Start: 11/10/17 08:22 Freq: Status: Active Protocol: Document 02/06/18 11:17 LRN (Rec: 02/06/18 12:31 LRN [id number]) OP-PT Subjective Patient Comments Patient Comments Was stiff and sore after last treatment. Today feels like she can still bend it backwards like yesterday. PT-OP-E Functional Tests Start: 11/10/17 08:22 Freq: Status: Active Protocol: Document 11/10/17 13:35 LRN (Rec: 11/10/17 14:12 LRN [id number]) Functional Tests Timed Up and Go (TUG) Score 23 sec's Comments Uses hands to get up from chair. TUG Impairment Rating 100% Impaired (Score 20) PT-OP-F Manual Assessment Start: 11/10/17 08:22 Freq: Status: Active Protocol: Document 11/10/17 13:35 LRN (Rec: 11/10/17 14:12 LRN [id number]) Manual Assessments Soft Tissue Assessment Soft Tissue Mobility Assessment Decreased L knee scar mobility . Scar is well healed. Increased temperature at the knee joint with mild to moderate joint effusion. PT-OP-G Mobility & Gait Start: 11/10/17 08:22 Freq: Status: Active Protocol: Document 12/23/17 15:45 LRN (Rec: 12/23/17 17:11 LRN [id number]) OP Mobility Evaluation Bed Mobility Rolling Independent Supine to and from Sit Independent Transfers Sit to Stand Independent OP Gait Assessment Assistive Devices Assistive Device None 4 Wheeled Walker Gait Deviations General Gait Pattern Decreased Stride Length Flexed Trunk Wide Based Gait Comments Gait Comments L knee extension is limited. Pt is FWBing on LLE. PT-OP-H Neuro Start: 11/10/17 08:22 Freq: Status: Active Protocol: Document 11/10/17 13:35 LRN (Rec: 11/10/17 14:12 LRN [id number]) Sensation Evaluation Location Details Left Anterior Knee Light Touch Impaired Deep Tendon Reflex & Clonus Assessment Deep Tendon Reflex Right Deep Tendon Reflex 2+ Normal Left Achilles Deep Tendon Reflex 0 Absent PT-OP-J Posture/Palpation/Skin Start: 11/10/17 08:22 Freq: Status: Active Protocol: Document 11/10/17 13:35 LRN (Rec: 11/10/17 14:12 LRN [id number]) Posture Evaluation Position Standing Head/C-Spine Posture Forward Head T-Spine Posture Increased Kyphosis Pelvis Posture Neutral Weight Distribution Weight Shifted Right Hip Posture (L) Flexed (R) Flexed Knee Posture (L) Excess Flexion Ankle/Foot Posture (R) Pronated PT-OP-K Range of Motion Start: 11/10/17 08:22 Freq: Status: Active Protocol: Document 02/06/18 11:17 LRN (Rec: 02/06/18 12:31 LRN [id number]) Knee Goniometric Range of Motion Knee Measured in Degrees Left Patient Position Supine Flexion Active (degrees) 100 Flexion Passive (degrees) 101 Knee ROM Limitations Comments L knee ext in Prone: Active is lacking 7 deg's Passive is lacking 5 deg's PT-OP-Q Treatments Start: 11/10/17 08:22 Freq: Status: Active Protocol: Document 02/06/18 11:17 LRN (Rec: 02/06/18 12:31 LRN [id number]) Cardio Equipment Recumbent Elliptical (Biodex) Duration (Minutes) 9 Seat Position 7 Bicycle (Upright) Duration (Minutes) 8 Seat Position 6,5 Other Able to get revolution after Sci-Fit use Gym Equipment Shuttle Recovery Bilateral Squats Details for ROM (flex/ext) Resistance 50 Shuttle Recovery Platform Stable Reps/Time With long hold stretch and active flex x10rep at each stretch rep Therapeutic Exercises Supine Exercises 5 Supine Exercise Name tball rolls into flex Reps/Minutes 0 4 Supine Exercise Name Assisted knee ext Side left Reps/Minutes 0 3 Supine Exercise Name Assisted heel slide stretch Reps/Minutes 0 Comments stretch f/b AROM 2 Supine Exercise Name Quad stretch manual and w/2# over knee Reps/Minutes 0 1 Supine Exercise Name Knee flexion prolonged hold stretch ending with active flexion Side left Reps/Minutes 2' Comments Prolonged stretching in 103 deg's flexion Prone Exercises 2 Prone Exercise Name Contract/Relax(c/r) ext stretch f/b active ext Side left Equipment Used 2 hand towels under leg, above L knee Reps/Minutes 8' Comments PROM: lacking 7 deg's 1 Prone Exercise Name c/r flexion stretch f/b active flexion Side left Equipment Used Folded hand towel, under leg, above L knee Reps/Minutes 12' Sidelying Exercises 1 Sidelying Exercise Name Hip AB/AD Side left Reps/Minutes 0 Sitting Exercises 1 Sitting Exercise Name Knee flexion stretch: Sit to stands and buttock slides forward Side left Reps/Minutes 0 Manual Therapy Treatment Soft Tissue Mobilization 3 Body Location Quads/Hamstring Mobilization Type Myofascial Release Comments See Therapeutic exercise: Contract/Relax knee flex/ext Joint Mobilizations 1 Joint TF Direction PA FM w/APs Reps/Duration 0 Manual Techniques 1 Type 3 plane c/r HS stretch Reps/Duration 0 PT-OP-R Modalities Start: 11/10/17 08:22 Freq: Status: Active Protocol: Document 02/06/18 11:17 LRN (Rec: 02/06/18 12:31 LRN [id number]) Hot Pack/Cold Pack Treatment Cold Pack Location L knee Patient Position Supine Treatment Duration (minutes) 10 Patient Tolerance Good Comments Extra time taken to set up pt in an unattended prolonged knee flexion stretch. PT-OP-S Aquatic Treatment Start: 11/10/17 08:22 Freq: Status: Active Protocol: Document 01/16/18 12:30 TMS (Rec: 01/16/18 15:10 TMS [id number]) Aquatics Treatment Pool Entry/Exit Pool Entry/Exit Method Stairs Assistance Standby Assistance Verbal Cues Water Walking Other- 1 Water Level Chest Level Level of Assistance Standby Assistance Verbal Cues Comments fwd,bck, side, august, august kick, lunge Lower Extremity Exercises 2 Details Aqua bike Body Position Sitting Water Level Waist Level Reps/Duration 6 minutes 1 Details knee flex/ext, hip flex/ext, ab/ad Body Position Standing Water Level Chest Level Equipment Ankle Floats Reps/Duration 10x Lower Extremity Stretches 2 Details hamstring Body Position Standing Equipment Ankle Floats Comments Also small noodle 1 Details Quads Body Position Standing Water Level Chest Level Equipment Small Noodle Reps/Duration 2x ea Comments Small ankle foats also for quads. [place] Activities [place] Activities Bicycle Equipment Noodle Duration 10 minutes PT-OP-T Assessment and Plan Start: 11/10/17 08:22 Freq: Status: Active Protocol: Document 02/06/18 11:17 LRN (Rec: 02/06/18 12:31 LRN [id number]) Physical Therapy Assessment Impairments Impairments Edema Gait ROM Soft Tissue Mobility Strength Goals Three Impairment L knee edema Usp Goal (LTG) Pt will be educated in self care for L knee edema. LTG Duration Goal met. Two Impairment Lacks appropriate HEP Rn Dermatology Goal (LTG) Pt will be educated in a comprehensive independent HEP for self care. LTG Duration 02/06/18 (08/30/17: Pt has HEP of ROM/strengthening ex's One Impairment Decreased L knee AROM/PROM Short Term Goal (STG) Improve L knee AROM 0-95 deg's . Improve L knee PROM 0-105 deg' s. Pt to avoid L knee manipulation. STG Duration Abandon: Goal not met. Rn Dermatology Goal (LTG) L knee AROM: 0-110 deg's L knee PROM: 0-115 deg's. Pt will be able to walk stairs with normal gait pattern using 1 railing. LTG Duration 02/06/18 (01/30/18: Goal not met ) Progress Towards Goals Progress Towards Goals Slow Progress due to Activity Tolerance Progress Comments L knee PROM supine: 101 deg's, AROM supine: 100 deg's, AROPM prone: 88 deg's Assessment Summary Assessment Pt pain is still rated 2/10. Her function has improved per LEFS of 65% of maximal function. Pt agreeable to do aquatic therapy if she can get a new bathing suit since MD recommended it. Pt tolerates prolonged stretching 10'. Physical Therapy Plan Frequency and Duration Frequency of Treatment 3x/Week Plan of Care Start Date 12/23/17 Plan of Care End Date 02/17/18 Next Visit Focus/Plan Next Note Type Treatment Note Next Visit Plan Issue HEP handouts as needed. Progress the pt towards a self usp program. In therapy AGGRESSIVELY progress L knee flex>ext. Discuss POC for decreasing therapy to 1-2x /week in a couple weeks with possible DC progression in 4- 6 weeks. New POC needed by 04/26.
--- NOTE | 2018-02-10 14:24 | PT.OTN ---
Current Diagnoses Bilateral primary osteoarthritis of knee (02/10/18) Physical Therapy Treatment Note PT-OP-A Visit Information Start: 11/10/17 08:22 Freq: Status: Active Protocol: Document 02/10/18 10:32 LRN (Rec: 02/10/18 11:16 LRN [id number]) Out-Patient Physical Therapy Visit Information Visit Information Visit Type Treatment Note Visit Note 34/40 (PN by 02/17/18) Visit Start Time 10:32 Visit Stop Time 11:29 Total Visit Minutes 57 Visit Number 34 Number of AUTO REPAIR SHOP MANAGER Visits 0 Evaluation Information Evaluation Date 11/10/17 PT-OP-B Current Condition Start: 11/10/17 08:22 Freq: Status: Active Protocol: Document 12/23/17 15:45 LRN (Rec: 12/23/17 17:11 LRN [id number]) Current Condition History of Current Condition Onset Date 12/22/17 History of Current Condition Pt underwent L knee manipulation 12/22/17 following L TKA 11/10/17. Treatment Goals Patient/Caregiver Goals Gain functional L knee ROM. Prior Functional Status Baseline Function- ADL's Independent Baseline Function- Mobility Independent Baseline Function- Gait Gait with walker outside the home. No assistive device in the home. Current Functional Impairments (Reported) Functional Limitations- ADL's Difficulty getting L shoe on, has aerial hurricane hunter on toilet. Daughter helps with cooking. Functional Limitations- Mobility/Gait Requires use of 2WW for gait intermittently. PT-OP-C Subjective Start: 11/10/17 08:22 Freq: Status: Active Protocol: Document 02/10/18 10:32 LRN (Rec: 02/10/18 11:16 LRN [id number]) OP-PT Subjective Patient Comments Patient Comments c/o R knee starting to ache as much as the L. Thinks its the varicose veins and that cartilage is breaking down in the knee. PT-OP-E Functional Tests Start: 11/10/17 08:22 Freq: Status: Active Protocol: Document 11/10/17 13:35 LRN (Rec: 11/10/17 14:12 LRN [id number]) Functional Tests Timed Up and Go (TUG) Score 23 sec's Comments Uses hands to get up from chair. TUG Impairment Rating 100% Impaired (Score 20) PT-OP-F Manual Assessment Start: 11/10/17 08:22 Freq: Status: Active Protocol: Document 11/10/17 13:35 LRN (Rec: 11/10/17 14:12 LRN [id number]) Manual Assessments Soft Tissue Assessment Soft Tissue Mobility Assessment Decreased L knee scar mobility . Scar is well healed. Increased temperature at the knee joint with mild to moderate joint effusion. PT-OP-G Mobility & Gait Start: 11/10/17 08:22 Freq: Status: Active Protocol: Document 12/23/17 15:45 LRN (Rec: 12/23/17 17:11 LRN [id number]) OP Mobility Evaluation Bed Mobility Rolling Independent Supine to and from Sit Independent Transfers Sit to Stand Independent OP Gait Assessment Assistive Devices Assistive Device None 4 Wheeled Walker Gait Deviations General Gait Pattern Decreased Stride Length Flexed Trunk Wide Based Gait Comments Gait Comments L knee extension is limited. Pt is FWBing on LLE. PT-OP-H Neuro Start: 11/10/17 08:22 Freq: Status: Active Protocol: Document 11/10/17 13:35 LRN (Rec: 11/10/17 14:12 LRN [id number]) Sensation Evaluation Location Details Left Anterior Knee Light Touch Impaired Deep Tendon Reflex & Clonus Assessment Deep Tendon Reflex Right Deep Tendon Reflex 2+ Normal Left Achilles Deep Tendon Reflex 0 Absent PT-OP-J Posture/Palpation/Skin Start: 11/10/17 08:22 Freq: Status: Active Protocol: Document 11/10/17 13:35 LRN (Rec: 11/10/17 14:12 LRN [id number]) Posture Evaluation Position Standing Head/C-Spine Posture Forward Head T-Spine Posture Increased Kyphosis Pelvis Posture Neutral Weight Distribution Weight Shifted Right Hip Posture (L) Flexed (R) Flexed Knee Posture (L) Excess Flexion Ankle/Foot Posture (R) Pronated PT-OP-K Range of Motion Start: 11/10/17 08:22 Freq: Status: Active Protocol: Document 02/10/18 10:32 LRN (Rec: 02/10/18 11:16 LRN [id number]) Knee Goniometric Range of Motion Knee Measured in Degrees Left Patient Position Supine Flexion Active (degrees) 100 Flexion Passive (degrees) 103 PT-OP-Q Treatments Start: 11/10/17 08:22 Freq: Status: Active Protocol: Document 02/10/18 10:32 LRN (Rec: 02/10/18 11:16 LRN [id number]) Cardio Equipment Recumbent Elliptical (Biodex) Duration (Minutes) 6 Seat Position 7 Bicycle (Upright) Duration (Minutes) 5 Seat Position 5 Other Able to get revolution after Sci-Fit use Gym Equipment Shuttle Recovery Bilateral Squats Details for ROM (flex/ext) Resistance 50 Shuttle Recovery Platform Stable Reps/Time 0 Therapeutic Ball 1 Ball Size/Color cm Therapeutic Exercises Supine Exercises 4 Supine Exercise Name Assisted knee ext Side left Reps/Minutes 0 3 Supine Exercise Name Assisted heel slide stretch Reps/Minutes 0 Comments stretch f/b AROM 2 Supine Exercise Name Quad stretch manual and w/2# over knee Reps/Minutes 0 1 Supine Exercise Name Knee flexion prolonged hold stretch ending with active flexion Side left Reps/Minutes 1' Prone Exercises 2 Prone Exercise Name Contract/Relax(c/r) ext stretch f/b active ext Side left Equipment Used 2 hand towels under leg, above L knee Reps/Minutes 8' Comments PROM: lacking 7 deg's 1 Prone Exercise Name c/r flexion stretch f/b active flexion Side left Equipment Used Folded hand towel, under leg, above L knee Reps/Minutes 12' Sidelying Exercises 1 Sidelying Exercise Name Hip AB/AD Side left Reps/Minutes 0 Sitting Exercises 2 Sitting Exercise Name contract/relax for knee flex Reps/Minutes 4' 3 Sitting Exercise Name Knee flex strengthening Side left Resistance Lev 2 T-Band Reps/Minutes 0 1 Sitting Exercise Name Knee flexion stretch: Sit to stands and buttock slides forward Side left Reps/Minutes 0 Standing Exercises 1 Standing Exercise Name hamstring stretch Reps/Minutes 30 seconds x 1 Comments In Supine today Manual Therapy Treatment Soft Tissue Mobilization 3 Body Location Quads/Hamstring Mobilization Type Myofascial Release Comments See Therapeutic exercise: Contract/Relax knee flex/ext Joint Mobilizations 2 Joint patella Direction sup, inf, med Reps/Duration 0 1 Joint TF Direction PA FM w/APs Reps/Duration 2' Manual Techniques 1 Type 3 plane c/r HS stretch Reps/Duration 3' PT-OP-R Modalities Start: 11/10/17 08:22 Freq: Status: Active Protocol: Document 02/10/18 10:32 LRN (Rec: 02/10/18 11:16 LRN [id number]) Hot Pack/Cold Pack Treatment Cold Pack Location L knee Patient Position Supine Treatment Duration (minutes) 15 Patient Tolerance Good Comments Extra time taken to set up pt in an unattended prolonged knee flexion stretch. PT-OP-S Aquatic Treatment Start: 11/10/17 08:22 Freq: Status: Active Protocol: Document 01/16/18 12:30 TMS (Rec: 01/16/18 15:10 TMS [id number]) Aquatics Treatment Pool Entry/Exit Pool Entry/Exit Method Stairs Assistance Standby Assistance Verbal Cues Water Walking Other- 1 Water Level Chest Level Level of Assistance Standby Assistance Verbal Cues Comments fwd,bck, side, august, august kick, lunge Lower Extremity Exercises 2 Details Aqua bike Body Position Sitting Water Level Waist Level Reps/Duration 6 minutes 1 Details knee flex/ext, hip flex/ext, ab/ad Body Position Standing Water Level Chest Level Equipment Ankle Floats Reps/Duration 10x Lower Extremity Stretches 2 Details hamstring Body Position Standing Equipment Ankle Floats Comments Also small noodle 1 Details Quads Body Position Standing Water Level Chest Level Equipment Small Noodle Reps/Duration 2x ea Comments Small ankle foats also for quads. [place] Activities [place] Activities Bicycle Equipment Noodle Duration 10 minutes PT-OP-T Assessment and Plan Start: 11/10/17 08:22 Freq: Status: Active Protocol: Document 02/10/18 10:32 LRN (Rec: 02/10/18 11:16 LRN [id number]) Physical Therapy Assessment Impairments Impairments Edema Gait ROM Soft Tissue Mobility Strength Goals Three Impairment L knee edema Retirement Goal (LTG) Pt will be educated in self care for L knee edema. LTG Duration Goal met. Two Impairment Lacks appropriate HEP Retirement Goal (LTG) Pt will be educated in a comprehensive independent HEP for self care. LTG Duration 02/06/18 (08/30/17: Pt has HEP of ROM/strengthening ex's One Impairment Decreased L knee AROM/PROM Short Term Goal (STG) Improve L knee AROM 0-95 deg's . Improve L knee PROM 0-105 deg' s. Pt to avoid L knee manipulation. STG Duration Abandon: Goal not met. Retirement Goal (LTG) L knee AROM: 0-110 deg's L knee PROM: 0-115 deg's. Pt will be able to walk stairs with normal gait pattern using 1 railing. LTG Duration 02/06/18 (01/30/18: Goal not met ) Progress Towards Goals Progress Towards Goals Slow Progress due to Activity Tolerance Progress Comments Mild improvement with L knee Passive flexion of 103 deg's. Assessment Summary Assessment Pt did not get a new bathing suit; therefore not ready to do aquatic therapy. Pt tolerates prolonged stretching 15' with foot resting on support. Physical Therapy Plan Frequency and Duration Frequency of Treatment 3x/Week Plan of Care Start Date 12/23/17 Plan of Care End Date 02/17/18 Therapeutic Interventions Therapeutic Interventions Aquatic Therapy Gait Training Home Exercise Program Manual Therapy Neuromuscular Re-education Patient/Caregiver Education Self-Care/Home Management Soft Tissue Mobilization Therapeutic Activities Therapeutic Exercises Next Visit Focus/Plan Next Note Type Treatment Note Next Visit Plan Issue HEP handouts as needed. Discuss freq of visits preferred by pt. Progress the pt towards a self prison program. In therapy AGGRESSIVELY progress L knee flex>ext. Discuss POC for decreasing therapy to 1-2x/ week in a couple weeks with possible DC progression in 4- 6 weeks. New POC needed by 04/26.
--- NOTE | 2018-02-12 14:58 | PT.OTN ---
Current Diagnoses Bilateral primary osteoarthritis of knee (02/12/18) Physical Therapy Treatment Note PT-OP-A Visit Information Start: 11/10/17 08:22 Freq: Status: Active Protocol: Document 02/12/18 12:43 LRN (Rec: 02/12/18 13:44 LRN [id number]) Out-Patient Physical Therapy Visit Information Visit Information Visit Type Treatment Note Visit Note 35/40 (PN by 02/17/18) Visit Start Time 12:43 Visit Stop Time 13:43 Total Visit Minutes 60 Visit Number 34 Number of WIRE DRAWER Visits 0 Evaluation Information Evaluation Date 11/10/17 PT-OP-B Current Condition Start: 11/10/17 08:22 Freq: Status: Active Protocol: Document 12/23/17 15:45 LRN (Rec: 12/23/17 17:11 LRN [id number]) Current Condition History of Current Condition Onset Date 12/22/17 History of Current Condition Pt underwent L knee manipulation 12/22/17 following L TKA 11/10/17. Treatment Goals Patient/Caregiver Goals Gain functional L knee ROM. Prior Functional Status Baseline Function- ADL's Independent Baseline Function- Mobility Independent Baseline Function- Gait Gait with walker outside the home. No assistive device in the home. Current Functional Impairments (Reported) Functional Limitations- ADL's Difficulty getting L shoe on, has development consultant on toilet. Daughter helps with cooking. Functional Limitations- Mobility/Gait Requires use of 2WW for gait intermittently. PT-OP-C Subjective Start: 11/10/17 08:22 Freq: Status: Active Protocol: Document 02/12/18 12:43 LRN (Rec: 02/12/18 13:44 LRN [id number]) OP-PT Subjective Patient Comments Patient Comments States she walked too much so she is unsteady today and had to use her walker to come to therapy. PT-OP-E Functional Tests Start: 11/10/17 08:22 Freq: Status: Active Protocol: Document 11/10/17 13:35 LRN (Rec: 11/10/17 14:12 LRN [id number]) Functional Tests Timed Up and Go (TUG) Score 23 sec's Comments Uses hands to get up from chair. TUG Impairment Rating 100% Impaired (Score 20) PT-OP-F Manual Assessment Start: 11/10/17 08:22 Freq: Status: Active Protocol: Document 11/10/17 13:35 LRN (Rec: 11/10/17 14:12 LRN [id number]) Manual Assessments Soft Tissue Assessment Soft Tissue Mobility Assessment Decreased L knee scar mobility . Scar is well healed. Increased temperature at the knee joint with mild to moderate joint effusion. PT-OP-G Mobility & Gait Start: 11/10/17 08:22 Freq: Status: Active Protocol: Document 12/23/17 15:45 LRN (Rec: 12/23/17 17:11 LRN [id number]) OP Mobility Evaluation Bed Mobility Rolling Independent Supine to and from Sit Independent Transfers Sit to Stand Independent OP Gait Assessment Assistive Devices Assistive Device None 4 Wheeled Walker Gait Deviations General Gait Pattern Decreased Stride Length Flexed Trunk Wide Based Gait Comments Gait Comments L knee extension is limited. Pt is FWBing on LLE. PT-OP-H Neuro Start: 11/10/17 08:22 Freq: Status: Active Protocol: Document 11/10/17 13:35 LRN (Rec: 11/10/17 14:12 LRN [id number]) Sensation Evaluation Location Details Left Anterior Knee Light Touch Impaired Deep Tendon Reflex & Clonus Assessment Deep Tendon Reflex Right Deep Tendon Reflex 2+ Normal Left Achilles Deep Tendon Reflex 0 Absent PT-OP-J Posture/Palpation/Skin Start: 11/10/17 08:22 Freq: Status: Active Protocol: Document 11/10/17 13:35 LRN (Rec: 11/10/17 14:12 LRN [id number]) Posture Evaluation Position Standing Head/C-Spine Posture Forward Head T-Spine Posture Increased Kyphosis Pelvis Posture Neutral Weight Distribution Weight Shifted Right Hip Posture (L) Flexed (R) Flexed Knee Posture (L) Excess Flexion Ankle/Foot Posture (R) Pronated PT-OP-K Range of Motion Start: 11/10/17 08:22 Freq: Status: Active Protocol: Document 02/12/18 12:43 LRN (Rec: 02/12/18 13:44 LRN [id number]) Knee Goniometric Range of Motion Knee Measured in Degrees Left Patient Position Supine Flexion Active (degrees) 98 Flexion Passive (degrees) 100 Knee ROM Limitations Comments L knee ext in Prone: Active is lacking 10 deg's PT-OP-Q Treatments Start: 11/10/17 08:22 Freq: Status: Active Protocol: Document 02/12/18 12:43 LRN (Rec: 02/12/18 13:44 LRN [id number]) Cardio Equipment Recumbent Elliptical (Biodex) Duration (Minutes) 6 Seat Position 7 Bicycle (Upright) Duration (Minutes) 5 Seat Position 6 Other Able to get revolution after Sci-Fit use Therapeutic Exercises Supine Exercises 4 Supine Exercise Name Assisted knee ext Side left Reps/Minutes 2' 3 Supine Exercise Name Assisted heel slide stretch Reps/Minutes 0 Comments stretch f/b AROM 1 Supine Exercise Name Knee flexion prolonged hold stretch ending with active flexion Side left Reps/Minutes 1' Prone Exercises Knee flex strengthening Side left Resistance 2# Reps/Minutes 10x Comments Wgt at ankle 2 Prone Exercise Name Contract/Relax(c/r) ext stretch f/b active ext Side left Equipment Used 2 hand towels under leg, above L knee Reps/Minutes 8' Comments PROM: lacking 7 deg's 1 Prone Exercise Name c/r flexion stretch f/b active flexion Side left Equipment Used Folded hand towel, under leg, above L knee Reps/Minutes 15' Sidelying Exercises 1 Sidelying Exercise Name Hip AB/AD Side left Reps/Minutes 0 Sitting Exercises 2 Sitting Exercise Name contract/relax for knee flex Reps/Minutes 4' 3 Sitting Exercise Name Knee flex strengthening Side left Resistance Lev 2 T-Band Reps/Minutes 0 Standing Exercises 1 Standing Exercise Name hamstring stretch Reps/Minutes 0 Manual Therapy Treatment Soft Tissue Mobilization 3 Body Location Quads/Hamstring Mobilization Type Myofascial Release Comments See Therapeutic exercise: Contract/Relax knee flex/ext Joint Mobilizations 2 Joint patella Direction sup, inf, med Reps/Duration 0 1 Joint TF Direction PA FM w/APs Reps/Duration 0 Manual Techniques 1 Type 3 plane c/r HS stretch Reps/Duration 0 Self-Care/Home Management Treatment Activities Self-Care/Home Management Activities Discussed use of ARTIE wrap for edema management with patient and daughter. Daughter understands and will teach her mother at home. PT-OP-R Modalities Start: 11/10/17 08:22 Freq: Status: Active Protocol: Document 02/12/18 12:43 LRN (Rec: 02/12/18 13:44 LRN [id number]) Hot Pack/Cold Pack Treatment Cold Pack Location L knee Patient Position Supine Treatment Duration (minutes) 13 Patient Tolerance Good Comments Extra time taken to set up pt in an unattended prolonged knee flexion stretch. PT-OP-S Aquatic Treatment Start: 11/10/17 08:22 Freq: Status: Active Protocol: Document 01/16/18 12:30 TMS (Rec: 01/16/18 15:10 TMS [id number]) Aquatics Treatment Pool Entry/Exit Pool Entry/Exit Method Stairs Assistance Standby Assistance Verbal Cues Water Walking Other- 1 Water Level Chest Level Level of Assistance Standby Assistance Verbal Cues Comments fwd,bck, side, august, august kick, lunge Lower Extremity Exercises 2 Details Aqua bike Body Position Sitting Water Level Waist Level Reps/Duration 6 minutes 1 Details knee flex/ext, hip flex/ext, ab/ad Body Position Standing Water Level Chest Level Equipment Ankle Floats Reps/Duration 10x Lower Extremity Stretches 2 Details hamstring Body Position Standing Equipment Ankle Floats Comments Also small noodle 1 Details Quads Body Position Standing Water Level Chest Level Equipment Small Noodle Reps/Duration 2x ea Comments Small ankle foats also for quads. [place] Activities [place] Activities Bicycle Equipment Noodle Duration 10 minutes PT-OP-T Assessment and Plan Start: 11/10/17 08:22 Freq: Status: Active Protocol: Document 02/12/18 12:43 LRN (Rec: 02/12/18 13:44 LRN [id number]) Physical Therapy Assessment Impairments Impairments Edema Gait ROM Soft Tissue Mobility Strength Goals Three Impairment L knee edema Jail Goal (LTG) Pt will be educated in self care for L knee edema. LTG Duration Goal met. Two Impairment Lacks appropriate HEP Jail Goal (LTG) Pt will be educated in a comprehensive independent HEP for self care. LTG Duration 02/06/18 (08/30/17: Pt has HEP of ROM/strengthening ex's One Impairment Decreased L knee AROM/PROM Short Term Goal (STG) Improve L knee AROM 0-95 deg's . Improve L knee PROM 0-105 deg' s. Pt to avoid L knee manipulation. STG Duration Abandon: Goal not met. Jail Goal (LTG) L knee AROM: 0-110 deg's L knee PROM: 0-115 deg's. Pt will be able to walk stairs with normal gait pattern using 1 railing. LTG Duration 02/06/18 (01/30/18: Goal not met ) Progress Towards Goals Progress Towards Goals Slow Progress due to Activity Tolerance Progress Comments Worse knee mobility today with her increase in walking activity. Assessment Summary Assessment Pt willing to go back to aquatic therapy without new bathing suit. ROM worse today due to increased walking activity by pt. Physical Therapy Plan Therapeutic Interventions Therapeutic Interventions Aquatic Therapy Gait Training Home Exercise Program Manual Therapy Neuromuscular Re-education Patient/Caregiver Education Self-Care/Home Management Soft Tissue Mobilization Therapeutic Exercises Next Visit Focus/Plan Next Note Type Progress Note Next Visit Plan Issue HEP handouts as needed. New POC needed; therefore discuss freq of visits with pt . Progress the pt towards a self assisted program. In therapy, AGGRESSIVELY progress L knee flex>ext. Discuss POC for decreasing therapy with possible DC progression in 3- 5 weeks. New POC needed by 04/26.
--- NOTE | 2018-02-17 14:19 | PT.OTN ---
Current Diagnoses Bilateral primary osteoarthritis of knee (02/17/18) Physical Therapy Treatment Note PT-OP-A Visit Information Start: 11/10/17 08:22 Freq: Status: Active Protocol: Document 02/17/18 11:20 LRN (Rec: 02/17/18 12:49 LRN [id number]) Out-Patient Physical Therapy Visit Information Visit Information Visit Type Treatment Note Visit Note 35/40 (PN by 02/17/18) Visit Start Time 11:20 Visit Stop Time 12:20 Total Visit Minutes 60 Visit Number 35 Number of VINEGAR MAKER Visits 0 Evaluation Information Evaluation Date 11/10/17 PT-OP-B Current Condition Start: 11/10/17 08:22 Freq: Status: Active Protocol: Document 12/23/17 15:45 LRN (Rec: 12/23/17 17:11 LRN [id number]) Current Condition History of Current Condition Onset Date 12/22/17 History of Current Condition Pt underwent L knee manipulation 12/22/17 following L TKA 11/10/17. Treatment Goals Patient/Caregiver Goals Gain functional L knee ROM. Prior Functional Status Baseline Function- ADL's Independent Baseline Function- Mobility Independent Baseline Function- Gait Gait with walker outside the home. No assistive device in the home. Current Functional Impairments (Reported) Functional Limitations- ADL's Difficulty getting L shoe on, has copy writer on toilet. Daughter helps with cooking. Functional Limitations- Mobility/Gait Requires use of 2WW for gait intermittently. PT-OP-C Subjective Start: 11/10/17 08:22 Freq: Status: Active Protocol: Document 02/17/18 11:20 LRN (Rec: 02/17/18 12:49 LRN [id number]) OP-PT Subjective Patient Comments Patient Comments Doesn't have anything to wear to pool therapy. Hasn't noticed much change. PT-OP-E Functional Tests Start: 11/10/17 08:22 Freq: Status: Active Protocol: Document 11/10/17 13:35 LRN (Rec: 11/10/17 14:12 LRN [id number]) Functional Tests Timed Up and Go (TUG) Score 23 sec's Comments Uses hands to get up from chair. TUG Impairment Rating 100% Impaired (Score 20) PT-OP-F Manual Assessment Start: 11/10/17 08:22 Freq: Status: Active Protocol: Document 11/10/17 13:35 LRN (Rec: 11/10/17 14:12 LRN [id number]) Manual Assessments Soft Tissue Assessment Soft Tissue Mobility Assessment Decreased L knee scar mobility . Scar is well healed. Increased temperature at the knee joint with mild to moderate joint effusion. PT-OP-G Mobility & Gait Start: 11/10/17 08:22 Freq: Status: Active Protocol: Document 12/23/17 15:45 LRN (Rec: 12/23/17 17:11 LRN [id number]) OP Mobility Evaluation Bed Mobility Rolling Independent Supine to and from Sit Independent Transfers Sit to Stand Independent OP Gait Assessment Assistive Devices Assistive Device None 4 Wheeled Walker Gait Deviations General Gait Pattern Decreased Stride Length Flexed Trunk Wide Based Gait Comments Gait Comments L knee extension is limited. Pt is FWBing on LLE. PT-OP-H Neuro Start: 11/10/17 08:22 Freq: Status: Active Protocol: Document 11/10/17 13:35 LRN (Rec: 11/10/17 14:12 LRN [id number]) Sensation Evaluation Location Details Left Anterior Knee Light Touch Impaired Deep Tendon Reflex & Clonus Assessment Deep Tendon Reflex Right Deep Tendon Reflex 2+ Normal Left Achilles Deep Tendon Reflex 0 Absent PT-OP-J Posture/Palpation/Skin Start: 11/10/17 08:22 Freq: Status: Active Protocol: Document 11/10/17 13:35 LRN (Rec: 11/10/17 14:12 LRN [id number]) Posture Evaluation Position Standing Head/C-Spine Posture Forward Head T-Spine Posture Increased Kyphosis Pelvis Posture Neutral Weight Distribution Weight Shifted Right Hip Posture (L) Flexed (R) Flexed Knee Posture (L) Excess Flexion Ankle/Foot Posture (R) Pronated PT-OP-K Range of Motion Start: 11/10/17 08:22 Freq: Status: Active Protocol: Document 02/17/18 11:20 LRN (Rec: 02/17/18 14:00 LRN [id number]) Knee Goniometric Range of Motion Knee Measured in Degrees Left Patient Position Supine Flexion Active (degrees) 90 Flexion Passive (degrees) 93 PT-OP-Q Treatments Start: 11/10/17 08:22 Freq: Status: Active Protocol: Document 02/17/18 11:20 LRN (Rec: 02/17/18 12:49 LRN [id number]) Cardio Equipment Recumbent Elliptical (Biodex) Duration (Minutes) 4 Seat Position 7 Bicycle (Upright) Duration (Minutes) 6 Seat Position 6, 5 Other Able to get revolution after Sci-Fit use Therapeutic Exercises Supine Exercises 4 Supine Exercise Name Assisted knee ext Side left Reps/Minutes 2' 1 Supine Exercise Name Knee flexion prolonged hold stretch ending with active flexion Side left Reps/Minutes 1' Prone Exercises Knee flex strengthening Side left Resistance 0 Reps/Minutes 10x2 Comments Manual resistance 2 Prone Exercise Name Contract/Relax(c/r) ext stretch f/b active ext Side left Equipment Used 2 hand towels under leg, above L knee Reps/Minutes 8' Comments PROM: lacking 7 deg's 1 Prone Exercise Name c/r flexion stretch f/b active flexion Side left Equipment Used Folded hand towel, under leg, above L knee Reps/Minutes 12' Sitting Exercises 2 Sitting Exercise Name contract/relax for knee flex Reps/Minutes 4' Manual Therapy Treatment Soft Tissue Mobilization 3 Body Location Quads/Hamstring Mobilization Type Myofascial Release Comments See Therapeutic exercise: Contract/Relax knee flex/ext Joint Mobilizations 2 Joint patella Direction sup, inf, med Reps/Duration 0 1 Joint TF Direction PA FM w/APs Reps/Duration 0 Manual Techniques 1 Type 3 plane c/r HS stretch Reps/Duration 0 Self-Care/Home Management Treatment Education Patient Education Home Exercise Program Activities Self-Care/Home Management Activities Post op ex handout. PT-OP-R Modalities Start: 11/10/17 08:22 Freq: Status: Active Protocol: Document 02/17/18 11:20 LRN (Rec: 02/17/18 12:49 LRN [id number]) Hot Pack/Cold Pack Treatment Cold Pack Location L knee Patient Position Supine Treatment Duration (minutes) 15 Patient Tolerance Good Comments Extra time taken to set up pt in an unattended prolonged knee flexion stretch. PT-OP-S Aquatic Treatment Start: 11/10/17 08:22 Freq: Status: Active Protocol: Document 01/16/18 12:30 TMS (Rec: 01/16/18 15:10 TMS [id number]) Aquatics Treatment Pool Entry/Exit Pool Entry/Exit Method Stairs Assistance Standby Assistance Verbal Cues Water Walking Other- 1 Water Level Chest Level Level of Assistance Standby Assistance Verbal Cues Comments fwd,bck, side, august, august kick, lunge Lower Extremity Exercises 2 Details Aqua bike Body Position Sitting Water Level Waist Level Reps/Duration 6 minutes 1 Details knee flex/ext, hip flex/ext, ab/ad Body Position Standing Water Level Chest Level Equipment Ankle Floats Reps/Duration 10x Lower Extremity Stretches 2 Details hamstring Body Position Standing Equipment Ankle Floats Comments Also small noodle 1 Details Quads Body Position Standing Water Level Chest Level Equipment Small Noodle Reps/Duration 2x ea Comments Small ankle foats also for quads. [place] Activities [place] Activities Bicycle Equipment Noodle Duration 10 minutes PT-OP-T Assessment and Plan Start: 11/10/17 08:22 Freq: Status: Active Protocol: Document 02/17/18 11:20 LRN (Rec: 02/17/18 12:49 LRN [id number]) Physical Therapy Assessment Impairments Impairments Edema Gait ROM Soft Tissue Mobility Strength Goals Three Impairment L knee edema Group Fitness Instructor Goal (LTG) Pt will be educated in self care for L knee edema. LTG Duration Goal met. Two Impairment Lacks appropriate HEP Group Fitness Instructor Goal (LTG) Pt will be educated in a comprehensive independent HEP for self care. LTG Duration 02/06/18 (Goal Met: Pt progressed in HEP of ROM/ strengthening as appropriat) One Impairment Decreased L knee AROM/PROM Short Term Goal (STG) Improve L knee AROM 0-95 deg's . Improve L knee PROM 0-105 deg' s. Pt to avoid L knee manipulation. STG Duration Abandon: Goal not met. Halfway Goal (LTG) L knee AROM: 0-110 deg's L knee PROM: 0-115 deg's. Pt will be able to walk stairs with normal gait pattern using 1 railing. LTG Duration 02/06/18 (01/30/18: Goal not met ) Progress Towards Goals Progress Towards Goals Slow Progress due to Activity Tolerance Progress Comments Worse knee mobility with her increase in walking activity. Assessment Summary Assessment Pt has shown variable improvement and decline in L knee AROM/PROM. She is so guarded in her knee mobility that it is has been very difficult to improve her ROM. Today she is worse than she has been in knee mobility. Today her L knee AROM/PROM is 90/93 respectively. She has achieved maximally flexion of 100 deg's AROM and 101 deg's PROM. With an increase in activity level her mobility appears to have worsened. The pt will be transitioned to her HEP due to lack of progress in the next 1-2 weeks . Physical Therapy Plan Frequency and Duration Frequency of Treatment 3x/Week Plan of Care Start Date 02/17/18 Plan of Care End Date 03/17/20 Therapeutic Interventions Therapeutic Interventions Aquatic Therapy Gait Training Home Exercise Program Manual Therapy Patient/Caregiver Education Self-Care/Home Management Soft Tissue Mobilization Therapeutic Exercises Next Visit Focus/Plan Next Note Type Treatment Note Next Visit Plan DC to HEP in 1-2 weeks. In therapy, AGGRESSIVELY progress L knee flex>ext. Discuss POC for DC progression to HEP in 1-2 weeks. [ End ]
--- NOTE | 2018-02-17 14:21 | PT.OTN ---
Current Diagnoses Bilateral primary osteoarthritis of knee (02/17/18) Physical Therapy Treatment Note PT-OP-A Visit Information Start: 11/10/17 08:22 Freq: Status: Active Protocol: Document 02/17/18 11:20 LRN (Rec: 02/17/18 12:49 LRN [id number]) Out-Patient Physical Therapy Visit Information Visit Information Visit Type Treatment Note Visit Note 35/40 (PN by 02/17/18) Visit Start Time 11:20 Visit Stop Time 12:20 Total Visit Minutes 60 Visit Number 35 Number of HYDROGRAPHICAL TECHNICAL OFFICER Visits 0 Evaluation Information Evaluation Date 11/10/17 PT-OP-B Current Condition Start: 11/10/17 08:22 Freq: Status: Active Protocol: Document 12/23/17 15:45 LRN (Rec: 12/23/17 17:11 LRN [id number]) Current Condition History of Current Condition Onset Date 12/22/17 History of Current Condition Pt underwent L knee manipulation 12/22/17 following L TKA 11/10/17. Treatment Goals Patient/Caregiver Goals Gain functional L knee ROM. Prior Functional Status Baseline Function- ADL's Independent Baseline Function- Mobility Independent Baseline Function- Gait Gait with walker outside the home. No assistive device in the home. Current Functional Impairments (Reported) Functional Limitations- ADL's Difficulty getting L shoe on, has appliance adjuster on toilet. Daughter helps with cooking. Functional Limitations- Mobility/Gait Requires use of 2WW for gait intermittently. PT-OP-C Subjective Start: 11/10/17 08:22 Freq: Status: Active Protocol: Document 02/17/18 11:20 LRN (Rec: 02/17/18 12:49 LRN [id number]) OP-PT Subjective Patient Comments Patient Comments Doesn't have anything to wear to pool therapy. Hasn't noticed much change. PT-OP-E Functional Tests Start: 11/10/17 08:22 Freq: Status: Active Protocol: Document 11/10/17 13:35 LRN (Rec: 11/10/17 14:12 LRN [id number]) Functional Tests Timed Up and Go (TUG) Score 23 sec's Comments Uses hands to get up from chair. TUG Impairment Rating 100% Impaired (Score 20) PT-OP-F Manual Assessment Start: 11/10/17 08:22 Freq: Status: Active Protocol: Document 11/10/17 13:35 LRN (Rec: 11/10/17 14:12 LRN [id number]) Manual Assessments Soft Tissue Assessment Soft Tissue Mobility Assessment Decreased L knee scar mobility . Scar is well healed. Increased temperature at the knee joint with mild to moderate joint effusion. PT-OP-G Mobility & Gait Start: 11/10/17 08:22 Freq: Status: Active Protocol: Document 12/23/17 15:45 LRN (Rec: 12/23/17 17:11 LRN [id number]) OP Mobility Evaluation Bed Mobility Rolling Independent Supine to and from Sit Independent Transfers Sit to Stand Independent OP Gait Assessment Assistive Devices Assistive Device None 4 Wheeled Walker Gait Deviations General Gait Pattern Decreased Stride Length Flexed Trunk Wide Based Gait Comments Gait Comments L knee extension is limited. Pt is FWBing on LLE. PT-OP-H Neuro Start: 11/10/17 08:22 Freq: Status: Active Protocol: Document 11/10/17 13:35 LRN (Rec: 11/10/17 14:12 LRN [id number]) Sensation Evaluation Location Details Left Anterior Knee Light Touch Impaired Deep Tendon Reflex & Clonus Assessment Deep Tendon Reflex Right Deep Tendon Reflex 2+ Normal Left Achilles Deep Tendon Reflex 0 Absent PT-OP-J Posture/Palpation/Skin Start: 11/10/17 08:22 Freq: Status: Active Protocol: Document 11/10/17 13:35 LRN (Rec: 11/10/17 14:12 LRN [id number]) Posture Evaluation Position Standing Head/C-Spine Posture Forward Head T-Spine Posture Increased Kyphosis Pelvis Posture Neutral Weight Distribution Weight Shifted Right Hip Posture (L) Flexed (R) Flexed Knee Posture (L) Excess Flexion Ankle/Foot Posture (R) Pronated PT-OP-K Range of Motion Start: 11/10/17 08:22 Freq: Status: Active Protocol: Document 02/17/18 11:20 LRN (Rec: 02/17/18 14:00 LRN [id number]) Knee Goniometric Range of Motion Knee Measured in Degrees Left Patient Position Supine Flexion Active (degrees) 90 Flexion Passive (degrees) 93 PT-OP-Q Treatments Start: 11/10/17 08:22 Freq: Status: Active Protocol: Document 02/17/18 11:20 LRN (Rec: 02/17/18 12:49 LRN [id number]) Cardio Equipment Recumbent Elliptical (Biodex) Duration (Minutes) 4 Seat Position 7 Bicycle (Upright) Duration (Minutes) 6 Seat Position 6, 5 Other Able to get revolution after Sci-Fit use Therapeutic Exercises Supine Exercises 4 Supine Exercise Name Assisted knee ext Side left Reps/Minutes 2' 1 Supine Exercise Name Knee flexion prolonged hold stretch ending with active flexion Side left Reps/Minutes 1' Prone Exercises Knee flex strengthening Side left Resistance 0 Reps/Minutes 10x2 Comments Manual resistance 2 Prone Exercise Name Contract/Relax(c/r) ext stretch f/b active ext Side left Equipment Used 2 hand towels under leg, above L knee Reps/Minutes 8' Comments PROM: lacking 7 deg's 1 Prone Exercise Name c/r flexion stretch f/b active flexion Side left Equipment Used Folded hand towel, under leg, above L knee Reps/Minutes 12' Sitting Exercises 2 Sitting Exercise Name contract/relax for knee flex Reps/Minutes 4' Manual Therapy Treatment Soft Tissue Mobilization 3 Body Location Quads/Hamstring Mobilization Type Myofascial Release Comments See Therapeutic exercise: Contract/Relax knee flex/ext Joint Mobilizations 2 Joint patella Direction sup, inf, med Reps/Duration 0 1 Joint TF Direction PA FM w/APs Reps/Duration 0 Manual Techniques 1 Type 3 plane c/r HS stretch Reps/Duration 0 Self-Care/Home Management Treatment Education Patient Education Home Exercise Program Activities Self-Care/Home Management Activities Post op ex handout. PT-OP-R Modalities Start: 11/10/17 08:22 Freq: Status: Active Protocol: Document 02/17/18 11:20 LRN (Rec: 02/17/18 12:49 LRN [id number]) Hot Pack/Cold Pack Treatment Cold Pack Location L knee Patient Position Supine Treatment Duration (minutes) 15 Patient Tolerance Good Comments Extra time taken to set up pt in an unattended prolonged knee flexion stretch. PT-OP-S Aquatic Treatment Start: 11/10/17 08:22 Freq: Status: Active Protocol: Document 01/16/18 12:30 TMS (Rec: 01/16/18 15:10 TMS [id number]) Aquatics Treatment Pool Entry/Exit Pool Entry/Exit Method Stairs Assistance Standby Assistance Verbal Cues Water Walking Other- 1 Water Level Chest Level Level of Assistance Standby Assistance Verbal Cues Comments fwd,bck, side, august, august kick, lunge Lower Extremity Exercises 2 Details Aqua bike Body Position Sitting Water Level Waist Level Reps/Duration 6 minutes 1 Details knee flex/ext, hip flex/ext, ab/ad Body Position Standing Water Level Chest Level Equipment Ankle Floats Reps/Duration 10x Lower Extremity Stretches 2 Details hamstring Body Position Standing Equipment Ankle Floats Comments Also small noodle 1 Details Quads Body Position Standing Water Level Chest Level Equipment Small Noodle Reps/Duration 2x ea Comments Small ankle foats also for quads. [place] Activities [place] Activities Bicycle Equipment Noodle Duration 10 minutes PT-OP-T Assessment and Plan Start: 11/10/17 08:22 Freq: Status: Active Protocol: Document 02/17/18 11:20 LRN (Rec: 02/17/18 12:49 LRN [id number]) Physical Therapy Assessment Impairments Impairments Edema Gait ROM Soft Tissue Mobility Strength Goals Three Impairment L knee edema Dry Chain Worker Goal (LTG) Pt will be educated in self care for L knee edema. LTG Duration Goal met. Two Impairment Lacks appropriate HEP Dry Chain Worker Goal (LTG) Pt will be educated in a comprehensive independent HEP for self care. LTG Duration 02/06/18 (Goal Met: Pt progressed in HEP of ROM/ strengthening as appropriat) One Impairment Decreased L knee AROM/PROM Short Term Goal (STG) Improve L knee AROM 0-95 deg's . Improve L knee PROM 0-105 deg' s. Pt to avoid L knee manipulation. STG Duration Abandon: Goal not met. Senior Living Goal (LTG) L knee AROM: 0-110 deg's L knee PROM: 0-115 deg's. Pt will be able to walk stairs with normal gait pattern using 1 railing. LTG Duration 02/06/18 (01/30/18: Goal not met ) Progress Towards Goals Progress Towards Goals Slow Progress due to Activity Tolerance Progress Comments Worse knee mobility with her increase in walking activity. Assessment Summary Assessment Pt has shown variable improvement and decline in L knee AROM/PROM. She is so guarded in her knee mobility that it is has been very difficult to improve her ROM. Today she is worse than she has been in knee mobility. Today her L knee AROM/PROM is 90/93 respectively. She has achieved maximally flexion of 100 deg's AROM and 101 deg's PROM. With an increase in activity level her mobility appears to have worsened. The pt will be transitioned to her HEP due to lack of progress in the next 1-2 weeks . Physical Therapy Plan Frequency and Duration Frequency of Treatment 3x/Week Plan of Care Start Date 02/17/18 Plan of Care End Date 03/10/20 Therapeutic Interventions Therapeutic Interventions Aquatic Therapy Gait Training Home Exercise Program Manual Therapy Patient/Caregiver Education Self-Care/Home Management Soft Tissue Mobilization Therapeutic Exercises Next Visit Focus/Plan Next Note Type Treatment Note Next Visit Plan DC to HEP in 1-2 weeks. In therapy, AGGRESSIVELY progress L knee flex>ext. Discuss POC for DC progression to HEP in 1-2 weeks. [ End ]
--- NOTE | 2018-02-17 14:22 | PT.OPPOC ---
Current Diagnoses Bilateral primary osteoarthritis of knee (02/17/18) Provider Visit Care Team Role Provider Type Anabell Marti DO Family Provider Physician Primary Care Provider Specialty: Family Practice Address: [address] [place] [address], [id number] Email: [email or web address] Jenna Cheatham MD Attending Provider Physician Specialty: Orthopedic Surgery Address: [address] [place] [address], [id number] Email: [email or web address] Plan Of Care PT-OP-T Assessment and Plan Start: 11/10/17 08:22 Freq: Status: Active Protocol: Document 02/17/18 11:20 LRN (Rec: 02/17/18 12:49 LRN [id number]) Physical Therapy Assessment Impairments Impairments Edema Gait ROM Soft Tissue Mobility Strength Goals Three Impairment L knee edema Display Carver Goal (LTG) Pt will be educated in self care for L knee edema. LTG Duration Goal met. Two Impairment Lacks appropriate HEP Display Carver Goal (LTG) Pt will be educated in a comprehensive independent HEP for self care. LTG Duration 02/06/18 (Goal Met: Pt progressed in HEP of ROM/ strengthening as appropriat) One Impairment Decreased L knee AROM/PROM Short Term Goal (STG) Improve L knee AROM 0-95 deg's . Improve L knee PROM 0-105 deg' s. Pt to avoid L knee manipulation. STG Duration Abandon: Goal not met. Display Carver Goal (LTG) L knee AROM: 0-110 deg's L knee PROM: 0-115 deg's. Pt will be able to walk stairs with normal gait pattern using 1 railing. LTG Duration 02/06/18 (01/30/18: Goal not met ) Progress Towards Goals Progress Towards Goals Slow Progress due to Activity Tolerance Progress Comments Worse knee mobility with her increase in walking activity. Assessment Summary Assessment Pt has shown variable improvement and decline in L knee AROM/PROM. She is so guarded in her knee mobility that it is has been very difficult to improve her ROM. Today she is worse than she has been in knee mobility. Today her L knee AROM/PROM is 90/93 respectively. She has achieved maximally flexion of 100 deg's AROM and 101 deg's PROM. With an increase in activity level her mobility appears to have worsened. The pt will be transitioned to her HEP due to lack of progress in the next 1-2 weeks . Physical Therapy Plan Frequency and Duration Frequency of Treatment 3x/Week Plan of Care Start Date 02/17/18 Plan of Care End Date 03/10/20 Therapeutic Interventions Therapeutic Interventions Aquatic Therapy Gait Training Home Exercise Program Manual Therapy Patient/Caregiver Education Self-Care/Home Management Soft Tissue Mobilization Therapeutic Exercises Next Visit Focus/Plan Next Note Type Treatment Note Next Visit Plan DC to HEP in 1-2 weeks. In therapy, AGGRESSIVELY progress L knee flex>ext. Discuss POC for DC progression to HEP in 1-2 weeks. [ End ] Plan of Care Dates Plan of Care Start Date 02/17/18 Plan of Care End Date 03/10/20 Please Sign and Return: I have reviewed this Plan of Care and certify that the skilled therapy services above are required to meet the patient?s needs. Physician Signature Date Printed Name and Credentials Clinical Instructor Signature Printed Name and Credentials
--- NOTE | 2018-02-19 14:18 | PT.OTN ---
Current Diagnoses Bilateral primary osteoarthritis of knee (02/19/18) Physical Therapy Treatment Note PT-OP-A Visit Information Start: 11/10/17 08:22 Freq: Status: Active Protocol: Document 02/19/18 11:18 LRN (Rec: 02/19/18 12:39 LRN [id number]) Out-Patient Physical Therapy Visit Information Visit Information Visit Type Treatment Note Visit Note 36/40 Visit Start Time 11:18 Visit Stop Time 12:18 Total Visit Minutes 60 Visit Number 36 Number of SUPERINTENDENT COLLIERY Visits 0 Evaluation Information Evaluation Date 11/10/17 PT-OP-B Current Condition Start: 11/10/17 08:22 Freq: Status: Active Protocol: Document 12/23/17 15:45 LRN (Rec: 12/23/17 17:11 LRN [id number]) Current Condition History of Current Condition Onset Date 12/22/17 History of Current Condition Pt underwent L knee manipulation 12/22/17 following L TKA 11/10/17. Treatment Goals Patient/Caregiver Goals Gain functional L knee ROM. Prior Functional Status Baseline Function- ADL's Independent Baseline Function- Mobility Independent Baseline Function- Gait Gait with walker outside the home. No assistive device in the home. Current Functional Impairments (Reported) Functional Limitations- ADL's Difficulty getting L shoe on, has creel operator on toilet. Daughter helps with cooking. Functional Limitations- Mobility/Gait Requires use of 2WW for gait intermittently. PT-OP-C Subjective Start: 11/10/17 08:22 Freq: Status: Active Protocol: Document 02/19/18 11:18 LRN (Rec: 02/19/18 12:39 LRN [id number]) OP-PT Subjective Patient Comments Patient Comments Would like to do pool therapy and will do it on her own if she has to. Patient Reported Progress Same Patient Questionnaires Lower Extremity Functional Scale LEFS Score 43 LEFS Impairment 40 to 59% Impaired (Score 32- 47) PT-OP-E Functional Tests Start: 11/10/17 08:22 Freq: Status: Active Protocol: Document 11/10/17 13:35 LRN (Rec: 11/10/17 14:12 LRN [id number]) Functional Tests Timed Up and Go (TUG) Score 23 sec's Comments Uses hands to get up from chair. TUG Impairment Rating 100% Impaired (Score 20) PT-OP-F Manual Assessment Start: 11/10/17 08:22 Freq: Status: Active Protocol: Document 11/10/17 13:35 LRN (Rec: 11/10/17 14:12 LRN [id number]) Manual Assessments Soft Tissue Assessment Soft Tissue Mobility Assessment Decreased L knee scar mobility . Scar is well healed. Increased temperature at the knee joint with mild to moderate joint effusion. PT-OP-G Mobility & Gait Start: 11/10/17 08:22 Freq: Status: Active Protocol: Document 12/23/17 15:45 LRN (Rec: 12/23/17 17:11 LRN [id number]) OP Mobility Evaluation Bed Mobility Rolling Independent Supine to and from Sit Independent Transfers Sit to Stand Independent OP Gait Assessment Assistive Devices Assistive Device None 4 Wheeled Walker Gait Deviations General Gait Pattern Decreased Stride Length Flexed Trunk Wide Based Gait Comments Gait Comments L knee extension is limited. Pt is FWBing on LLE. PT-OP-H Neuro Start: 11/10/17 08:22 Freq: Status: Active Protocol: Document 11/10/17 13:35 LRN (Rec: 11/10/17 14:12 LRN [id number]) Sensation Evaluation Location Details Left Anterior Knee Light Touch Impaired Deep Tendon Reflex & Clonus Assessment Deep Tendon Reflex Right Deep Tendon Reflex 2+ Normal Left Achilles Deep Tendon Reflex 0 Absent PT-OP-J Posture/Palpation/Skin Start: 11/10/17 08:22 Freq: Status: Active Protocol: Document 11/10/17 13:35 LRN (Rec: 11/10/17 14:12 LRN [id number]) Posture Evaluation Position Standing Head/C-Spine Posture Forward Head T-Spine Posture Increased Kyphosis Pelvis Posture Neutral Weight Distribution Weight Shifted Right Hip Posture (L) Flexed (R) Flexed Knee Posture (L) Excess Flexion Ankle/Foot Posture (R) Pronated PT-OP-K Range of Motion Start: 11/10/17 08:22 Freq: Status: Active Protocol: Document 02/19/18 11:18 LRN (Rec: 02/19/18 13:56 LRN [id number]) Knee Goniometric Range of Motion Knee Measured in Degrees Left Patient Position Supine Flexion Active (degrees) 94 Flexion Passive (degrees) 96 Knee ROM Limitations Comments L knee ext (supine): Active: Lacking 15 deg's, Passive: Lacking 14 deg's. PT-OP-Q Treatments Start: 11/10/17 08:22 Freq: Status: Active Protocol: Document 02/19/18 11:18 LRN (Rec: 02/19/18 12:39 LRN [id number]) Cardio Equipment Recumbent Elliptical (Biodex) Duration (Minutes) 3 Seat Position 7 Bicycle (Upright) Duration (Minutes) 7 Seat Position 6, 5 Other Able to get revolution after Sci-Fit use Therapeutic Exercises Supine Exercises 4 Supine Exercise Name SLR Side left Reps/Minutes 2' Prone Exercises Knee flex strengthening Side left Resistance 1# Reps/Minutes 10x2 2 Prone Exercise Name Contract/Relax(c/r) ext stretch f/b active ext Side left Equipment Used 2 hand towels under leg, above L knee Reps/Minutes 8' Comments PROM: lacking 7 deg's 1 Prone Exercise Name c/r flexion stretch f/b active flexion Side left Equipment Used Folded hand towel, under leg, above L knee Reps/Minutes 12' Sidelying Exercises 1 Sidelying Exercise Name Hip AB/AD Side left Reps/Minutes 10x Sitting Exercises 2 Sitting Exercise Name contract/relax for knee flex Reps/Minutes 4' 3 Sitting Exercise Name Knee flex strengthening Side left Resistance Lev 2 T-Band Reps/Minutes 10x2 Manual Therapy Treatment Soft Tissue Mobilization 3 Body Location Quads/Hamstring Mobilization Type Myofascial Release Comments See Therapeutic exercise: Contract/Relax knee flex/ext Self-Care/Home Management Treatment Education Patient Education Home Exercise Program Activities Self-Care/Home Management Activities Prone L knee extension stretch and flex strengthening. Re- issued all of HEP handouts, partial review. PT-OP-R Modalities Start: 11/10/17 08:22 Freq: Status: Active Protocol: Document 02/19/18 11:18 LRN (Rec: 02/19/18 12:39 LRN [id number]) Hot Pack/Cold Pack Treatment Cold Pack Location L knee Patient Position Supine Treatment Duration (minutes) 15 Patient Tolerance Good Comments Extra time taken to set up pt in an unattended prolonged knee flexion stretch. PT-OP-S Aquatic Treatment Start: 11/10/17 08:22 Freq: Status: Active Protocol: Document 01/16/18 12:30 TMS (Rec: 01/16/18 15:10 TMS [id number]) Aquatics Treatment Pool Entry/Exit Pool Entry/Exit Method Stairs Assistance Standby Assistance Verbal Cues Water Walking Other- 1 Water Level Chest Level Level of Assistance Standby Assistance Verbal Cues Comments fwd,bck, , august, august kick, lunge Lower Extremity Exercises 2 Details Aqua bike Body Position Sitting Water Level Waist Level Reps/Duration 6 minutes 1 Details knee flex/ext, hip flex/ext, ab/ad Body Position Standing Water Level Chest Level Equipment Ankle Floats Reps/Duration 10x Lower Extremity Stretches 2 Details hamstring Body Position Standing Equipment Ankle Floats Comments Also small noodle 1 Details Quads Body Position Standing Water Level Chest Level Equipment Small Noodle Reps/Duration 2x ea Comments Small ankle foats also for quads. [place] Activities [place] Activities Bicycle Equipment Noodle Duration 10 minutes PT-OP-T Assessment and Plan Start: 11/10/17 08:22 Freq: Status: Active Protocol: Document 02/19/18 11:18 LRN (Rec: 02/19/18 12:39 LRN [id number]) Physical Therapy Assessment Impairments Impairments Edema ROM Soft Tissue Mobility Strength Goals Three Impairment L knee edema Certified Coatings Inspector Goal (LTG) Pt will be educated in self care for L knee edema. LTG Duration Goal met. Two Impairment Lacks appropriate HEP Certified Coatings Inspector Goal (LTG) Pt will be educated in a comprehensive independent HEP for self care. LTG Duration 02/06/18 (Goal Met except for an independent pool program) One Impairment Decreased L knee AROM/PROM Short Term Goal (STG) Improve L knee AROM 0-95 deg's . Improve L knee PROM 0-105 deg' s. Pt to avoid L knee manipulation. STG Duration Abandon: Goal not met. Certified Coatings Inspector Goal (LTG) L knee AROM: 0-110 deg's L knee PROM: 0-115 deg's. Pt will be able to walk stairs with normal gait pattern using 1 railing. LTG Duration Goal abandoned Progress Towards Goals Progress Comments Pt L knee ext in supine appears worse. Her L knee flex is improved from last visit, but overall has not regained range maximally achieved. Assessment Summary Assessment Pt has some improvement since last visit, but overall has not regained her maximal L knee flexion ROM previously. L knee AROM: Lacking 15 deg's ext to 94 deg's flex. PROM: Lacking 14 deg's ext to 96 deg 's flexion. She is not providing a compressive wrap to her knee since she states her daughter has not been able to wrap her and teach her what was previously taught her in the clinic. The pt appears to have plateaued in her progress and will be given an aquatic therapy program prior to DC from therapy in the next 2 visits. Physical Therapy Plan Frequency and Duration Frequency of Treatment 2x/Week Plan of Care Start Date 02/17/18 Plan of Care End Date 03/10/20 Therapeutic Interventions Therapeutic Interventions Aquatic Therapy Home Exercise Program Joint Mobilizations Manual Therapy Self-Care/Home Management Soft Tissue Mobilization Therapeutic Exercises Next Visit Focus/Plan Next Note Type Treatment Note Next Visit Plan In 2 visits: Educate, issue and DC from therapy to an aquatic independent ex program . The pt has been issued a land based HEP and requires an aquatic one.
--- NOTE | 2018-03-02 15:12 | PT.OTN ---
Current Diagnoses Bilateral primary osteoarthritis of knee (03/02/18) Physical Therapy Treatment Note PT-OP-A Visit Information Start: 11/10/17 08:22 Freq: Status: Active Protocol: Document 02/19/18 11:18 LRN (Rec: 02/19/18 12:39 LRN [id number]) Out-Patient Physical Therapy Visit Information Visit Information Visit Type Treatment Note Visit Note 36/40 Visit Start Time 11:18 Visit Stop Time 12:18 Total Visit Minutes 60 Visit Number 36 Number of CASTING MACHINE OPERATOR Visits 0 Evaluation Information Evaluation Date 11/10/17 PT-OP-B Current Condition Start: 11/10/17 08:22 Freq: Status: Active Protocol: Document 12/23/17 15:45 LRN (Rec: 12/23/17 17:11 LRN [id number]) Current Condition History of Current Condition Onset Date 12/22/17 History of Current Condition Pt underwent L knee manipulation 12/22/17 following L TKA 11/10/17. Treatment Goals Patient/Caregiver Goals Gain functional L knee ROM. Prior Functional Status Baseline Function- ADL's Independent Baseline Function- Mobility Independent Baseline Function- Gait Gait with walker outside the home. No assistive device in the home. Current Functional Impairments (Reported) Functional Limitations- ADL's Difficulty getting L shoe on, has director on toilet. Daughter helps with cooking. Functional Limitations- Mobility/Gait Requires use of 2WW for gait intermittently. PT-OP-C Subjective Start: 11/10/17 08:22 Freq: Status: Active Protocol: Document 03/02/18 11:00 LJ (Rec: 03/02/18 15:12 LJ [email or web address]) OP-PT Subjective Patient Comments Patient Comments Pt reports that pool exercise feels good and thinks it is beneficial PT-OP-E Functional Tests Start: 11/10/17 08:22 Freq: Status: Active Protocol: Document 11/10/17 13:35 LRN (Rec: 11/10/17 14:12 LRN [id number]) Functional Tests Timed Up and Go (TUG) Score 23 sec's Comments Uses hands to get up from chair. TUG Impairment Rating 100% Impaired (Score 20) PT-OP-F Manual Assessment Start: 11/10/17 08:22 Freq: Status: Active Protocol: Document 11/10/17 13:35 LRN (Rec: 11/10/17 14:12 LRN [id number]) Manual Assessments Soft Tissue Assessment Soft Tissue Mobility Assessment Decreased L knee scar mobility . Scar is well healed. Increased temperature at the knee joint with mild to moderate joint effusion. PT-OP-G Mobility & Gait Start: 11/10/17 08:22 Freq: Status: Active Protocol: Document 12/23/17 15:45 LRN (Rec: 12/23/17 17:11 LRN [id number]) OP Mobility Evaluation Bed Mobility Rolling Independent Supine to and from Sit Independent Transfers Sit to Stand Independent OP Gait Assessment Assistive Devices Assistive Device None 4 Wheeled Walker Gait Deviations General Gait Pattern Decreased Stride Length Flexed Trunk Wide Based Gait Comments Gait Comments L knee extension is limited. Pt is FWBing on LLE. PT-OP-H Neuro Start: 11/10/17 08:22 Freq: Status: Active Protocol: Document 11/10/17 13:35 LRN (Rec: 11/10/17 14:12 LRN [id number]) Sensation Evaluation Location Details Left Anterior Knee Light Touch Impaired Deep Tendon Reflex & Clonus Assessment Deep Tendon Reflex Right Deep Tendon Reflex 2+ Normal Left Achilles Deep Tendon Reflex 0 Absent PT-OP-J Posture/Palpation/Skin Start: 11/10/17 08:22 Freq: Status: Active Protocol: Document 11/10/17 13:35 LRN (Rec: 11/10/17 14:12 LRN [id number]) Posture Evaluation Position Standing Head/C-Spine Posture Forward Head T-Spine Posture Increased Kyphosis Pelvis Posture Neutral Weight Distribution Weight Shifted Right Hip Posture (L) Flexed (R) Flexed Knee Posture (L) Excess Flexion Ankle/Foot Posture (R) Pronated PT-OP-K Range of Motion Start: 11/10/17 08:22 Freq: Status: Active Protocol: Document 02/19/18 11:18 LRN (Rec: 02/19/18 13:56 LRN [id number]) Knee Goniometric Range of Motion Knee Measured in Degrees Left Patient Position Supine Flexion Active (degrees) 94 Flexion Passive (degrees) 96 Knee ROM Limitations Comments L knee ext (supine): Active: Lacking 15 deg's, Passive: Lacking 14 deg's. PT-OP-Q Treatments Start: 11/10/17 08:22 Freq: Status: Active Protocol: Document 02/19/18 11:18 LRN (Rec: 02/19/18 12:39 LRN [id number]) Cardio Equipment Recumbent Elliptical (Biodex) Duration (Minutes) 3 Seat Position 7 Bicycle (Upright) Duration (Minutes) 7 Seat Position 6, 5 Other Able to get revolution after Sci-Fit use Therapeutic Exercises Supine Exercises 4 Supine Exercise Name SLR Side left Reps/Minutes 2' Prone Exercises Knee flex strengthening Side left Resistance 1# Reps/Minutes 10x2 2 Prone Exercise Name Contract/Relax(c/r) ext stretch f/b active ext Side left Equipment Used 2 hand towels under leg, above L knee Reps/Minutes 8' Comments PROM: lacking 7 deg's 1 Prone Exercise Name c/r flexion stretch f/b active flexion Side left Equipment Used Folded hand towel, under leg, above L knee Reps/Minutes 12' Sidelying Exercises 1 Sidelying Exercise Name Hip AB/AD Side left Reps/Minutes 10x Sitting Exercises 2 Sitting Exercise Name contract/relax for knee flex Reps/Minutes 4' 3 Sitting Exercise Name Knee flex strengthening Side left Resistance Lev 2 T-Band Reps/Minutes 10x2 Manual Therapy Treatment Soft Tissue Mobilization 3 Body Location Quads/Hamstring Mobilization Type Myofascial Release Comments See Therapeutic exercise: Contract/Relax knee flex/ext Self-Care/Home Management Treatment Education Patient Education Home Exercise Program Activities Self-Care/Home Management Activities Prone L knee extension stretch and flex strengthening. Re- issued all of HEP handouts, partial review. PT-OP-R Modalities Start: 11/10/17 08:22 Freq: Status: Active Protocol: Document 02/19/18 11:18 LRN (Rec: 02/19/18 12:39 LRN [id number]) Hot Pack/Cold Pack Treatment Cold Pack Location L knee Patient Position Supine Treatment Duration (minutes) 15 Patient Tolerance Good Comments Extra time taken to set up pt in an unattended prolonged knee flexion stretch. PT-OP-S Aquatic Treatment Start: 11/10/17 08:22 Freq: Status: Active Protocol: Document 03/02/18 11:00 LJ (Rec: 03/02/18 14:56 LJ [id number]) Aquatics Treatment Pool Entry/Exit Pool Entry/Exit Method Stairs Water Walking Other- 1 Water Level Chest Level Comments fwd,bck, side, august, kick, lunge Lower Extremity Exercises 2 Details Aqua bike Body Position Sitting Water Level Waist Level Reps/Duration 4 min 1 Details knee flex/ext, hip flex/ext, ab/ad Body Position Standing Water Level Chest Level Lower Extremity Stretches 3 Details Contract/relax into knee flexion Body Position Sitting w/back against wall 2 Details hamstring Body Position Standing Equipment Ankle Floats Comments Also small noodle 1 Details Quads Body Position Standing Water Level Chest Level Equipment Small Noodle Balance 1 Details 2 8 box steps Body Position Standing Water Level Chest Level [place] Activities [place] Activities Bicycle Equipment Noodle Duration 15 minutes Comments lg noodle under armpits Belt pushes her forward too much PT-OP-T Assessment and Plan Start: 11/10/17 08:22 Freq: Status: Active Protocol: Document 03/02/18 11:00 LINA (Rec: 03/02/18 15:12 LINA [id number]) Physical Therapy Assessment Impairments Impairments Edema ROM Soft Tissue Mobility Strength Goals Three Impairment L knee edema College Coach Goal (LTG) Pt will be educated in self care for L knee edema. LTG Duration Goal met. Two Impairment Lacks appropriate HEP Custodial Goal (LTG) Pt will be educated in a comprehensive independent HEP for self care. LTG Duration 02/06/18 (Goal Met except for an independent pool program) One Impairment Decreased L knee AROM/PROM Short Term Goal (STG) Improve L knee AROM 0-95 deg's . Improve L knee PROM 0-105 deg' s. Pt to avoid L knee manipulation. STG Duration Abandon: Goal not met. Custodial Goal (LTG) L knee AROM: 0-110 deg's L knee PROM: 0-115 deg's. Pt will be able to walk stairs with normal gait pattern using 1 railing. LTG Duration Goal abandoned Assessment Summary Assessment Pt improved ROM at end of treatment. Tolerated all activities well Physical Therapy Plan Frequency and Duration Frequency of Treatment 2x/Week Plan of Care Start Date 02/17/18 Plan of Care End Date 03/10/20 Therapeutic Interventions Therapeutic Interventions Aquatic Therapy Home Exercise Program Joint Mobilizations Manual Therapy Self-Care/Home Management Soft Tissue Mobilization Therapeutic Exercises Next Visit Focus/Plan Next Note Type Treatment Note Next Visit Plan Provide pt with aquatic exercise program
--- NOTE | 2018-03-09 14:49 | PT.OTN ---
Current Diagnoses Bilateral primary osteoarthritis of knee (03/02/18) Physical Therapy Treatment Note PT-OP-A Visit Information Start: 11/10/17 08:22 Freq: Status: Active Protocol: Document 03/09/18 11:45 LJ (Rec: 03/09/18 14:44 LJ [email or web address]) Out-Patient Physical Therapy Visit Information Visit Information Visit Type Treatment Note Visit Note 38/40 Visit Start Time 11:45 Visit Stop Time 12:30 Total Visit Minutes 45 Visit Number 38 Number of MARINA DRY DOCK MANAGER Visits 2 PT-OP-B Current Condition Start: 11/10/17 08:22 Freq: Status: Active Protocol: Document 12/23/17 15:45 LRN (Rec: 12/23/17 17:11 LRN [id number]) Current Condition History of Current Condition Onset Date 12/22/17 History of Current Condition Pt underwent L knee manipulation 12/22/17 following L TKA 11/10/17. Treatment Goals Patient/Caregiver Goals Gain functional L knee ROM. Prior Functional Status Baseline Function- ADL's Independent Baseline Function- Mobility Independent Baseline Function- Gait Gait with walker outside the home. No assistive device in the home. Current Functional Impairments (Reported) Functional Limitations- ADL's Difficulty getting L shoe on, has semiconductor packages platemaker on toilet. Daughter helps with cooking. Functional Limitations- Mobility/Gait Requires use of 2WW for gait intermittently. PT-OP-C Subjective Start: 11/10/17 08:22 Freq: Status: Active Protocol: Document 03/09/18 11:45 LJ (Rec: 03/09/18 14:44 LJ [id number]) OP-PT Subjective Patient Comments Patient Comments Pt reported no pain after previous pool session. States she felt looser after therapy PT-OP-E Functional Tests Start: 11/10/17 08:22 Freq: Status: Active Protocol: Document 11/10/17 13:35 LRN (Rec: 11/10/17 14:12 LRN [id number]) Functional Tests Timed Up and Go (TUG) Score 23 sec's Comments Uses hands to get up from chair. TUG Impairment Rating 100% Impaired (Score 20) PT-OP-F Manual Assessment Start: 11/10/17 08:22 Freq: Status: Active Protocol: Document 11/10/17 13:35 LRN (Rec: 11/10/17 14:12 LRN [id number]) Manual Assessments Soft Tissue Assessment Soft Tissue Mobility Assessment Decreased L knee scar mobility . Scar is well healed. Increased temperature at the knee joint with mild to moderate joint effusion. PT-OP-G Mobility & Gait Start: 11/10/17 08:22 Freq: Status: Active Protocol: Document 12/23/17 15:45 LRN (Rec: 12/23/17 17:11 LRN [id number]) OP Mobility Evaluation Bed Mobility Rolling Independent Supine to and from Sit Independent Transfers Sit to Stand Independent OP Gait Assessment Assistive Devices Assistive Device None 4 Wheeled Walker Gait Deviations General Gait Pattern Decreased Stride Length Flexed Trunk Wide Based Gait Comments Gait Comments L knee extension is limited. Pt is FWBing on LLE. PT-OP-H Neuro Start: 11/10/17 08:22 Freq: Status: Active Protocol: Document 11/10/17 13:35 LRN (Rec: 11/10/17 14:12 LRN [id number]) Sensation Evaluation Location Details Left Anterior Knee Light Touch Impaired Deep Tendon Reflex & Clonus Assessment Deep Tendon Reflex Right Deep Tendon Reflex 2+ Normal Left Achilles Deep Tendon Reflex 0 Absent PT-OP-J Posture/Palpation/Skin Start: 11/10/17 08:22 Freq: Status: Active Protocol: Document 11/10/17 13:35 LRN (Rec: 11/10/17 14:12 LRN [id number]) Posture Evaluation Position Standing Head/C-Spine Posture Forward Head T-Spine Posture Increased Kyphosis Pelvis Posture Neutral Weight Distribution Weight Shifted Right Hip Posture (L) Flexed (R) Flexed Knee Posture (L) Excess Flexion Ankle/Foot Posture (R) Pronated PT-OP-K Range of Motion Start: 11/10/17 08:22 Freq: Status: Active Protocol: Document 02/19/18 11:18 LRN (Rec: 02/19/18 13:56 LRN [id number]) Knee Goniometric Range of Motion Knee Measured in Degrees Left Patient Position Supine Flexion Active (degrees) 94 Flexion Passive (degrees) 96 Knee ROM Limitations Comments L knee ext (supine): Active: Lacking 15 deg's, Passive: Lacking 14 deg's. PT-OP-Q Treatments Start: 11/10/17 08:22 Freq: Status: Active Protocol: Document 09/13/18 11:18 LRN (Rec: 02/19/18 12:39 LRN [id number]) Cardio Equipment Recumbent Elliptical (Biodex) Duration (Minutes) 3 Seat Position 7 Bicycle (Upright) Duration (Minutes) 7 Seat Position 6, 5 Other Able to get revolution after Sci-Fit use Therapeutic Exercises Supine Exercises 4 Supine Exercise Name SLR Side left Reps/Minutes 2' Prone Exercises Knee flex strengthening Side left Resistance 1# Reps/Minutes 10x2 2 Prone Exercise Name Contract/Relax(c/r) ext stretch f/b active ext Side left Equipment Used 2 hand towels under leg, above L knee Reps/Minutes 8' Comments PROM: lacking 7 deg's 1 Prone Exercise Name c/r flexion stretch f/b active flexion Side left Equipment Used Folded hand towel, under leg, above L knee Reps/Minutes 12' Sidelying Exercises 1 Sidelying Exercise Name Hip AB/AD Side left Reps/Minutes 10x Sitting Exercises 2 Sitting Exercise Name contract/relax for knee flex Reps/Minutes 4' 3 Sitting Exercise Name Knee flex strengthening Side left Resistance Lev 2 T-Band Reps/Minutes 10x2 Manual Therapy Treatment Soft Tissue Mobilization 3 Body Location Quads/Hamstring Mobilization Type Myofascial Release Comments See Therapeutic exercise: Contract/Relax knee flex/ext Self-Care/Home Management Treatment Education Patient Education Home Exercise Program Activities Self-Care/Home Management Activities Prone L knee extension stretch and flex strengthening. Re- issued all of HEP handouts, partial review. PT-OP-R Modalities Start: 11/10/17 08:22 Freq: Status: Active Protocol: Document 02/19/18 11:18 LRN (Rec: 02/19/18 12:39 LRN [id number]) Hot Pack/Cold Pack Treatment Cold Pack Location L knee Patient Position Supine Treatment Duration (minutes) 15 Patient Tolerance Good Comments Extra time taken to set up pt in an unattended prolonged knee flexion stretch. PT-OP-S Aquatic Treatment Start: 11/10/17 08:22 Freq: Status: Active Protocol: Document 03/09/18 11:45 LJ (Rec: 03/09/18 14:44 LJ [id number]) Aquatics Treatment Pool Entry/Exit Pool Entry/Exit Method Stairs Water Walking Other- 2 Water Level Chest Level Level of Assistance Standby Assistance Comments for, back, side, lunge, monster Lower Extremity Exercises 5 Details hamstring curls at wall Body Position Standing Water Level Waist Level Reps/Duration 10 x 2 bilat Comments cues for posture 4 Details hip circles Body Position Standing Water Level Waist Level Reps/Duration 10 x 2 [address] ways 3 Details wall squats w/TKE Body Position Sitting Water Level Neck Level Lower Extremity Stretches 3 Details Contract/relax into knee flexion Body Position Sitting w/back against wall 2 Details hamstring Body Position Standing Comments therapist assist 1 Details Quads Body Position Standing Water Level Chest Level Equipment Small Noodle Sentinel Activities Sentinel Activities Bicycle Bicycle Backwards [place] Running Hip Abduction/Adduction Other Activities Corner bialt simultaneous SLRs x 10 emphasize core stabilization and glute activation Equipment Noodle Duration 15 minutes Comments Lg noodle in front PT-OP-T Assessment and Plan Start: 11/10/17 08:22 Freq: Status: Active Protocol: Document 03/09/18 11:45 LINA (Rec: 03/09/18 14:44 LINA [id number]) Physical Therapy Assessment Impairments Impairments Edema ROM Soft Tissue Mobility Strength Goals Three Impairment L knee edema Detention Goal (LTG) Pt will be educated in self care for L knee edema. LTG Duration Goal met. Two Impairment Lacks appropriate HEP Detention Goal (LTG) Pt will be educated in a comprehensive independent HEP for self care. LTG Duration 02/06/18 (Goal Met except for an independent pool program) One Impairment Decreased L knee AROM/PROM Short Term Goal (STG) Improve L knee AROM 0-95 deg's . Improve L knee PROM 0-105 deg' s. Pt to avoid L knee manipulation. STG Duration Abandon: Goal not met. Operations Lead Goal (LTG) L knee AROM: 0-110 deg's L knee PROM: 0-115 deg's. Pt will be able to walk stairs with normal gait pattern using 1 railing. LTG Duration Goal abandoned Assessment Summary Assessment Pt improved ability to stabilize in deep water Physical Therapy Plan Frequency and Duration Frequency of Treatment 2x/Week Plan of Care Start Date 02/17/18 Therapeutic Interventions Therapeutic Interventions Aquatic Therapy Home Exercise Program Joint Mobilizations Manual Therapy Self-Care/Home Management Soft Tissue Mobilization Therapeutic Exercises
--- NOTE | 2018-03-23 16:44 | PT.OTRE ---
Current Diagnoses Bilateral primary osteoarthritis of knee (03/23/18) Past Medical History (Last Updated 11/17/17 @ 09:43 by Elina Burgess) Asthma (Chronic) Autoimmune hepatitis (Chronic) Diabetes mellitus (Chronic) Eczema (Chronic) Hyperlipidemia (Chronic) Hypertension (Chronic) Obesity (Chronic) Osteoarthritis, knee (Chronic) Rosacea (Chronic) Seasonal allergies (Chronic) Measles (Resolved) Shingles (Resolved) Surgical History (Last Updated 12/19/17 @ 14:37 by Guerda Cruz RN) History of arthroplasty of left knee (Acute) Presence of left artificial knee joint (Acute) Surgical procedure planned (Resolved) Surgical procedure planned (Resolved ~2014) Anesthesia (Inactive) History of esophagogastroduodenoscopy (EGD) (~2008) Status post arthroscopy Status post delivery (~1964) Status post colonoscopy (~2008) Status post dilation and curettage (~1964) Provider Visit Care Team Role Provider Type Anabell Marti DO Family Provider Physician Primary Care Provider Specialty: [facility] Practice Address: [address] [place] [address], [phone] Email: [email or web address] Jenna Cheatham MD Attending Provider Physician Specialty: Orthopedic Surgery Address: [address] [place] [address], [id number] Email: [email or web address] Therapy Re-Evaluation PT-OP-A Visit Information Start: 11/10/17 08:22 Freq: Status: Active Protocol: Document 03/23/18 12:30 SAK (Rec: 03/23/18 16:43 SAK [id number]) Out-Patient Physical Therapy Visit Information Visit Information Visit Note 39/40 Visit Start Time 12:30 Visit Stop Time 13:15 Total Visit Minutes 45 Visit Number 39 Number of UNIVERSITY DEAN Visits 0 PT-OP-B Current Condition Start: 11/10/17 08:22 Freq: Status: Active Protocol: Document 12/23/17 15:45 LRN (Rec: 12/23/17 17:11 LRN [id number]) Current Condition History of Current Condition Onset Date 12/22/17 History of Current Condition Pt underwent L knee manipulation 12/22/17 following L TKA 11/10/17. Treatment Goals Patient/Caregiver Goals Gain functional L knee ROM. Prior Functional Status Baseline Function- ADL's Independent Baseline Function- Mobility Independent Baseline Function- Gait Gait with walker outside the home. No assistive device in the home. Current Functional Impairments (Reported) Functional Limitations- ADL's Difficulty getting L shoe on, has driver guard on toilet. Daughter helps with cooking. Functional Limitations- Mobility/Gait Requires use of 2WW for gait intermittently. PT-OP-C Subjective Start: 11/10/17 08:22 Freq: Status: Active Protocol: Document 03/09/18 11:45 LJ (Rec: 03/09/18 14:44 LJ [email or web address]) OP-PT Subjective Patient Comments Patient Comments Pt reported no pain after previous pool session. States she felt looser after therapy PT-OP-E Functional Tests Start: 11/10/17 08:22 Freq: Status: Active Protocol: Document 11/10/17 13:35 LRN (Rec: 11/10/17 14:12 LRN [id number]) Functional Tests Timed Up and Go (TUG) Score 23 sec's Comments Uses hands to get up from chair. TUG Impairment Rating 100% Impaired (Score 20) PT-OP-F Manual Assessment Start: 11/10/17 08:22 Freq: Status: Active Protocol: Document 11/10/17 13:35 LRN (Rec: 11/10/17 14:12 LRN [id number]) Manual Assessments Soft Tissue Assessment Soft Tissue Mobility Assessment Decreased L knee scar mobility . Scar is well healed. Increased temperature at the knee joint with mild to moderate joint effusion. PT-OP-G Mobility & Gait Start: 11/10/17 08:22 Freq: Status: Active Protocol: Document 12/23/17 15:45 LRN (Rec: 12/23/17 17:11 LRN [id number]) OP Mobility Evaluation Bed Mobility Rolling Independent Supine to and from Sit Independent Transfers Sit to Stand Independent OP Gait Assessment Assistive Devices Assistive Device None 4 Wheeled Walker Gait Deviations General Gait Pattern Decreased Stride Length Flexed Trunk Wide Based Gait Comments Gait Comments L knee extension is limited. Pt is FWBing on LLE. PT-OP-H Neuro Start: 11/10/17 08:22 Freq: Status: Active Protocol: Document 11/10/17 13:35 LRN (Rec: 11/10/17 14:12 LRN [id number]) Sensation Evaluation Location Details Left Anterior Knee Light Touch Impaired Deep Tendon Reflex & Clonus Assessment Deep Tendon Reflex Right Deep Tendon Reflex 2+ Normal Left Achilles Deep Tendon Reflex 0 Absent PT-OP-J Posture/Palpation/Skin Start: 11/10/17 08:22 Freq: Status: Active Protocol: Document 11/10/17 13:35 LRN (Rec: 11/10/17 14:12 LRN [id number]) Posture Evaluation Position Standing Head/C-Spine Posture Forward Head T-Spine Posture Increased Kyphosis Pelvis Posture Neutral Weight Distribution Weight Shifted Right Hip Posture (L) Flexed (R) Flexed Knee Posture (L) Excess Flexion Ankle/Foot Posture (R) Pronated PT-OP-K Range of Motion Start: 11/10/17 08:22 Freq: Status: Active Protocol: Document 02/19/18 11:18 LRN (Rec: 02/19/18 13:56 LRN [id number]) Knee Goniometric Range of Motion Knee Measured in Degrees Left Patient Position Supine Flexion Active (degrees) 94 Flexion Passive (degrees) 96 Knee ROM Limitations Comments L knee ext (supine): Active: Lacking 15 deg's, Passive: Lacking 14 deg's. PT-OP-Q Treatments Start: 11/10/17 08:22 Freq: Status: Active Protocol: Document 02/19/18 11:18 LRN (Rec: 02/19/18 12:39 LRN [id number]) Cardio Equipment Recumbent Elliptical (Biodex) Duration (Minutes) 3 Seat Position 7 Bicycle (Upright) Duration (Minutes) 7 Seat Position 6, 5 Other Able to get revolution after Sci-Fit use Therapeutic Exercises Supine Exercises 4 Supine Exercise Name SLR Side left Reps/Minutes 2' Prone Exercises Knee flex strengthening Side left Resistance 1# Reps/Minutes 10x2 2 Prone Exercise Name Contract/Relax(c/r) ext stretch f/b active ext Side left Equipment Used 2 hand towels under leg, above L knee Reps/Minutes 8' Comments PROM: lacking 7 deg's 1 Prone Exercise Name c/r flexion stretch f/b active flexion Side left Equipment Used Folded hand towel, under leg, above L knee Reps/Minutes 12' Sidelying Exercises 1 Sidelying Exercise Name Hip AB/AD Side left Reps/Minutes 10x Sitting Exercises 2 Sitting Exercise Name contract/relax for knee flex Reps/Minutes 4' 3 Sitting Exercise Name Knee flex strengthening Side left Resistance Lev 2 T-Band Reps/Minutes 10x2 Manual Therapy Treatment Soft Tissue Mobilization 3 Body Location Quads/Hamstring Mobilization Type Myofascial Release Comments See Therapeutic exercise: Contract/Relax knee flex/ext Self-Care/Home Management Treatment Education Patient Education Home Exercise Program Activities Self-Care/Home Management Activities Prone L knee extension stretch and flex strengthening. Re- issued all of HEP handouts, partial review. PT-OP-R Modalities Start: 11/10/17 08:22 Freq: Status: Active Protocol: Document 02/19/18 11:18 LRN (Rec: 02/19/18 12:39 LRN [id number]) Hot Pack/Cold Pack Treatment Cold Pack Location L knee Patient Position Supine Treatment Duration (minutes) 15 Patient Tolerance Good Comments Extra time taken to set up pt in an unattended prolonged knee flexion stretch. PT-OP-T Assessment and Plan Start: 11/10/17 08:22 Freq: Status: Active Protocol: Document 03/23/18 12:30 SAK (Rec: 03/23/18 16:41 SAK [id number]) Physical Therapy Assessment Impairments Impairments Edema ROM Soft Tissue Mobility Strength Goals Four Impairment self-management Prison Goal (LTG) Patient will be safe and independent with aquatic exercise program for long-term fitness and pain managment. LTG Duration 1 month Three Impairment L knee edema Prison Goal (LTG) Pt will be educated in self care for L knee edema. LTG Duration Goal met. Two Impairment Lacks appropriate HEP Instructional Support Assistant Goal (LTG) Pt will be educated in a comprehensive independent HEP for self care. LTG Duration 02/06/18 (Goal Met except for an independent pool program) One Impairment Decreased L knee AROM/PROM Short Term Goal (STG) Improve L knee AROM 0-95 deg's . Improve L knee PROM 0-105 deg' s. Pt to avoid L knee manipulation. STG Duration Abandon: Goal not met. Prison Goal (LTG) L knee AROM: 0-110 deg's L knee PROM: 0-115 deg's. Pt will be able to walk stairs with normal gait pattern using 1 railing. LTG Duration Goal abandoned Progress Towards Goals Progress Towards Goals Slow Progress due to Activity Tolerance Progress Comments Patient would benefit from 1 further aquatic PT visits to assure safety and independence with aquatic exercise program for long-term fitness and pain management. Assessment Summary Assessment Requires cues and occasional min assist for safety with deep water walking, and with high level gait challenge activities in shallow water; not yet safe and independent. Needs 1-2 further visits to assure safety and independence with aquatic exercise program for long-term fitness and pain managment. Physical Therapy Plan Frequency and Duration Frequency of Treatment 1 Duration of Treatment 1 month Plan of Care Start Date 03/23/18 Next Visit Focus/Plan Next Note Type Treatment Note Next Visit Plan Progress toward independent aquatic exercise program.
--- NOTE | 2018-03-23 16:44 | PT.OPPOC ---
Current Diagnoses Bilateral primary osteoarthritis of knee (03/23/18) Provider Visit Care Team Role Provider Type Anabell Marti DO Family Provider Physician Primary Care Provider Specialty: Family Practice Address: [address] [place] [address], [address] Email: [email or web address] Jenna Cheatham MD Attending Provider Physician Specialty: Orthopedic Surgery Address: [address] [place] [address], [address] Email: [email or web address] Plan Of Care PT-OP-T Assessment and Plan Start: 11/10/17 08:22 Freq: Status: Active Protocol: Document 03/23/18 12:30 SAK (Rec: 03/23/18 16:41 SAK [id number]) Physical Therapy Assessment Impairments Impairments Edema ROM Soft Tissue Mobility Strength Goals Four Impairment self-management Snf Goal (LTG) Patient will be safe and independent with aquatic exercise program for long-term fitness and pain managment. LTG Duration 1 month Three Impairment L knee edema Traffic Control Officer Goal (LTG) Pt will be educated in self care for L knee edema. LTG Duration Goal met. Two Impairment Lacks appropriate HEP Snf Goal (LTG) Pt will be educated in a comprehensive independent HEP for self care. LTG Duration 02/06/18 (Goal Met except for an independent pool program) One Impairment Decreased L knee AROM/PROM Short Term Goal (STG) Improve L knee AROM 0-95 deg's . Improve L knee PROM 0-105 deg' s. Pt to avoid L knee manipulation. STG Duration Abandon: Goal not met. Traffic Control Officer Goal (LTG) L knee AROM: 0-110 deg's L knee PROM: 0-115 deg's. Pt will be able to walk stairs with normal gait pattern using 1 railing. LTG Duration Goal abandoned Progress Towards Goals Progress Towards Goals Slow Progress due to Activity Tolerance Progress Comments Patient would benefit from 1 further aquatic PT visits to assure safety and independence with aquatic exercise program for long-term fitness and pain management. Assessment Summary Assessment Requires cues and occasional min assist for safety with deep water walking, and with high level gait challenge activities in shallow water; not yet safe and independent. Needs 1-2 further visits to assure safety and independence with aquatic exercise program for long-term fitness and pain managment. Physical Therapy Plan Frequency and Duration Frequency of Treatment 1 Duration of Treatment 1 month Plan of Care Start Date 03/23/18 Next Visit Focus/Plan Next Note Type Treatment Note Next Visit Plan Progress toward independent aquatic exercise program. Plan of Care Dates Plan of Care Start Date 03/23/18 Plan of Care End Date 03/10/20 Please Sign and Return: I have reviewed this Plan of Care and certify that the skilled therapy services above are required to meet the patient?s needs. Physician Signature Date Printed Name and Credentials Clinical Instructor Signature Printed Name and Credentials
--- NOTE | 2018-03-27 16:43 | PT.OPPOC ---
Current Diagnoses Bilateral primary osteoarthritis of knee (03/23/18) Provider Visit Care Team Role Provider Type Anabell Marti DO Family Provider Physician Primary Care Provider Specialty: Family Practice Address: [address] [place] [address], [address] Email: [email or web address] Jenna Cheatham MD Attending Provider Physician Specialty: Orthopedic Surgery Address: [address] [place] [address], [address] Email: [email or web address] Plan Of Care PT-OP-T Assessment and Plan Start: 11/10/17 08:22 Freq: Status: Active Protocol: Document 03/23/18 12:30 SAK (Rec: 03/23/18 16:41 SAK [id number]) Physical Therapy Assessment Impairments Impairments Edema ROM Soft Tissue Mobility Strength Goals Four Impairment self-management Mcc Goal (LTG) Patient will be safe and independent with aquatic exercise program for long-term fitness and pain managment. LTG Duration 1 month Three Impairment L knee edema Food Service Assistant Goal (LTG) Pt will be educated in self care for L knee edema. LTG Duration Goal met. Two Impairment Lacks appropriate HEP Mcc Goal (LTG) Pt will be educated in a comprehensive independent HEP for self care. LTG Duration 02/06/18 (Goal Met except for an independent pool program) One Impairment Decreased L knee AROM/PROM Short Term Goal (STG) Improve L knee AROM 0-95 deg's . Improve L knee PROM 0-105 deg' s. Pt to avoid L knee manipulation. STG Duration Abandon: Goal not met. Food Service Assistant Goal (LTG) L knee AROM: 0-110 deg's L knee PROM: 0-115 deg's. Pt will be able to walk stairs with normal gait pattern using 1 railing. LTG Duration Goal abandoned Progress Towards Goals Progress Towards Goals Slow Progress due to Activity Tolerance Progress Comments Patient would benefit from 1 further aquatic PT visits to assure safety and independence with aquatic exercise program for long-term fitness and pain management. Assessment Summary Assessment Requires cues and occasional min assist for safety with deep water walking, and with high level gait challenge activities in shallow water; not yet safe and independent. Needs 1-2 further visits to assure safety and independence with aquatic exercise program for long-term fitness and pain managment. Physical Therapy Plan Frequency and Duration Frequency of Treatment 1 visit Duration of Treatment 1 month Plan of Care Start Date 03/23/18 Plan of Care End Date 04/13/18 Therapeutic Interventions Therapeutic Interventions Aquatic Therapy Home Exercise Program Joint Mobilizations Manual Therapy Self-Care/Home Management Soft Tissue Mobilization Therapeutic Exercises Next Visit Focus/Plan Next Note Type Treatment Note Next Visit Plan Progress toward independent aquatic exercise program. Plan of Care Dates Plan of Care Start Date 03/23/18 Plan of Care End Date 04/13/18 Please Sign and Return: I have reviewed this Plan of Care and certify that the skilled therapy services above are required to meet the patient?s needs. Physician Signature Date Printed Name and Credentials Clinical Instructor Signature Printed Name and Credentials
--- NOTE | 2018-05-29 14:31 | PT.OPDS ---
Current Diagnoses Bilateral primary osteoarthritis of knee (03/23/18) Provider Visit Care Team Role Provider Type Anabell Marti DO Family Provider Physician Primary Care Provider Specialty: Family Practice Address: [address] [place] [address], [id number] Email: [email or web address] Jenna Cheatham MD Attending Provider Physician Specialty: Orthopedic Surgery Address: [address] [place] [address], [id number] Email: [email or web address] Visit Number Visit Number [id number] Discharge Summary PT-OP-B Current Condition Start: 11/10/17 08:22 Freq: Status: Active Protocol: Document 12/23/17 15:45 LRN (Rec: 12/23/17 17:11 LRN [id number]) Current Condition History of Current Condition Onset Date 12/22/17 History of Current Condition Pt underwent L knee manipulation 12/22/17 following L TKA 11/10/17. Treatment Goals Patient/Caregiver Goals Gain functional L knee ROM. Prior Functional Status Baseline Function- ADL's Independent Baseline Function- Mobility Independent Baseline Function- Gait Gait with walker outside the home. No assistive device in the home. 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 Daughter helps with cooking. Functional Limitations- Mobility/Gait Requires use of 2WW for gait intermittently. PT-OP-C Subjective Start: 11/10/17 08:22 Freq: Status: Active Protocol: Document 03/09/18 11:45 LJ (Rec: 03/09/18 14:44 LJ [id number]) OP-PT Subjective Patient Comments Patient Comments Pt reported no pain after previous pool session. States she felt looser after therapy PT-OP-E Functional Tests Start: 11/10/17 08:22 Freq: Status: Active Protocol: Document 11/10/17 13:35 LRN (Rec: 11/10/17 14:12 LRN [id number]) Functional Tests Timed Up and Go (TUG) Score 23 sec's Comments Uses hands to get up from chair. TUG Impairment Rating 100% Impaired (Score 20) PT-OP-F Manual Assessment Start: 11/10/17 08:22 Freq: Status: Active Protocol: Document 11/10/17 13:35 LRN (Rec: 11/10/17 14:12 LRN [id number]) Manual Assessments Soft Tissue Assessment Soft Tissue Mobility Assessment Decreased L knee scar mobility . Scar is well healed. Increased temperature at the knee joint with mild to moderate joint effusion. PT-OP-G Mobility & Gait Start: 11/10/17 08:22 Freq: Status: Active Protocol: Document 12/23/17 15:45 LRN (Rec: 12/23/17 17:11 LRN [id number]) OP Mobility Evaluation Bed Mobility Rolling Independent Supine to and from Sit Independent Transfers Sit to Stand Independent OP Gait Assessment Assistive Devices Assistive Device None 4 Wheeled Walker Gait Deviations General Gait Pattern Decreased Stride Length Flexed Trunk Wide Based Gait Comments Gait Comments L knee extension is limited. Pt is FWBing on LLE. PT-OP-H Neuro Start: 11/10/17 08:22 Freq: Status: Active Protocol: Document 11/10/17 13:35 LRN (Rec: 11/10/17 14:12 LRN [id number]) Sensation Evaluation Location Details Left Anterior Knee Light Touch Impaired Deep Tendon Reflex & Clonus Assessment Deep Tendon Reflex Right Deep Tendon Reflex 2+ Normal Left Achilles Deep Tendon Reflex 0 Absent PT-OP-J Posture/Palpation/Skin Start: 11/10/17 08:22 Freq: Status: Active Protocol: Document 11/10/17 13:35 LRN (Rec: 11/10/17 14:12 LRN [id number]) Posture Evaluation Position Standing Head/C-Spine Posture Forward Head T-Spine Posture Increased Kyphosis Pelvis Posture Neutral Weight Distribution Weight Shifted Right Hip Posture (L) Flexed (R) Flexed Knee Posture (L) Excess Flexion Ankle/Foot Posture (R) Pronated PT-OP-K Range of Motion Start: 11/10/17 08:22 Freq: Status: Active Protocol: Document 02/19/18 11:18 LRN (Rec: 02/19/18 13:56 LRN [id number]) Knee Goniometric Range of Motion Knee Measured in Degrees Left Patient Position Supine Flexion Active (degrees) 94 Flexion Passive (degrees) 96 Knee ROM Limitations Comments L knee ext (supine): Active: Lacking 15 deg's, Passive: Lacking 14 deg's. PT-OP-T Assessment and Plan Start: 11/10/17 08:22 Freq: Status: Active Protocol: Document 05/29/18 14:29 [facility] (Rec: 05/29/18 14:31 [facility] [id number]) Physical Therapy Plan Discharge Physical Therapy Discharge Reasons Plateau in Progress Discharge Comments Patient able to perform aquatic exercise program indep , had to cancel last appoint due to medical issues but states she feels comfortable. No further PT indicated at this time.
== END 2018-06-16 11:51 ==
LOC: PHYS 12:30
PROVIDERS: Family Provider Family Medicine; PCP Family Medicine; Visit Provider Orthopaedic Surgery
DX: M17.0 Bilateral primary osteoarthritis of knee (principal)
CPT/HCPCS: 97010; 97014; 97110; 97113; 97116; 97140; 97162; 97535; G0283

== ENCOUNTER → 2018-05-19 12:22 | Outpatient (CLI) | payer MEDICARE, OTHER, SELFPAY ==
[2018-05-19 13:21] LABS: Hemoglobin A1C% w Est Avg Glu 5.9 % (4.0-6.0)
== END ==
PROVIDERS: Family Provider Family Medicine; PCP Family Medicine; Visit Provider Family Medicine
DX: E11.9 Type 2 diabetes mellitus without complications (principal)
CPT/HCPCS: 36415; 83036

== ENCOUNTER 2018-10-30 18:00 | Emergency (ER) | payer MEDICARE, OTHER, SELFPAY ==
[2018-10-30 18:07] VITALS: BP 158/80; PULSE 83; RESP 17; TEMP 36.4; O2SAT 100; BMI 32.3
--- NOTE | 2018-10-30 20:29 | ED.SOB ---
HPI - SOB/Dyspnea <Naomy Hamlin, PRODUCTION DISPATCHER-BC - Last Filed: 10/30/18 22:24> General Chief Complaint: Shortness of Breath/Dyspnea Stated Complaint: DIZZY SPELL,HARD TIME BREATHING,EMOTIONAL Time Seen by Provider: 10/30/18 20:02 Source: patient and family Mode of arrival: ambulatory Limitations: no limitations History of Present Illness The patient is a 73-year-old female who presents with her daughter for chief complaint of dizziness, shortness of breath and confusion/emotional distress earlier today. She states she was doing her bills, and felt sudden onset of dizziness. Then she started having shortness of breath. She stated that she was anxious about her symptoms, which made everything worse. She denied any chest pain at that point time. She denies any overt symptoms at this point time. She states she never chest pain. She feels fully recovered at this point time. She does have a longstanding history of anxiety, also diabetes, hypertension and high cholesterol. The patient's daughter states that she frequently has anxiety related to her bills,. The patient denies any nausea vomiting diarrhea, ear pain, belly pain or fever. She denies any dysuria urgency or frequency. The patient later states that she has not had near enough water to drink today. Related Data Previous Rx's Medication Instructions Recorded Disabled Parking Permit ea #1 06/13/17 fluticasone propionate 50 1 spray NASAL BID #47.4 gram 02/19/18 mcg/actuation nasal spray,suspension furosemide 20 mg tablet 30 mg PO QDAY #135 tab 02/19/18 metformin 500 mg tablet 1,000 mg PO BID #360 tab 02/19/18 simvastatin 20 mg tablet 20 mg PO Q DAY #90 tab 02/19/18 telmisartan 20 mg tablet 20 mg PO QAM #90 tab 02/19/18 triamcinolone acetonide 0.1 % 1 applictn TOP DAILY #15 gram 04/14/18 topical ointment estradiol [Vagifem] 10 mcg VG SEE INSTRUCTIONS #24 tab 08/11/18 Allergies Allergy/AdvReac Type Severity Reaction Status Date / Time Penicillins Allergy Severe TONGUE Verified 06/04/18 09:24 SWELLING atenolol Allergy Mild PT DOES Verified 06/04/18 09:24 NOT REMEMBER diltiazem [DILTIAZEM] Allergy Unknown PT DOES Verified 06/04/18 09:24 NOT REMEMBER minocycline [MINOCYCLINE] Allergy Unknown PT DOES Verified 06/04/18 09:24 NOT REMEMBER Sulfa (Sulfonamide AdvReac Severe VOMITING Verified 06/04/18 09:24 Antibiotics) amoxicillin AdvReac Mild VOMITING Verified 06/04/18 09:24 CALCIUM CHANNEL BLOCKING Allergy Unknown PT DOES Uncoded 04/14/18 10:16 AGENT NOT REMEMBER Review of Systems <JONNY Miramontes - Last Filed: 10/30/18 22:24> Review of Systems GENERAL: Denies chills, fatigue, malaise, fever, sweats. HEENT: Denies sinus pain, ear pain, sore throat, difficulty swallowing, dizziness. RESPIRATORY: See HPI CARDIOVASCULAR: Denies chest pain, palpitations, orthopnea, edema, GASTROINTESTINAL: Denies nausea, vomiting, abdominal pain, diarrhea, constipation, melena. : Denies dysuria, frequency, incontinence, hematuria, urinary retention. MUSCULOSKELETAL: denies weakness, joint pain, or bony pain SKIN: Denies rash, skin lesions, or other NEUROLOGIC: See HPI PSYCHIATRIC: No concerning psychosocial issues. 12 point review of systems is negative except for those stated above PFSH <JONNY Miramontes - Last Filed: 10/30/18 22:24> Medical History (Updated 10/30/18 @ 22:21 by JONNY Miramontes) Hypertension Diabetes mellitus Asthma (Chronic) Autoimmune hepatitis (Chronic) Diabetes mellitus (Chronic) Eczema (Chronic) Hyperlipidemia (Chronic) Hypertension (Chronic) Obesity (Chronic) Osteoarthritis, knee (Chronic) Rosacea (Chronic) Seasonal allergies (Chronic) Measles (Resolved) Shingles (Resolved) Surgical History (Updated 06/04/18 @ 10:12 by Anabell Marti DO) S/P total knee arthroplasty (Acute) History of arthroplasty of left knee (Acute) Presence of left artificial knee joint (Acute) Surgical procedure planned (Resolved) Surgical procedure planned (Resolved ~2014) Anesthesia (Inactive) History of esophagogastroduodenoscopy (EGD) (~2008) Status post arthroscopy Status post delivery (~1964) Status post colonoscopy (~2008) Status post dilation and curettage (~1964) Family History (Updated 03/23/17 @ 00:00 by Conversion Provider) Grandfather Heart disease Grandmother Stroke Mother Heart disease Hypertension Colon polyps Social History household members: family Smoking Status: Former smoker Family History (Updated 03/23/17 @ 00:00 by Conversion Provider) Grandfather Heart disease Grandmother Stroke Mother Heart disease Hypertension Colon polyps Social History household members: family Smoking Status: Former smoker Exam <Naomy HamlinTRESAP-BC - Last Filed: 10/30/18 22:24> Narrative Exam Narrative: GENERAL: Elderly female lying in no acute distress HEAD: Atraumatic. Normocephalic. No temporal or scalp tenderness. EYES: Pupils equal round and reactive. Extraocular motions intact. No scleral icterus. No injection or drainage. ENT: Nose without bleeding, purulent drainage or septal hematoma. Throat without erythema, tonsillar hypertrophy or exudate. Uvula midline. Airway patent. NECK: Trachea midline. No JVD or lymphadenopathy. Supple, nontender, no meningeal signs. CARDIOVASCULAR: Regular rate and rhythm without murmurs, gallops, or rubs. RESPIRATORY: Clear to auscultation. Breath sounds equal bilaterally. No wheezes, rales, or rhonchi. No cough. No increased respiratory effort. No accessory muscle use. No stridor. GASTROINTESTINAL: Abdomen soft, non-tender, nondistended. No hepato-splenomegaly, or palpable masses. No guarding. Active bowel sounds all 4 quadrants EXTREMITIES: No clubbing, cyanosis, or edema. No joint tenderness, effusion, or edema noted. BACK: Nontender without deformity or crepitance. No flank tenderness. NEURO: AOx3. Strength is equal upper and lower extremities bilaterally. Cranial nerves grossly intact. Stable gait. SKIN: No rash or erythema. Initial Vital Signs Initial Vital Signs: Vital Signs Temperature 97.5 F L 10/30/18 18:07 Pulse Rate 83 10/30/18 18:07 Respiratory Rate 17 10/30/18 18:07 Blood Pressure 158/80 H 10/30/18 18:07 Pulse Oximetry 100 10/30/18 18:07 <Donovan Sandhu DO - Last Filed: 10/31/18 01:46> Initial Vital Signs Initial Vital Signs: Vital Signs Temperature 97.5 F L 10/30/18 18:07 Pulse Rate 83 10/30/18 18:07 Respiratory Rate 17 10/30/18 18:07 Blood Pressure 158/80 H 10/30/18 18:07 Pulse Oximetry 100 10/30/18 18:07 Course <LEEROY Miramontes-BC - Last Filed: 10/30/18 22:24> Orders Ordered: ED Orders 10/30/18 18:52 EKG-12 Lead Routine 10/30/18 20:28 CT head/brain wo con Stat XR chest 2V Stat 10/30/18 20:45 B Type Natriuretic Peptide Stat Complete Blood Count AUTO DIFF Stat Comprehensive Metabolic Panel Stat Prothrombin Time INR Stat Troponin & CK Cardiac Panel Stat Discontinued Medications Sodium Chloride (Normal Saline 0.9%) 500 mls @ 1,000 mls/hr IV BOLUS ONE Stop: 10/30/18 22:00 Last Infusion: 10/30/18 22:13 Dose: 0 mls/hr Admin: 10/30/18 21:36 Dose: 1,000 mls/hr Vital Signs - 8 hr 10/30/18 18:07 10/30/18 20:52 10/30/18 21:41 Temperature 97.5 F L Pulse Rate 83 81 62 Respiratory Rate 17 13 Blood Pressure 158/80 H Blood Pressure [Right Arm] 125/80 120/84 Pulse Oximetry 100 98 100 10/30/18 22:22 Temperature Pulse Rate 60 Respiratory Rate 13 Blood Pressure Blood Pressure [Right Arm] 131/65 Pulse Oximetry 100 <Donovan Sandhu DO - Last Filed: 10/31/18 01:46> Orders Ordered: ED Orders 10/30/18 18:52 EKG-12 Lead Routine 10/30/18 20:28 CT head/brain wo con Stat XR chest 2V Stat 10/30/18 20:45 B Type Natriuretic Peptide Stat Complete Blood Count AUTO DIFF Stat Comprehensive Metabolic Panel Stat Prothrombin Time INR Stat Troponin & CK Cardiac Panel Stat Discontinued Medications Sodium Chloride (Normal Saline 0.9%) 500 mls @ 1,000 mls/hr IV BOLUS ONE Stop: 10/30/18 22:00 Last Infusion: 10/30/18 22:13 Dose: 0 mls/hr Admin: 10/30/18 21:36 Dose: 1,000 mls/hr Vital Signs - 8 hr 10/30/18 18:07 10/30/18 20:52 10/30/18 21:41 Temperature 97.5 F L Pulse Rate 83 81 62 Respiratory Rate 17 13 Blood Pressure 158/80 H Blood Pressure [Right Arm] 125/80 120/84 Pulse Oximetry 100 98 100 10/30/18 22:22 Temperature Pulse Rate 60 Respiratory Rate 13 Blood Pressure Blood Pressure [Right Arm] 131/65 Pulse Oximetry 100 MDM - SOB/Dyspnea <TRESA MiramontesP-BC - Last Filed: 10/30/18 22:24> Lab Data Result diagrams: 10/30/18 20:45 10/30/18 20:45 Lab Results 10/30/18 10/30/18 10/30/18 Range/Units 20:45 20:45 20:45 WBC 8.8 (4.5-11.0) X10^3/uL RBC 4.57 (4.0-5.2) X10^6/uL Hgb 13.2 (12.0-16.0) g/dL Hct 39.1 (36-46) % MCV 85.7 (80-100) fL MCH 28.8 (26-34) PG MCHC 33.7 (30-36) % RDW 14.4 (11.6-14.8) % Plt Count 209 (150-400) X10^3/uL Neut % (Auto) 69.1 (50-75) % Lymph % (Auto) 20.4 L (25-40) % Knox % (Auto) 8.6 (3-14) % Eos % (Auto) 1.6 L (2-4) % Baso % (Auto) 0.3 (0-2) % Neut # (Auto) 6100 (1667-6952) /uL Lymph # (Auto) 1800 (6770-9099) /uL Knox # (Auto) 800 (0-900) /uL Eos # (Auto) 100 (0-450) /uL Baso # (Auto) 0 (0-100) /uL PT 11.4 (10.1-12.7) SECONDS INR 1.0 (0.9-1.3) Sodium 137 (137-145) mmol/L Potassium 4.1 (3.4-5.1) mmol/L Chloride 97 L (98-107) mmol/L Carbon Dioxide 29 (22-32) mmol/L BUN 25 H (7-17) mg/dL Creatinine 1.30 H (0.52-1.04) mg/dL Estimated GFR 39.9 L (>60) mL/min BUN/Creatinine Ratio 19.2 (6-22) Glucose 102 (80-110) mg/dL Calcium 9.7 (8.4-10.2) mg/dL Total Bilirubin 0.6 (0.2-1.3) mg/dL AST 24 (14-36) IU/L ALT 23 (9-52) IU/L Alkaline Phosphatase 102 (38-126) U/L Total Creatine Kinase 43 (30-135) U/L CK-MB (CK-2) TNP CK-MB (CK-2) Rel Index TNP Troponin I < 0.012 (0.01-0.034) ng/mL B-Natriuretic Peptide < 100 (<100) Total Protein 7.7 (6.3-8.2) g/dL Albumin 4.6 (3.5-5.0) g/dL Globulin 3.1 (1.7-4.1) g/dL Albumin/Globulin Ratio 1.5 (1.0-2.8) Point of Care Testing Glucose POC 95 Urine Dip Bedside Urine Glucose Negative Bedside Urine Bilirubin - Negative Bedside Urine Ketone - Negative Urine Specific Raymond 1.020 Bedside Urine Occult Blood - Negative Bedside Urine pH 6.0 Bedside Urine Protein - Negative Bedside Urine Urobilinogen - Negative Bedside Urine Nitrite - Negative Bedside Urine Leukocytes +/- 15 Esterase Imaging Data Chest x-ray: Radiologist's impression: [place] [address] XRay Report Signed Patient: Lisset Prince#: [id number] : 4Acct:[id number] Age/Sex: 73 / FDate of Service: 10/30/18 Loc: ED Accession Number: [id number] Procedure: XR chest 2V Ordering Provider: Naomy Hamlin PROCEDURE: XR CHEST 2V INDICATIONS: short of breath TECHNIQUE: 2 views of the chest were acquired. COMPARISON: None. FINDINGS: Surgical changes and devices: None. Lungs and pleura: Lungs are clear. No pleural effusions or pneumothorax. Mediastinum: Mediastinal contours are normal. Heart size is normal. Bones and chest wall: No suspicious bony abnormalities. Soft tissues appear unremarkable. IMPRESSION: No acute process. Dictated by: Shannon Merino M.D. on 10/30/2018 at 20:58 Approved by: Shannon Merino M.D. on 10/30/2018 at 20:59 CT scan - head: Radiologist's impression: [address] [address] [address] Scan Report Signed Patient: Lisset PrinceMR#: [id number] : 4Acct:[id number] Age/Sex: 73 / FDate of Service: 10/30/18 Loc: ED Accession Number: [id number] Procedure: CT head/brain wo con Ordering Provider: Naomy HamlinP- PROCEDURE: CT HEAD/BRAIN WO CON INDICATIONS: dizzy, confusion TECHNIQUE: Noncontrast 4.5 mm thick angled axial sections acquired from the foramen magnum to the vertex, with coronal and sagittal reformats. For radiation dose reduction, the following was used: automated exposure control, adjustment of mA and/or kV according to patient size. COMPARISON: None. FINDINGS: Image quality: Excellent. CSF spaces: Basal cisterns are patent. No extra-axial fluid collections. The ventricles are symmetric in size and shape. Brain: No intracranial bleeds or masses. There is cerebral volume loss for age, with resultant ventricular and sulcal prominence. There are periventricular and deep white matter chronic small vessel ischemic changes. There is intracranial internal carotid artery atherosclerosis. Skull and face: Calvarium and visualized facial bones appear intact, without suspicious lesions. Sinuses: Visualized sinuses and mastoids are clear. IMPRESSION: No acute intracranial abnormality. Dictated by: Shannon Merino M.D. on 10/30/2018 at 20:59 Approved by: Shannon Merino M.D. on 10/30/2018 at 20:59 ECG Data Attestation: I personally reviewed and interpreted this ECG as follows: Interpretation: Sinus rhythm. Ventricular rate 69. No ST elevation or depression. No ectopy noted. MDM Narrative Medical decision making narrative: The patient is a 73-year-old female who presents with transient shortness of breath, dizziness and emotional state changes after working on her bills. She believes that her reaction is due to anxiety. However she does have many risk factors including diabetes hypertension and high cholesterol, which warranted a thorough evaluation. She had a normal chest x-ray, normal head CT, negative troponin, negative BNP. She felt much better and was asymptomatic throughout her stay in the emergency department. She is hemodynamically stable, in no apparent distress and has stable gait. The patient had her daughter repeatedly, did on how stressful things are at home right now and the patient states that she thinks this episode was likely due to her anxiety. I did offer to keep her for a 2nd troponin and further workup, but the patient stated she preferred to go home and go to bed. I did discuss that just because her 1st troponin was negative, does not mean that her second one would be. However she has been pain free and asymptomatic throughout her stay in the emergency department. There appears to be a clear impetus for her episode of shortness of breath earlier today. I discussed at length with her clear return precautions including chest pain, shortness of breath or acute concerns such as concern of heart attack or stroke. Encouraged follow-up with primary care provider in the next few days. Patient has no questions or concerns upon discharge. Daughter states understanding. I discussed at length strict return precautions for any concerns, especially given that the patient declined further troponin/workup. <Donovan Sandhu, DO - Last Filed: 10/31/18 01:46> Lab Data Lab Results 10/30/18 10/30/18 10/30/18 Range/Units 20:45 20:45 20:45 WBC 8.8 (4.5-11.0) X10^3/uL RBC 4.57 (4.0-5.2) X10^6/uL Hgb 13.2 (12.0-16.0) g/dL Hct 39.1 (36-46) % MCV 85.7 (80-100) fL MCH 28.8 (26-34) PG MCHC 33.7 (30-36) % RDW 14.4 (11.6-14.8) % Plt Count 209 (150-400) X10^3/uL Neut % (Auto) 69.1 (50-75) % Lymph % (Auto) 20.4 L (25-40) % Knox % (Auto) 8.6 (3-14) % Eos % (Auto) 1.6 L (2-4) % Baso % (Auto) 0.3 (0-2) % Neut # (Auto) 6100 (9951-6080) /uL Lymph # (Auto) 1800 (5868-7228) /uL Knox # (Auto) 800 (0-900) /uL Eos # (Auto) 100 (0-450) /uL Baso # (Auto) 0 (0-100) /uL PT 11.4 (10.1-12.7) SECONDS INR 1.0 (0.9-1.3) Sodium 137 (137-145) mmol/L Potassium 4.1 (3.4-5.1) mmol/L Chloride 97 L (98-107) mmol/L Carbon Dioxide 29 (22-32) mmol/L BUN 25 H (7-17) mg/dL Creatinine 1.30 H (0.52-1.04) mg/dL Estimated GFR 39.9 L (>60) mL/min BUN/Creatinine Ratio 19.2 (6-22) Glucose 102 (80-110) mg/dL Calcium 9.7 (8.4-10.2) mg/dL Total Bilirubin 0.6 (0.2-1.3) mg/dL AST 24 (14-36) IU/L ALT 23 (9-52) IU/L Alkaline Phosphatase 102 (38-126) U/L Total Creatine Kinase 43 (30-135) U/L CK-MB (CK-2) TNP CK-MB (CK-2) Rel Index TNP Troponin I < 0.012 (0.01-0.034) ng/mL B-Natriuretic Peptide < 100 (<100) Total Protein 7.7 (6.3-8.2) g/dL Albumin 4.6 (3.5-5.0) g/dL Globulin 3.1 (1.7-4.1) g/dL Albumin/Globulin Ratio 1.5 (1.0-2.8) Point of Care Testing Glucose POC 95 Urine Dip Bedside Urine Glucose Negative Bedside Urine Bilirubin - Negative Bedside Urine Ketone - Negative Urine Specific Raymond 1.020 Bedside Urine Occult Blood - Negative Bedside Urine pH 6.0 Bedside Urine Protein - Negative Bedside Urine Urobilinogen - Negative Bedside Urine Nitrite - Negative Bedside Urine Leukocytes +/- 15 Esterase Discharge Plan Departure Patient Disposition: Home Clinical Impression: Breath shortness Discharge Date/Time: 10/30/18 22:35 Interventions: ED Discharge Assessment Last Done: 10/30/18 22:23 Instructions: DI for Shortness of Breath Activity Restrictions/Additional Instructions: Your chest x-ray, head CT and lab work mostly came back normal today. This episode could have been due to anxiety and stress. Please work to take care of yourself, such as checking your blood sugar, eating right, staying hydrated etc. Please follow up with primary care provider soon as possible as we discussed. Please come back to the emergency department for any acute concerns such as chest pain, shortness of breath concern of heart attack or stroke or any other acute concerns. Prescriptions: No Action Disabled Parking Permit Qty: 1 RF: 0 estradiol [Vagifem] 10 mcg tablet 10 mcg VG SEE INSTRUCTIONS Qty: 24 RF: 2 triamcinolone acetonide 0.1 % ointment 1 applictn TOP DAILY Qty: 15 RF: 1 fluticasone propionate 50 mcg/actuation spray,suspension 1 spray NASAL BID Qty: 47.4 RF: 3 telmisartan [Micardis] 20 mg tablet 20 mg PO QAM Qty: 90 RF: 3 furosemide 20 mg tablet 30 mg PO QDAY Qty: 135 RF: 3 metformin [Glucophage] 500 mg tablet 1,000 mg PO BID Qty: 360 RF: 3 simvastatin [Zocor] 20 mg tablet 20 mg PO Q DAY Qty: 90 RF: 3 Referrals: Anabell Marti DO [Primary Care Provider] - <Donovan Sandhu DO - Last Filed: 10/31/18 01:46> [facility] ED Attending Margo Attestation: I was immediately available in the department for consultation. Documentation has been reviewed. I agree with assessment and plan.
[2018-10-30 20:48] LABS: Add Manual Diff / Slide Review NO; Basophils Absolute Auto 0 /uL (0-100); Basophils Percent Auto 0.3 % (0-2); Eosinophils Absolute Auto 100 /uL (0-450); Eosinophils Percent Auto 1.6 % (2-4); Hematocrit 39.1 % (36-46); Hemoglobin 13.2 g/dL (12.0-16.0); Lymphocytes Absolute Auto 1800 /uL (1100-4500); Lymphocytes Percent Auto 20.4 % (25-40); Mean Corpuscular HGB Conc 33.7 % (30-36); Mean Corpuscular Hemoglobin 28.8 PG (26-34); Mean Corpuscular Volume 85.7 fL (80-100); Monocytes Absolute Auto 800 /uL (0-900); Monocytes Percent Auto 8.6 % (3-14); Neutrophils Absolute Auto 6100 /uL (1500-7000); Neutrophils Percent Auto 69.1 % (50-75); Platelet Count 209 X10^3/uL (150-400); Red Blood Cell Count 4.57 X10^6/uL (4.0-5.2); Red Cell Distribution Width 14.4 % (11.6-14.8); White Blood Cell Count 8.8 X10^3/uL (4.5-11.0)
[2018-10-30 20:52] VITALS: BP 125/80; PULSE 81; O2SAT 98
[2018-10-30 20:55] LABS: Prothrombin Time 11.4 SECONDS (10.1-12.7)
[2018-10-30 21:00] LABS: Alanine Aminotransferase 23 IU/L (9-52); Albumin 4.6 g/dL (3.5-5.0); Albumin Globulin Ratio 1.5 (1.0-2.8); Alkaline Phosphatase 102 U/L (38-126); Aspartate Aminotransferase 24 IU/L (14-36); BUN Creatinine Ratio 19.2 (6-22); Bilirubin Total 0.6 mg/dL (0.2-1.3); Blood Urea Nitrogen 25 mg/dL (7-17); Calcium 9.7 mg/dL (8.4-10.2); Carbon Dioxide 29 mmol/L (22-32); Chloride 97 mmol/L (98-107); Creatine Kinase 43 U/L (30-135); Estimated Glomerular Filt Rate 39.9 mL/min (>60); Globulin 3.1 g/dL (1.7-4.1); Glucose 102 mg/dL (80-110); HEMOLYSIS < 15 (0-50); Potassium 4.1 mmol/L (3.4-5.1); Sodium 137 mmol/L (137-145); Total Protein 7.7 g/dL (6.3-8.2)
[2018-10-30 21:11] LABS: Troponin I < 0.012 ng/mL (0.01-0.034)
[2018-10-30 21:22] LABS: B Type Natriuretic Peptide < 100 (<100)
[2018-10-30] MEDS: SODIUM CHLORIDE 0.9% 500 ML 1000 ML IV (21:36)
[2018-10-30 21:41] VITALS: BP 120/84; PULSE 62; RESP 13; O2SAT 100
[2018-10-30 22:22] VITALS: BP 131/65; PULSE 60; RESP 13; O2SAT 100
== END 2018-10-30 22:35 | disposition home or self-care (01) ==
PROVIDERS: Emergency Provider Nurse Practitioner Family; Family Provider Family Medicine; PCP Family Medicine
DX: R06.02 Shortness of breath (principal); R42 Dizziness and giddiness; R41.0 Disorientation, unspecified
CPT/HCPCS: 70450; 71046; 80053; 81003; 82550; 82962; 83880; 84484; 85025; 85610; 93005; 93010; 96360; 99283; 99285

== ENCOUNTER → 2018-11-25 11:32 | Outpatient (CLI) | payer MEDICARE, OTHER, SELFPAY ==
[2018-11-25 12:19] LABS: Add Manual Diff / Slide Review NO; Basophils Absolute Auto 0 /uL (0-100); Basophils Percent Auto 0.4 % (0-2); Eosinophils Absolute Auto 200 /uL (0-450); Eosinophils Percent Auto 2.7 % (2-4); Hematocrit 39.3 % (36-46); Hemoglobin 12.5 g/dL (12.0-16.0); Lymphocytes Absolute Auto 1400 /uL (1100-4500); Lymphocytes Percent Auto 20.8 % (25-40); Mean Corpuscular HGB Conc 31.9 % (30-36); Mean Corpuscular Volume 87.7 fL (80-100); Monocytes Absolute Auto 700 /uL (0-900); Monocytes Percent Auto 9.7 % (3-14); Neutrophils Absolute Auto 4500 /uL (1500-7000); Neutrophils Percent Auto 66.4 % (50-75); Platelet Count 215 X10^3/uL (150-400); Red Blood Cell Count 4.47 X10^6/uL (4.0-5.2); Red Cell Distribution Width 14.9 % (11.6-14.8); White Blood Cell Count 6.8 X10^3/uL (4.5-11.0)
[2018-11-25 12:41] LABS: Alanine Aminotransferase 28 IU/L (9-52); Albumin 4.5 g/dL (3.5-5.0); Albumin Globulin Ratio 1.7 (1.0-2.8); Alkaline Phosphatase 93 U/L (38-126); Aspartate Aminotransferase 22 IU/L (14-36); BUN Creatinine Ratio 20.9 (6-22); Bilirubin Total 0.6 mg/dL (0.2-1.3); Blood Urea Nitrogen 23 mg/dL (7-17); Calcium 9.7 mg/dL (8.4-10.2); Carbon Dioxide 29 mmol/L (22-32); Chloride 104 mmol/L (98-107); Cholesterol 164 mg/dL (140-199); Estimated Glomerular Filt Rate 48.4 mL/min (>60); Globulin 2.7 g/dL (1.7-4.1); Glucose 111 mg/dL (80-110); HDL Cholesterol 49 mg/dL (40-60); HEMOLYSIS < 15 (0-50); LDL Cholesterol Calculated 91 mg/dL (<100); Potassium 4.5 mmol/L (3.4-5.1); Sodium 142 mmol/L (137-145); Total Protein 7.2 g/dL (6.3-8.2); Triglycerides 119 mg/dL (35-150)
[2018-11-25 12:49] LABS: Hemoglobin A1C% w Est Avg Glu 5.7 % (4.0-6.0)
[2018-11-25 13:09] LABS: TSH w/ Reflex to FT4 3.03 uIU/mL (0.47-4.68)
== END ==
PROVIDERS: Family Provider Family Medicine; PCP Family Medicine; Visit Provider Family Medicine
DX: E11.9 Type 2 diabetes mellitus without complications (principal); E78.5 Hyperlipidemia, unspecified; I10 Essential (primary) hypertension
CPT/HCPCS: 36415; 80053; 80061; 83036; 84443; 85025

== ENCOUNTER → 2018-11-30 15:29 | Outpatient (ROUT) | payer MEDICARE, OTHER, SELFPAY ==
[2018-11-30 17:58] LABS: Microalbumin Urine Random < 0.6 mg/dL (0-1.6)
[2018-11-30 17:59] LABS: Microalbumi Creatinin Ratio Ur < 33.3 ug/mg CR (<30)
== END ==
PROVIDERS: Family Provider Family Medicine; PCP Family Medicine; Visit Provider Family Medicine
DX: I10 Essential (primary) hypertension (principal)
CPT/HCPCS: 82043; 82570

== ENCOUNTER → 2019-01-01 11:18 | Outpatient (CLI) | payer MEDICARE, OTHER, SELFPAY ==
[2019-01-01 12:45] LABS: Blood Urea Nitrogen 22 mg/dL (7-17); Calcium 9.3 mg/dL (8.4-10.2); Carbon Dioxide 26 mmol/L (22-32); Chloride 104 mmol/L (98-107); Estimated Glomerular Filt Rate 54.1 mL/min (>60); Glucose 107 mg/dL (80-110); HEMOLYSIS < 15 (0-50); Potassium 4.5 mmol/L (3.4-5.1); Sodium 141 mmol/L (137-145)
== END ==
PROVIDERS: PCP Family Medicine; Visit Provider Family Medicine
DX: I10 Essential (primary) hypertension (principal)
CPT/HCPCS: 36415; 80048

== ENCOUNTER → 2019-04-23 09:51 | Outpatient (CLI) | payer MEDICARE, OTHER, SELFPAY ==
[2019-04-23 11:17] LABS: Add Manual Diff / Slide Review NO; Basophils Absolute Auto 100 /uL (0-100); Basophils Percent Auto 0.6 % (0-2); Eosinophils Absolute Auto 200 /uL (0-450); Eosinophils Percent Auto 2.5 % (2-4); Hematocrit 38.1 % (36-46); Lymphocytes Absolute Auto 1900 /uL (1100-4500); Lymphocytes Percent Auto 19.9 % (25-40); Mean Corpuscular HGB Conc 34.2 % (30-36); Mean Corpuscular Volume 87.9 fL (80-100); Monocytes Absolute Auto 800 /uL (0-900); Monocytes Percent Auto 8.9 % (3-14); Neutrophils Absolute Auto 6300 /uL (1500-7000); Neutrophils Percent Auto 68.1 % (50-75); Platelet Count 238 X10^3/uL (150-400); Red Blood Cell Count 4.34 X10^6/uL (4.0-5.2); Red Cell Distribution Width 13.8 % (11.6-14.8); White Blood Cell Count 9.3 X10^3/uL (4.5-11.0)
[2019-04-23 12:47] LABS: Hemoglobin A1C% w Est Avg Glu 5.7 % (4.0-6.0)
[2019-04-23 12:55] LABS: BUN Creatinine Ratio 16.7 (6-22); Blood Urea Nitrogen 20 mg/dL (7-17); Calcium 9.4 mg/dL (8.4-10.2); Carbon Dioxide 27 mmol/L (22-32); Chloride 105 mmol/L (98-107); Estimated Glomerular Filt Rate 43.8 mL/min (>60); Glucose 117 mg/dL (80-110); HEMOLYSIS < 15 (0-50); Potassium 4.3 mmol/L (3.4-5.1); Sodium 141 mmol/L (137-145)
== END ==
PROVIDERS: PCP Family Medicine; Visit Provider Family Medicine
DX: E11.9 Type 2 diabetes mellitus without complications (principal); I10 Essential (primary) hypertension; N18.3 Chronic kidney disease, stage 3 (moderate)
CPT/HCPCS: 36415; 80048; 83036; 85025

== ENCOUNTER → 2019-05-31 14:38 | Outpatient (CLI) | payer MEDICARE, OTHER, SELFPAY ==
--- NOTE | 2019-05-31 | DI.MG.S_ITS ---
BILATERAL DIGITAL SCREENING MAMMOGRAM 3D/2D WITH CAD: 05/31/2019 CLINICAL: Routine screening. Family history of breast cancer. Comparison is made to exams dated: 05/16/2017 mammogram, 09/01/2015 mammogram, and 10/11/2011 mammogram - [facility]. There are scattered fibroglandular elements in both breasts. Current study was also evaluated with a Computer Aided Detection (CAD) system. There are benign calcifications in both breasts. There also are benign vascular calcifications in both breasts. No significant masses, calcifications, or other findings are seen in either breast. There has been no significant interval change. IMPRESSION: There is no mammographic evidence of malignancy. A 1 year screening mammogram is recommended. This exam was interpreted at Station ID: [id number]. NOTE: For mammograms, a report in lay terms will be sent to the patient. Approximately 15% of breast malignancies will not be visualized mammographically. In the management of a palpable breast mass, a negative mammogram must not discourage biopsy of a clinically suspicious lesion. Electronically Signed By: Herminio velarde/burak:05/31/2019 16:42:21 letter sent: Normal Exam ACR BI-RADS Category 2: Benign Finding(s) 3342F
== END ==
PROVIDERS: PCP Family Medicine; Visit Provider Family Medicine
DX: Z12.31 Encounter for screening mammogram for malignant neoplasm of breast (principal); Z80.3 Family history of malignant neoplasm of breast
CPT/HCPCS: 77063; 77067

== ENCOUNTER → 2019-11-03 11:54 | Outpatient (CLI) | payer MEDICARE, OTHER, SELFPAY ==
[2019-11-03 13:28] LABS: Alanine Aminotransferase 21 IU/L (<35); Albumin 4.2 g/dL (3.5-5.0); Albumin Globulin Ratio 1.5 (1.0-2.8); Alkaline Phosphatase 94 U/L (38-126); Aspartate Aminotransferase 28 IU/L (14-36); BUN Creatinine Ratio 19.2 (6-22); Bilirubin Total 0.5 mg/dL (0.2-1.3); Blood Urea Nitrogen 20 mg/dL (7-17); Calcium 9.4 mg/dL (8.4-10.2); Carbon Dioxide 28 mmol/L (22-32); Chloride 104 mmol/L (98-107); Cholesterol 143 mg/dL (140-199); Estimated Glomerular Filt Rate 51.5 mL/min (>60); Globulin 2.8 g/dL (1.7-4.1); Glucose 99 mg/dL (80-110); HDL Cholesterol 49 mg/dL (40-60); HEMOLYSIS < 15 (0-50); LDL Cholesterol Calculated 73 mg/dL (<100); Potassium 4.7 mmol/L (3.4-5.1); Sodium 140 mmol/L (137-145); Triglycerides 107 mg/dL (35-150)
[2019-11-03 13:41] LABS: Hemoglobin A1C% w Est Avg Glu 5.9 % (4.0-6.0)
== END ==
PROVIDERS: PCP Family Medicine; Referring Provider Family Medicine; Visit Provider Family Medicine
DX: E11.9 Type 2 diabetes mellitus without complications (principal); E78.5 Hyperlipidemia, unspecified; I10 Essential (primary) hypertension
CPT/HCPCS: 36415; 80053; 80061; 83036

== ENCOUNTER → 2020-01-17 16:26 | Outpatient (CLI) | payer MEDICARE, OTHER, SELFPAY ==
[2020-01-17 17:45] LABS: Alanine Aminotransferase 18 IU/L (<35); Albumin 4.4 g/dL (3.5-5.0); Albumin Globulin Ratio 1.4 (1.0-2.8); Alkaline Phosphatase 96 U/L (38-126); Aspartate Aminotransferase 24 IU/L (14-36); BUN Creatinine Ratio 19.8 (6-22); Bilirubin Total 0.4 mg/dL (0.2-1.3); Blood Urea Nitrogen 20 mg/dL (7-17); Calcium 9.5 mg/dL (8.4-10.2); Carbon Dioxide 27 mmol/L (22-32); Chloride 104 mmol/L (98-107); Estimated Glomerular Filt Rate 53.3 mL/min (>60); Globulin 3.2 g/dL (1.7-4.1); Glucose 81 mg/dL (80-110); HEMOLYSIS < 15 (0-50); Potassium 4.5 mmol/L (3.4-5.1); Sodium 139 mmol/L (137-145); Total Protein 7.6 g/dL (6.3-8.2); Uric Acid 8.4 mg/dL (2.5-6.2)
== END ==
PROVIDERS: PCP Family Medicine; Referring Provider Registered Nurse; Visit Provider Registered Nurse
DX: M25.572 Pain in left ankle and joints of left foot (principal); M79.89 Other specified soft tissue disorders
CPT/HCPCS: 36415; 80053; 84550

== ENCOUNTER → 2020-01-20 12:31 | Outpatient (CLI) | payer MEDICARE, OTHER, SELFPAY ==
--- NOTE | 2020-01-20 12:35 | DI.US.S_ITS ---
PROCEDURE: US PERIPH VENOUS LOW EXTREM LT INDICATIONS: LEG PAIN AND SWELLING TECHNIQUE: Real-time imaging, as well as color and pulse Doppler interrogation, were performed of the lower extremity deep veins from the inguinal ligament to the popliteal fossa. COMPARISON: [facility], BILATERAL VENOUS INSUFFICIENCY, 09/18/2012, 14:21. [facility], PVE UNILATERAL LEFT, 02/27/2012, 12:44. [facility], PVE UNILATERAL RIGHT, 10/25/2009, 14:43. FINDINGS: The common femoral, femoral and popliteal veins are normally compressible, and free of intraluminal thrombus. Color and pulse Doppler demonstrate normal phasic intraluminal flow. There is normal augmentation response to distal compression maneuver. IMPRESSION: Negative for deep venous thrombosis. Dictated by: Peter Whitaker M.D. on 01/20/2020 at 12:23 Approved by: Peter Whitaker M.D. on 01/20/2020 at 12:25
== END ==
PROVIDERS: PCP Family Medicine; Referring Provider Registered Nurse; Visit Provider Registered Nurse
DX: M79.605 Pain in left leg (principal); M79.89 Other specified soft tissue disorders
CPT/HCPCS: 93971

== ENCOUNTER → 2020-02-07 13:13 | Outpatient (CLI) | payer MEDICARE, OTHER, SELFPAY ==
--- NOTE | 2020-02-07 13:18 | DI.RAD.S_ITS ---
PROCEDURE: XR ANKLE LT MIN 3V INDICATIONS: left ankle pain, gout, arhritis TECHNIQUE: 3 views of the ankle were acquired. COMPARISON: None. FINDINGS: Bones: No fractures or dislocations. Ankle mortise is normally aligned. No suspicious bony lesions. Note is made of tendon insertion spurring at the posterior calcaneus, both at the Achilles tendon insertion and also at the plantar fascia insertion. Soft tissues: Enthesopathy at the posterior calcaneus. IMPRESSION: Calcific tendonitis with tendon insertion hyperostosis at the posterior calcaneus, plantar fascia and Achilles tendon insertion sites. Dictated by: Lawson Munoz M.D. on 02/07/2020 at 17:08 Approved by: Lawson Munoz M.D. on 02/07/2020 at 17:10
== END ==
PROVIDERS: PCP Family Medicine; Referring Provider Family Medicine; Visit Provider Family Medicine
DX: M25.572 Pain in left ankle and joints of left foot (principal)
CPT/HCPCS: 73610

== ENCOUNTER → 2020-02-29 15:10 | Outpatient (CLI) | payer MEDICARE, OTHER, SELFPAY ==
[2020-02-29 16:54] LABS: BUN Creatinine Ratio 21.9 (6-22); Blood Urea Nitrogen 25 mg/dL (7-17); C-Reactive Protein Quant 0.8 mg/dL (<1.0); Calcium 9.4 mg/dL (8.4-10.2); Carbon Dioxide 28 mmol/L (22-32); Chloride 101 mmol/L (98-107); Estimated Glomerular Filt Rate 46.3 mL/min (>60); Glucose 83 mg/dL (80-110); HEMOLYSIS < 15 (0-50); Potassium 5.2 mmol/L (3.4-5.1); Sodium 137 mmol/L (137-145)
== END ==
PROVIDERS: PCP Family Medicine; Referring Provider Family Medicine; Visit Provider Family Medicine
DX: M10.9 Gout, unspecified (principal)
CPT/HCPCS: 36415; 80048; 84550; 86140

== ENCOUNTER → 2020-04-14 10:03 | Outpatient (CLI) | payer MEDICARE, OTHER, SELFPAY ==
[2020-04-14 12:02] LABS: Uric Acid 8.5 mg/dL (2.5-6.2)
== END ==
PROVIDERS: PCP Family Medicine; Referring Provider Family Medicine; Visit Provider Family Medicine
DX: M10.9 Gout, unspecified (principal)
CPT/HCPCS: 36415; 84550

== ENCOUNTER → 2020-05-15 13:06 | Outpatient (CLI) | payer MEDICARE, OTHER, SELFPAY ==
[2020-05-15 14:42] LABS: Blood Urea Nitrogen 25 mg/dL (7-17); Calcium 8.9 mg/dL (8.4-10.2); Carbon Dioxide 28 mmol/L (22-32); Chloride 103 mmol/L (98-107); Estimated Glomerular Filt Rate 51.5 mL/min (>60); Glucose 142 mg/dL (80-110); HEMOLYSIS < 15 (0-50); Potassium 4.3 mmol/L (3.4-5.1); Sodium 137 mmol/L (137-145); Uric Acid 3.6 mg/dL (2.5-6.2)
== END ==
PROVIDERS: PCP Family Medicine; Referring Provider Family Medicine; Visit Provider Family Medicine
DX: M10.9 Gout, unspecified (principal); M25.572 Pain in left ankle and joints of left foot; N18.30 Chronic kidney disease, stage 3 unspecified
CPT/HCPCS: 36415; 80048; 84550

== ENCOUNTER → 2020-06-20 13:55 | Outpatient (CLI) | payer MEDICARE, OTHER, SELFPAY ==
--- NOTE | 2020-06-20 13:58 | DI.MG.S_ITS ---
BILATERAL DIGITAL SCREENING MAMMOGRAM 3D/2D WITH CAD: 06/20/2020 CLINICAL: Routine screening. Family history of breast cancer. Comparison is made to exams dated: 05/31/2019 mammogram, 11/24/2017 mammogram, 05/26/2017 mammogram, 05/16/2017 mammogram, and 09/01/2015 mammogram - [facility]. There are scattered fibroglandular elements in both breasts. Current study was also evaluated with a Computer Aided Detection (CAD) system. There are benign calcifications in both breasts. There also are benign vascular calcifications in both breasts. No significant masses, calcifications, or other findings are seen in either breast. There has been no significant interval change. IMPRESSION: BENIGN There is no mammographic evidence of malignancy. A 1 year screening mammogram is recommended. This exam was interpreted at Station ID: [id number]. NOTE: For mammograms, a report in lay terms will be sent to the patient. Approximately 15% of breast malignancies will not be visualized mammographically. In the management of a palpable breast mass, a negative mammogram must not discourage biopsy of a clinically suspicious lesion. Electronically Signed By: Camilo aguilar/burak:06/20/2020 14:28:15 letter sent: Normal Exam ACR BI-RADS Category 2: Benign Finding(s) 3342F
== END ==
PROVIDERS: PCP Family Medicine; Referring Provider Family Medicine; Visit Provider Family Medicine
DX: Z12.31 Encounter for screening mammogram for malignant neoplasm of breast (principal); Z80.3 Family history of malignant neoplasm of breast
CPT/HCPCS: 77063; 77067

== ENCOUNTER → 2020-06-21 10:27 | Outpatient (CLI) | payer MEDICARE, OTHER, SELFPAY ==
[2020-06-21 11:39] LABS: Hemoglobin A1C% w Est Avg Glu 5.9 % (4.0-6.0)
[2020-06-21 11:44] LABS: BUN Creatinine Ratio 20.8 (6-22); Blood Urea Nitrogen 25 mg/dL (7-17); Calcium 8.8 mg/dL (8.4-10.2); Carbon Dioxide 32 mmol/L (22-32); Chloride 103 mmol/L (98-107); Estimated Glomerular Filt Rate 43.7 mL/min (>60); Glucose 91 mg/dL (80-110); HEMOLYSIS < 15 (0-50); Potassium 3.9 mmol/L (3.4-5.1); Sodium 136 mmol/L (137-145); Uric Acid 7.1 mg/dL (2.5-6.2)
== END ==
PROVIDERS: PCP Family Medicine; Referring Provider Family Medicine; Visit Provider Family Medicine
DX: M10.372 Gout due to renal impairment, left ankle and foot (principal); E11.9 Type 2 diabetes mellitus without complications; N18.30 Chronic kidney disease, stage 3 unspecified
CPT/HCPCS: 36415; 80048; 83036; 84550

== ENCOUNTER → 2020-07-10 14:56 | Outpatient (CLI) | payer MEDICARE, OTHER, SELFPAY ==
--- NOTE | 2020-08-02 08:42 | P.HOLT.S_ITS ---
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 & Results Date Patient Seen: 07/10/20 Requesting provider: Anabell Marti Indication: Arrhythmia Duration of monitoring (days): 6 Diary information: There were 11 patient triggered events and 9 patient diary entries Patient triggered events were associated with (within 45 seconds) sinus rhythm, PVCs, PACs, and ventricular trigeminy Patient diary events were associated with (within 45 seconds) sinus rhythm, PVCs, PACs, and ventricular trigeminy Data: Minimum heart rate identified was 55 beats per minute at 07:24 on 07/12/2020 Maximum sinus heart rate was 112 beats per minute at 13:42 on 07/15/2020 Maximum overall heart rate was 140 beats per minute at 03:52 on during a 14 beat run of SVT/atrial tachycardia. Less than 1% of identified beats were supraventricular ectopic in origin Approximately 3.3% of identified beats were ventricular ectopic in origin which would make them occasional in frequency. This included a 2 minutes 22nd run of ventricular trigeminy and a 4.2nd run of ventricular bigeminy. There 15 runs of SVT/atrial tachycardia with the fastest being run noted above the longest lasting 16.6 seconds Impression: Patient with occasional PVCs including runs of ventricular trigeminy as above. Based on patient reported events and frequency of ectopic beats of ventricular source of patient's symptoms seems most likely No other significant dysrhythmias identified Clinical correlation suggested
== END ==
PROVIDERS: PCP Family Medicine; Referring Provider Family Medicine; Visit Provider Family Medicine
DX: I49.9 Cardiac arrhythmia, unspecified (principal)
CPT/HCPCS: 93242; 93244

== ENCOUNTER → 2020-07-26 12:29 | Outpatient (CLI) | payer MEDICARE, OTHER, SELFPAY ==
[2020-07-26 14:16] LABS: BUN Creatinine Ratio 23.5 (6-22); Blood Urea Nitrogen 23 mg/dL (7-17); Calcium 8.9 mg/dL (8.4-10.2); Carbon Dioxide 31 mmol/L (22-32); Chloride 104 mmol/L (98-107); Glucose 93 mg/dL (80-110); HEMOLYSIS < 15 (0-50); Potassium 4.4 mmol/L (3.4-5.1); Sodium 138 mmol/L (137-145)
[2020-07-26 14:19] LABS: NT-proBNP (BNP-Adult 18+) 274 pg/mL (<450)
== END ==
PROVIDERS: PCP Family Medicine; Referring Provider Family Medicine; Visit Provider Family Medicine
DX: I10 Essential (primary) hypertension (principal); R06.02 Shortness of breath; N18.30 Chronic kidney disease, stage 3 unspecified; R60.9 Edema, unspecified; M10.372 Gout due to renal impairment, left ankle and foot
CPT/HCPCS: 36415; 80048; 83880; 84550

== ENCOUNTER → 2020-08-28 13:39 | Outpatient (CLI) | payer MEDICARE, OTHER, SELFPAY ==
--- NOTE | 2020-08-28 13:41 | DI.ECHO.S_ITS ---
[facility] +---------+ : : [address] : [place] : : : : [id number] : : : : Phone: [phone] Echocardiogram Report + + :Name: JESUS VOSS Study Date: 08/28/2020 Height: 66 in : :[facility] ReadingLocation: Weight: 220 lb : : Gender: Female BSA: 2.1 m2 : :: 1945 Age: 75 yrs BP: 131/80 mmHg: :Reason For Study: WORSENING LOWER EXTREMITY EDEMA : :Ordering Physician: DAVID, : :SHADY Performed By: Cate Barger : :Referring: SHADY HERNANDEZ : + + Interpretation Summary The left ventricle is normal in size and wall thickness. Left ventricular systolic function appears normal without focal wall motion abnormalities. The ejection fraction is estimated to be 60-65%. Diastolic parameters suggest a relaxation abnormality of the left ventricle, consistent with probable normal filling pressures. The right ventricle is normal size. Right ventricular systolic function is at the lower limits of normal. Pulmonary artery pressures cannot be estimated because of the lack of a measurable TR jet velocity but the IVC suggests a CVP of around 3 mmHg. The left atrial size is normal. Right atrial size is normal. There is no significant valvular heart disease. The aortic root is normal size. Procedure: A two-dimensional transthoracic echocardiogram with color flow and Doppler was performed. The study quality was technically adequate. There is no prior echocardiogram noted for this patient. The patient was in sinus rhythm with heart rates between 71-85 bpm during the exam. Left Ventricle: The left ventricle is normal in size and wall thickness. Left ventricular systolic function appears normal without focal wall motion abnormalities. The ejection fraction is estimated to be 60-65%. Diastolic parameters suggest a relaxation abnormality of the left ventricle, consistent with probable normal filling pressures. Right Ventricle: The right ventricle is normal size. Right ventricular systolic function is at the lower limits of normal. Atria: The left atrial size is normal. Right atrial size is normal. There is no Doppler evidence for an interatrial shunt. Mitral Valve: The mitral valve is normal in structure and function. There is trace mitral regurgitation. Aortic Valve: The aortic valve is trileaflet. The aortic valve opens well. There is no aortic valve stenosis. No aortic regurgitation is present. Tricuspid Valve: The tricuspid valve leaflets are thin and pliable. Pulmonary artery pressures cannot be estimated because of the lack of a measurable TR jet velocity but the IVC suggests a CVP of around 3 mmHg. There is a trace or physiologic amount of tricuspid regurgitation. Pulmonic Valve: The pulmonic valve leaflets are thin and pliable; valve motion is normal. There is no pulmonic valvular regurgitation. There is no significant valvular heart disease. Great Vessels: The aortic root is normal size. The dimensions of the ascending aorta are normal. The IVC is of normal diameter and collapses greater than 50% with a sniff. This suggests a low right atrial pressure of 3 mm Hg. Pericardium/ Pleura There is no pericardial effusion. There is no pleural effusion. MMode/2D Measurements & Calculations LVIDd: 4.9 cm LVOT diam: 1.9 cm LVIDs: 3.2 cm Ao root diam: 2.8 cm FS: 35.9 % asc Aorta Diam: 3.2 cm EPSS: 0.73 cm Ao Arch Diam (Prox Trans): 2.8 cm IVSd: 0.92 cm LVPWd: 0.88 cm LV joel. diameter/BSA (cm/m^2): 2.4 LV sys. diameter/BSA (cm/m^2): 1.5 LA A2 area: 21.5 cm2 RA long axis: 4.4 cm LA A4 area: 17.0 cm2 RA area: 11.5 cm2 LA length (vol): 5.2 cm RA vol: 25.5 ml LA vol: 59.3 ml RA : 12.2 ml/m2 LA vol index: 28.5 ml/m2 IVC diam: 1.1 cm RVD1 (basal): 2.7 cm TAPSE: 1.7 cm Doppler Measurements & Calculations Ao V2 max: 133.8 cm/sec LVOT Max Ru: 99.5 cm/sec Ao V2 mean: 95.1 cm/sec LV V1 max P.0 mmHg Ao max P.2 mmHg LV V1 VTI: 17.9 cm Ao mean P.0 mmHg DYLAN(I,D): 2.1 cm2 Ao V2 VTI: 24.7 cm DYLAN(V,D): 2.2 cm2 sev ratio: 0.72 DYLAN indexed to BSA (cm^2/m^2): 1.0 MV E max ru: 88.8 cm/sec PA V2 max: 133.3 cm/sec MV A max ru: 100.3 cm/sec PA V2 mean: 95.3 cm/sec MV E/A: 0.89 PA mean P.0 mmHg Med Peak E' Ru: 8.1 cm/sec PA pr(Accel): 50.7 mmHg E/E' med: 10.9 Lat Peak E' Ru: 6.9 cm/sec E/E' lat: 12.9 E/e' average: 11.9 MV dec time: 0.24 sec SV(LVOT): 52.2 ml Reading Physician:03:07 PM
== END ==
PROVIDERS: PCP Family Medicine; Referring Provider Family Medicine; Visit Provider Family Medicine
DX: R60.0 Localized edema (principal); E11.22 Type 2 diabetes mellitus with diabetic chronic kidney disease; N18.31 Chronic kidney disease, stage 3a; I87.2 Venous insufficiency (chronic) (peripheral); I50.9 Heart failure, unspecified
CPT/HCPCS: 93306

== ENCOUNTER → 2020-10-30 15:57 | Outpatient (CLI) | payer MEDICARE, OTHER, SELFPAY ==
[2020-10-30 17:46] LABS: Alanine Aminotransferase 18 IU/L (<35); Albumin 4.2 g/dL (3.5-5.0); Albumin Globulin Ratio 1.4 (1.0-2.8); Alkaline Phosphatase 96 U/L (38-126); Aspartate Aminotransferase 24 IU/L (14-36); BUN Creatinine Ratio 17.9 (6-22); Bilirubin Total 0.3 mg/dL (0.2-1.3); Blood Urea Nitrogen 20 mg/dL (7-17); Calcium 9.4 mg/dL (8.4-10.2); Carbon Dioxide 30 mmol/L (22-32); Chloride 102 mmol/L (98-107); Estimated Glomerular Filt Rate 47.2 mL/min (>60); Globulin 2.9 g/dL (1.7-4.1); Glucose 107 mg/dL (80-110); HEMOLYSIS < 15 (0-50); Magnesium 1.9 mg/dL (1.6-2.3); Potassium 3.9 mmol/L (3.4-5.1); Sodium 140 mmol/L (137-145); Total Protein 7.1 g/dL (6.3-8.2); Uric Acid 7.5 mg/dL (2.5-6.2)
[2020-10-30 18:15] LABS: Hemoglobin A1C% w Est Avg Glu 6.1 % (4.0-6.0)
== END ==
PROVIDERS: PCP Family Medicine; Referring Provider Family Medicine; Visit Provider Acupuncturist
DX: E11.9 Type 2 diabetes mellitus without complications (principal); E66.9 Obesity, unspecified; G89.29 Other chronic pain; I10 Essential (primary) hypertension; I87.2 Venous insufficiency (chronic) (peripheral); M10.372 Gout due to renal impairment, left ankle and foot; M25.572 Pain in left ankle and joints of left foot; M79.605 Pain in left leg; N18.31 Chronic kidney disease, stage 3a
CPT/HCPCS: 36415; 80053; 83036; 83735; 84550

== ENCOUNTER → 2021-02-01 10:13 | Outpatient (CLI) | payer MEDICARE, OTHER, SELFPAY ==
[2021-02-01 12:20] LABS: BUN Creatinine Ratio 17.2 (6-22); Blood Urea Nitrogen 21 mg/dL (7-17); Calcium 9.3 mg/dL (8.4-10.2); Carbon Dioxide 27 mmol/L (22-32); Chloride 104 mmol/L (98-107); Estimated Glomerular Filt Rate 42.7 mL/min (>60); Glucose 92 mg/dL (80-110); HEMOLYSIS < 15 (0-50); Potassium 4.7 mmol/L (3.4-5.1); Sodium 139 mmol/L (137-145); Uric Acid 8.4 mg/dL (2.5-6.2)
== END ==
PROVIDERS: PCP Family Medicine; Referring Provider Family Medicine; Visit Provider Family Medicine
DX: I10 Essential (primary) hypertension (principal); M10.372 Gout due to renal impairment, left ankle and foot; N18.31 Chronic kidney disease, stage 3a
CPT/HCPCS: 36415; 80048; 84550

== ENCOUNTER → 2021-02-28 12:26 | Outpatient (CLI) | payer MEDICARE, OTHER, SELFPAY ==
[2021-02-28 13:03] LABS: BUN Creatinine Ratio 16.5 (6-22); Blood Urea Nitrogen 16 mg/dL (7-17); Calcium 9.2 mg/dL (8.4-10.2); Carbon Dioxide 30 mmol/L (22-32); Chloride 105 mmol/L (98-107); Estimated Glomerular Filt Rate 55.7 mL/min (>60); Glucose 87 mg/dL (80-110); HEMOLYSIS < 15 (0-50); Sodium 139 mmol/L (137-145); Uric Acid 6.6 mg/dL (2.5-6.2)
[2021-02-28 13:32] LABS: Hemoglobin A1C% w Est Avg Glu 5.9 % (4.0-6.0)
== END ==
PROVIDERS: PCP Family Medicine; Referring Provider Family Medicine; Visit Provider Family Medicine
DX: E11.9 Type 2 diabetes mellitus without complications (principal); E66.9 Obesity, unspecified; I10 Essential (primary) hypertension; M10.9 Gout, unspecified
CPT/HCPCS: 36415; 80048; 83036; 84550

== ENCOUNTER → 2021-04-05 10:00 | Outpatient (CLI) | payer MEDICARE, OTHER, SELFPAY ==
[2021-04-06 19:18] LABS: Fecal Immunochemical Test Negative (Negative)
== END ==
PROVIDERS: PCP Family Medicine; Referring Provider Family Medicine; Visit Provider Family Medicine
DX: Z12.11 Encounter for screening for malignant neoplasm of colon (principal)
CPT/HCPCS: 82274

== ENCOUNTER → 2021-09-14 10:36 | Outpatient (CLI) | payer MEDICARE, OTHER, SELFPAY ==
[2021-09-14 11:46] LABS: Hemoglobin A1C% w Est Avg Glu 5.8 % (4.0-6.0)
[2021-09-14 11:47] LABS: BUN Creatinine Ratio 16.3 (6-22); Blood Urea Nitrogen 17 mg/dL (7-17); Cholesterol 129 mg/dL (140-199); Estimated Glomerular Filt Rate 51.3 mL/min (>60); HDL Cholesterol 51 mg/dL (40-60); LDL Cholesterol Calculated 63 mg/dL (<100); Triglycerides 73 mg/dL (35-150)
[2021-09-14 12:07] LABS: Creatinine Urine Random 115.5 mg/dL
[2021-09-14 12:12] LABS: Microalbumin Urine Random 5.9 mg/dL (0-1.6)
== END ==
PROVIDERS: PCP Family Medicine; Referring Provider Family Medicine; Visit Provider Family Medicine
DX: E11.9 Type 2 diabetes mellitus without complications (principal); I10 Essential (primary) hypertension
CPT/HCPCS: 36415; 80061; 82043; 82565; 82570; 83036; 84520

== ENCOUNTER → 2021-12-31 16:20 | Outpatient (CLI) | payer MEDICARE, OTHER, SELFPAY ==
--- NOTE | 2021-12-31 16:22 | DI.RAD.S_ITS ---
PROCEDURE: XR HAND RT MIN 3V INDICATIONS: bilateral hand pain TECHNIQUE: 3 views of the hand(s) acquired. COMPARISON: [facility], CR, XR HAND LT MIN 3V, 12/31/2021, 17:11. FINDINGS: Bones: No fractures or dislocations. Carpal bones are normally aligned. No suspicious bony lesions. Polyarticular joint space narrowing with periarticular osteophyte formation, most notably and severe involving the 1st CMC joint. Juxta-articular lucencies involve multiple interphalangeal joints. Soft tissues: No suspicious soft tissue calcifications. IMPRESSION: Diffuse joint degeneration and multiple juxta-articular lucencies involving several interphalangeal joints consistent with subchondral cystic change versus bony erosions. Inflammatory arthropathy cannot be excluded. Dictated by: Reginald Kiser [facility] Interpreted: Martin Shelton MD on 12/31/2021 at 16:48 Transcribed by: ANABELLE on 12/31/2021 at 16:48 Approved by: Martin Shelton M.D. on 12/31/2021 at 16:56
--- NOTE | 2021-12-31 16:22 | DI.RAD.S_ITS ---
PROCEDURE: XR HAND LT MIN 3V INDICATIONS: bilateral hand pain TECHNIQUE: 3 views of the hand(s) acquired. COMPARISON: None. FINDINGS: Bones: No fractures or dislocations. Carpal bones are normally aligned. No suspicious bony lesions. Polyarticular joint space narrowing with periarticular osteophyte formation, most notably involving the 1st CMC joint as well as the 2nd through 5th DIP joints. Juxta-articular lucencies involve the 1st interphalangeal joint as well as multiple interphalangeal joints. Soft tissues: No suspicious soft tissue calcifications. IMPRESSION: 1. Diffuse joint degeneration and multiple juxta-articular lucencies consistent with subchondral cystic change versus bony erosions. Dictated by: Reginald Kiser [facility] Interpreted: Martin Shelton MD on 12/31/2021 at 16:44 Transcribed by: ANABELLE on 12/31/2021 at 16:44 Approved by: Martin Shelton M.D. on 12/31/2021 at 16:56
== END ==
PROVIDERS: PCP Pediatrics; Referring Provider Family Medicine; Visit Provider Family Medicine
DX: M19.042 Primary osteoarthritis, left hand (principal); M19.041 Primary osteoarthritis, right hand; M79.641 Pain in right hand; M79.642 Pain in left hand; R21 Rash and other nonspecific skin eruption
CPT/HCPCS: 73130

== ENCOUNTER → 2022-09-28 11:20 | Outpatient (CLI) | payer MEDICARE, OTHER, SELFPAY ==
[2022-09-28 12:51] LABS: Alanine Aminotransferase 20 IU/L (<35); Albumin 4.1 g/dL (3.5-5.0); Albumin Globulin Ratio 1.4 (1.0-2.8); Alkaline Phosphatase 101 U/L (38-126); Aspartate Aminotransferase 21 IU/L (14-36); BUN Creatinine Ratio 17.3 (6-22); Bilirubin Total 0.6 mg/dL (0.2-1.3); Blood Urea Nitrogen 17 mg/dL (7-17); Calcium 8.7 mg/dL (8.4-10.2); Carbon Dioxide 26 mmol/L (22-32); Chloride 108 mmol/L (98-107); Cholesterol 135 mg/dL (140-199); Estimated Glomerular Filt Rate 59 mL/min (>60); Globulin 2.9 g/dL (1.7-4.1); Glucose 101 mg/dL (80-110); HDL Cholesterol 39 mg/dL (40-60); HEMOLYSIS < 15 (0-50); LDL Cholesterol Calculated 78 mg/dL (<100); Potassium 4.3 mmol/L (3.4-5.1); Sodium 140 mmol/L (137-145); Triglycerides 89 mg/dL (35-150)
[2022-09-29 07:50] LABS: x Labcorp Estim. Avg Glu (eAG) 128 mg/dL (.); x Labcorp Hemoglobin A1c 6.1 % (4.8-5.6)
== END ==
PROVIDERS: PCP Family Medicine; Referring Provider Family Medicine; Visit Provider Family Medicine
DX: Z00.00 Encounter for general adult medical examination without abnormal findings (principal)
CPT/HCPCS: 36415; 80053; 80061; 83036

== ENCOUNTER → 2023-04-25 10:26 | Outpatient (CLI) | payer MEDICARE, OTHER, SELFPAY ==
[2023-04-25 10:48] LABS: Add Manual Diff / Slide Review NO; Basophils Absolute Auto 0 /uL (0-100); Basophils Percent Auto 0.4 % (0-2); Eosinophils Absolute Auto 200 /uL (0-450); Eosinophils Percent Auto 2.4 % (2-4); Hematocrit 38.4 % (36-46); Hemoglobin 12.6 g/dL (12.0-16.0); Lymphocytes Absolute Auto 1300 /uL (1100-4500); Lymphocytes Percent Auto 15.3 % (25-40); Mean Corpuscular HGB Conc 32.7 % (30-36); Mean Corpuscular Hemoglobin 28.9 PG (26-34); Mean Corpuscular Volume 88.4 fL (80-100); Monocytes Absolute Auto 700 /uL (0-900); Monocytes Percent Auto 8.5 % (3-14); Neutrophils Absolute Auto 6000 /uL (1500-7000); Neutrophils Percent Auto 73.4 % (50-75); Platelet Count 199 X10^3/uL (150-400); Red Blood Cell Count 4.35 X10^6/uL (4.0-5.2); Red Cell Distribution Width 14.6 % (11.6-14.8); White Blood Cell Count 8.2 X10^3/uL (4.5-11.0)
[2023-04-25 11:07] LABS: Alanine Aminotransferase 21 IU/L (<35); Albumin 4.1 g/dL (3.5-5.0); Albumin Globulin Ratio 1.3 (1.0-2.8); Alkaline Phosphatase 84 U/L (38-126); Aspartate Aminotransferase 26 IU/L (14-36); BUN Creatinine Ratio 14.3 (6-22); Bilirubin Total 0.7 mg/dL (0.2-1.3); Blood Urea Nitrogen 15 mg/dL (7-17); Calcium 9.3 mg/dL (8.4-10.2); Carbon Dioxide 26 mmol/L (22-32); Chloride 103 mmol/L (98-107); Cholesterol 144 mg/dL (140-199); Estimated Glomerular Filt Rate 54 mL/min (>60); Globulin 3.2 g/dL (1.7-4.1); Glucose 97 mg/dL (80-110); HDL Cholesterol 46 mg/dL (40-60); LDL Cholesterol Calculated 72 mg/dL (<100); Potassium 4.3 mmol/L (3.4-5.1); Sodium 138 mmol/L (137-145); Total Protein 7.3 g/dL (6.3-8.2); Triglycerides 131 mg/dL (35-150)
[2023-04-25 11:10] LABS: High Sensitivity CRP - Cardiac 4.3 mg/L (1.0-3.0)
[2023-04-25 11:11] LABS: HEMOLYSIS 67 (0-50)
== END ==
PROVIDERS: PCP Family Medicine; Referring Provider Family Medicine; Visit Provider Family Medicine
DX: I10 Essential (primary) hypertension (principal); E78.5 Hyperlipidemia, unspecified; E11.9 Type 2 diabetes mellitus without complications; N18.31 Chronic kidney disease, stage 3a; K75.4 Autoimmune hepatitis; E66.9 Obesity, unspecified
CPT/HCPCS: 36415; 80053; 80061; 85025; 86140

== ENCOUNTER → 2023-07-14 09:48 | Outpatient (CLI) | payer MEDICARE, OTHER, SELFPAY ==
[2023-07-14 16:10] LABS: Occult Blood 1 Negative (Negative); Occult Blood 2 Negative (Negative)
[2023-07-14 16:11] LABS: Occult Blood 3 Negative (Negative)
== END ==
LOC: LAB 09:51
PROVIDERS: PCP Family Medicine; Referring Provider Internal Medicine Gastroenterology; Visit Provider Internal Medicine Gastroenterology
DX: K62.5 Hemorrhage of anus and rectum (principal); K64.9 Unspecified hemorrhoids
CPT/HCPCS: 82270

== ENCOUNTER → 2023-08-26 14:27 | Outpatient (CLI) | payer MEDICARE, OTHER, SELFPAY ==
[2023-08-26 15:20] LABS: Hemoglobin A1C% w Est Avg Glu 5.6 % (4.0-6.0)
[2023-08-28 17:39] LABS: Creatinine Urine Random 95.8 mg/dL
[2023-08-28 17:41] LABS: Microalbumi Creatinin Ratio Ur 8.3 ug/mg CR (<30); Microalbumin Urine Random 0.8 mg/dL (0-1.6)
== END ==
PROVIDERS: PCP Family Medicine; Referring Provider Family Medicine; Visit Provider Family Medicine
DX: E11.9 Type 2 diabetes mellitus without complications (principal); I10 Essential (primary) hypertension; N18.31 Chronic kidney disease, stage 3a
CPT/HCPCS: 36415; 82043; 82570; 83036

== ENCOUNTER → 2024-03-03 11:12 | Outpatient (CLI) | payer MEDICARE, OTHER, SELFPAY ==
[2024-03-03 13:23] LABS: Hemoglobin A1C% w Est Avg Glu 5.8 % (4.0-6.0)
[2024-03-03 13:37] LABS: Alanine Aminotransferase 21 IU/L (<35); Albumin 3.9 g/dL (3.5-5.0); Albumin Globulin Ratio 1.3 (1.0-2.8); Alkaline Phosphatase 98 U/L (38-126); Aspartate Aminotransferase 26 IU/L (14-36); BUN Creatinine Ratio 18.3 (6-22); Bilirubin Total 0.5 mg/dL (0.2-1.3); Blood Urea Nitrogen 20 mg/dL (7-17); Carbon Dioxide 24 mmol/L (22-32); Chloride 107 mmol/L (98-107); Estimated Glomerular Filt Rate 51 mL/min (>60); Globulin 3.1 g/dL (1.7-4.1); Glucose 98 mg/dL (80-110); HEMOLYSIS 16 (0-50); Sodium 139 mmol/L (137-145)
== END ==
PROVIDERS: PCP Family Medicine; Referring Provider Family Medicine; Visit Provider Family Medicine
DX: E11.9 Type 2 diabetes mellitus without complications (principal); E78.5 Hyperlipidemia, unspecified; N18.31 Chronic kidney disease, stage 3a; I12.9 Hypertensive chronic kidney disease with stage 1 through stage 4 chronic kidney disease, or unspecified chronic kidney disease
CPT/HCPCS: 36415; 80053; 83036

== ENCOUNTER → 2024-10-08 10:58 | Outpatient (CLI) | payer MEDICARE, OTHER, SELFPAY ==
[2024-10-08 12:33] LABS: Add Manual Diff / Slide Review NO; Basophils Absolute Auto 100 /uL (0-100); Basophils Percent Auto 0.9 % (0-2); Eosinophils Absolute Auto 200 /uL (0-450); Hematocrit 36.9 % (36-46); Hemoglobin 12.2 g/dL (12.0-16.0); Lymphocytes Absolute Auto 1300 /uL (1100-4500); Lymphocytes Percent Auto 17.1 % (25-40); Mean Corpuscular HGB Conc 33.1 % (30-36); Mean Corpuscular Hemoglobin 29.3 PG (26-34); Mean Corpuscular Volume 88.4 fL (80-100); Monocytes Absolute Auto 700 /uL (0-900); Monocytes Percent Auto 10.1 % (3-14); Neutrophils Absolute Auto 5000 /uL (1500-7000); Neutrophils Percent Auto 68.9 % (50-75); Platelet Count 192 X10^3/uL (150-400); Red Blood Cell Count 4.18 X10^6/uL (4.0-5.2); Red Cell Distribution Width 14.2 % (11.6-14.8); White Blood Cell Count 7.3 X10^3/uL (4.5-11.0)
[2024-10-08 12:58] LABS: Cholesterol 141 mg/dL (140-199); HDL Cholesterol 45 mg/dL (40-60); HEMOLYSIS < 15 (0-50); Iron 65 ug/dL (37-170); LDL Cholesterol Calculated 79 mg/dL (<100); Triglycerides 87 mg/dL (35-150)
[2024-10-08 13:08] LABS: Percent Iron Saturation 19 % (15-50); Total Iron Binding Capacity 337 ug/dL (265-497); Transferrin 275 mg/dL (206-381)
[2024-10-08 13:32] LABS: Ferritin 43 ng/mL (11-264)
== END ==
PROVIDERS: PCP Family Medicine; Referring Provider Family Medicine; Visit Provider Family Medicine
DX: E78.5 Hyperlipidemia, unspecified (principal); R23.3 Spontaneous ecchymoses; L60.3 Nail dystrophy
CPT/HCPCS: 36415; 80061; 82728; 83540; 83550; 85025

== ENCOUNTER → 2024-10-12 14:54 | Outpatient (CLI) | payer MEDICARE, OTHER, SELFPAY ==
[2024-10-12 16:00] LABS: Hemoglobin A1C% w Est Avg Glu 5.7 % (4.0-6.0)
[2024-10-12 16:18] LABS: Alanine Aminotransferase 20 IU/L (<35); Albumin 4.1 g/dL (3.5-5.0); Albumin Globulin Ratio 1.7 (1.0-2.8); Alkaline Phosphatase 91 U/L (38-126); Aspartate Aminotransferase 26 IU/L (14-36); BUN Creatinine Ratio 14.9 (6-22); Bilirubin Total 0.5 mg/dL (0.2-1.3); Blood Urea Nitrogen 18 mg/dL (7-17); Calcium 9.1 mg/dL (8.4-10.2); Carbon Dioxide 26 mmol/L (22-32); Chloride 107 mmol/L (98-107); Estimated Glomerular Filt Rate 45 mL/min (>60); Globulin 2.4 g/dL (1.7-4.1); Glucose 85 mg/dL (70-99); HEMOLYSIS < 15 (0-50); Potassium 4.2 mmol/L (3.4-5.1); Sodium 141 mmol/L (137-145); Total Protein 6.5 g/dL (6.3-8.2)
== END ==
PROVIDERS: PCP Family Medicine; Referring Provider Family Medicine; Visit Provider Family Medicine
DX: E11.9 Type 2 diabetes mellitus without complications (principal); I11.0 Hypertensive heart disease with heart failure; I50.30 Unspecified diastolic (congestive) heart failure; E78.5 Hyperlipidemia, unspecified
CPT/HCPCS: 36415; 80053; 83036

== ENCOUNTER → 2025-04-05 10:48 | Outpatient (CLI) | payer MEDICARE, OTHER, SELFPAY ==
[2025-04-05 12:01] LABS: Alanine Aminotransferase 18 IU/L (<35); Albumin 4.3 g/dL (3.5-5.0); Albumin Globulin Ratio 1.5 (1.0-2.8); Alkaline Phosphatase 109 U/L (38-126); Blood Urea Nitrogen 22 mg/dL (7-17); Calcium 9.2 mg/dL (8.4-10.2); Carbon Dioxide 26 mmol/L (22-32); Chloride 105 mmol/L (98-107); Estimated Glomerular Filt Rate 39 mL/min (>60); Globulin 2.8 g/dL (1.7-4.1); Glucose 103 mg/dL (70-99); HEMOLYSIS < 15 (0-50); Hemoglobin A1C% w Est Avg Glu 5.7 % (4.0-6.0); Potassium 4.6 mmol/L (3.4-5.1); Sodium 139 mmol/L (137-145); Total Protein 7.1 g/dL (6.3-8.2)
== END ==
PROVIDERS: PCP Family Medicine; Referring Provider Family Medicine; Visit Provider Family Medicine
DX: E11.9 Type 2 diabetes mellitus without complications (principal); I50.30 Unspecified diastolic (congestive) heart failure; E78.5 Hyperlipidemia, unspecified; I10 Essential (primary) hypertension
CPT/HCPCS: 36415; 80053; 83036